=== PATIENT | male | born 1970 | race Two or more races ===

== ENCOUNTER 2020-09-24 22:43 | Emergency (ER) | payer MEDICAID, SELFPAY ==
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
[2020-09-24 23:16] VITALS: BP 123/88; PULSE 91; RESP 17; TEMP 36.4; O2SAT 97; BMI 35.6
--- NOTE | 2020-09-24 23:30 | PC.NURSE ---
ICE PACK APPLIED TO LEFT EAR.
== END 2020-09-25 00:16 | disposition home or self-care (01) ==
PROVIDERS: Emergency Provider Internal Medicine
DX: S00.402A Unspecified superficial injury of left ear, initial encounter (principal); H92.02 Otalgia, left ear; X99.1XXA Assault by knife, initial encounter; Y93.9 Activity, unspecified; Y92.410 Unspecified street and highway as the place of occurrence of the external cause; Y99.9 Unspecified external cause status; Z79.899 Other long term (current) drug therapy; Z23 Encounter for immunization
CPT/HCPCS: 70450; 72125; 90471; 90715; 99284

== ENCOUNTER 2022-03-04 21:47 | Emergency (ER) | payer MEDICAID, SELFPAY ==
--- NOTE | ~2022-03-04 | XR_ITS ---
EXAMINATION: XR FINGER, LEFT CLINICAL INFORMATION: This is a 51-year-old male status post staple into the finger. COMPARISON: None TECHNIQUE: Three views of the left fourth digit. FINDINGS: There is a metallic cyst able which traverses the lateral soft tissues adjacent to the distal phalanx of the fourth digit. The metallic staple may penetrate a portion of the distal tuft bone of the fourth digit. No fracture or dislocation is seen. There is a ring surrounding the proximal phalanx of the fourth digit. XR/XR finger LT min 2V IMPRESSION: 1. The staple may traverse a portion of the distal tuft of the distal phalanx of the fourth digit on the left hand.
--- NOTE | ~2022-03-04 | XR_ITS ---
EXAMINATION: XR FINGER, LEFT CLINICAL INFORMATION: Status post removal of staple from left fourth digit COMPARISON: Radiographs 03/04/2022 10:13 PM TECHNIQUE: 3 views of the left fourth digit. FINDINGS: The previously seen stable is no longer present a tiny osseous density is seen on the medial aspect of the distal middle phalanx, unchanged from prior. No fracture is seen at the previous location of the staple. XR/XR finger LT min 2V IMPRESSION: Foreign body is no longer present. No acute fracture.
[2022-03-04 21:57] VITALS: BP 171/109; PULSE 76; RESP 18; TEMP 36.1; O2SAT 97; BMI 36.1
[2022-03-04] MEDS: Lidocaine HCl 1 % MPF 2 ML VIAL INFILTRATI (23:41)
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
[2022-03-05] MEDS: cephALEXin 500 MG CAPSULE PO (00:25)
[2022-03-05 00:51] VITALS: BP 136/89; PULSE 89; RESP 18; TEMP 36.8; O2SAT 98
== END 2022-03-05 00:53 | disposition home or self-care (01) ==
PROVIDERS: Emergency Provider Internal Medicine
DX: S61.245A Puncture wound with foreign body of left ring finger without damage to nail, initial encounter (principal); W45.8XXA Other foreign body or object entering through skin, initial encounter; Y93.89 Activity, other specified; Y92.9 Unspecified place or not applicable; Y99.9 Unspecified external cause status
CPT/HCPCS: 64450; 73140; 99284

== ENCOUNTER 2023-02-21 14:19 | Outpatient (AMB) | payer MEDICAID, SELFPAY ==
--- NOTE | 2023-02-21 14:37 | A.OFFVIS_ITS ---
Intake Intake Visit Reasons: Erectile dysfunction Intake Note: New Patient is present for Erectile Dysfunction Current Med: Sildenafil Antibiotic Allergy: None Blood Thinner: None Pharmacy: [facility] Allergies bupropion Allergy (Mild, Verified 02/21/23 14:38) Unknown pravastatin Allergy (Mild, Verified 02/21/23 14:38) Unknown tramadol Allergy (Mild, Verified 02/21/23 14:38) Unknown aspirin Allergy (Unknown, Uncoded 02/21/23 14:38) Swelling Medication List - Last Reconciled 04/10/23 by Marin Kimball MD amlodipine 5 mg PO QAM blood sugar diagnostic (FreeStyle Lite Strips) As directed cephalexin 500 mg PO QID 7 days dulaglutide (Trulicity) mg subcut QWEEK lancets (TRUEplus Lancets) As directed oxycodone 5 mg PO Q6H PRN sildenafil (Viagra) 50 - 100 mg PO DIRECTED HPI HPI Comments History of Present Illness Details Gilbert is a pleasant male. He is a patient of Dr Lockett. He seen for the following urologic conditions - erectile dysfunction Erectile dysfunction in setting of type 2 diabetes Progressive Recently had Viagra prescribed Will trial Four month follow-up [facility] Medical History Acute insomnia CTS (carpal tunnel syndrome) Depressive disorder Diabetes mellitus, type II Erectile dysfunction GERD (gastroesophageal reflux disease) HTN (hypertension) Obesity Social History Alcohol intake: former Review of Systems Const Denies chills and Denies fever(s) Card Reports no additional complaints and Denies syncope Resp Denies cough GI Denies abdominal pain and Denies heartburn Reports as per HPI and Denies change in libido Neuro Denies syncope Psych Denies change in libido Endo Denies change in libido Physical Exam Const General: cooperative, healthy appearing, comfortable and no acute distress Orientation/consciousness: patient oriented x3 HEENT Face and sinus: Yes normal facial exam Mouth: moist mucous membranes Neck Neck: Yes normal visual inspection, Yes full ROM and Yes trachea midline Chest Chest palpation & inspection: normal inspection of the chest Resp Effort & Inspection: normal respiratory effort, able to speak in complete sentences and no respiratory distress GI Inspection: Yes normal to inspection Back/Spine/Pelvis Cervical Spine: normal cervical lordosis Thoracic/Lumbar Spine: thoracic and lumbar spine normal to inspection Skin General skin exam: no rashes or lesions noted Neuro General: patient oriented x3, gait normal, tone normal and moves all extremities Extrem General: Yes normal to inspection and Yes capillary refill normal Assessment & Plan Assessment & Plan (1) Erectile dysfunction associated with type 2 diabetes mellitus: Code(s): E11.69 - Type 2 diabetes mellitus with other specified complication; N52.1 - Erectile dysfunction due to diseases classified elsewhere Plan Four month follow-up Patient Instructions: Imaging studies, laboratory and physical exam results were discussed and reviewed in detail. No major barriers to patient understanding were identified. An opportunity to ask questions regarding the treatment plan was provided. All questions were answered. The patient expressed understanding and agreement with the above treatment plan. The patient is aware they should contact our office by phone for worsening of their current condition or the appearance of new urologic symptoms. Compliance is encouraged with any medications and followup testing that is ordered. It is a privilege to participate in the urologic care of your patient. If you have any questions or concerns regarding treatment for the above conditions, or other urologic issues, please do not hesitate to contact me. The office telephone contact is [phone]. This note is constructed using voice recognition software. While every effort has been made to ensure accuracy credit resolution representative errors may have been included. Yours sincerely, Dr Marin Kimball MD, [facility] - Urology Providers of Expert, Compassionate Care for the Genitourinary System Coding Level of Care Code New Pt Level 3 (15262) Diagnoses Erectile dysfunction associated with type 2 diabetes mellitus E11.69; N52.1
== END 2023-02-21 15:15 | disposition home or self-care (01) ==
PROVIDERS: Visit Provider Urology
DX: E11.69 Type 2 diabetes mellitus with other specified complication (principal); N52.1 Erectile dysfunction due to diseases classified elsewhere
CPT/HCPCS: 99203

== ENCOUNTER → 2023-02-21 14:19 | Outpatient (BNVA) | payer MEDICAID, SELFPAY | PROVIDERS: Visit Provider Urology ==

== ENCOUNTER 2023-05-15 10:00 | Outpatient (RCR) | payer MEDICAID, SELFPAY ==
--- NOTE | 2023-03-27 13:39 | MHC.OT.OEV ---
[address] [phone] F: [phone] Occupational Therapy Evaluation Patient Name: Gilbert Seth Diagnosis: Bilateral Carpal Tunnel Syndrome Date of Onset: Date of Surgery: Attending Provider: Karo Lockett Prescribed Treatment: Eval and treat MD Follow Up Appointment: History of Current Condition: Pt reports a long history of bilateral carpal tunnel symptoms. He has night wrist splints he does not wear , his son uses them on the computer. EMG not available. Significant Medical History: IDDM CTS bilateral hands Back pain. 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 17 yo son home Current Level of Function and Occupation Self Care, Employment, Leisure: Indep . Pain with forceful gripping and pinching. 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 achy. right > left hand Aggravating Factors: Sleeping, gripping Alleviating Factors: Cold Skin and Soft Tissue Assessment Skin and Soft Tissue: Callus Comments: Bilateral hands , digits and palm with dry, stained cracked skin along lateral index fingers, digits and palms. Nerve assessment Ulnar Nerve: WFL Median Nerve: WFL Radial Nerve: Comments: Reports pain with MMT Sensory Assessment Temperature: Light Touch: B/L Impaired Proprioception: Vibration: Comments: Impaired light touch with [place] monofilaments D1-5 bilateral hands. Hx IDDM Edema Assessment Upper Extremity: WNL Lower Extremity: Comments: Dexterity Assessment Dexterity: Not Tested Comments: Special Tests Comments: AROM(PROM) Strength Cervical Cervical Flexion: Cervical Extension: Cervical Lateral Flexion: Cervical Rotation: Comments: Shoulder Flexion: Extension: Abduction: Internal Rotation: External Rotation: Comments: Flexion: Extension: Abduction: Internal Rotation: External Rotation: Comments: Elbow Flexion: Extension: Pronation: Supination: Comments: Flexion: Extension: Pronation: Supination: Comments: Wrist Flexion: Extension: Ulnar Deviation: Radial Deviation: Comments: WFL. Complaint of pain at end ranges Flexion: Extension: Ulnar Deviation: Radial Deviation: Comments: Thumb Thumb CMC Flexion: Thumb MCP Flexion: Thumb IP Flexion: Radial Abduction: Palmar Abduction: Samson (Kapandji 0-10): Comments: WFL Digits Index MCP: PIP: DIP: Long MCP: PIP: DIP: Ring MCP: PIP: DIP: Small MCP: PIP: DIP: Comments: WNL Gross Grasp: R 50 lb L 50 lb Lateral Pinch: R 7 lb L 17 lb Two-Point Pinch: R 14 lb L 12 lb Three-Jaw Jesus: R 17 lb L 17 lb Comments: Complaint of pain at wrist and forearms with testing Patient Education Primary Language: Rod Filler Required: Yes Current Knowledge: Minimal, needs reinforcement Teaching Method: Demonstration Handouts Verbal Education Needs Identified on Evaluation: ADL's Disease Information Exercise Pain How did patient/family demonstrate learning? Needs reinforcement Barriers to Learning: None Readiness for Learning: Accepting Who was educated? Patient Comments: Plan of Care Assessment: Pt is a 52 yo male with a long ho bilateral CTS sx . Pt was issued night wrist splint but has not worn. He reports worsening of symptoms over the past several months. 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 until his symptoms improve Pt will benefit from OT to address CTS Sx STG Duration: 2 wks Short Term Goals: Demo compliance with CTS precautions Demo compliance with night wrist splints Demo indep with HEP Report improving UE pain LTG Duration: 4 wks Filenet Developer Goals: Indep with self management of CTS Report decreased hand pain Report increase ease with daily activities Frequency and Duration: The patient will be seen 2 x wk x 4 wks Treatment Plan: Therapeutic Exercise Therapeutic Activity Home Exercise Program Splinting Patient Education Ultrasound Cold Packs Soft Tissue Mobilization Electronically Signed By: Katie Multani OT CHT CLT Reviewed/agree with student documentation: Therapist: Please sign and return to therapist, Thank you for your referral.
--- NOTE | 2023-05-15 11:03 | MHC.OT.DC ---
[address] [phone] F: [phone] Occupational Therapy Discharge Note Patient Name: Gilbert Lindsay Seth Provider: Karo Lockett Diagnosis: Bilateral Carpal Tunnel Syndrome Date of Surgery: Date of Evaluation: 03/27/23 Date of Discharge: 05/15/23 Treatments to Date: 10 Cancellations to Date: No Shows to Date: Discharge Status: Recommend MD Follow-up Discharge Summary: Pt seen for 10 visits for sx of wrist and hand pain, elbow pain ,lateral and medial aspects with bilateral ulnar nerve subluxation with elbow flexion ~ 90 deg. He denies radial hand paresthesia There has been a significant decrease in right ulnar hand edema and reports some improvement in hand and forearm pain . Extensive time spent in pt education and practice on upper body stretches, tendon glides, modified nerve glides to avoid nerve subluxation and education on protection techniques for elbows and wrist and rational for night orthoses for nerve protection. Pt reports unable to orthoses due to need to sleep in his right hand. 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 Continued complaint of pain with wrist AROM and sub max elbow ROM . Unable to progress therapeutic exercises due to complaint of worsening pain. 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
== END 2023-05-15 11:03 | disposition home or self-care (01) ==
LOC: HO.OT 10:00
PROVIDERS: PCP Registered Nurse; Visit Provider Registered Nurse
DX: G56.03 Carpal tunnel syndrome, bilateral upper limbs (principal)
CPT/HCPCS: 29125; 97033; 97035; 97110; 97140; 97166; 97535; 97760

== ENCOUNTER 2023-05-28 11:34 | Outpatient (REF) | payer MEDICAID, SELFPAY ==
[2023-05-28 13:19] LABS: MANUAL DIFF FLAG NO
[2023-05-28 13:43] LABS: Basophils Absolute Auto 0.1 X10*3/uL (0.0-0.2); Basophils Percent Auto 0.8 % (0-2); Eosinophils Absolute Auto 0.7 X10*3/uL (0.0-0.4); Eosinophils Percent Auto 8.4 % (0-4); Hematocrit 45.1 % (42.0-52.0); Hemoglobin 14.6 g/dl (14.0-18.0); Imm Gran Abs Auto 0.03 X10*3/uL (0.00-0.03); Imm Gran Pct Auto 0.4 % (0.0-0.4); Lymphocytes Absolute Auto 3.2 X10*3/uL (1.2-4.9); Lymphocytes Percent Auto 41.2 % (20-40); Mean Corpuscular HGB Conc 32.4 g/dl (31.0-36.0); Mean Corpuscular Hemoglobin 31.2 pg (27.0-33.0); Mean Corpuscular Volume 96.4 fL (80.0-98.0); Mean Platelet Volume 10.5 fL (9.4-12.4); Monocytes Absolute Auto 0.6 X10*3/uL (0.1-1.2); Monocytes Percent Auto 7.3 % (2-11); Neutrophils Absolute Auto 3.2 x10*3/uL (2.0-8.3); Neutrophils Percent Auto 41.9 % (45-73); Platelet Count 333 X10*3/uL (160-400); Red Blood Count 4.68 X10*6/uL (4.60-5.80); Red Cell Distribution Width 12.5 % (11.0-16.0); White Blood Count 7.7 X10*3/uL (4.8-10.8)
[2023-05-28 14:02] LABS: C Reactive Protein < 0.10 mg/dL (< or = 0.50)
[2023-05-28 14:09] LABS: Rheumatoid Factor < 13.0 IU/mL (<15.0)
[2023-05-28 14:20] LABS: Erythrocyte Sedimentation Rate 7 MM/HR (0-15)
[2023-05-29 22:24] LABS: Lyme Abs Screen <0.90 index
[2023-06-01 10:38] LABS: Anti Nuclear Antibody Screen NEGATIVE (NEGATIVE)
== END 2023-05-28 11:35 | disposition home or self-care (01) ==
LOC: HO.HHCL 11:34
PROVIDERS: Visit Provider Internal Medicine
DX: M77.11 Lateral epicondylitis, right elbow (principal); M77.12 Lateral epicondylitis, left elbow; M77.01 Medial epicondylitis, right elbow; G56.01 Carpal tunnel syndrome, right upper limb; M25.50 Pain in unspecified joint
CPT/HCPCS: 36415; 85025; 85652; 86038; 86140; 86431; 86617; 86618

== ENCOUNTER 2023-05-29 10:00 | Outpatient (REF) | payer MEDICAID, SELFPAY ==
--- NOTE | ~2023-05-29 | XR_ITS ---
EXAMINATION: XR SHOULDER, RIGHT CLINICAL INFORMATION: Right shoulder pain COMPARISON: None available. TECHNIQUE: AP external rotation, Grashey, scapular Y, and axillary views of the right shoulder. FINDINGS: The bones are intact. No fracture. Glenohumeral and acromioclavicular alignment is anatomic with normal glenohumeral joint space. Moderate degenerative change of the acromioclavicular joint. No abnormal soft tissue calcifications. XR/XR shoulder RT min 2V IMPRESSION: Moderate degenerative change of the acromioclavicular joint.
--- NOTE | ~2023-05-29 | XR_ITS ---
EXAMINATION: XR HAND, RIGHT CLINICAL INFORMATION: Carpal tunnel right wrist, arthralgia. Right hand pain and weakness COMPARISON: Right hand 07/18/2012 TECHNIQUE: PA, lateral, and oblique views of the right hand. FINDINGS: There is no fracture or dislocation. Alignment is anatomic. Joint spaces are maintained. No significant arthritic changes. XR/XR hand RT min 3V IMPRESSION: No significant bony abnormality.
--- NOTE | ~2023-05-29 | XR_ITS ---
EXAMINATION: XR CERVICAL SPINE CLINICAL INFORMATION: Right upper extremity pain/numbness radiculopathy. Right hand pain and weakness, right shoulder pain COMPARISON: None available. TECHNIQUE: 5 views of the cervical spine, inclusive of both obliques, were obtained. FINDINGS: The tip of the odontoid is obscured on the open-mouth view. There is no fracture. Prevertebral soft tissues are within normal limits. There is no significant disc space narrowing. There is mild retrolisthesis of C4 with respect to C5. The neural foramina are patent. XR/XR cervical spine 5V IMPRESSION: 1. No acute bony abnormality. 2. Mild retrolisthesis of C4 with respect to C5.
== END 2023-05-29 10:01 | disposition home or self-care (01) ==
LOC: HO.HHCX 10:00
PROVIDERS: Visit Provider Internal Medicine
DX: M19.011 Primary osteoarthritis, right shoulder (principal); M77.11 Lateral epicondylitis, right elbow; M77.12 Lateral epicondylitis, left elbow; G56.01 Carpal tunnel syndrome, right upper limb; M25.50 Pain in unspecified joint
CPT/HCPCS: 72050; 73030; 73130

== ENCOUNTER 2023-06-25 10:54 | Outpatient (AMB) | payer MEDICAID, SELFPAY ==
--- NOTE | 2023-06-25 11:16 | A.OFFVIS_ITS ---
Intake Intake Visit Reasons: 4m follow up(Erectile Dys) Intake Note: Patient is Present for Follow Up Urology Medication: Sildenafil Antibiotic Allergies: None Blood Thinners: none Allergies bupropion Allergy (Mild, Verified 02/21/23 14:38) Unknown pravastatin Allergy (Mild, Verified 02/21/23 14:38) Unknown tramadol Allergy (Mild, Verified 02/21/23 14:38) Unknown aspirin Allergy (Unknown, Uncoded 02/21/23 14:38) Swelling HPI HPI Comments History of Present Illness Details Gilbert is a pleasant male. He is a patient of Dr Lockett. He seen for the following urologic conditions - erectile dysfunction Azeri translation provided by partner Minimal impact from on demand Viagra Prescribed daily tadalafil with on demand 3 month follow-up tele Erectile dysfunction in setting of type 2 diabetes Progressive Failed Viagra on demand PFSH Medical History Acute insomnia CTS (carpal tunnel syndrome) Depressive disorder Diabetes mellitus, type II Erectile dysfunction GERD (gastroesophageal reflux disease) HTN (hypertension) Obesity Social History Alcohol intake: former Review of Systems Const Denies chills and Denies fever(s) Card Reports no additional complaints and Denies syncope Resp Denies cough GI Denies abdominal pain and Denies heartburn Reports as per HPI and Denies change in libido Neuro Denies syncope Psych Denies change in libido Endo Denies change in libido Physical Exam Const General: cooperative, healthy appearing, comfortable and no acute distress Orientation/consciousness: patient oriented x3 HEENT Face and sinus: Yes normal facial exam Mouth: moist mucous membranes Neck Neck: Yes normal visual inspection, Yes full ROM and Yes trachea midline Chest Chest palpation & inspection: normal inspection of the chest Resp Effort & Inspection: normal respiratory effort, able to speak in complete sentences and no respiratory distress GI Inspection: Yes normal to inspection Back/Spine/Pelvis Cervical Spine: normal cervical lordosis Thoracic/Lumbar Spine: thoracic and lumbar spine normal to inspection Skin General skin exam: no rashes or lesions noted Neuro General: patient oriented x3, gait normal, tone normal and moves all extremities Extrem General: Yes normal to inspection and Yes capillary refill normal Assessment & Plan Assessment & Plan (1) Erectile dysfunction associated with type 2 diabetes mellitus: Code(s): E11.69 - Type 2 diabetes mellitus with other specified complication; N52.1 - Erectile dysfunction due to diseases classified elsewhere Plan Three month follow-up Medications: New tadalafil [facility]LO[facility] N Group [facility] DR33 [id number] 5 mg PO DAILY 90 tabs 0RF sexual activity 90 days E11.69 - Type 2 diabetes mellitus with other specified complication, N52.1 - Erectile dys function due to diseases classified elsewhere tadalafil On demand medication take 60 minutes before intended activity 20 mg PO ONCE PRN 30 tabs 0RF sexual activity 30 days E11.69 - Type 2 diabetes mellitus with other specified complication, N52.1 - Erectile dysfunction due to diseases classified elsewhere Patient Instructions: Imaging studies, laboratory and physical exam results were discussed and reviewed in detail. No major barriers to patient understanding were identified. An opportunity to ask questions regarding the treatment plan was provided. All questions were answered. The patient expressed understanding and agreement with the above treatment plan. The patient is aware they should contact our office by phone for worsening of their current condition or the appearance of new urologic symptoms. Compliance is encouraged with any medications and followup testing that is ordered. It is a privilege to participate in the urologic care of your patient. If you have any questions or concerns regarding treatment for the above conditions, or other urologic issues, please do not hesitate to contact me. The office telephone contact is [phone]. This note is constructed using voice recognition software. While every effort has been made to ensure accuracy rebar bender errors may have been included. Yours sincerely, Dr Marin Kimball MD, [facility] - Urology Providers of Expert, Compassionate Care for the Genitourinary System Coding Level of Care Code Est Pt Level 4 (36251) Diagnoses Erectile dysfunction associated with type 2 diabetes mellitus E11.69; N52.1
== END 2023-06-25 12:16 | disposition home or self-care (01) ==
PROVIDERS: PCP Registered Nurse; Visit Provider Urology
DX: E11.69 Type 2 diabetes mellitus with other specified complication (principal); N52.1 Erectile dysfunction due to diseases classified elsewhere
CPT/HCPCS: 99214

== ENCOUNTER → 2023-06-25 10:54 | Outpatient (BNVA) | payer MEDICAID, SELFPAY | PROVIDERS: PCP Registered Nurse; Visit Provider Urology | DX: E11.69 Type 2 diabetes mellitus with other specified complication (principal); N52.1 Erectile dysfunction due to diseases classified elsewhere | CPT/HCPCS: 99212 ==

== ENCOUNTER 2023-06-26 10:23 | Outpatient (REF) | payer MEDICAID, SELFPAY ==
--- NOTE | 2023-06-26 10:28 | EMG_ITS ---
Right median and ulnar motor and sensory studies were performed. Right radial sensory study was performed and paraspinal muscles were tested with a needle. IMPRESSION: Mild to moderate right median neuropathy across carpal tunnel. MD DIDI Merrill/RUDY / [id number]
== END 2023-06-26 10:24 | disposition home or self-care (01) ==
LOC: HO.NEURO 10:23
PROVIDERS: PCP Registered Nurse; Visit Provider Internal Medicine
DX: G56.01 Carpal tunnel syndrome, right upper limb (principal); M77.11 Lateral epicondylitis, right elbow
CPT/HCPCS: 95886; 95909

== ENCOUNTER 2023-08-18 10:05 | Outpatient (REF) | payer MEDICAID, SELFPAY ==
--- NOTE | ~2023-08-18 | XR_ITS ---
EXAMINATION: XR RIBS, BILATERAL CLINICAL INFORMATION: Pain across anterior ribs status post fall in 07/14/2023. COMPARISON: None available. TECHNIQUE: 3 views of the bilateral ribs were obtained. Chest one view. FINDINGS: Chest: The lungs are well-expanded and clear of acute process.. No consolidation, pneumothorax, or pleural effusion. The cardiomediastinal silhouette and pulmonary vasculature are normal. Osseous structures are unremarkable. Ribs are intact. No fractures are identified. XR/XR ribs BI min 4V w CXR1V IMPRESSION: Unremarkable chest examination.
== END 2023-08-18 10:06 | disposition home or self-care (01) ==
LOC: HO.HHCX 10:05
PROVIDERS: Visit Provider Registered Nurse
DX: Z91.81 History of falling (principal)
CPT/HCPCS: 71111

== ENCOUNTER 2023-09-24 10:47 | Outpatient (AMB) | payer MEDICAID, SELFPAY ==
--- NOTE | 2023-09-24 10:47 | A.OFFVIS_ITS ---
Intake Intake Visit Reasons: 3m follow up Intake Note: Patient presents today for a telehealth follow-up Meds- Sildenafil, Tadalafil Allergies to Antibiotic- No Known Allergies Blood Thinner- None Dredge Captain Required: No Allergies bupropion Allergy (Mild, Verified 10/02/23 09:56) Unknown pravastatin Allergy (Mild, Verified 10/02/23 09:56) Unknown tramadol Allergy (Mild, Verified 10/02/23 09:56) Unknown aspirin Allergy (Unknown, Uncoded 10/02/23 09:56) Swelling Medication List - Last Reconciled 09/24/23 by Marin Kimball MD amlodipine 5 mg PO QAM blood sugar diagnostic (FreeStyle Lite Strips) As directed dulaglutide (Trulicity) mg subcut QWEEK lancets (TRUEplus Lancets) As directed oxycodone 5 mg PO Q6H PRN sildenafil (Viagra) 50 - 100 mg PO DIRECTED tadalafil 20 mg PO ONCE PRN 30 days tadalafil 5 mg PO DAILY 90 days HPI HPI Comments History of Present Illness Details Gilbert is a pleasant male. He is a patient of Dr Lockett. He seen for the following urologic conditions - erectile dysfunction Cameroonian translation provided by partner Telemedicine Evaluation 15 min Consultation [facility] Video attempted Follow-up from daily tadalafil Minimal impact from on demand Viagra Prescribed daily tadalafil with on demand Erectile dysfunction in setting of type 2 diabetes Progressive Failed Viagra on demand PFSH Medical History (Updated 10/02/23 @ 10:34 by Azul Joe PA-C) Erectile dysfunction CTS (carpal tunnel syndrome) Depressive disorder HTN (hypertension) GERD (gastroesophageal reflux disease) Acute insomnia Obesity Diabetes mellitus, type II Family History Brother Prostate cancer Father Prostate cancer Brother Cancer Social History (Updated 10/02/23 @ 10:10 by Azul Joe PA-C) Household Members Other:: Alcohol intake: former Patient Tobacco Use Status: Never used Tobacco Current occupational status: unemployed Review of Systems Const All systems reviewed & are unremarkable except as noted in HPI and below Reports no additional complaints Resp Reports no additional complaints GI Reports no additional complaints Reports as per HPI Musc Reports no additional complaints Physical Exam Telemedicine evaluation Appropriate responses Regular breathing rate and rhythm HEENT Head: Yes normal to inspection Ears: hearing grossly normal bilaterally Eyes General: appearance normal, both eyes and all related structures Neck Neck: Yes normal visual inspection Chest Chest palpation & inspection: normal inspection of the chest Resp Effort & Inspection: normal respiratory effort and able to speak in complete sentences Assessment & Plan Assessment & Plan (1) Erectile dysfunction associated with type 2 diabetes mellitus: Code(s): E11.69 - Type 2 diabetes mellitus with other specified complication; N52.1 - Erectile dysfunction due to diseases classified elsewhere Plan Three-month follow-up tele Medications: Changed From tadalafil BIN N Group [facility] DR33 [id number] 5 mg PO DAILY 90 days 90 tabs 0RF sexual activity E11.69 - Type 2 diabetes mellitus with other specified complication, N52.1 - Erectile dysfunction due to diseases classified elsewhere To tadalafil 5 mg PO DAILY 90 tabs 0RF sexual activity 90 days E11.69 - Type 2 diabetes mellitus with other specified complication, N52.1 - Erectile dysfunction due to diseases classified elsewhere Patient Instructions: Imaging studies, laboratory and physical exam results were discussed and reviewed in detail. No major barriers to patient understanding were identified. An opportunity to ask questions regarding the treatment plan was provided. All questions were answered. The patient expressed understanding and agreement with the above treatment plan. The patient is aware they should contact our office by phone for worsening of their current condition or the appearance of new urologic symptoms. Compliance is encouraged with any medications and followup testing that is ordered. It is a privilege to participate in the urologic care of your patient. If you have any questions or concerns regarding treatment for the above conditions, or other urologic issues, please do not hesitate to contact me. The office telephone contact is [phone]. This note is constructed using voice recognition software. While every effort has been made to ensure accuracy office coordinator errors may have been included. Yours sincerely, Dr Marin Kimball MD, [facility] - Urology Providers of Expert, Compassionate Care for the Genitourinary System Telehealth Telehealth Location of provider rendering services: practice address Location of patient: address on file Patient Identification confirmed using: Name, : Yes Telehealth method: video Patient verbally consented to treatment: Yes Patient verbally consented to billing insurance company: Yes Patient informed of any privacy concerns related to visit: Yes Coding Level of Care Code Tele Est Pt Level 4 (49064) Diagnoses Erectile dysfunction associated with type 2 diabetes mellitus E11.69; N52.1
== END 2023-09-24 11:24 | disposition home or self-care (01) ==
LOC: HO.HUSH 10:47
PROVIDERS: PCP Registered Nurse; Visit Provider Urology
DX: E11.69 Type 2 diabetes mellitus with other specified complication (principal); N52.1 Erectile dysfunction due to diseases classified elsewhere
CPT/HCPCS: 99213

== ENCOUNTER → 2023-09-24 10:47 | Outpatient (BNVA) | payer MEDICAID, SELFPAY | PROVIDERS: PCP Registered Nurse; Visit Provider Urology ==

== ENCOUNTER 2023-10-02 09:41 | Outpatient (AMB) | payer MEDICAID, SELFPAY ==
--- NOTE | 2023-10-02 09:46 | MHC.OFFVIS ---
Intake Vital Signs 10/02/23 09:52 Height 5 ft 4 in Weight 191 lb 12.835 oz BMI 32.9 BP 122/77 Blood Pressure Location Lt brachial Position Sitting Pulse 75 Intake Visit Reasons: Colonoscopy Screening Intake Note: Gilbert presents in the office as a colonoscopy screening. CC: He is here for a screening. There is colon cancer in his family - he states when he goes to the bathroom there is blood when he does have a BM. If he cleans himself and wipes the bleeding gets worse. When he is home he just takes a shower after having a BM to avoid more bleeding. Container Packer Operator Required: Yes Container Packer Operator Name: Jimbo [id number] Allergies bupropion Allergy (Mild, Verified 10/02/23 09:56) Unknown pravastatin Allergy (Mild, Verified 10/02/23 09:56) Unknown tramadol Allergy (Mild, Verified 10/02/23 09:56) Unknown aspirin Allergy (Unknown, Uncoded 10/02/23 09:56) Swelling Medication List - Last Reconciled 10/02/23 by Azul Joe PA-C amlodipine 5 mg PO QAM blood sugar diagnostic (FreeStyle Lite Strips) As directed cholecalciferol (vitamin D3) 25 mcg PO QAM dulaglutide (Trulicity) mg subcut QWEEK empagliflozin (Jardiance) 10 mg PO QAM gemfibrozil 600 mg PO glipizide 20 mg PO hydrochlorothiazide 25 mg PO QAM lancets (TRUEplus Lancets) As directed lidocaine-prilocaine 2.5-2.5 % topical TID-QID sildenafil (Viagra) 50 - 100 mg PO DIRECTED tadalafil 20 mg PO ONCE PRN 30 days tadalafil 5 mg PO DAILY 90 days HPI HPI Comments History of Present Illness Details A 52 y/o male family no hx colon cancer- father had prostate cancer,. He presents with complaints of rectal bleeding with BM for a couple of years, He reportedly had issues with hemorrhoids back some time ago however does not feel they been an issue. Complains of acid reflux and a lot of gas-- prescribed for acid- cheaper otc- he and his for sharing medication due to insurance Prescribed Trulicity-however has not had x 2 weeks- due to pharmacy/ insurance- awaiting prescriber feedback Appetite is good- acid for many years- seems to have worsened- Normal bowel pattern-rectal bleeding with straining-no abdominal pain No respiratory or cardiac issues No N/V/ D abdominal pain- fever or chills Container Packer Operator assisted [facility] Medical History (Updated 10/02/23 @ 10:34 by Azul Joe PA-C) Erectile dysfunction CTS (carpal tunnel syndrome) Depressive disorder HTN (hypertension) GERD (gastroesophageal reflux disease) Acute insomnia Obesity Diabetes mellitus, type II Family History Brother Prostate cancer Father Prostate cancer Brother Cancer Social History (Updated 10/02/23 @ 10:10 by Azul Joe PA-C) Household Members Other:: Alcohol intake: former Patient Tobacco Use Status: Never used Tobacco Current occupational status: unemployed Review of Systems Const All systems reviewed & are unremarkable except as noted in HPI and below Card Denies chest pain and Denies dyspnea Resp Denies dyspnea GI Denies abdominal pain, Reports hematochezia, Reports excessive flatus, Reports heartburn, Denies nausea and Denies vomiting Physical Exam Vital Signs: Last Vital Signs Pulse 75 10/02/23 09:52 BP 122/77 10/02/23 09:52 BMI result Body Mass Index 32.9 Eyes Conjunctivae: conjunctival abnormal (Conjunctiva injected bilaterally no drainage) Resp Effort & Inspection: normal respiratory effort and able to speak in complete sentences Auscultation: clear to auscultation bilaterally, no rales, no rhonchi and no wheezes Cardio Rate: regular rate Rhythm: regular rhythm Heart sounds: S1 normal heart sound present and S2 normal heart sound present GI Palpation (GI): Soft to palpation and nontender Auscultation: normal bowel sounds Skin General skin exam: no rashes or lesions noted Extrem General: Yes full ROM Psych Appearance: grossly normal Mental Status: mental status grossly normal Speech and movement: Normal speech and movement present Affect: normal affect Attitude: cooperative Thought process: Normal thought process present Thought content: Normal thought content present Insight: Good insight present (Psych) Judgement: Good judgement present (Psych) Assessment & Plan Assessment & Plan (1) GERD (gastroesophageal reflux disease): Code(s): K21.9 - Gastro-esophageal reflux disease without esophagitis Plan: Continue PPI Reflux precautions EGD r/o Witt's, PUD, esophagitis, nonulcer dyspepsia other causes for his symptoms (2) Bloating: Code(s): R14.0 - Abdominal distension (gaseous) Plan: FODMAP Simethicone (3) Rectal bleeding: Comment: ANASTACIA hemorrhoids Code(s): K62.5 - Hemorrhage of anus and rectum Plan: Avoid straining Rectal cream Colonoscopy Plan IF taking-Trulicity stop 1 full wk prior Jardiance stop x 3 days Omit glipizide day before procedure No diabetes medications day of procedure Orders: Orders EGD/Sandstone Combo - GI Use Only Today Medications: New pantoprazole 40 mg PO DAILY 30 days 30 tabs 11RF bisacodyl (Dulcolax (bisacodyl)) Day before procedure @ 12 noon Take 4 tablets by mouth followed by large glass of water 20 mg (4 x 5 mg) PO ONCE 1 day PRN 4 tabs 0RF colonoscopy prep Z12.11 - Encounter for screening for malignant neoplasm of colon polyethylene glycol 3350 (Miralax) Take as directed by mouth the day before your procedure. 238 grams PO ONCE 1 day PRN 238 grams 0RF laxative effect hydrocortisone 2.5% (Proctosol HC) 1 appl [place] BEDTIME PRN 30 grams 3RF hemorrhoids simethicone (Gas Relief (simethicone)) 125 mg PO TID-QID 30 days PRN 90 tabs 2RF abdominal distention Patient Instructions: Reviewed with motor and generator assembler EGD and colonoscopy- Discussed procedures, rare risks, need for escort due to anesthesia and prep, reviewed literature IF taking-Trulicity stop 1 full wk prior Jardiance stop x 3 days Omit glipizide day before procedure No diabetes medications day of procedure Avoid straining with him Rectal cream as needed Reflux precautions Continue PPI No major barriers of understanding were identified-motor and generator assembler assisted Coding Level of Care Code New Pt Level 4 (56614) Diagnoses GERD (gastroesophageal reflux disease) K21.9 Bloating R14.0 Rectal bleeding K62.5 Time Spent (min) 35 Comment [id number], 2nd motor and generator assembler-[id number]
[2023-10-02 09:52] VITALS: BP 122/77; PULSE 75; BMI 32.9
== END 2023-10-02 10:58 | disposition home or self-care (01) ==
PROVIDERS: PCP Registered Nurse; Visit Provider Physician Assistant
DX: K21.9 Gastro-esophageal reflux disease without esophagitis (principal); R14.0 Abdominal distension (gaseous); K62.5 Hemorrhage of anus and rectum
CPT/HCPCS: 99204

== ENCOUNTER → 2023-10-02 09:41 | Outpatient (BNVA) | payer MEDICAID, SELFPAY | PROVIDERS: PCP Registered Nurse; Visit Provider Physician Assistant | DX: K21.9 Gastro-esophageal reflux disease without esophagitis (principal); K62.5 Hemorrhage of anus and rectum; R14.0 Abdominal distension (gaseous); Z79.899 Other long term (current) drug therapy | CPT/HCPCS: 99212 ==

== ENCOUNTER 2023-11-05 10:35 | Outpatient (REF) | payer MEDICAID, SELFPAY ==
--- NOTE | ~2023-11-05 | XR_ITS ---
EXAMINATION: XR SHOULDER, RIGHT CLINICAL INFORMATION: Pain. COMPARISON: Radiographs dated 05/29/2023. TECHNIQUE: AP neutral, Grashey and axillary views of the right shoulder are submitted. FINDINGS: Bony alignment and mineralization are normal. The glenohumeral joint is intact and shows mild osteoarthritic change. The acromioclavicular and coracoclavicular intervals are normal. There is mild osteoarthritic change of the acromioclavicular joint. No fracture or dislocation is seen. There is a distal acromial undersurface osteophyte, and there is mild cortical irregularity of the greater tuberosity of the proximal right humerus. No fracture or dislocation is seen. There is no abnormal soft tissue calcification or foreign body. No right pneumothorax is seen. XR/XR shoulder RT min 2V IMPRESSION: 1. There is mild osteoarthritic change of the right glenohumeral and acromioclavicular joints. 2. Findings suggest possible mild right rotator cuff impingement, without marimar calcific tendinitis noted.
== END 2023-11-05 10:36 | disposition home or self-care (01) ==
LOC: HO.HOSX 10:35
PROVIDERS: PCP Registered Nurse; Visit Provider Physician Assistant
DX: M19.011 Primary osteoarthritis, right shoulder (principal); M75.101 Unspecified rotator cuff tear or rupture of right shoulder, not specified as traumatic
CPT/HCPCS: 20610; 73030; 99212; J1010

== ENCOUNTER 2023-11-05 10:35 | Outpatient (AMB) | payer MEDICAID, SELFPAY ==
--- NOTE | 2023-11-05 10:45 | A.OFFVIS_ITS ---
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 EMG was done on 06/26/23. He states that symptoms occurred about 6 -7 months ago. Hx of OT with no relief. Patient expresses that he is normally having pain, no signs of numbness or tingling. He states that his pain starts from his right shoulder down to his arm. Allergies bupropion Allergy (Mild, Verified 11/05/23 10:48) Unknown pravastatin Allergy (Mild, Verified 11/05/23 10:48) Unknown tramadol Allergy (Mild, Verified 11/05/23 10:48) Unknown aspirin Allergy (Unknown, Uncoded 10/02/23 09:56) Swelling HPI BLAST F[employer]NA[employer] A[employer]ILIAR[employer] SUPERVISOR-RT CTS HPI Details 53-year-old right hand dominant male who presents in the office today, as a new patient, for an evaluation of right shoulder pain. Patient was referred to occupational therapy to treat right hand carpal tunnel syndrome, which he attended 10 sessions and being discharged on 05/15/2023. While in the office today the patient reports pain in his right shoulder which began around 6-7 months ago. He confirms a history of OT with no relief. Confirms pain but denies numbness or tingling. He reports the pain starting in the right shoulder and radiating to his right hand. He denies numbness or tingling. He states his main complaint is the pain throughout the entire right upper extremity. He denies neck pain. [facility] Medical History (Updated 11/05/23 @ 11:36 by Lolita Fitzpatrick) Erectile dysfunction CTS (carpal tunnel syndrome) Depressive disorder HTN (hypertension) GERD (gastroesophageal reflux disease) Acute insomnia Obesity Diabetes mellitus, type II Family History Brother Prostate cancer Father Prostate cancer Brother Cancer Social History (Updated 11/05/23 @ 10:51 by Rafael Sam) Household Members Other:: Alcohol intake: former Patient Tobacco Use Status: Never used Tobacco Current occupational status: unemployed Current occupation: right hand dominant Review of Systems Const All systems reviewed & are unremarkable except as noted in HPI and below Physical Exam Vital Signs: BMI result Body Mass Index 32.8 Const General: cooperative and no acute distress Orientation/consciousness: patient oriented x3 Resp Effort & Inspection: normal respiratory effort and able to speak in complete sentences Cardio Peripheral pulses: Peripheral pulses 2+ throughout Skin General skin exam: no rashes or lesions noted Neuro General: patient oriented x3 Extrem Other: Right shoulder: Pain along the impingement arc. Forward flexion to 90 degrees. Full abduction. Able to reach T12. Pain with cross-body reach. 4/5 strengthen with empty can. NVI. Office Procedures Joint Injection/Drain Joint Injection/Drain Primary Site: right shoulder Prep: site was prepped using aseptic technique, ethochloride spray was applied and injection warnings given Injected: 40 mg of, DepoMedrol, with 8 mL of (2% plain lido ) and in the subcromial space Approach Used: posterolateral Procedure: The patient tolerated the procedure well, but had some pain with the injection and there was some relief with the local anesthesia Coding 06738 - Large joint Procedure code (CPT) selection complete Assessment & Plan Assessment & Plan (1) Diabetes mellitus, type II: Code(s): E11.9 - Type 2 diabetes mellitus without complications (2) Arthritis of right glenohumeral joint: Code(s): M19.011 - Primary osteoarthritis, right shoulder (3) Painful arc syndrome of right shoulder: Code(s): M75.101 - Unspecified rotator cuff tear or rupture of right shoulder, not specified as traumatic Plan Mr. Neftali Seth is a 53-year-old right hand dominant male who presents in the office today, as a new patient, for an evaluation of right shoulder pain. Patient was referred to occupational therapy to treat right hand carpal tunnel syndrome, which he attended 10 sessions and being discharged on 05/15/2023. While in the office today the patient reports pain in his right shoulder which began around 6-7 months ago. He confirms a history of OT with no relief. Confirms pain but denies numbness or tingling. He reports the pain starting in the right shoulder and radiating to his right hand. He denies numbness or tingling. He states his main complaint is the pain throughout the entire right upper extremity. He denies neck pain. The patient was offered a cortisone injection in the right shoulder with 40mg of DepoMedrol. The patient was explained the risk, benefits, and alternatives to receiving this injection. After receiving consent for the injection, the patient had the procedure done while in the office today. The patient tolerated the procedure well with no complications. Due to the patient?s history of diabetes, they were instructed to monitor his blood glucose level. The patient was informed that they could see a rise in their numbers and if the numbers became too high, they were instructed to call their PCP. The patient was also informed that they could have facial flushing as a side effect of the injection, but this will pass. Patient will give the injection 4 weeks to see if he is able to get any relief. If after that he has no improvement, he will contact the office. The next step would be to schedule a glenohumeral joint injection at the hospital under imaging guidance. Follow-up will be PRN or after 4 weeks should the patient reach out to the office, or sooner if needed. X-rays of the right shoulder which were obtained while in the office today and were reviewed by me, Katy Baron PA-C, revealed glenohumeral joint arthritis. EMG of the right upper extremity, obtained on 06/26/2023, revealed: Mild to moderate right median neuropathy across carpal tunnel. Orders: Orders XR shoulder RT min 2V Today M25.519 - Pain in unspecified shoulder Patient Instructions: Scribed by Lolita Fitzpatrick medical assistant dermatology, for Katy Baron PA-C on 11/04/2023 at 10:38 am, EST. Coding Level of Care Code New Pt Level 4 (01780) Diagnoses Diabetes mellitus, type II E11.9 Arthritis of right glenohumeral joint M19.011 Painful arc syndrome of right shoulder M75.101 CPT Codes Coding - 51445 Large joint: 56037 - Large joint ([id number])
[2023-11-05 10:51] VITALS: BMI 32.8
== END 2023-11-05 11:27 | disposition home or self-care (01) ==
PROVIDERS: PCP Registered Nurse; Visit Provider Physician Assistant
DX: E11.9 Type 2 diabetes mellitus without complications (principal); M19.011 Primary osteoarthritis, right shoulder; M75.101 Unspecified rotator cuff tear or rupture of right shoulder, not specified as traumatic
CPT/HCPCS: 20610; 99204

== ENCOUNTER 2023-12-25 11:59 | Outpatient (AMB) | payer MEDICAID, SELFPAY ==
--- NOTE | 2023-12-25 12:01 | A.OFFVIS_ITS ---
Intake Visit Reasons: 3m follow up Supervisor Laboratory Animal Facility Required: Yes Supervisor Laboratory Animal Facility Language: South African Information Interpreted: clinical only Allergies bupropion Allergy (Mild, Verified 12/25/23 12:01) Unknown pravastatin Allergy (Mild, Verified 12/25/23 12:01) Unknown tramadol Allergy (Mild, Verified 12/25/23 12:01) Unknown aspirin Allergy (Unknown, Uncoded 12/25/23 12:01) Swelling HPI Comments Details: Gilbert is a pleasant male. He is a patient of Dr Lockett. He seen for the following urologic conditions - erectile dysfunction Telemedicine Evaluation 15 min Consultation [place] African translation provided by qualified medical records director via [facility] Follow-up from daily tadalafil with 20 mg on demand Background diabetes Minimal impact from on demand Viagra Minimal impact tadalafil with on demand Discussion of options including injectable medications and penile prosthetic Trial of high-dose oral medication Two month follow-up discussion of prosthetic Erectile dysfunction in setting of type 2 diabetes Progressive Failed Viagra on demand PFSH Medical History Erectile dysfunction CTS (carpal tunnel syndrome) Depressive disorder HTN (hypertension) GERD (gastroesophageal reflux disease) Acute insomnia Obesity Diabetes mellitus, type II Family History Brother Prostate cancer Father Prostate cancer Brother Cancer Social History Household Members Other:: Alcohol intake: former Patient Tobacco Use Status: Never used Tobacco Current occupational status: unemployed Current occupation: right hand dominant Review of Systems Const All systems reviewed & are unremarkable except as noted in HPI and below Reports no additional complaints Resp Reports no additional complaints GI Reports no additional complaints Reports as per HPI Musc Reports no additional complaints Physical Exam Telemedicine evaluation Appropriate responses Regular breathing rate and rhythm HEENT Head: Yes normal to inspection Ears: hearing grossly normal bilaterally Eyes General: appearance normal, both eyes and all related structures Neck Neck: Yes normal visual inspection Chest Chest palpation & inspection: normal inspection of the chest Resp Effort & Inspection: normal respiratory effort and able to speak in complete sentences Telehealth Telehealth Telehealth Platform: Telephone Location of provider rendering services: practice address Location of patient: address on file Patient Identification confirmed using: Name, : Yes Telehealth method: voice only Patient verbally consented to treatment: Yes Patient verbally consented to billing insurance company: Yes Patient informed of any privacy concerns related to visit: Yes Minutes spent on Phone/Video with Pt.: 15 Assessment & Plan Assessment & Plan (1) Erectile dysfunction associated with type 2 diabetes mellitus: Code(s): E11.69 - Type 2 diabetes mellitus with other specified complication; N52.1 - Erectile dysfunction due to diseases classified elsewhere Category: Medical Plan High dose oral medications Baseline testosterone in HbA1c Two month follow-up discussion penile prosthetic Orders: Orders Hemoglobin A1c Today E11.69 - Type 2 diabetes mellitus with other specified complication, E11.9 - Type 2 diabetes mellitus without complications, N52.1 - Erectile dysfunction due to diseases classified elsewhere Testosterone, Total Today E11.69 - Type 2 diabetes mellitus with other specified complication, N52.1 - Erectile dysfunction due to diseases classified elsewhere Medications: New tadalafil daily 10 mg PO DAILY 30 days 30 tabs 1RF sexual activity E11.69 - Type 2 diabetes mellitus with other specified complication, N52.1 - Erectile dysfunction due to diseases classified elsewhere tadalafil On demand medication take 60 minutes before intended activity 20 mg PO ONCE 30 days PRN 30 tabs 0RF sexual activity E11.69 - Type 2 diabetes mellitus with other specified complication, N52.1 - Erectile dysfunction due to diseases classified elsewhere Discontinued tadalafil On demand medication take 60 minutes before intended activity Discontinued Reason: Doctor's Order 20 mg PO ONCE 30 days PRN 30 tabs 0RF sexual activity E11.69 - Type 2 diabetes mellitus with other specified complication, N52.1 - Erectile dysfunction due to diseases classified elsewhere tadalafil Discontinued Reason: Patient Completed Course 5 mg PO DAILY 90 days 90 tabs 0RF sexual activity E11.69 - Type 2 diabetes mellitus with other specified complication, N52.1 - Erectile dysfunction due to diseases classified elsewhere Patient Instructions: Imaging studies, laboratory and physical exam results were discussed and reviewed in detail. No major barriers to patient understanding were identified. An opportunity to ask questions regarding the treatment plan was provided. All questions were answered. The patient expressed understanding and agreement with the above treatment plan. The patient is aware they should contact our office by phone for worsening of their current condition or the appearance of new urologic symptoms. Compliance is encouraged with any medications and followup testing that is ordered. It is a privilege to participate in the urologic care of your patient. If you have any questions or concerns regarding treatment for the above conditions, or other urologic issues, please do not hesitate to contact me. The office telephone contact is [phone]. This note is constructed using voice recognition software. While every effort has been made to ensure accuracy customer advisor errors may have been included. Yours sincerely, Dr Marin Kimball MD, [facility] Providers of Expert, Compassionate Care for the Genitourinary System Coding Level of Care Code Tele Est Pt Level 4 (80787) Diagnoses Erectile dysfunction associated with type 2 diabetes mellitus E11.69; N52.1
== END 2023-12-25 12:47 | disposition home or self-care (01) ==
LOC: HO.HUSH 11:59
PROVIDERS: PCP Registered Nurse; Visit Provider Urology
DX: E11.69 Type 2 diabetes mellitus with other specified complication (principal); N52.1 Erectile dysfunction due to diseases classified elsewhere
CPT/HCPCS: 99214

== ENCOUNTER → 2023-12-25 11:59 | Outpatient (BNVA) | payer MEDICAID, SELFPAY | PROVIDERS: PCP Registered Nurse; Visit Provider Urology ==

== ENCOUNTER 2024-02-06 07:58 | Outpatient (AMB) | payer MEDICAID, SELFPAY ==
--- NOTE | 2024-02-06 08:13 | MHC.OFFVIS ---
Vital Signs 02/06/24 08:18 Handedness Right Intake Visit Reasons: Right shoulder injection-last inj 11/05/23 Intake Note: Gilbert is a 53 year old right hand dominant male who presents today with his for a cortisone injection for his right shoulder, last injection rt shoulder 11/05/23. Patient reports his last injection gave him no relief but would like to repeat another today. His states he is having a colonoscopy next Friday and has concerns if this will affect the procedure. Allergies bupropion Allergy (Mild, Verified 02/06/24 08:16) Unknown pravastatin Allergy (Mild, Verified 02/06/24 08:16) Unknown tramadol Allergy (Mild, Verified 02/06/24 08:16) Unknown aspirin Allergy (Unknown, Uncoded 02/06/24 08:16) Swelling HPI HPI Right shoulder injection-last inj 11/05/23: Details: 53-year-old right hand dominant male, who is [place] speaking, presents in the office today for a follow-up of right shoulder pain. I last saw the patient in the office on 11/05/2023 when he was given a cortisone injection in the right shoulder. ? ? While in the office today, the patient reports the last injection gave him no relief. He is interest in repeating the injection in the office today. His expresses concern about the injection interfering with his colonoscopy on Friday02/13/2024.? ? Patient is accompanied in the office today by his . ? ? Patient has a significant medical history of diabetes mellitus.? PFSH Medical History Erectile dysfunction CTS (carpal tunnel syndrome) Depressive disorder HTN (hypertension) GERD (gastroesophageal reflux disease) Acute insomnia Obesity Diabetes mellitus, type II Family History Brother Prostate cancer Father Prostate cancer Brother Cancer Social History Household Members Other:: Alcohol intake: former Patient Tobacco Use Status: Never used Tobacco Current occupational status: unemployed Current occupation: right hand dominant Review of Systems Const All systems reviewed & are unremarkable except as noted in HPI and below Physical Exam Const General: cooperative, healthy appearing and no acute distress Resp Effort & Inspection: normal respiratory effort and able to speak in complete sentences Cardio Rate: regular rate Peripheral pulses: Peripheral pulses 2+ throughout GI Palpation (GI): Soft to palpation Skin Lesions: no lesions Rashes: no rashes Extrem Other: Right shoulder: Pain along the impingement arc. Forward flexion to 90 degrees. Full abduction. Able to reach T12. Pain with cross-body reach. 4/5 strengthen with empty can. NVI. Office Procedures Joint Injection/Drain Joint Injection/Drain Primary Site: right shoulder Prep: site was prepped using aseptic technique, ethochloride spray was applied and injection warnings given Injected: 40 mg of, DepoMedrol, with 8 mL of (2% plain lido ) and in the subcromial space Approach Used: posterolateral Procedure: The patient tolerated the procedure well, but had some pain with the injection and there was some relief with the local anesthesia Coding 45736 - Large joint Procedure code (CPT) selection complete Assessment & Plan Assessment & Plan (1) Arthritis of right glenohumeral joint: Code(s): M19.011 - Primary osteoarthritis, right shoulder Category: Medical (2) Painful arc syndrome of right shoulder: Code(s): M75.101 - Unspecified rotator cuff tear or rupture of right shoulder, not specified as traumatic Category: Medical (3) Diabetes mellitus, type II: Code(s): E11.9 - Type 2 diabetes mellitus without complications Category: Medical Plan Mr. Neftali Seth is a 53-year-old right hand dominant male, who is [place] speaking, presents in the office today for a follow-up of right shoulder pain. I last saw the patient in the office on 11/05/2023 when he was given a cortisone injection in the right shoulder. ? ? While in the office today, the patient reports the last injection gave him no relief. He is interest in repeating the injection in the office today. His expresses concern about the injection interfering with his colonoscopy on Friday02/13/2024.? ? Patient is accompanied in the office today by his . ? ? Patient has a significant medical history of diabetes mellitus.? ? The patient was offered a cortisone injection in the right shoulder with 40mg of DepoMedrol. The patient was explained the risk, benefits, and alternatives to receiving this injection. After receiving consent for the injection, the patient had the procedure done while in the office today. The patient tolerated the procedure well with no complications. ? ? Due to the patient?s history of diabetes, they were instructed to monitor his blood glucose level. The patient was informed that they could see a rise in their numbers and if the numbers became too high, they were instructed to call their PCP. The patient was also informed that they could have facial flushing as a side effect of the injection, but this will pass.? Patient Instructions: Scribed by Lolita Fitzpatrick electromedical equipment technician, for Katy Baron PA-C on 02/06/2024 at 8:22 am, EST.? Coding Level of Care Code Est Pt Level 4 (70356) Diagnoses Arthritis of right glenohumeral joint M19.011 Painful arc syndrome of right shoulder M75.101 Diabetes mellitus, type II E11.9 CPT Codes Coding - 45520 Large joint: 56956 - Large joint ([id number])
== END 2024-02-06 08:36 | disposition home or self-care (01) ==
PROVIDERS: PCP Registered Nurse; Visit Provider Physician Assistant
DX: M19.011 Primary osteoarthritis, right shoulder (principal); M75.101 Unspecified rotator cuff tear or rupture of right shoulder, not specified as traumatic; E11.9 Type 2 diabetes mellitus without complications
CPT/HCPCS: 20610; 99214

== ENCOUNTER → 2024-02-06 07:58 | Outpatient (BNVA) | payer MEDICAID, SELFPAY | PROVIDERS: PCP Registered Nurse; Visit Provider Physician Assistant | DX: M19.011 Primary osteoarthritis, right shoulder (principal); M75.101 Unspecified rotator cuff tear or rupture of right shoulder, not specified as traumatic | CPT/HCPCS: 20610; 99212; J1010 ==

== ENCOUNTER 2024-02-13 08:24 | Day surgery (SDC) | payer MEDICAID, SELFPAY ==
--- NOTE | 2024-02-12 10:07 | P.CONAN_ITS ---
Documented by User: Sis Garcia NP 02/12/24 10:08 HPI - Anesthesia Eval Consult details Narrative: 53yo M for Upper Endoscopy and Colonoscopy Anesthesia Pre-Procedure Meds Is the patient on any of the following meds?: GLP1/DPP4 and SGLT2 Inhib PMFSH Active Problems Active Problems: All Active Problems Painful arc syndrome of right shoulder (Acute) Arthritis of right glenohumeral joint (Acute) Diabetes mellitus, type II (Acute) GERD (gastroesophageal reflux disease) (Acute) Bloating (Acute) Rectal bleeding (Acute) Erectile dysfunction associated with type 2 diabetes mellitus (Acute) Past Medical History Medical History Erectile dysfunction CTS (carpal tunnel syndrome) Depressive disorder HTN (hypertension) GERD (gastroesophageal reflux disease) Acute insomnia Obesity Diabetes mellitus, type II Family History Family History Brother Prostate cancer Father Prostate cancer Brother Cancer Surgical History Surgical History (Updated 02/13/24 @ 09:58 by Daniela Michael RN) History of surgery H/O hand surgery H/O eye surgery Social History Social History Household Members Other:: Alcohol intake: former Patient Tobacco Use Status: Never used Tobacco Use of substances other than those prescribed or required for medical reasons: No Are you DNR?: No Advance Directives: No Advance Directives Information Provided: Yes Current occupational status: unemployed Current occupation: right hand dominant Meds Allergies Allergy/AdvReac Type Severity Reaction Status Date / Time bupropion Allergy Mild Angioedema Verified 02/13/24 09:56 pravastatin Allergy Mild Unknown Verified 02/06/24 08:16 tramadol Allergy Mild Unknown Verified 02/06/24 08:16 aspirin Allergy Unknown Angioedema Uncoded 02/13/24 09:56 Home Medications ?Medication ?Instructions ?Recorded ?Confirmed ?Last Taken ?Type amlodipine 5 mg tablet 5 mg PO QAM 02/21/23 10/02/23 02/13/24 History blood sugar diagnostic (Sonjayle #10 ea 02/21/23 10/02/23 Unknown History Lite Strips) dulaglutide 1.5 mg/0.5 mL mg subcut QWEEK 02/21/23 10/02/2324 History subcutaneous pen injector (Trulicity) lancets 33 gauge (TRUEplus Lancets) #100 ea 02/21/23 10/02/23 Unknown History sildenafil 100 mg tablet (Viagra) 50 - 100 mg PO DIRECTED 02/21/23 10/02/23 Unknown History cholecalciferol (vitamin D3) 25 25 mcg PO QAM 10/02/23 10/02/23 Unknown History mcg (1,000 unit) tablet empagliflozin 10 mg tablet 10 mg PO QAM 10/02/23 10/02/23 02/10/24 History (Jardiance) gemfibrozil 600 mg tablet 600 mg PO 10/02/23 10/02/23 Unknown History glipizide 10 mg tablet 20 mg PO 10/02/23 10/02/23 Unknown History hydrochlorothiazide 25 mg tablet 25 mg PO QAM 10/02/23 10/02/23 Unknown History lidocaine-prilocaine 2.5 %-2.5 % topical TID-QID 10/02/23 10/02/23 Unknown History topical cream Assessment and Plan Assessment Anesthesia Assessment: Chart Reviewed Documented by User: Ernesto Vargas MD 02/13/24 11:05 HPI - Anesthesia Eval Anesthesia Pre-Procedure Meds If yes to any meds - educate patient: Pt education - increased risk of aspiration and/or euvolemic DKA [facility] Past Medical History Medical History Erectile dysfunction CTS (carpal tunnel syndrome) Depressive disorder HTN (hypertension) GERD (gastroesophageal reflux disease) Acute insomnia Obesity Diabetes mellitus, type II Family History Family History Brother Prostate cancer Father Prostate cancer Brother Cancer Family history of problems with anesthesia: No Surgical History Surgical History (Updated 02/13/24 @ 09:58 by Daniela Michael RN) History of surgery H/O hand surgery H/O eye surgery History of Problems with Anesthesia: No Social History Social History Household Members Other:: Alcohol intake: former Patient Tobacco Use Status: Never used Tobacco Use of substances other than those prescribed or required for medical reasons: No Are you DNR?: No Advance Directives: No Advance Directives Information Provided: Yes Current occupational status: unemployed Current occupation: right hand dominant Meds Allergies Allergy/AdvReac Type Severity Reaction Status Date / Time bupropion Allergy Mild Angioedema Verified 02/13/24 09:56 pravastatin Allergy Mild Unknown Verified 02/06/24 08:16 tramadol Allergy Mild Unknown Verified 02/06/24 08:16 aspirin Allergy Unknown Angioedema Uncoded 02/13/24 09:56 Home Medications ?Medication ?Instructions ?Recorded ?Confirmed ?Last Taken ?Type amlodipine 5 mg tablet 5 mg PO QAM 02/21/23 10/02/23 02/13/24 History blood sugar diagnostic (FreeStyle #10 ea 02/21/23 10/02/23 Unknown History Lite Strips) dulaglutide 1.5 mg/0.5 mL mg subcut QWEEK 02/21/23 10/02/23 01/30/24 History subcutaneous pen injector (Trulicity) lancets 33 gauge (TRUEplus Lancets) #100 ea 02/21/23 10/02/23 Unknown History sildenafil 100 mg tablet (Viagra) 50 - 100 mg PO DIRECTED 02/21/23 10/02/23 Unknown History cholecalciferol (vitamin D3) 25 25 mcg PO QAM 10/02/23 10/02/23 Unknown History mcg (1,000 unit) tablet empagliflozin 10 mg tablet 10 mg PO QAM 10/02/23 10/02/23 02/10/24 History (Jardiance) gemfibrozil 600 mg tablet 600 mg PO 10/02/23 10/02/23 Unknown History glipizide 10 mg tablet 20 mg PO 10/02/23 10/02/23 Unknown History hydrochlorothiazide 25 mg tablet 25 mg PO QAM 10/02/23 10/02/23 Unknown History lidocaine-prilocaine 2.5 %-2.5 % topical TID-QID 10/02/23 10/02/23 Unknown H istory topical cream Exam Airway Mallampati Class: II TM Dist: >3cm Neck ROM: Full Loose/Missing/Broken Teeth: Yes and Upper Heart: ok Lungs: ok Assessment and Plan Assessment Anesthesia Assessment: Anesthesia Plan Discussed Final Anesthetic Review Family History of Problems with Anesthesia: No History of Problems with Anesthesia: No NPO: Yes ASA Class: II Final Preanesthetic Review: No Changes in Pt Med Stat, Meds/Allgs Chart Reviewed, Consent Obtained/Reviewed and Anes Risks/Benef Reviewed Patient Risk: Intermediate Procedure Risk: Intermediate Anesthetic Plan Anesthetic Plan: Agree w/ Assess. and Plan and TIVA Disposition: Standard PACU
--- NOTE | 2024-02-13 09:35 | MHC.SHP ---
Pre-Procedural Eval Section A - 24 Hr Update-Section A only Date of Service: 02/13/24 The patient is an INPATIENT: No The patient has been examined within 24 hours of the surgical procedure. The History & Physical has been completed within 30 days and I have reviewed it.: No Section B - Complete if H&P > 30 days Chief Complaint: screening,GERD, rectal bleeding Relevant Family History (Specify if Yes): No Relevant Social History: None Present Medications: see Short Stay Collaborative assessment Medical History: Significant History (Erectile dysfunction CTS (carpal tunnel syndrome) Depressive disorder HTN (hypertension) GERD (gastroesophageal reflux disease) Acute insomnia Obesity Diabetes mellitus, type II) History of Previous Operations: No relevant previous surgery Allergies: Allergies Allergy/AdvReac Type Severity Reaction Status Date / Time bupropion Allergy Mild Unknown Verified 02/06/24 08:16 pravastatin Allergy Mild Unknown Verified 02/06/24 08:16 tramadol Allergy Mild Unknown Verified 02/06/24 08:16 aspirin Allergy Unknown Swelling Uncoded 02/06/24 08:16 Review of Systems Sugical H&P ROS: Negative: Constitution, Cardiovascular, Respiratory and Gastrointestinal Exam Surgical H&P Exam: Normal: Heart, Normal: Lungs and Normal: Abdomen Plan Diagnosis/Plan: Unchanged I have reviewed the history and physical and performed a pertinent physical examination on my patient. No changes have occurred unless specified. Time Spent With Patient Time: Total time managing care of this patient today ____ minutes.
[2024-02-13 10:02] VITALS: BMI 33.0
[2024-02-13 10:05] VITALS: BP 118/81; PULSE 60; RESP 16; TEMP 37.1; O2SAT 95
[2024-02-13 10:16] LABS: Glucose, Whole Blood 262 mg/dL (60-115)
[2024-02-13] MEDS: Lactated Ringers 1,000 ML 100 ML IVCONT (10:30)
--- NOTE | 2024-02-13 11:11 | P.OPN-COLO_ITS ---
Colonoscopy Operative Note Operative Note Date of Service: 02/13/24 Narrative: FLEXIBLE TRANSORAL UPPER GASTROINTESTINAL ENDOSCOPY WITH BIOPSIES AND COLONOSCOPY TILL CECUM WITH BIOPSIES AND SNARE POLYPECTOMY Pre-op diagnosis: Colon cancer screening, GERD, rectal bleeding Post-op diagnosis: GERD, Hiatal hernia Gastritis, Colon Polyps, Diverticulosis, hemorrhoids Endoscopist:? Kian Gonzalez MD Anesthesia:?MAC UPPER ENDOSCOPY Consent: Indications for the procedure and potential complications of bleeding, perforation, reaction to medications and missed diagnosis were discussed with the patient and informed consent was obtained. Instrument: Olympus GIF H 190 mid size upper endoscope Monitoring: Vital signs and clinical assessment, continuous EKG monitoring, Pulse oximetry, Carbon Dioxide monitoring and blood pressure monitoring were done throughout the procedure. Procedure: The patient was placed in the left lateral decubitis position and pre-procedure medications were administered and a bite block was placed. The endoscope was inserted into the mouth and advanced under direct vision to the third part of duodenum. A careful inspection was made as the upper endoscope was withdrawn including a retroflexed examination of the proximal stomach; Findings and interventions are described below. Findings: Larynx: Normal Esophagus: GE junction at 38 cms, small hiatal hernia 38 to 40 cms. Irreguar Z line - biopsies obtained to rule out Witt's. Stomach: Moderate diffuse gastric erythema - biopsies were obtained from the antrum. Grade 2 flap valve on retroflexed examination of the cardia. Duodenum: Normal bulb and descending duodenum Biopsies were obtained from descending duodenum to check for celiac sprue Intervention: Biopsies as noted above COLONOSCOPY PROCEDURE NOTE Instrument: Olympus PCF H 190 L variable stiffness pediatric colonoscope Monitoring: Vital signs and clinical assessment, intermittent blood pressure monitoring, continuous EKG monitoring, Pulse oximetry and Carbon Dioxide monitoring were done throughout the procedure. Please see anesthesia flowsheet. Colon withdrawl time was 16 minutes. Procedure: The patient was placed in the left lateral decubitis position and pre-procedure medications were administered. After a digital rectal examination of the ano-rectum, the video colonoscope was inserted into the rectum and advanced through the colon to the cecum. The colonoscope was slowly withdrawn in a retrograde panoramic fashion and the colon mucosa was carefully examined including a retroflexed view of the rectum. Findings and interventions are described below. Procedure Difficulty: without difficulty Findings: Terminal Ileum: Not evaluated Cecum: Normal Ascending Colon: A 10 mm sessile polyp in the proximal AC - remove with a hot snare. A 2 cms sessile polyp in the proximal AC - removed with a hot snare and retrieved with a Chin net Transverse Colon: Normal Descending Colon: Normal Sigmoid Colon: Normal Rectum: Normal Ano-rectum: Moderate internal hemorrhoids Colon preparation: Excellent, after some irrigation. [place] Bowel Preparation Scale Right colon; 3 Transverse colon: 3 Left colon; 3 (0 = Unprepared colon segment with mucosa not seen due to solid stool that cannot be cleared. 1 = Portion of mucosa of the colon segment seen, but other areas of the colon segment not well seen due to staining, residual stool and/or opaque liquid. 2 = Minor amount of residual staining, small fragments of stool and/or opaque liquid, but mucosa of colon segment seen well. 3 = Entire mucosa of colon segment seen well with no residual staining, small fragments of stool or opaque liquid) Impression and Post Procedure Diagnosis: Endoscopy Findings: ESOPHAGUS: Small hiatal hernia 38 to 40 cms. Irreguar Z line - biopsies obtained to rule out Witt's. STOMACH: Moderate diffuse gastric erythema - biopsies were obtained from the antrum. DUODENUM: Normal - biopsied to check for celiac sprue Colonoscopy Findings: Two medium sized polyps were removed Moderate diverticulosis in the sigmoid colon Moderate hemorrhoids on retroflexed exam. Plan: Pt has a FU appointment on 02/26/24 with QUINTIN Lo, Repeat Colonoscopy in 3-5 years if polyps are adenomatous and 10 year if polyps are hyperplastic. Above findings were reviewed with the patient and relevant handouts were given and the discharge area. BIOPSIES SHOWED: A. Small bowel, biopsy: Duodenal mucosa within normal limits. B. Stomach, antrum, biopsy: Antral-type mucosa with mild chronic inactive inflammation; no Helicobacter organisms seen. C. Stomach, body, biopsy: Oxyntic mucosa with mild chronic inactive inflammation; no Helicobacter organisms seen. D. GE junction, biopsy: - Cardiac-type mucosa with mild chronic inactive inflammation; no intestinal metaplasia seen. - Squamous mucosa within normal limits. E. Colon, ascending, polypectomies (2): Inflammatory polyp
[2024-02-13 11:41] VITALS: BP 97/61; PULSE 62; RESP 18; TEMP 36.2; O2SAT 96
[2024-02-13 11:56] VITALS: BP 100/72; PULSE 65; RESP 18; O2SAT 96
[2024-02-13 12:11] VITALS: BP 119/83; PULSE 58; RESP 16; TEMP 36.4; O2SAT 96
== END 2024-02-13 12:54 | disposition home or self-care (01) ==
PROVIDERS: PCP Registered Nurse; Visit Provider Internal Medicine Gastroenterology
PROC: (CPT 45385; principal; 2024-02-13 10:20)
DX: Z12.11 Encounter for screening for malignant neoplasm of colon (principal); K51.40 Inflammatory polyps of colon without complications; K57.30 Diverticulosis of large intestine without perforation or abscess without bleeding; K64.8 Other hemorrhoids; K21.9 Gastro-esophageal reflux disease without esophagitis; K29.50 Unspecified chronic gastritis without bleeding; K22.89 Other specified disease of esophagus; K44.9 Diaphragmatic hernia without obstruction or gangrene; F32.A Depression, unspecified; I10 Essential (primary) hypertension; E11.9 Type 2 diabetes mellitus without complications; Z79.85 Long-term (current) use of injectable non-insulin antidiabetic drugs; Z79.84 Long term (current) use of oral hypoglycemic drugs; Z79.899 Other long term (current) drug therapy; Z88.8 Allergy status to other drugs, medicaments and biological substances; Z56.0 Unemployment, unspecified
CPT/HCPCS: 45385; 43239; 82947; 88305; 88313; 88342; J2704

== ENCOUNTER → 2024-02-13 08:24 | Outpatient (BNV) | payer MEDICAID, SELFPAY | PROVIDERS: PCP Registered Nurse; Visit Provider Internal Medicine Gastroenterology | DX: Z12.11 Encounter for screening for malignant neoplasm of colon (principal); K63.5 Polyp of colon; K64.8 Other hemorrhoids; K21.9 Gastro-esophageal reflux disease without esophagitis; K29.70 Gastritis, unspecified, without bleeding | CPT/HCPCS: 43239; 45385 ==

== ENCOUNTER 2024-05-05 10:38 | Outpatient (REF) | payer MEDICAID, SELFPAY ==
--- NOTE | ~2024-05-05 | XR_ITS ---
EXAMINATION: XR KNEE, LEFT CLINICAL INFORMATION: Left knee pain COMPARISON: February 29, 2016 TECHNIQUE: Four views of the left knee. FINDINGS: No fracture or joint effusion. Alignment is anatomic. Joint spaces are maintained. No abnormal soft tissue calcification. XR/XR knee LT 3V IMPRESSION: Normal left knee. Electronically signed by: Mirian Whitmore MD 05/05/2024 02:08 PM EDT
[2024-05-05 11:50] LABS: MANUAL DIFF FLAG NO
[2024-05-05 11:54] LABS: Basophils Percent Auto 0.5 % (0-2); Eosinophils Absolute Auto 0.6 X10*3/uL (0.0-0.4); Eosinophils Percent Auto 7.4 % (0-4); Hematocrit 45.8 % (42.0-52.0); Hemoglobin 15.2 g/dl (14.0-18.0); Imm Gran Abs Auto 0.03 X10*3/uL (0.00-0.03); Imm Gran Pct Auto 0.3 % (0.0-0.4); Lymphocytes Absolute Auto 3.1 X10*3/uL (1.2-4.9); Lymphocytes Percent Auto 36.1 % (20-40); Mean Corpuscular HGB Conc 33.2 g/dl (31.0-36.0); Mean Corpuscular Hemoglobin 31.2 pg (27.0-33.0); Mean Platelet Volume 10.4 fL (9.4-12.4); Monocytes Absolute Auto 0.6 X10*3/uL (0.1-1.2); Monocytes Percent Auto 6.8 % (2-11); Neutrophils Absolute Auto 4.3 x10*3/uL (2.0-8.3); Neutrophils Percent Auto 48.9 % (45-73); Platelet Count 333 X10*3/uL (160-400); Red Blood Count 4.87 X10*6/uL (4.60-5.80); Red Cell Distribution Width 12.2 % (11.0-16.0); White Blood Count 8.7 X10*3/uL (4.8-10.8)
[2024-05-05 12:09] LABS: Estimated Average Glucose 232 mg/dL; Hemoglobin A1C 317.0744 umol/L; Hemoglobin A1c % 9.7 % (<6.0); Total Hemoglobin (HGBA1C) 3844.4608 umol/L
[2024-05-05 12:30] LABS: Alanine Aminotransferase 29 U/L (0-40); Albumin Level 4.7 g/dL (3.5-5.0); Alkaline Phosphatase 97 U/L (39-117); Anion Gap 14 (12-20); Aspartate Amino Transferase 24 U/L (5-37); Bilirubin Total 0.5 mg/dL (0.0-1.0); Blood Urea Nitrogen 17 mg/dL (9-16); Calcium 10.1 mg/dL (8.4-10.2); Carbon Dioxide 26 mmol/L (22-29); Chloride 101 mmol/L (96-108); Cholesterol 182 mg/dL (<200); Estimated Glomerular Filt Rate > 60; Glucose Random 193 mg/dL (60-115); HDL Cholesterol 32 mg/dL (>40); LDL Cholesterol Calculated 125 mg/dL (<100); Potassium 3.7 mmol/L (3.3-5.1); Sodium 137 mmol/L (135-145); Total Protein 8.4 g/dL (6.5-8.0); Triglycerides 128 mg/dL (<150)
[2024-05-05 14:39] LABS: Creatinine Urine 48.35 mg/dL
[2024-05-06 08:22] LABS: HIV AB/AG Nonreactive (Nonreactive); HIV Num 1 0.05 S/CO (0.00-0.99)
[2024-05-06 13:29] LABS: HCV Log PCR <1.18 NOT DETECTED Log IU/mL (NOT DETECTED); HepC Viral Load <15 NOT DETECTED IU/mL (NOT DETECTED)
[2024-05-07 15:23] LABS: RPR Rapid Plasma Reagin NON-REACTIVE (NON-REACTIVE)
== END 2024-05-05 10:39 | disposition home or self-care (01) ==
LOC: HO.HHCL 10:38
PROVIDERS: Visit Provider Registered Nurse
DX: Z00.00 Encounter for general adult medical examination without abnormal findings (principal); M25.562 Pain in left knee; G89.29 Other chronic pain
CPT/HCPCS: 36415; 73562; 80053; 80061; 82043; 82570; 83036; 84443; 85025; 86592; 87389; 87522

== ENCOUNTER 2024-05-25 13:58 | Outpatient (REF) | payer MEDICAID, SELFPAY ==
--- NOTE | 2024-05-25 15:50 | MHC.AU.HA1 ---
Hearing Aid Evaluation Date of Visit: 05/25/24 Sales Relationship Manager Used: Sinhala- In Person Historical Information: Description of Hearing: Mild to moderate sensorineural hearing loss, bilateral. Current personal amplification information, if applicable: None Summary: Seen for evaluation. Accompanied by . Reports has noted frustration with his need to turn the TV up. Reports concerns about not hearing his grandchild. Amplification recommended to facilitate improved communication. Reviewed options. Recommended HUMABravo Hunt selected rechargeable. He has an iPhone that he may like to pair the hearing aids with. Hearing Aid Prescription: Based on the individual?s shared listening needs, communication environments, dexterity, desire for connectivity, and personal preferences, the following prescription for amplification has been made: Right ear: Make, Model, Color: Oticon Intent 2 silver lemus Battery Size: Rechargeable Gas Jockey/Slim Tube: 2M Type of Earmold/Dome/CShell/SlimTip: 6mm double vent Left ear: Make, Model, Color: Oticon Intent 2 silver lemus Battery Size: Rechargeable Gas Jockey/Slim Tube: 2M Type of Earmold/Dome/CShell/SlimTip: 6mm double vent Plan of Care: Patient wishes to purchase hearing aids as prescribed Action Taken/Action Needed: Medical Clearance to be requested from PCP/ENT Hearing Instrument Fitting to be scheduled when materials arrive Primary Diagnosis: H90.3 Bilateral Sensorineural Hearing Loss Signature: Provider: Keyur Bernal, [facility]
== END 2024-05-25 13:59 | disposition home or self-care (01) ==
LOC: HO.SH 13:58
PROVIDERS: Visit Provider Registered Nurse
DX: Z01.118 Encounter for examination of ears and hearing with other abnormal findings (principal); Z46.1 Encounter for fitting and adjustment of hearing aid; H90.3 Sensorineural hearing loss, bilateral
CPT/HCPCS: 92557; 92567; 92591

== ENCOUNTER 2024-06-11 08:51 | Outpatient (AMB) | payer MEDICAID, SELFPAY ==
--- NOTE | 2024-06-11 08:53 | A.OFFVIS_ITS ---
Vital Signs 06/11/24 08:54 Height 5 ft 4 in Weight 201 lb 8.04 oz BMI 34.6 BP 126/84 Blood Pressure Location Rt brachial Position Sitting Pulse 80 Pulse Source Pulse Oximeter Pulse Oximetry (%) 95 Oxygen Delivery Method Room Air Intake Visit Reasons: Diverticulosis,Gastritis Intake Note: Relevant Flags or Indicators ? Requires Distribution Analyst? Thais Hunt presents in office today for a scheduled FUV S/P double ~ 3-4 mos ago. CC; No recent labs, diagnostics, or med orders placed. ?Pt reports that their PCP ordered some labs for LFT. Relevant GI Sx as reported per pt? None ? Hx of any recent surgeries? Double via Dr. Gonzalez. Distribution Analyst Required: Yes Distribution Analyst Services: Distribution Analyst Present Distribution Analyst Name: [id number] Fidel Information Interpreted: non-clinical & clinical Accompanied by: Self / Same As Patient Allergies bupropion Allergy (Mild, Verified 06/11/24 08:54) Angioedema pravastatin Allergy (Mild, Verified 06/11/24 08:54) Unknown tramadol Allergy (Mild, Verified 06/11/24 08:54) Unknown aspirin Allergy (Unknown, Uncoded 02/13/24 09:56) Angioedema HPI HPI Diverticulosis,Gastritis: Details: LAST VISIT with Virginia Joe: Plan IF taking-Trulicity stop 1 full wk prior Jardiance stop x 3 days Omit glipizide day before procedure No diabetes medications day of procedure UPPER ENDOSCOPY AND COLONOSCOPY RESULTS Findings: Larynx: Normal Esophagus: GE junction at 38 cms, small hiatal hernia 38 to 40 cms. Irreguar Z line - biopsies obtained to rule out Witt's. Stomach: Moderate diffuse gastric erythema - biopsies were obtained from the antrum. Grade 2 flap valve on retroflexed examination of the cardia. Duodenum: Normal bulb and descending duodenum Biopsies were obtained from descending duodenum to check for celiac sprue Intervention: Biopsies as noted above Findings: Terminal Ileum: Not evaluated Cecum: Normal Ascending Colon: A 10 mm sessile polyp in the proximal AC - remove with a hot snare. A 2 cms sessile polyp in the proximal AC - removed with a hot snare and retrieved with a Chin net Transverse Colon: Normal Descending Colon: Normal Sigmoid Colon: Normal Rectum: Normal Ano-rectum: Moderate internal hemorrhoids Colon preparation: Excellent, after some irrigation. Eva Bowel Preparation Scale Right colon; 3 Transverse colon: 3 Left colon; 3 (0 = Unprepared colon segment with mucosa not seen due to solid stool that cannot be cleared. 1 = Portion of mucosa of the colon segment seen, but other areas of the colon segment not well seen due to staining, residual stool and/or opaque liquid. 2 = Minor amount of residual staining, small fragments of stool and/or opaque liquid, but mucosa of colon segment seen well. 3 = Entire mucosa of colon segment seen well with no residual staining, small fragments of stool or opaque liquid) Impression and Post Procedure Diagnosis: Endoscopy Findings: ESOPHAGUS: Small hiatal hernia 38 to 40 cms. Irreguar Z line - biopsies obtained to rule out Witt's. STOMACH: Moderate diffuse gastric erythema - biopsies were obtained from the antrum. DUODENUM: Normal - biopsied to check for celiac sprue Colonoscopy Findings: Two medium sized polyps were removed Moderate diverticulosis in the sigmoid colon Moderate hemorrhoids on retroflexed exam. Plan: Repeat Colonoscopy in 3-5 years if polyps are adenomatous and 10 year if polyps are hyperplastic. Above findings were reviewed with the patient and relevant handouts were given and the discharge area. BIOPSIES SHOWED: A. Small bowel, biopsy: Duodenal mucosa within normal limits. B. Stomach, antrum, biopsy: Antral-type mucosa with mild chronic inactive inflammation; no Helicobacter organisms seen. C. Stomach, body, biopsy: Oxyntic mucosa with mild chronic inactive inflammation; no Helicobacter organisms seen. D. GE junction, biopsy: - Cardiac-type mucosa with mild chronic inactive inflammation; no intestinal metaplasia seen. - Squamous mucosa within normal limits. E. Colon, ascending, polypectomies (2): Inflammatory polyp * TODAY'S VISIT Patient is here today for follow-up and to discuss upper endoscopy and colonoscopy results. Patient reports that he has been having no ill effects from the prep, anesthesia or procedure itself. He had the procedure few months ago. This visit is to discuss results. Patient was seen by Virginia Joe in the past, provider no longer in the practice. Patient denies reports that he has been feeling fairly well. Takes pantoprazole every day and his symptoms of acid reflux are suppressed. Two polyps in ascending colon were not retrieved. Upper endoscopy did not show Barretts, mild inactive inflammation without H pylori. Patient was also found to have moderate hemorrhoids and diverticulosis in sigmoid colon. Patient admits that he is not eating enough fiber. Drinks plenty water throughout the day. [facility] Medical History (Updated 06/11/24 @ 09:32 by Mahnaz Bell [facility]) Diverticulosis Erectile dysfunction CTS (carpal tunnel syndrome) Depressive disorder HTN (hypertension) GERD (gastroesophageal reflux disease) Acute insomnia Obesity Diabetes mellitus, type II Surgical History History of esophagogastroduodenoscopy (EGD) Hx of colonoscopy History of surgery H/O hand surgery H/O eye surgery Family History Brother Prostate cancer Father Prostate cancer Brother Cancer Social History Household Members Other:: Alcohol intake: former Patient Tobacco Use Status: Never used Tobacco Current occupational status: unemployed Current occupation: right hand dominant Review of Systems Const Denies weight gain and Denies weight loss ENT Reports no additional complaints, Denies dysphagia and Denies odynophagia Card Reports no additional complaints Resp Reports no additional complaints GI Denies abdominal pain, Denies belching, Denies melena, Denies bloating, Denies change in bowel habits, Denies dysphagia, Denies excessive flatus, Denies dyspepsia, Denies heartburn, Denies diarrhea, Denies loose stools, Denies nausea, Denies odynophagia and Denies vomiting Reports no additional complaints Musc Reports no additional complaints Neuro Reports no additional complaints Psych Reports no additional complaints Endo Reports no additional complaints Physical Exam Vital Signs: Last Vital Signs Pulse 80 06/11/24 08:54 BP 126/84 06/11/24 08:54 Pulse Ox 95 06/11/24 08:54 Oxygen Delivery Method Room Air 06/11/24 08:54 BMI result Body Mass Index 34.6 Const General: healthy appearing and no acute distress Nutritional Appearance: obese Orientation/consciousness: patient oriented x3 Resp Effort & Inspection: normal respiratory effort, able to speak in complete sentences, no tracheal deviation and symmetric chest movement Auscultation: clear to auscultation bilaterally Cardio Rate: regular rate GI Inspection: Yes normal to inspection, No distended and Yes obesity Palpation (GI): Soft to palpation, not firm, nontender and No hepatosplenomegaly present Auscultation: normal bowel sounds General: Yes no CVA tenderness Back/Spine/Pelvis Back: no CVA tenderness Skin General skin exam: elasticity normal, turgor normal and dry skin Neuro General: patient oriented x3 Psych Appearance: grossly normal Mental Status: mental status grossly normal Assessment & Plan Assessment & Plan (1) GERD (gastroesophageal reflux disease): Code(s): K21.9 - Gastro-esophageal reflux disease without esophagitis Category: Medical Qualifiers: Esophagitis presence: without esophagitis Qualified Code(s): K21.9 - Gastro-esophageal reflux disease without esophagitis (2) Diverticulosis: Code(s): K57.90 - Diverticulosis of intestine, part unspecified, without perforation or abscess without bleeding Category: Medical (3) Status post colonoscopy: Code(s): Z98.890 - Other specified postprocedural states (4) Internal hemorrhoids without complication: Code(s): K64.8 - Other hemorrhoids Plan Continue pantoprazole daily. Avoid dietary triggers and late night snacking. Staying upright for minimum 3 hours after meals discussed with patient. Patient was encouraged to take fiber supplement with probiotic. Moderate hemorrhoids found without complications. Two of the polyps from ascending colon were not retrieved, patient should return for colorectal screening in 5 years instead of 10. May do Sitz baths with Epsom salt as needed. Patient will return in this office in 6 months, sooner on as needed basis. He is agreeable to this plan and verbalizes understanding of instructions. He was given the opportunity to ask questions and all questions answered. Thank you for allowing me to participate in his care Medications: New methylcellulose (laxative) (Citrucel) take it with full glass of water 500 mg PO DAILY 90 tabs 2RF K59.00 - Constipation, unspecified lactobacillus combination no.4 (Probiotic) administer with a meal 3,000 mmu cells PO DAILY 30 caps 5RF lactobacillus combination no.4 (Probiotic) administer with a meal 3,000 mmu cells PO DAILY 30 caps 5RF methylcellulose (laxative) (Citrucel) take it with full glass of water 500 mg PO DAILY 90 tabs 2RF K59.00 - Constipation, unspecified Coding Level of Care Code Est Pt Level 3 (34234) Diagnoses Gastroesophageal reflux disease without esophagitis K21.9 Esophagitis presence: without esophagitis Diverticulosis K57.90 Status post colonoscopy Z98.890 Internal hemorrhoids without complication K64.8 Time Spent (min) 30 Comment 20 minutes spent with patient and additional 10 minutes spent reviewing his records
[2024-06-11 08:54] VITALS: BP 126/84; PULSE 80; O2SAT 95; BMI 34.6
== END 2024-06-11 09:34 | disposition home or self-care (01) ==
PROVIDERS: PCP Registered Nurse; Visit Provider Nurse Practitioner Family
DX: K21.9 Gastro-esophageal reflux disease without esophagitis (principal); K57.90 Diverticulosis of intestine, part unspecified, without perforation or abscess without bleeding; Z98.890 Other specified postprocedural states; K64.8 Other hemorrhoids
CPT/HCPCS: 99213

== ENCOUNTER → 2024-06-11 08:51 | Outpatient (BNVA) | payer MEDICAID, SELFPAY | PROVIDERS: PCP Registered Nurse; Visit Provider Nurse Practitioner Family | DX: K57.90 Diverticulosis of intestine, part unspecified, without perforation or abscess without bleeding (principal); K21.9 Gastro-esophageal reflux disease without esophagitis; K64.8 Other hemorrhoids; Z98.890 Other specified postprocedural states | CPT/HCPCS: 99212 ==

== ENCOUNTER 2024-06-18 07:31 | Outpatient (REF) | payer MEDICAID, SELFPAY ==
[2024-06-18 08:59] LABS: Estimated Average Glucose 157 mg/dL; Hemoglobin A1C 197.9802 umol/L; Hemoglobin A1c % 7.1 % (<6.0); Total Hemoglobin (HGBA1C) 3659.5925 umol/L
[2024-06-18 12:35] LABS: CT PCR NOT DETECTED (Not Detect.); NG PCR NOT DETECTED (Not Detect.)
[2024-06-23 10:24] LABS: Testosterone, Total 597 ng/dL (250-1100)
== END 2024-06-18 07:32 | disposition home or self-care (01) ==
LOC: HO.LAB 07:31
PROVIDERS: PCP Registered Nurse; Visit Provider Urology
DX: Z00.00 Encounter for general adult medical examination without abnormal findings (principal); N52.1 Erectile dysfunction due to diseases classified elsewhere; E11.69 Type 2 diabetes mellitus with other specified complication; E11.9 Type 2 diabetes mellitus without complications
CPT/HCPCS: 36415; 83036; 84403; 87491; 87591

== ENCOUNTER 2024-06-23 10:07 | Outpatient (AMB) | payer MEDICAID, SELFPAY ==
--- NOTE | 2024-06-23 10:11 | A.OFFVIS_ITS ---
Intake Visit Reasons: A1C/Discussion on Penile Prothesis Intake Note: Patient is present for A1C/DISCUSSION ON PENILE PROTHESIS Urology Medication:TADALAFIL Antibiotic Allergy:PRAVASTATIN Blood Thinner:NONE Camera Person Required: No Allergies bupropion Allergy (Mild, Verified 07/13/24 10:23) Angioedema pravastatin Allergy (Mild, Verified 07/13/24 10:23) Unknown tramadol Allergy (Mild, Verified 07/13/24 10:23) Unknown aspirin Allergy (Unknown, Uncoded 06/23/24 10:13) Angioedema HPI Comments Details: Gilbert is a pleasant male. He is a patient of Dr Lockett. He seen for t he following urologic conditions - erectile dysfunction in setting of diabetes HbA1c 7.1 Can move ahead with placement of a prosthetic Recommend using daily vacuum pump in order to maximize girth and length Review in 6 months with plan for prosthetic placement Follow-up from daily tadalafil with 20 mg on demand Background diabetes Minimal impact from on demand Viagra Minimal impact tadalafil with on demand Discussion of options including injectable medications and penile prosthetic Erectile dysfunction in setting of type 2 diabetes Progressive Failed Viagra on demand T 06/13 597 [facility] Medical History (Updated 06/11/24 @ 09:32 by Mahnaz Bell, [facility]-) Diverticulosis Erectile dysfunction CTS (carpal tunnel syndrome) Depressive disorder HTN (hypertension) GERD (gastroesophageal reflux disease) Acute insomnia Obesity Diabetes mellitus, type II Surgical History History of esophagogastroduodenoscopy (EGD) Hx of colonoscopy History of surgery H/O hand surgery H/O eye surgery Family History Brother Prostate cancer Father Prostate cancer Brother Cancer Social History Household Members Other:: Alcohol intake: former Patient Tobacco Use Status: Never used Tobacco Current occupational status: unemployed Current occupation: right hand dominant Review of Systems Const Denies chills and Denies fever(s) Card Reports no additional complaints and Denies syncope Resp Denies cough GI Denies abdominal pain and Denies heartburn Reports as per HPI and Denies change in libido Neuro Denies syncope Psych Denies change in libido Endo Denies change in libido Physical Exam Const General: cooperative, healthy appearing, comfortable and no acute distress Orientation/consciousness: patient oriented x3 HEENT Face and sinus: Yes normal facial exam Mouth: moist mucous membranes Neck Neck: Yes normal visual inspection, Yes full ROM and Yes trachea midline Chest Chest palpation & inspection: normal inspection of the chest Resp Effort & Inspection: normal respiratory effort, able to speak in complete sente nces and no respiratory distress GI Inspection: Yes normal to inspection Back/Spine/Pelvis Cervical Spine: normal cervical lordosis Thoracic/Lumbar Spine: thoracic and lumbar spine normal to inspection Skin General skin exam: no rashes or lesions noted Neuro General: patient oriented x3, gait normal, tone normal and moves all extremities Extrem General: Yes normal to inspection and Yes capillary refill normal Assessment & Plan Assessment & Plan (1) Erectile dysfunction associated with type 2 diabetes mellitus: Code(s): E11.69 - Type 2 diabetes mellitus with other specified complication; N52.1 - Erectile dysfunction due to diseases classified elsewhere Category: Medical Plan Six-month follow-up plan for prosthetic Patient Instructions: Imaging studies, laboratory and physical exam results were discussed and reviewed in detail. No major barriers to patient understanding were identified. An opportunity to ask questions regarding the treatment plan was provided. All questions were answered. The patient expressed understanding and agreement with the above treatment plan. The patient is aware they should contact our office by phone for worsening of their current condition or the appearance of new urologic symptoms. Compliance is encouraged with any medications and followup testing that is ordered. It is a privilege to participate in the urologic care of your patient. If you have any questions or concerns regarding treatment for the above conditions, or other urologic issues, please do not hesitate to contact me. The office telephone contact is [phone]. This note is constructed using voice recognition software. While every effort has been made to ensure accuracy career development coordinator errors may have been included. Yours sincerely, Dr Marin Kimball MD, [facility] - Urology Providers of Expert, Compassionate Care for the Genitourinary System Coding Level of Care Code Est Pt Level 3 (68698) Diagnoses Erectile dysfunction associated with type 2 diabetes mellitus E11.69; N52.1
== END 2024-06-23 10:40 | disposition home or self-care (01) ==
PROVIDERS: PCP Registered Nurse; Visit Provider Urology
DX: E11.69 Type 2 diabetes mellitus with other specified complication (principal); N52.1 Erectile dysfunction due to diseases classified elsewhere
CPT/HCPCS: 99213

== ENCOUNTER → 2024-06-23 10:07 | Outpatient (BNVA) | payer MEDICAID, SELFPAY | PROVIDERS: PCP Registered Nurse; Visit Provider Urology | DX: E11.69 Type 2 diabetes mellitus with other specified complication (principal); N52.1 Erectile dysfunction due to diseases classified elsewhere | CPT/HCPCS: 99212 ==

== ENCOUNTER 2024-07-02 09:48 | Outpatient (REF) | payer MEDICAID, SELFPAY ==
--- NOTE | 2024-07-02 10:59 | MHC.AU.HA2 ---
Hearing Instrument Fitting- Adult- Binaural Date of Visit: 07/02/24 Radial Drill Press Operator Used: In person, [place] Hearing Instruments Dispensed: Right Ear: Make, Model, Color, Serial Number: Oticon Intent 2 silver lemus Hone Operator Repair Warranty: 07/02/2027 Hone Operator Loss and Damage Warranty: 07/02/2027 [facility] Service Plan: 07/02/2025 Battery Size: Rechargeable Gift Wrapper/Slim Tube: 2 85 no tail Earmold/Dome/CShell/SlimTip: 6mm double vent Type of Wax Guard: Oticon Minifit Prowax Left Ear: Make, Model, Color, Serial Number: Oticon Intent 2 silver lemus Hone Operator Repair Warranty: 07/02/2027 Hone Operator Loss and Damage Warranty: 07/02/2027 [facility] Service Plan: 07/02/2025 Battery Size: Rechargeable Gift Wrapper/Slim Tube: 285 no tail Earmold/Dome/CShell/SlimTip: 6mm double vent Type of Wax Guard: Oticon Minifit Prowax Accessories/Assistive Technology: Oticon charger tester minirite S#[id number] Warranty 07/02/2027 Summary of Fitting: Fit with and oriented to binaural Oticon Intent 2 HAs. Verified to DSL adult 5 targets. Reduced gain to adaptation 2 with gradual increase. Counseled on adjustment to amplification. Reviewed charging, maintenance, and precautions. Practiced insertion and removal. Connected to iPhone and tested streaming. Recommendations: Recommendations: A hearing instrument follow-up was scheduled. Diagnosis Code(s): Primary Diagnosis: H90.3 Bilateral Sensorineural Hearing Loss Signature: Provider: Keyur Bernal, [facility]A
== END 2024-07-02 09:49 | disposition home or self-care (01) ==
LOC: HO.HAP 09:48
PROVIDERS: Visit Provider Family Medicine
DX: Z46.1 Encounter for fitting and adjustment of hearing aid (principal); H90.3 Sensorineural hearing loss, bilateral
CPT/HCPCS: V5011; V5020; V5160; V5261

== ENCOUNTER 2024-07-13 10:07 | Outpatient (AMB) | payer MEDICAID, SELFPAY ==
--- NOTE | 2024-07-13 10:18 | A.OFFVIS_ITS ---
Intake Visit Reasons: Right shoulder injection-last inj 11/05/23' Intake Note: Gilbert is a 53 year old male who presents today for a repeat injection for his right shoulder. last injection 11/05/23. Patient reports that injection gave him relief and would like to repeat. Allergies bupropion Allergy (Mild, Verified 07/13/24 10:23) Angioedema pravastatin Allergy (Mild, Verified 07/13/24 10:23) Unknown tramadol Allergy (Mild, Verified 07/13/24 10:23) Unknown aspirin Allergy (Unknown, Uncoded 06/23/24 10:13) Angioedema HPI HPI Right shoulder injection-last inj 11/05/23': Details: 53-year-old [id number]-ctzlczum male, who is Ecuadorean speaking, presents in the office today for a follow-up of right shoulder pain. I last saw the patient in the office on 02/06/24, when she was given a cortisone injection in the right shoulder. While in the office today, the patient reports right shoulder pain. His last cortisone injection in the right shoulder provided him with relief. He would like to have a repeat injection today. The patient has a significant medical history of diabetes mellitus. REPLACED BY [facility] Medical History (Updated 06/11/24 @ 09:[address] [facility]) Diverticulosis Erectile dysfunction CTS (carpal tunnel syndrome) Depressive disorder HTN (hypertension) GERD (gastroesophageal reflux disease) Acute insomnia Obesity Diabetes mellitus, type II Surgical History History of esophagogastroduodenoscopy (EGD) Hx of colonoscopy History of surgery H/O hand surgery H/O eye surgery Family History Brother Prostate cancer Father Prostate cancer Brother Cancer Social History Household Members Other:: Alcohol intake: former Patient Tobacco Use Status: Never used Tobacco Current occupational status: unemployed Current occupation: right hand dominant Review of Systems Const All systems reviewed & are unremarkable except as noted in HPI and below Physical Exam Const General: cooperative, healthy appearing and no acute distress Resp Effort & Inspection: normal respiratory effort and able to speak in complete sentences Cardio Rate: regular rate Peripheral pulses: Peripheral pulses 2+ throughout GI Palpation (GI): Soft to palpation Skin Lesions: no lesions Rashes: no rashes Extrem Other: Right shoulder: Pain along the impingement arc. Forward flexion to 90 degrees. Full abduction. Able to reach T12. Pain with cross-body reach. 4/5 strengthen with empty can. NVI. Office Procedures AMB Joint Injection/Aspiration Joint Injection/Aspiration Primary Site: right shoulder Prep: site was prepped using aseptic technique Injected: 40 mg of, DepoMedrol, with 8 mL of (2% plain lido ) and in the subcromial space Approach Used: posterolateral Procedure: The patient tolerated the procedure well, but had some pain with the injection and there was some relief with the local anesthesia Coding 83162 - Large joint Procedure code (CPT) selection complete Assessment & Plan Assessment & Plan (1) Arthritis of right glenohumeral joint: Code(s): M19.011 - Primary osteoarthritis, right shoulder Category: Medical (2) Painful arc syndrome of right shoulder: Code(s): M75.101 - Unspecified rotator cuff tear or rupture of right shoulder, not specified as traumatic Category: Medical (3) Diabetes mellitus, type II: Code(s): E11.9 - Type 2 diabetes mellitus without complications Category: Medical Plan Mr. Neftali Seth is a 53-year-old bpujh-syzj-sbteutnr male, who is Ecuadorean speaking, presents in the office today for a follow-up of right shoulder pain. I last saw the patient in the office on 02/06/24, when she was given a cortisone injection in the right shoulder. While in the office today, the patient reports right shoulder pain. His last cortisone injection in the right shoulder provided him with relief. He would like to have a repeat injection today. The patient has a significant medical history of diabetes mellitus. The patient was offered a cortisone injection in the right shoulder with 40mg of DepoMedrol. The patient was explained the risks, benefits, and alternatives to receiving this injection. After receiving consent for the injection, the patient had the procedure done while in the office today. The patient tolerated the p rocedure well with no complications. Due to the patient?s history of diabetes, they were instructed to monitor his blood glucose level. The patient was informed that they could see a rise in their numbers and if the numbers became too high, they were instructed to call their PCP. The patient was also informed that they could have facial flushing as a side effect of the injection, but this will pass. Follow-up will be PRN, or sooner if needed. Patient Instructions: Scribed by Oly Guzman, medical videographer, for Katy Baron PA-C on 07/13/24 at 11:00 am EST. Coding Level of Care Code Est Pt Level 4 (33879) Diagnoses Arthritis of right glenohumeral joint M19.011 Painful arc syndrome of right shoulder M75.101 Diabetes mellitus, type II E11.9 CPT Codes Coding - 80894 Large joint: 30732 - Large joint ([id number])
== END 2024-07-13 10:29 | disposition home or self-care (01) ==
PROVIDERS: PCP Registered Nurse; Visit Provider Physician Assistant
DX: M19.011 Primary osteoarthritis, right shoulder (principal); M75.101 Unspecified rotator cuff tear or rupture of right shoulder, not specified as traumatic; E11.9 Type 2 diabetes mellitus without complications
CPT/HCPCS: 20610; 99214

== ENCOUNTER → 2024-07-13 10:07 | Outpatient (BNVA) | payer MEDICAID, SELFPAY | PROVIDERS: PCP Registered Nurse; Visit Provider Physician Assistant | DX: M19.011 Primary osteoarthritis, right shoulder (principal); M75.101 Unspecified rotator cuff tear or rupture of right shoulder, not specified as traumatic; E11.9 Type 2 diabetes mellitus without complications | CPT/HCPCS: 20610; 99212; J1010; J2003 ==

== ENCOUNTER 2024-07-29 09:54 | Outpatient (REF) | payer MEDICAID, SELFPAY ==
--- NOTE | 2024-07-29 12:34 | MHC.AU.HA3 ---
Hearing Instrument Follow-Up- Binaural Date of Visit: 07/29/24 Right Ear: Make, Model, Color, Serial Number: Oticon Intent 2 silver lemus Machine Shop Apprentice Repair Warranty: 07/02/2027 Machine Shop Apprentice Loss and Damage Warranty: 07/02/2027 [employer] Service Plan: 07/02/2025 Battery Size: Rechargeable Warehouse Material Handler/Slim Tube: 2 85 no tail Earmold/Dome/CShell/SlimTip:6mm double vent Type of Wax Guard: Oticon Minifit Prowax Dispensed By: [employer] Date of Fittin07/02/24 Left Ear: Make, Model, Color, Serial Number: Oticon Intent 2 silver lemus Machine Shop Apprentice Repair Warranty: 07/02/2027 Machine Shop Apprentice Loss and Damage Warranty: 07/02/2027 [employer] Service Plan: 07/02/2025 Battery Size: Rechargeable Warehouse Material Handler/Slim Tube: 285 no tail Earmold/Dome/CShell/SlimTip: 6mm double vent Type of Wax Guard: Oticon Minifit Prowax Dispensed By: [employer] Date of Fittin07/02/24 Follow-Up Summary: Here for follow up. Reports good satisfaction with the hearing aids. Reports TV is down, is happy. Notes sound streams from phone for videos and music but not calls. Attempted to resolved and could not find solution. Gave [employer] tech support number. Pt. is using an older iPhone, this could be an issue. Gilbert reports that his right ear is sometimes sore when sleeping. Reports no discomfort with hearing aids in. Otoscopy clear Au. Advised to consult PCP if otalgia persists. Recommendations: Recommendations: Hearing instrument follow-up or maintenance as needed. Diagnosis Code(s): Primary Diagnosis: H90.3 Bilateral Sensorineural Hearing Loss Signature: Provider: Keyur Bernal, [facility]3]-A
== END 2024-07-29 09:55 | disposition home or self-care (01) ==
LOC: HO.HAP 09:54
PROVIDERS: Visit Provider Registered Nurse
DX: Z13.89 Encounter for screening for other disorder (principal)

== ENCOUNTER 2024-10-14 10:10 | Outpatient (AMB) | payer MEDICAID, SELFPAY ==
--- NOTE | 2024-10-14 10:16 | MHC.OFFVIS ---
Intake Visit Reasons: Right shoulder injection-last inj 07/13/24 Intake Note: Gilbert is a 53 year old male who presents today for a repeat right shoulder injection. HX of DM. Last injection of 40mg Depo was injected on 07/13/24. Patient reports that this injection wasn't too helpful and he would like to repeat today since he is having pain. Allergies bupropion Allergy (Mild, Verified 10/14/24 10:27) Angioedema pravastatin Allergy (Mild, Verified 10/14/24 10:27) Unknown tramadol Allergy (Mild, Verified 10/14/24 10:27) Unknown aspirin Allergy (Unknown, Uncoded 06/23/24 10:13) Angioedema PFSH Medical History (Updated 06/11/24 @ 09:32 by Mahnaz [facility]) Diverticulosis Erectile dysfunction CTS (carpal tunnel syndrome) Depressive disorder HTN (hypertension) GERD (gastroesophageal reflux disease) Acute insomnia Obesity Diabetes mellitus, type II Surgical History History of esophagogastroduodenoscopy (EGD) Hx of colonoscopy History of surgery H/O hand surgery H/O eye surgery Family History Brother Prostate cancer Father Prostate cancer Brother Cancer Social History Household Members Other:: Alcohol intake: former Patient Tobacco Use Status: Never used Tobacco Current occupational status: unemployed Current occupation: right hand dominant Coding
--- NOTE | 2024-10-14 10:32 | A.OFFVIS_ITS ---
Intake Visit Reasons: Right shoulder injection-last inj 07/13/24 Allergies bupropion Allergy (Mild, Verified 10/14/24 10:27) Angioedema pravastatin Allergy (Mild, Verified 10/14/24 10:27) Unknown tramadol Allergy (Mild, Verified 10/14/24 10:27) Unknown aspirin Allergy (Unknown, Uncoded 06/23/24 10:13) Angioedema HPI HPI Right shoulder injection-last inj 07/13/24: Details: Mr. Lindsay is a 53-year-old male who presents to the office today for repeat cortisone injection of the right shoulder. Last cortisone injection was given on 07/13/2024. He reports that he had mild relief with this but would like to repeat the injection in the office today. [facility] Medical History (Updated 06/11/24 @ 09:32 by Mahnaz Bell [facility]) Diverticulosis Erectile dysfunction CTS (carpal tunnel syndrome) Depressive disorder HTN (hypertension) GERD (gastroesophageal reflux disease) Acute insomnia Obesity Diabetes mellitus, type II Surgical History History of esophagogastroduodenoscopy (EGD) Hx of colonoscopy History of surgery H/O hand surgery H/O eye surgery Family History Brother Prostate cancer Father Prostate cancer Brother Cancer Social History Household Members Other:: Alcohol intake: former Patient Tobacco Use Status: Never used Tobacco Current occupational status: unemployed Current occupation: right hand dominant Review of Systems Const All systems reviewed & are unremarkable except as noted in HPI and below Physical Exam Const General: cooperative, healthy appearing and no acute distress Resp Effort & Inspection: normal respiratory effort and able to speak in complete sentences Cardio Rate: regular rate Peripheral pulses: Peripheral pulses 2+ throughout GI Palpation (GI): Soft to palpation Skin Lesions: no lesions Rashes: no rashes Extrem Other: Right shoulder: Pain along the impingement arc. Forward flexion to 90 degrees. Full abduction. Able to reach T12. Pain with cross-body reach. 4/5 strengthen with empty can. NVI. Office Procedures AMB Joint Injection/Aspiration Joint Injection/Aspiration Primary Site: right shoulder Prep: site was prepped using aseptic technique, ethochloride spray was applied and injection warnings given Injected: 40 mg of, DepoMedrol, with 8 mL of (2% plain lidocaine) and in the subcromial space Approach Used: posterolateral Procedure: The patient tolerated the procedure well, but had some pain with the injection and there was some relief with the local anesthesia Coding 64443 - Large joint Procedure code (CPT) selection complete Assessment & Plan Assessment & Plan (1) Arthritis of right glenohumeral joint: Code(s): M19.011 - Primary osteoarthritis, right shoulder Category: Medical (2) Painful arc syndrome of right shoulder: Code(s): M75.101 - Unspecified rotator cuff tear or rupture of right shoulder, not specified as traumatic Category: Medical (3) Diabetes mellitus, type II: Code(s): E11.9 - Type 2 diabetes mellitus without complications Category: Medical Plan woman who comes in with continued left shoulder pain and weakness. I saw her 2 years ago and at that time she had a large rotator cuff tear which she elected to treat conservatively. She returns today expressing regret for that decision in wanting to proceed forward with surgery. She states her shoulder continues to bother her and she recently reinjured it. Patient requests an increase in steroid while in the office today. However, he admits that his glucose is not well controlled due to his diabetes. The patient was offered a cortisone injection in the right shoulder with 40 mg of DepoMedrol. The patient was explained the risks, benefits, and alternatives to receiving this injection. After receiving consent for the injection, the patient had the procedure done while in the office today. The patient tolerated the procedure well with no complications. Due to the patient?s history of diabetes, they were instructed to monitor their blood glucose level. The patient was informed that they could see a rise in their numbers and if the numbers became too high, they were instructed to call their PCP. The patient was also informed that they could have facial flushing as a side effect of the injection, but this will pass. Follow-up will be p.r.n., or sooner if needed Coding Level of Care Code Est Pt Level 4 (55455) Diagnoses Arthritis of right glenohumeral joint M19.011 Painful arc syndrome of right shoulder M75.101 Diabetes mellitus, type II E11.9 CPT Codes Coding - 20210 Large joint: 27989 - Large joint ([id number])
== END 2024-10-14 10:27 | disposition home or self-care (01) ==
LOC: HO.HOS 10:11
PROVIDERS: PCP Registered Nurse; Visit Provider Physician Assistant
DX: M19.011 Primary osteoarthritis, right shoulder (principal); M75.101 Unspecified rotator cuff tear or rupture of right shoulder, not specified as traumatic; E11.9 Type 2 diabetes mellitus without complications
CPT/HCPCS: 20610; 99214

== ENCOUNTER → 2024-10-14 10:10 | Outpatient (BNVA) | payer MEDICAID, SELFPAY | PROVIDERS: PCP Registered Nurse; Visit Provider Physician Assistant | DX: M19.011 Primary osteoarthritis, right shoulder (principal); M75.101 Unspecified rotator cuff tear or rupture of right shoulder, not specified as traumatic; E11.9 Type 2 diabetes mellitus without complications | CPT/HCPCS: 20610; 99212; J1010; J2003 ==

== ENCOUNTER 2024-10-29 08:03 | Outpatient (REF) | payer MEDICAID, SELFPAY ==
--- NOTE | ~2024-10-29 | XR_ITS ---
EXAMINATION: XR SHOULDER, LEFT CLINICAL INFORMATION: M25.519 - Pain in unspecified shoulder COMPARISON: None available. TECHNIQUE: AP external rotation, Grashey, scapular Y, and axillary views of the left shoulder. FINDINGS: Normal bone mineralization. No fracture, dislocation, or suspicious bone lesion. Normal alignment. The glenohumeral joint is normal. The AC joint demonstrates mild undersurface spurring. There is a mildly downsloping lateral acromion. No undersurface spurring. The subacromial space is preserved. Remainder of the soft tissue and bony structures appear normal. XR/XR shoulder LT min 2V IMPRESSION: 1. No acute bony abnormalities. 2. 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 Electronically signed by: Vikram Pollard MD 10/29/2024 10:35 AM EDT
--- OUTSIDE RECORDS SUMMARY | 2024-11-01 08:14 | XMS_ITS | Clinical Summary ---
Author Organization [facility] Address [address] [facility] 7t [place] [address] Care Team Providers Care Cadd Manager Name Role Phone Karo Lockett WOOD TECHNOLOGIST Primary Care Provider [phone] Allergies Active Allergy Reactions Criticality Noted Date [...] MOUTH DAILY IN THE MORNING 023 Active insulin pen needle (BD Pen Needle Lisa 2nd Gen) 32G x 4 mm miscIndications:T ype 2 diabetes mellitus without complication, without long-term current use of insulin ([facility]) Use as instructed to inject insulin 100 each 12 024 2024 Active lidocaine-priloca ine (Emla) 2.5-2.5 % creamIndications: Primary osteoarthritis of right shoulder Apply thin layer by topical route 3-4 times daily as needed to affected area. 60 g 2 024 Active glipiZIDE (Glucotrol) 10 MG tabletIndications :Type 2 diabetes mellitus without complication, without long-term current use of insulin ([facility]) Take 1 tablet (10 mg) by mouth before breakfast and before evening meal. 180 tablet 2 024 Active Alcohol Swabs (Alcohol Prep) 70 % padsIndications:T ype 2 diabetes mellitus treated with insulin ([facility]) USE TO TEST BLOOD SUGAR THREE TIMES DAILY 100 each 11 024 Active FREESTYLE LITE test stripIndications: Type 2 diabetes mellitus treated with insulin ([facility]) 1 each by Other route 3 times daily. 100 each 024 Active TRUEplus Lancets 33G miscIndications:T ype 2 diabetes mellitus treated with insulin ([facility]) USE TO TEST BLOOD SUGAR THREE TIMES DAILY 100 each 024 Active cholecalciferol (Vitamin D-3) 25 MCG (1000 UT) tabletIndications :Vitamin D insufficiency Take 1 tablet (25 mcg) by mouth in the morning. 90 tablet 3 024 Active empagliflozin (Jardiance) 25 MGIndications:Typ e 2 diabetes mellitus without complication, with long-term current use of insulin ([facility]) Take 1 tablet (25 mg) by mouth Once per day. 90 tablet 3 024 2024 Active hydroCHLOROthiazi de (HYDRODiuril) 25 MG tabletIndications [...] complication, with long-term current use of insulin ([facility]) Inject 1.5 mg under the skin 1 (one) time per week. 2 mL 3 025 Active insulin glargine (Lantus) 100 UNIT/ML injectionIndicati ons:Type 2 diabetes mellitus without complication, without long-term current use of insulin ([facility]) Inject 25 Units under the skin at bedtime. 5 mL 2 025 2025 Active amLODIPine (Norvasc) 5 MG tabletIndications :Essential hypertension Take 1 tablet (5 mg) by mouth in the morning. 90 tablet 3 Active escitalopram (Lexapro) 10 MG tablet TAKE ONE TABLET EVERY MORNING 90 tablet 1 025 Active amLODIPine (Norvasc) 5 MG tabletIndications :Essential hypertension Take 1 tablet (5 mg) by mouth in the morning. 90 tablet 3 024 2024 Discontinued(R eorder (will not trigger notification to Pharmacy)) insulin glargine (Lantus) 100 UNIT/ML injectionIndicati ons:Type 2 diabetes mellitus without complication, without long-term current use of insulin ([facility]) Inject 10 Units under the skin at bedtime. 5 mL 2 024 2024 Discontinued Dulaglutide 1.5 MG/0.5ML solution auto-injectorIndi cations:Type 2 diabetes mellitus without complication, with long-term current use of insulin ([facility]) Inject 1.5 mg under the skin 1 (one) time per week. 2 mL 3 024 2024 Discontinued(R eorder (will not trigger notification to Pharmacy)) escitalopram (Lexapro) 10 MG tablet TAKE ONE TABLET EVERY MORNING 90 tablet 025 2024 Discontinued(R eorder (will not trigger notification to Pharmacy)) Dulaglutide 1.5 MG/0.5ML solution auto-injectorIndi cations:Type 2 diabetes mellitus without complication, with long-term current use of insulin ([facility]) Inject 1.5 mg under the skin 1 [...] Plan (11/20/2023 8:30 AM EDT): -Following with [facility] Ortho, completed OT without much noted improvement -Encouraged cont symptomatic management Assessment & Plan (05/28/2023 11:36 AM EST): See above Primary osteoarthritis of right shoulder 023 Overview (05/06/2024): Followed by [facility] Ortho Cortisone injection January 2024 Assessment & Plan (11/20/2023 8:25 AM EDT): -Followed by [facility] Ortho (last consult October 2023) -Reporting limited improved from cortisone injection, reviewed plan to call office mid November 2023 to discuss next tx steps Assessment & Plan (05/28/2023 11:37 AM EST): See above Spondylosis without myelopat hy or radiculopathy, lumbar region 05/18/2023 Overview (05/18/2023): ?? Previously followed by [facility], received injections ?? Chronic left sided low back pain suspected 2/2 lumbar DDD and facet arthropathy ?? Referral to re-establish with [facility] Apr 2023 Other male erectile dysfunction 11/05/2022 Overview (11/20/2023): -Following with [facility] Urology - Dr. Kimball -Discussed importance of [...] 10/30/2022 Overview (05/06/2024): Colonoscopy: January 2024 - [facility] GI. Hyperplastic polyps. Next routine screening due January 2034. PSA: normal October 2022, following with [facility] Urology Eye exam: [facility] Care Dental: [facility] Dental Assessment & Plan (05/06/2024 6:24 [...] carbohydrates CGM trial December 2023. Skin rxn, SHANNON. Treatment Goals: A1c goal: <7% FBG goal: [...] rechallenge with statin until pt cleared by electrolysis operator. -Cont Gemfibrozil 600 mg BID. -Fasting lipid [...] given the presence of arthralgias Refer to [facility] clinic for injection No improvement with OT Carpal tunnel syndrome of right wrist 02/10/2012 11/20/2023 Assessment & Plan (05/28/2023 11:36 AM EST): See above Order NCs Assessment & Plan (11/05/2022 9:07 AM EDT): -Declines interest to Hand specialist -Continue with symptomatic management -Referral to OT for further eval and tx Backache 01/09/2012 05/18/2023 Encounters Date Type Department Care Team Description 10/29/2024 Refill [facility] [address] [place] [address] Karo Lockett FNP Essential hypertension 10/14/2024 8:30 AM EDT Telemedicine [facility] [address] [place] [address] Orion Dong MD Type 2 diabetes mellitus without complication, with long-term current use of insulin ([facility]); Type 2 diabetes mellitus without complication, without long-term current use of insulin ([facility]) 10/14/2024 Telephone [facility] [address] [place] [address] Karo Lockett FNP Appointment 10/14/2024 Travel 10/13/2024 10:00 AM EDT Office Visit [facility] ADULT DENTAL [address] [place] [address] Edelmira Eagle DDS 10/13/2024 Telephone [facility] [address] [place] [address] Orion Dong MD 10/01/2024 Population Health Risk Score [facility] () Department [address] [place] [phone] Provider, Population Health Generic 09/28/2024 10:00 AM EDT Office Visit [facility] AD[facility] [address] [place] [address] Edelmira Eagle DDS 09/09/2024 10:30 AM EST Office Visit [facility] ADULT D[facility] [address] [place] [address] Edelmira Eagle DDS 09/09/2024 Orders Only [facility] [address] [place] [address] Karo Lockett FNP 09/09/2024 Orders Only [facility] [address] [place] [address] Karo Lockett FNP Essential hypertension 08/27/2024 10:00 AM EST Office Visit [facility] ADULT DENTAL [address] [place] [address] Edelmira Eagle, DDS 08/05/2024 Refill [facility] [address] [place] [address] Quin Herndon MD from Last 3 Months [...] Description 11/04/2024 10:00 AM EDT Office Visit [facility] ADULT DENT[facility] [address] [place] [address] Edelmira Eagle, DDS [address] [place] [address] 12/24/2024 10:30 AM EDT Office Visit [facility] [address] [place], [place] [phone] Karo Lockett, WOOD TECHNOLOGIST [address] [place], [place] [phone] Health Maintenance Due Date Last Done Comments [...] 01/13/2023 11/18/2022 Depression Screening 02/20/2024 02/19/2023, 02/20/20 23 Diabetes: Hemoglobin A1C 09/17/2024 024, 05/05/2024, 04/30/2024, [...] AM EST) Hemoglobin A1c 7.1(H) <6.0 % [facility] Comment:Hemoglobin A1C Refer ence Range Adults: 4.8 - 6.0 % Non diabetic: < 6.0 % Goal: < 7.0 %Additional Action Suggested: > 8.0 %Note: Hemoglobin A1c results are invalid for patients with abnormal amounts of HbF. Blood transfusions may impact the HbA1c concentration in the patient sample. Estimated Average Glucose 157 mg/dL [facility] Comment:eAG = Estimated ave rage glucose which is %A1C expressed asaverage glucose, using the formula of the C7A-JfyxeyyFrtomor Glucose study (ADAG), Diabetes Care, Vol.31,#8,Feb. 2007 06/18/2024 7:58 AM EST 06/18/2024 7:58 AM EST us Generic External Data Provider LAB BLOOD ORDERAB LES Final Result [facility] [address] [place] [phone] * Hepatitis C Viral RNA, Quantitative, Real-Time PCR (05/05/2024 10:40 AM EDT) Hepatitis C Viral Load <15 NOT DETECTED NOT DETECTED IU/mL [facility] HCV Log PCR <1.18 NOT DETECTED NOT DETECTED Log IU/mL [facility] Comment:For additional infor foreign, please refer tohttp://education.OVIA/faq/IBS30p9(This link is being provided for informational/educational purposes only.)THIS TEST WAS PERFORMED AT:[employer] [place] [phone] LEONARD MD Blood 05/05/2024 10:4 0 AM EDT 05/05/2024 11:43 AM EDT Karo Lockett [facility] LAB BLOOD ORDERABLES Final Res ult Performing Organization Address [facility] Co de Phone Number [facility] [address] [place] [phone] * (ABNORMAL) Albumin, Random Urine W/Creatinine (05/05/2024 10:40 AM EDT) [facility] Creatinine, Urine 48.35 mg/dL [facility] Microalbumin Urine 16.0 mg/L H [facility] Microalbum Creatinine Ratio Ur 33.0(H) <30 ug/mg cr [facility] Comment:Albumin/Creatinine R atio Reference Ranges: Normal: < 30 ug/mg creatinine Microalbuminuria: 30 - 300 ug/mg creatinineClinical Albuminuria: > 300 ug/mg creatinine Urine 05/05/2024 10:4 0 AM EDT 05/05/2024 1:10 PM EDT Karo Lockett [facility] LAB URINE ORDERABLES Final Res ult Performing Organization Address [facility] Co de Phone Number [facility] [address] [place] [phone] * HIV-1/2 Antigen and Antibodies, Fourth Generation, with Reflexes (05/05/2024 10:40 AM EDT) HIV AB/AG Nonreactive Nonreactive [facility] Comment:HIV-1 p24 Ag and/or HIV-1/HIV-2 Ab not detected.A test result that is nonreactive does not exclude thepossibility of exposure to or infection with HIV-1 and/orHIV-2. Nonreactive results in this assay for individualswith prior exposure to HIV-1 and/or HIV-2 may be due toantigen and antibody levels that are below the limit ofdetection of this assay.The Wander HIV Ag/Ab Combo assay result andsupplemental assay results should be interpreted inconjunction with the patient's clinical presentation,history and other laboratory results. If the results areinconsistent with clinical evidence, additional testing issuggested to confirm the result. Blood Venous blood specimen / Unknown 05/05/2024 10:40 AM EDT 05/05/2024 11:43 AM EDT us Karo Lockett [facility] LAB BLOOD ORDERABLES Final Res ult [facility] [address] [place], [place] [phone] * (ABNORMAL) Lipid Panel, Standard (05/05/2024 10:40 AM EDT) Triglycerides 128 <150 mg/dL [facility] Comment:Desirable Triglyceri de: less than 150 mg/dLBorderline High Triglyceride 150-199 mg/dLHigh Triglyceride: 200-499 mg/dLVery High Triglyceride: greater than or equal to 5OO mg/dL Cholesterol 182 <200 mg/dL [facility] Comment:Desirable Cholestero l: less than 200 mg/dLBorderline High Cholesterol: 200-239 mg/dLHigh Cholesterol: greater than 239 mg/dL LDL Cholesterol Calculated 125(H) <100 mg/dL [facility] Comment:Desirable LDL: less than 100 mg/dLNear Optimal/Above Optimal LDL: 110- 129 mg/dLBorderline High LDL: 130-159 mg/dLHigh LDL: 160-189 mg/dLVery High LDL: greater than or equal to 190 mg/dL HDL Cholesterol 32(L) >40 mg/dL [facility] Comment:Desirable HDL: great er than 40 mg/dL Note: This HDL assay may give artificially low results in patients with liver disease. Blood Venous blood specimen / Unknown 05/05/2024 10:40 AM EDT 05/05/2024 11:43 AM EDT Karo Lockett WOOD TECHNOLOGIST LAB BLOOD ORDERABLES Final Res ult [facility] [address] [place] [phone] [phone] * Hm Colonoscopy (02/13/2024 10:16 PM EDT) us Historical Provider HEALTH MAINTENANCE Final Result from Last 3 Months or Most Recently Relevant to Health Maintenance Insurance [facility] [address] C[facility] Care Teams Cadd Manager Relationship Specialty Start Date End Date Karo Lockett FNP [address] [place] [phone] PCP - General Family Medicine 03/17/22
--- OUTSIDE RECORDS SUMMARY | 2024-11-01 08:14 | XMS_ITS | Encounter Summary ---
Author Organization [employer] Address [address] 7t [place] [address] Care Team Providers Care Wood Heel Finisher Name Role Phone Karo Lockett SUPERVISOR LANDSCAPE Primary Care Provider [phone] Encounter Details Date Type Department Care Team ([facility] st Contact Info) Description 04/19/2024 Orders Only [facility]ED[facility] [address] [place], [place] [phone] ProviderKeysha MD Social History Tobacco Use Types [...] 11/04/2024 10:00 AM EDT Office Visit [facility] ADULT D[facility]AL [address] [place] [address] Edelmira Eagle, DDS [address] [place] [address] 12/24/2024 10:30 AM EDT Office Visit [facility]ED[facility] [address] [place], [place] [phone] Karo Lockett FNP [address] [place] [address] documented as of this encounter Procedures Procedure [...] documented as of this encounter Care Teams Wood Heel Finisher Relationship Specialty Start Date End Date Karo Lockett FNP [address] [place] [address] PCP - General Family Medicine 03/17/22 documented as of this encounter
--- OUTSIDE RECORDS SUMMARY | 2024-11-01 08:14 | XMS_ITS ---
Author Organization [facility] Address [address] [place] [phone] Care Team Providers Care Family Preservation Worker Name Role Phone CHINTAN KINNEY, DAGOBERTO Primary Care Provider Stewart Aguila [phone] REASON FOR VISIT Patient presents today for a COLON SCREENING Encounters Encounter Location Date Provider Diagnosis [facility] [address] [place] [phone] 10/07/2023 Stewart Rogers Plan Of Treatment No Information Progress Notes * SOLEDAD BLACKWELL RDOB: 0 (54 yo M)Acc No.[id number]:10/07/2023 Progress Notes Patient:?SOLEDAD BLACKWELL Provider:?Stewart Rogers MD :1970???Age:52 Y???Sex:Male Ministerio e:10/07/2023 Address:[address] [place], [place] [phone] Pcp:DAGOBERTO WOODSON MD Subjective: * Chief Complaints: [...] MD Date:? 024 Generated for Randy mayer/Ari/eTigorsmitting on:?11/01/2024 08:14 AM EDT
--- OUTSIDE RECORDS SUMMARY | 2024-11-01 08:14 | XMS_ITS | Patient Health Record ---
Author Organization [facility] Address [address] [place] [address] Care Team Providers Care Clerk Telegraph Service Name Role Phone DAGOBERTO WOODSON MD Primary Care Provider Stewart Aguila [phone] Reason For Referral No Information Plan Of Treatment No Information Insurance Providers Payer Name Payer Address Payer Phone Subscriber Number Group Number Insured Name Patient Relationship to Insured Coverage Start Date Coverage End Date [place] [address] [place] [address] [id number] SOLEDAD BLACKWELL Self - patient is the insured
--- OUTSIDE RECORDS SUMMARY | 2024-11-01 08:15 | XMS_ITS | Encounter Summary ---
Author Organization [email or web address] Address [address] [facility] 7t [place] [address] Care Team Providers Care Management Retail Intern Name Role Phone Karo Lockett Primary Care Provider [phone] Reason for Visit * Reason Onset Date Comments Med Refill 10/29/2024 Encounter Details Date Type Department Care Team (Late st Contact Info) Description 10/29/2024 Refill [facility] [address] [place], [place] [phone] Krao Lockett FNP [address] [place] [address] Essential hypertension Social History Tobacco Use Types [...] Description 11/04/2024 10:00 AM EDT Office Visit [facility] ADULT DENT[facility] [address] [place] [address] Edelmira Eagle DDS [address] [place] [address] 12/24/2024 10:30 AM EDT Office Visit [facility] [address] [place] [address] Karo Lockett FNP [address] [place] [address] documented as of this encounter Visit Diagnoses Diagnosis Essential hypertension Unspecified essential hypertension documented in this encounter Additional Health Concerns Assessment Noted Time PHQ-9 Depression Total Score: 0 02/20/20 23 3:36 PM EDT documented as of this encounter Care Teams Management Retail Intern Relationship Specialty Start Date End Date Karo Lockett FNP [address] [place] [address] PCP - General Family Medicine 03/17/22 documented as of this encounter
--- OUTSIDE RECORDS SUMMARY | 2024-11-01 08:15 | XMS_ITS | Encounter Summary ---
Author Organization [employer] [facility] Address [address] [facility] 7t [place] [address] Care Team Providers Care Financial Institution Treasurer Name Role Phone Karo Lockett Primary Care Provider [phone] Reason for Visit * Reason Onset Date Comments Referral 03/07/2023 Encounter Details Date Type Department Care Team ([facility] st Contact Info) Description 03/07/2023 Telephone [facility] [address] [place] [address] Karo Lockett FNP [address] [place] [address] Referral Social History Tobacco Use Types Packs/Day [...] Appears GI was referral was sent to [facility] in October 2022. Referrals team - please [...] [facility] [address] [place] [address] Edelmira Eagle DDS [address] [place] [address] 12/24/2024 10:30 AM EDT Office Visit [facility] [address] [place] [address] Karo Lockett FNP [address] [place] [address] documented as of this encounter Visit Diagnoses Diagnosis Bilateral carpal tunnel syndrome- Primary Carpal tunnel syndrome documented in this encounter Additional Health Concerns Assessment Noted Time PHQ-9 Depression Total Score: 0 02/20/20 23 3:36 PM EDT documented as of this encounter Care Teams Financial Institution Treasurer Relationship Specialty Start Date End Date Karo Lockett FNP [address] [place] [address] PCP - General Family Medicine 03/17/22 documented as of this encounter
--- OUTSIDE RECORDS SUMMARY | 2024-11-01 08:15 | XMS_ITS | Encounter Summary ---
Author Organization [employer] [facility] Address [address] [place] [address] 7t [place] [address] Care Team Providers Care Solar Business Developer Name Role Phone Karo Lockett Primary Care Provider [phone] Encounter Details Date Type Department Care Team (Late st Contact Info) Description 09/30/2022 Orders Only [facility] [address] [place] [address] Kiki Bryant LPN Social History Tobacco Use [...] Office Visit [facility] ADULT D[facility]AL [address] [place] [address] Edelmira Eagle, DDS [address] [facility] [place] [address] 12/24/2024 10:30 AM EDT Office Visit [facility] [address] [place] [address] Karo Lockett FNP [address] [place] [address] documented as of this encounter Visit Diagnoses Not on filedocumented in this encounter Care Teams Solar Business Developer Relationship Specialty Start Date End Date Karo Lockett FNP [address] [place] [phone] PCP - General Family Medicine 03/17/22 documented as of this encounter
--- OUTSIDE RECORDS SUMMARY | 2024-11-01 08:15 | XMS_ITS ---
Author Organization [facility] Address [address] [place] [phone] Care Team Providers Care Tumbler Drier Operator Name Role Phone DAGOBERTO WOODSON MD Primary Care Provider Stewart Aguila [phone] REASON FOR VISIT cancel OV Encounters Encounter Location Date Provider Diagnosis [facility] [address] [place] [phone] 10/06/2023 Stewart Rogers Plan Of Treatment No Information Progress Notes * SOLEDAD BLACKWELL RDOB: 0 (52 yo M)Acc No.[id number]:10/06/2023 Patient:?SOLEDAD BLACKWELL :1970???Age:52 Y???Sex:Male Address:[address] [place] [phone] * true * Date:? Generated for Randy mayer/Ari/eTransmitting on:?11/01/2024 08:15 AM EDT
--- OUTSIDE RECORDS SUMMARY | 2024-11-01 08:15 | XMS_ITS | Encounter Summary ---
Author Organization [facility] [facility] Address [address] [place] [address] 7t [place] [address] Care Team Providers Care Architect Name Role Phone Karo Lockett Primary Care Provider [phone] Encounter Details Date Type Department Care Team (Late st Contact Info) Description 10/14/2022 Orders Only [facility] [address] [place] [address] Fabienne Doss LPN Social History Tobacco Use [...] [facility] [address] [place] [address] Edelmira Eagle DDS [address] [place] [address] 12/24/2024 10:30 AM EDT Office Visit [facility] [address] [place], [place] [phone] Karo Lockett FNP [address] [place] [address] documented as of this encounter Visit Diagnoses Not on filedocumented in this encounter Care Teams Architect Relationship Specialty Start Date End Date Karo Lockett FNP [address] [place] [address] PCP - General Family Medicine 03/17/22 documented as of this encounter
--- OUTSIDE RECORDS SUMMARY | 2024-11-01 08:15 | XMS_ITS | Encounter Summary ---
Author Organization [employer] Address [address] [facility] [address] [facility] [address] [place] [address] Care Team Providers Care Bottomer Operator Name Role Phone Karo Lockett Primary Care Provider [phone] Reason for Visit * Reason Onset Date Comments Returning Call 08/18/2023 Encounter Details Date Type Department Care Team ([facility] st Contact Info) Description 08/18/2023 Telephone [facility] MEDICINE [address] [place] [address] Karo Lockett FNP [address] [place] [address] Returning Call Social History Tobacco Use Types [...] Wednesdays, and Walk-In Urgent Care Located in [facility]. Patient provided with after-hours line for [facility], , which offer night time triage service and option to transfer to pest controller assistant provider if needed. Please contact pt at [phone]. documented in this encounter Plan of Treatment Upcoming Encounters Date Type Department Care Team (Late st Contact Info) Description 11/04/2024 10:00 AM EDT Office Visit [facility] ADULT DENTAL [address] [place] [address] Edelmira Eagle DDS [address] [place] [address] 12/24/2024 10:30 AM EDT Office Visit [facility] MED & PEDS [address] [place], [place] [phone] Karo Lockett FNP [address] [place] [address] documented as of this encounter Visit Diagnoses Not on filedocumented in this encounter Additional Health Concerns Assessment Noted Time PHQ-9 Depression Total Score: 0 02/20/20 23 3:36 PM EDT documented as of this encounter Care Teams Bottomer Operator Relationship Specialty Start Date End Date Karo Lockett FNP [address] [place] [address] PCP - General Family Medicine 03/17/22 documented as of this encounter
== END 2024-10-29 08:04 | disposition home or self-care (01) ==
LOC: HO.HOSX 08:03
PROVIDERS: Visit Provider Physician Assistant
DX: M25.552 Pain in left hip (principal); E11.9 Type 2 diabetes mellitus without complications
CPT/HCPCS: 20610; 73030; 99212; J1010; J2003

== ENCOUNTER 2024-10-29 09:47 | Outpatient (AMB) | payer MEDICAID, SELFPAY ==
--- NOTE | 2024-10-29 09:51 | A.OFFVIS_ITS ---
Vital Signs 10/29/24 09:54 Height 5 ft 4 in Weight 201 lb BMI 34.5 Handedness Right Intake Visit Reasons: New prob LT shoulder pain Intake Note: Gilbert is a 54 year old right hand dominant male who presents today with his for a evaluation of his left shoulder pain, last injection was on his right shoulder on 10/14/24. He states that his left shoulder started to bother him about 6 months ago. Patient states that his pain is on the lateral aspect of the shoulder. His pain is worse when he is doing overhead reaching, lifting and laying down. He has tried and failed Ibuprofen. Night Filler Services: Night Filler Present (Niels ([id number])) Allergies bupropion Allergy (Mild, Verified 10/29/24 10:03) Angioedema pravastatin Allergy (Mild, Verified 10/29/24 10:03) Unknown tramadol Allergy (Mild, Verified 10/29/24 10:03) Unknown aspirin Allergy (Unknown, Uncoded 06/23/24 10:13) Angioedema HPI HPI New prob LT shoulder pain: Details: Mr. Neftali Seth is a 54 year old right hand dominant male who presents today with his for a evaluation of his left shoulder pain, last injection was on his right shoulder on 10/14/24. He states that his left shoulder started to bother him about 6 months ago. Patient states that his pain is on the lateral aspect of the shoulder. His pain is worse when he is doing overhead reaching, lifting and laying down. He has tried and failed Ibuprofen. [facility] Medical History (Updated 10/29/24 @ 13:18 by Katy Baron PA-C) Diverticulosis Erectile dysfunction CTS (carpal tunnel syndrome) Depressive disorder HTN (hypertension) GERD (gastroesophageal reflux disease) Acute insomnia Obesity Diabetes mellitus, type II Surgical History History of esophagogastroduodenoscopy (EGD) Hx of colonoscopy History of surgery H/O hand surgery H/O eye surgery Family History Brother Prostate cancer Father Prostate cancer Brother Cancer Social History Household Members Other:: Alcohol intake: former Patient Tobacco Use Status: Never used Tobacco Current occupational status: unemployed Current occupation: right hand dominant Physical Exam Vital Signs: BMI result Body Mass Index 34.5 Const General: cooperative, healthy appearing and no acute distress Resp Effort & Inspection: normal respiratory effort and able to speak in complete sentences Cardio Rate: regular rate Peripheral pulses: Peripheral pulses 2+ throughout Skin Lesions: no lesions Rashes: no rashes Extrem Other: Left shoulder full range of motion in all planes. Pain with cross-body reach. 4-5 strength with empty can. Negative drop-arm. NVI. Office Procedures AMB Joint Injection/Aspiration Joint Injection/Aspiration Primary Site: left shoulder Prep: site was prepped using aseptic technique, ethochloride spray was applied and injection warnings given Injected: 40 mg of, DepoMedrol, with 8 mL of (2% plain lidocaine) and in the subcromial space Approach Used: posterolateral Procedure: The patient tolerated the procedure well, but had some pain with the injection and there was some relief with the local anesthesia Coding 84622 - Large joint Procedure code (CPT) selection complete Assessment & Plan Assessment & Plan (1) Painful arc syndrome of left shoulder: Code(s): M75.102 - Unspecified rotator cuff tear or rupture of left shoulder, not specified as traumatic Category: Medical (2) Diabetes mellitus, type II: Code(s): E11.9 - Type 2 diabetes mellitus without complications Category: Medical Plan The patient was offered a cortisone injection in the left shoulder with 40 mg of DepoMedrol. The patient was explained the risks, benefits, and alternatives to receiving this injection. After receiving consent for the injection, the patient had the procedure done while in the office today. The patient tolerated the procedure well with no complications. Due to the patient?s history of diabetes, they were instructed to monitor their blood glucose level. The patient was informed that they could see a rise in their numbers and if the numbers became too high, they were instructed to call their PCP. The patient was also informed that they could have facial flushing as a side effect of the injection, but this will pass. Follow-up will be p.r.n., or sooner if needed X-rays of the left shoulder which were obtained while in the office today and were reviewed by me, Katy Baron PA-C, revealed no acute fracture disloca tion. Orders: Orders XR shoulder LT min 2V Today M25.519 - Pain in unspecified shoulder Coding Level of Care Code Est Pt Level 4 (38049) Diagnoses Painful arc syndrome of left shoulder M75.102 Diabetes mellitus, type II E11.9 CPT Codes Coding - 56948 Large joint: 01953 - Large joint ([id number])
[2024-10-29 09:54] VITALS: BMI 34.5
--- OUTSIDE RECORDS SUMMARY | 2024-10-29 10:23 | XMS_ITS | Encounter Summary ---
Author Organization [employer] Address [address] [place] [address] Care Team Providers Care Quantitative Researcher Name Role Phone Karo Lockett ALUMNAE SECRETARY Primary Care Provider [phone] Encounter Details Date Type Department Care Team ([facility] st Contact Info) Description 04/19/2024 Orders Only [facility] MED & PEDS [address] [place], [place] [phone] ProviderKeysha MD Social History Tobacco Use Types Packs/Day Years Used Date Smoking Tobacco: Never Smokeless Tobacco: Never Alcohol Use Standard Drinks/Week Comments Never 0 (1 standard drink = 0.6 oz pur e alcohol) Depression Answer Date Recorded Patient Health Questionnaire-9 Score 0 02/19/2023 Housing Stability Answer Date Recorded What is your housing situation today? I have ramiro alejo 11/17/[address] you li ve. Do you have problems with any of the following? None of the above 11/17/2023 Food Insecurity Answer Date Recorded Within the past 12 months, y ou worried that your food would run out before you got money to buy more: Often true 11/17/2023 Within the past 12 months,th e food you bought just didn't last and you didn't have enough money to get more: Often true Transportation Answer Date Recorded In the past 12 months, has l ack of transportation kept you from medical appts, meetings, work or from getting things needed for daily living? No 11/17/2023 Utilities Answer Date Recorded In the past 12 months, has t he electric, gas, oil or water company threatened to shut off services in your home? I am not sure 11/17/2023 Depression Answer Date Recorded Patient Health Questionnaire-2 Score 0 02/19/2023 Sex and Gender Information Value Date Recorded Sex Assigned at Male 05/20/2022 10:18 AM EDT Legal Sex Male 10:18 AM EDT Gender Identity Male 05/20/2022 10:18 AM EDT Sexual Orientation Don't know 05/20/2022 10 :18 AM EDT documented as of this encounter Plan of Treatment Upcoming Encounters Date Type Department Care Team (Late st Contact Info) Description 11/04/2024 10:00 AM EDT Office Visit [facility] ADULT DENTAL [address] [place] [address] Edelmira Eagle, DDS [address] [place] [address] 12/24/2024 10:30 AM EDT Office Visit [facility] MED & PEDS [address], [place] [phone] Karo Lockett FNP [address] [place] [address] documented as of this encounter Procedures Procedure Name Priority Date/Time Associated Diagnosis Comments HM COLONOSCOPY Routine 02/13/2024 10:16 PM EDT SURGICAL PATHOLOGY Routine 02/13/2024 9:29 AM EDT documented in this encounter Results * Hm Colonoscopy (02/13/2024 10:16 PM EDT) Historical Provider HEALTH MAINTENANCE Final Result * Surgical Pathology (02/13/2024 9:29 AM EDT) Historical Provider LAB PATHOLOGY ORDERABLES Final Result documented in this encounter Visit Diagnoses Not on filedocumented in this encounter Additional Health Concerns Assessment Noted Time PHQ-9 Depression Total Score: 0 02/20/20 23 3:36 PM EDT documented as of this encounter Care Teams Quantitative Researcher Relationship Specialty Start Date End Date Karo Lockett FNP [address] [place] [address] PCP - General Family Medicine 03/17/22 documented as of this encounter
--- OUTSIDE RECORDS SUMMARY | 2024-10-29 10:23 | XMS_ITS | Clinical Summary ---
Author Organization [employer] [facility] Address [address] [place] [address] Care Team Providers Care Medicaid Specialist Name Role Phone Karo Lockett PHYSICIST [employer] Primary Care Provider [phone] Allergies Active Allergy Reactions Criticality Noted Date Comments Ibuprofen 11/23/2015 Other reaction(s): swelling lip/groin-meloxicam ok Bupropion 04/30/2017 Meloxicam 05/26/2019 Metformin 12/20/2021 Pravastatin 08/09/2016 Other reaction(s): throat swelled, trouble breathin Tramadol 11/13/2016 Other reaction(s): mouth swelling Medications FREESTYLE LITE test strip USE TO TEST BLOOD SUGAR TWICE DAILY 023 Active SM Dry Eye Relief 0.2-0.2-1 % solution INSTILL 1 DROP INTO THE AFFECTED EYE(S) EVERY 4 HOURS NEEDED 022 Active simethicone (Gas-X) 80 MG chewable tablet Chew 1 tablet (80 mg) every 6 (six) hours if needed for flatulence. 30 tablet 023 Active tadalafil (Cialis) 20 MG tablet TAKE 1 TABLET 1 HOUR BEFORE SEXUAL RELATIONS ONCE DAILY NEEDED. 023 Active Biotin Maximum Strength 5000 MCG capsule TAKE 1 CAPSULE BY MOUTH DAILY IN THE MORNING 023 Active amLODIPine (Norvasc) 5 MG tabletIndications :Essential hypertension Take 1 tablet (5 mg) by mouth in the morning. 90 tablet 3 024 Active insulin pen needle (BD Pen Needle Lisa 2nd Gen) 32G x 4 mm miscIndications:T ype 2 diabetes mellitus without complication, without long-term current use of insulin ([facility]) Use as instructed to inject insulin 100 each 12 024 2024 Active lidocaine-priloca ine (Emla) 2.5-2.5 % creamIndications: Primary osteoarthritis of right shoulder Apply thin layer by topical route 3-4 times daily as needed to affected area. 60 g 2 Active glipiZIDE (Glucotrol) 10 MG tabletIndications :Type 2 diabetes mellitus without complication, without long-term current use of insulin ([facility]) Take 1 tablet (10 mg) by mouth before breakfast and before evening meal. 180 tablet 2 024 Active Alcohol Swabs (Alcohol Prep) 70 % padsIndications:T ype 2 diabetes mellitus treated with insulin ([facility]) USE TO TEST BLOOD SUGAR THREE TIMES DAILY 100 each 11 024 Active FREESTYLE LITE test stripIndications: Type 2 diabetes mellitus treated with insulin ([facility]) 1 each by Other route 3 times daily. 100 each 024 Active TRUEplus Lancets 33G miscIndications:T ype 2 diabetes mellitus treated with insulin ([facility]) USE TO TEST BLOOD SUGAR THREE TIMES DAILY 100 each 11 024 Active cholecalciferol (Vitamin D-3) 25 MCG (1000 UT) tabletIndications :Vitamin D insufficiency Take 1 tablet (25 mcg) by mouth in the morning. 90 tablet 3 024 Active empagliflozin (Jardiance) 25 MGIndications:Typ e 2 diabetes mellitus without complication, with long-term current use of insulin ([facility]) Take 1 tablet (25 mg) by mouth Once per day. 90 tablet 3 024 2024 Active escitalopram (Lexapro) 10 MG tablet TAKE ONE TABLET EVERY MORNING 90 tablet 025 Active hydroCHLOROthiazi de (HYDRODiuril) 25 MG tabletIndications :Essential hypertension Take 1 tablet (25 mg) by mouth in the morning. 90 tablet 1 025 Active gemfibrozil (Lopid) 600 MG tablet TAKE 1 TABLET BY MOUTH TWICE DAILY IN THE MORNING AND IN THE EVENING 180 tablet 1 025 Active Dulaglutide 1.5 MG/0.5ML solution auto-injectorIndi cations:Type 2 diabetes mellitus without complication, with long-term current use of insulin (CMS/HCC) Inject 1.5 mg under the skin 1 (one) time per week. 2 mL 3 025 Active insulin glargine (Lantus) 100 UNIT/ML injectionIndicati ons:Type 2 diabetes mellitus without complication, without long-term current use of insulin (CMS/HCC) Inject 25 Units under the skin at bedtime. 5 mL 2 025 2025 Active insulin glargine (Lantus) 100 UNIT/ML injectionIndicati ons:Type 2 diabetes mellitus without complication, without long-term current use of insulin (CMS/HCC) Inject 10 Units under the skin at bedtime. 5 mL 2 024 2024 Discontinued Dulaglutide 1.5 MG/0.5ML solution auto-injectorIndi cations:Type 2 diabetes mellitus without complication, with long-term current use of insulin (CMS/HCC) Inject 1.5 mg under the skin 1 (one) time per week. 2 mL 3 024 2024 Discontinued(R eorder (will not trigger notification to Pharmacy)) Dulaglutide 1.5 MG/0.5ML solution auto-injectorIndi cations:Type 2 diabetes mellitus without complication, with long-term current use of insulin (CMS/HCC) Inject 1.5 mg under the skin 1 (one) time per week. 2 mL 3 025 2024 Discontinued(R eorder (will not trigger notification to Pharmacy)) Active Problems Problem Noted Date Diagnosed Date Hearing difficulty of right ear 05/06/2024 Assessment & Plan (05/06/2024 6:23 PM EDT): -Reports hx of trauma/injury to right ear in childhood -Referral to Audiology placed 04/30/24 Lateral epicondylitis of both elbows 05/28/2023 Assessment & Plan (11/20/2023 8:30 AM EDT): -Following with [facility], completed OT without much noted improvement -Encouraged cont symptomatic management Assessment & Plan (05/28/2023 11:36 AM EST): See above Primary osteoarthritis of right shoulder 023 Overview (05/06/2024): Followed by [facility] Cortisone injection January 2024 Assessment & Plan (11/20/2023 8:25 AM EDT): -Followed by [facility] (last consult October 2023) -Reporting limited improved from cortisone injection, reviewed plan to call office mid November 2023 to discuss next tx steps Assessment & Plan (05/28/2023 11:37 AM EST): See above Spondylosis without myelopat hy or radiculopathy, lumbar region 05/18/2023 Overview (05/18/2023): ?? Previously followed by [facility], received injections ?? Chronic left sided low back pain suspected 2/2 lumbar DDD and facet arthropathy ?? Referral to re-establish with [facility] Apr 2023 Other male erectile dysfunction 11/05/2022 Overview (11/20/2023): -Following with [facility] Urology - Dr. Kimball -Discussed importance of BP and BG control, and negative impact they may have on ED when above goal. -Continues with tadalafil 20mg once daily through Urology -Previous med trials: Viagra not effective Assessment & Plan (01/04/2024 6:31 PM EDT): Plan for consideration of penile prosthetic at follow up appt Assessment & Plan (11/20/2023 8:49 AM EDT): Well controlled with current regimen, cont as above Assessment & Plan (05/18/2023 9:05 PM EDT): -Reports Viagra 50-100mg PRN no longer effective -Discussed importance of BP and BG control, and negative impact they may have on ED when above goal. Now with significant improvement of diabetes and hypertension. -Follow up with Urology as scheduled May 2023 Assessment & Plan (02/20/2023 9:29 AM EDT): -Reports Viagra 50-100mg PRN no longer effective -Discussed importance of BP and BG control, and negative impact they may have on ED when above goal -Follow up with Urology as scheduled 02/21/23 Assessment & Plan (11/05/2022 9:15 AM EDT): -Currently using Viagra 100mg PRN -Interested in referral to Urology for consideration of penile pump. Referral placed October 2022 Multiple allergies 10/30/2022 Overview (11/05/2022): -Pt with listed allergies to NSAIDS, statins, tramadol, bupropion, metformin (throat swelling/lip swelling) with previous provider, also with food allergies -Had appt May 2022 for allergy testing to confirm med allergies, although did not attend appt. Assessment & Plan (11/05/2022 9:12 AM EDT): Declines interest in re-referral at this time. Consider at follow up. Healthcare maintenance 10/30/2022 Overview (05/06/2024): Colonoscopy: January 2024 - [facility]. Hyperplastic polyps. Next routine screening due January 2034. PSA: normal October 2022, following with [facility] Urology Eye exam: [facility] Eye Care Dental: [facility] Dental Assessment & Plan (05/06/2024 6:24 PM EDT): Flu & COVID IZ administered today Assessment & Plan (11/05/2022 9:13 AM EDT): Declines IZ today, consider at follow up Type 2 diabetes mellitus 01/14/2022 Overview (05/06/2024): Lab Results Component Value Date HGBA1C 9.7 (H) 05/05/2024 HGBA1C 10.0 (A) 04/30/2024 HGBA1C 6.7 (A) 01/02/2024 HGBA1C 8.1 (A) 11/17/2023 HGBA1C 8.3 (H) 01/14/2022 HGBA1C 9.7 (H) 10/13/2020 Medications: Trulicity 1.5mg subcutaneous weekly Glipizide 10mg BID Jardiance 25mg daily Lantus 10 units at bedtime AVOID metformin as pt reports hx of allergic reaction Microalbumin: 65 in October 2022 Eye exam: discuss at follow up Foot exam: WNL 01/14/22 Dental: discuss at follow up PNA: declined Tdap/Td: UTD ACEi/ARB: no - pt with allergic rxn to ACEi Statin: yes ASA: no Lipids: Lab Results Component Value Date CHOL 182 05/05/2024 TRIG 128 05/05/2024 TRIG 145 10/31/2022 HDL 32 (L) 05/05/2024 LDLCHOLCAL 125 (H) 05/05/2024 Lifestyle: Encouraged regular movement and aerobic exercise for improved glycemic control Encouraged daily foot checks Encouraged lean protein snacks and to avoid foods high in sugar and simple carbohydrates CGM trial December 2023. Skin rxn, DC. Treatment Goals: A1c goal: <7% FBG goal: <130 2 hour post prandial goal: <180 Assessment & Plan (05/06/2024 6:22 PM EDT): -Increase in A1c likely 2/2 increased appetite and worsened BG control w/o Trulicity. -Plan to restart Trulicity, will also increase Jardiance to 25mg daily. Reviewed med safety and SE. Goal to de-prescribe glipizide in future Assessment & Plan (01/04/2024 6:30 PM EDT): Hypoglycemia - Plan to decrease lantus to 10 units nightly, decrease glipizide to 10mg BID. Reviewed med safety and SE with pt. Goal to fully taper off of glipizide. RN CGM start after visit today, 01/02/24. Follow up in 2 weeks with RN for CGM data review and further titration of T2DM regimen. Assessment & Plan (11/20/2023 8:51 AM EDT): Start lantus 5 units nightly given elevated of FBG. Also consider increase in Jardiance and/or Trulicity CGM sent to pharmacy Assessment & Plan (05/12/2023 10:46 AM EDT): Lab Results Component Value Date HGBA1C 7.2 (A) 05/12/2023 HGBA1C 10.5 (A) 02/19/2023 HGBA1C 8.3 (H) 01/14/2022 HGBA1C 9.7 (H) 10/13/2020 -Congratulated on sig improvement of A1c! Will not make med changes at this time, but in the future would plan to increase Jardiance and decrease glipizide Microalbumin: 65 in October 2022 Eye exam: discuss at follow up Foot exam: WNL 01/14/22 Dental: discuss at follow up PNA: declined Tdap/Td: UTD ACEi/ARB: no - pt with allergic rxn to ACEi Statin: yes ASA: no Lipids: Lab Results Component Value Date CHOLESTEROL 180 10/31/2022 LDLCHOL 116 (H) 10/31/2022 TRIG 145 10/31/2022 HDLCHOL 38 (L) 10/31/2022 Lifestyle: Encouraged regular movement and aerobic exercise for improved glycemic control Encouraged daily foot checks Encouraged lean protein snacks and to avoid foods high in sugar and simple carbohydrates Medications: ?? Trulicity 1.5mg subcutaneous weekly ?? Glipizide 10mg BID ?? Cont Jardiance 10mg daily. Reviewed med safety and SE AVOID metformin as pt reports hx of allergic reaction Treatment Goals: A1c goal: <7% FBG goal: <130 2 hour post prandial goal: <180 Assessment & Plan (02/20/2023 9:29 AM EDT): POC BG HHH, 10 units lispro administered, BG remained HHH. UA w.o ketones. Pt asymptomatic. Unable to repeat insulin admin. Reviewed strict ED precautions with pt and to monitor BG closely at home over the next few days. Will monitor BG 2-3 times daily for the next 2 weeks and bring home log to RN visit. Consider increase of Jardiance to 25mg daily and/or addition of insulin pending results. Pt in agreement with plan. Lab Results Component Value Date HGBA1C 10.5 (A) 02/19/2023 Microalbumin: 65 in October 2022 Eye exam: discuss at follow up Foot exam: WNL 01/14/22 Dental: discuss at follow up PNA: due Tdap/Td: UTD ACEi/ARB: no - pt with allergic rxn to ACEi Statin: yes ASA: no Lipids: Lab Results Component Value Date CHOLESTEROL 180 10/31/2022 LDLCHOL 116 (H) 10/31/2022 TRIG 145 10/31/2022 HDLCHOL 38 (L) 10/31/2022 Lifestyle: Encouraged regular movement and aerobic exercise for improved glycemic control Encouraged daily foot checks Encouraged lean protein snacks and to avoid foods high in sugar and simple carbohydrates Medications: ?? Trulicity 1.5mg subcutaneous weekly ?? Glipizide 10mg BID ?? Shared decision making regarding addition of another medication to help improve BG values. Pt declines interest in insulin at this time, but in agreement for addition of SGLT2-I. Discussed risk for increased symptoms given A1c. ?? Start Jardiance 10mg daily. Reviewed med safety and SE AVOID metformin as pt reports hx of allergic reaction Treatment Goals: A1c goal: <7% FBG goal: <130 2 hour post prandial goal: <180 Assessment & Plan (11/05/2022 9:10 AM EDT): Lab Results Component Value Date HGBA1C 9.4 (A) 10/31/2022 -Monofilament exam: 01/14/22 WNL -Continue Trulicity 1.5mg subcutaneous weekly -Continue Lantus 5 U nightly (may consider d/c in future) -Continue glipizide (may consider d/c in future) -Micoralbumin: ordered AVOID metformin as pt reports hx of allergic reaction Insomnia 03/24/2015 Gastroesophageal reflux disease 08/27/2012 Obesity 02/10/2012 Pure hypercholesterolemia 01/09/2012 Assessment & Plan (11/05/2022 9:11 AM EDT): -Reports allergic reaction to Pravastatin with throat swelling. Will not rechallenge with statin until pt cleared by product developer. -Cont Gemfibrozil 600 mg BID. -Fasting lipid panel ordered Essential hypertension 01/09/2012 Assessment & Plan (02/20/2023 9:13 AM EDT): -Well controlled -Continue amlodipine 5mg daily -Continue hydrochlorothiazide 25mg daily AVOID lisinopril given patient report of angioedema Continue lifestyle interventions including goal 150 mins physical activity weekly and low salt diet Assessment & Plan (11/05/2022 9:08 AM EDT): -Well controlled -Continue amlodipine 5mg daily -Continue hydrochlorothiazide 25mg daily AVOID lisinopril given patient report of angioedema Continue lifestyle interventions including goal 150 mins physical activity weekly and low salt diet Depressive disorder 01/09/2012 Resolved Problems Problem Noted Date Diagnosed Date Resolved Date Allergic arthritis involving shoulder region, right 05/28/2023 11/20/2023 Lateral epicondylitis of both elbows 05/28/2023 11/20/2023 Assessment & Plan (05/28/2023 11:37 AM EST): See above Joint pain 03/24/2015 11/20/2023 Assessment & Plan (05/28/2023 11:35 AM EST): Take Tylenol plus PRN Order X rays Order labs given the presence of arthralgias Refer to [facility] clinic for injection No improvement with OT Carpal tunnel syndrome of right wrist 02/10/2012 11/20/2023 Assessment & Plan (05/28/2023 11:36 AM EST): See above Order NCs Assessment & Plan (11/05/2022 9:07 AM EDT): -Declines interest to Hand specialist -Continue with symptomatic management -Referral to OT for further eval and tx Backache 01/09/2012 05/18/2023 Encounters Date Type Department Care Team Description 10/29/2024 Refill [facility] [address] [place] [address] Karo Lockett FNP Essential hypertension 10/14/2024 8:30 AM EDT Telemedicine [facility] [address] [place] [address] Orion Dong MD Type 2 diabetes mellitus without complication, with long-term current use of insulin ([facility]); Type 2 diabetes mellitus without complication, without long-term current use of insulin ([facility]) 10/14/2024 Telephone [facility] [address] [place] [address] Karo Lockett FNP Appointment 10/14/2024 Travel 10/13/2024 10:00 AM EDT Office Visit [facility] [address] [place] [address] Edelmira Eagle, DDS 10/13/2024 Telephone [facility] [address] [place] [address] Orion Dong MD 10/01/2024 Population Health Risk Score [facility] () Department [address] [place] [id number] Provider, Population Health Generic 09/28/2024 10:00 AM EDT Office Visit [facility] [address] [place] [address] Edelmira Eagle, DDS 09/09/2024 10:30 AM EST Office Visit [facility] [address] [place] [address] Edelmira Eagle, DDS 09/09/2024 Orders Only [facility] [address] [place] [address] Karo Lockett FNP 09/09/2024 Orders Only [facility] [address] [place] [address] Karo Lockett FNP Essential hypertension 08/27/2024 10:00 AM EST Office Visit [facility] [address] [place] [address] Edelmira Eagle, DDS 08/05/2024 Refill [facility] [address] [place] [address] Quin Herndon MD from Last 3 Months Immunizations Name Administration Dates Next Due Hep B, adult 02/29/2016 Influenza injectable quadriv alent IIV4 with preservative 06/17/2018 Influenza injectable quadriv alent preservative free 05/12/2023,05/06/2019,10/30/2015 Influenza, IIV3, injectable 06/23/2014 Influenza, Split (incl. lawson fied surface antigen) 03/30/2013,04/16/2012 Influenza, seasonal, injecta ble, preservative free 04/30/2024 Pfizer Covid-19 Vaccine 12+ 04/30/2024 Pneumococcal Polysaccharide PPSV23 05/06/2019 Tdap 09/24/2020,04/16/2012 Zoster, Recombinant 11/18/2022 Family History Medical History Relation Name Comments Diabetes Brother Prostate cancer Brother Diabetes Daughter Prostate cancer Father Skin cancer Father Prostate cancer Father's Brother Diabetes Mother Relation Name Status Comments Brother Daughter Father Father's Brother Mother Social History Tobacco Use Types Packs/Day Years [...] Don't know 05/20/2022 10 :18 AM EDT Last Filed Vital Signs Vital Sign Reading Time Taken Comments Blood Pressure 120/80 08/27/2024 10:02 AM EST Pulse 78 04/30/2024 9:18 AM EDT Temperature 36.6 ??C (97.8 ??F) 04/30/2024 9:18 AM ED T Respiratory Rate 18 04/30/2024 9:18 AM EDT Oxygen Saturation 98% 04/30/2024 9:18 AM EDT Inhaled Oxygen Concentration - - Weight 87.7 kg (193 lb 6 oz) 04/30/2024 9:18 AM EDT Height 161.3 cm (5' 3.5 ) 04/30/2024 9:18 AM EDT Body Mass Index 33.72 04/30/2024 9:18 AM EDT Plan of Treatment Upcoming Encounters Date Type Department Care Team (Late st Contact Info) Description 11/04/2024 10:00 AM EDT Office Visit [facility] [address] [place] [address] Edelmira Eagle, DDS [address] [place] [address] 12/24/2024 10:30 AM EDT Office Visit [facility] [address] [place] [address] Karo Lockett, PHYSICIST [employer] [address] [place] [address] Health Maintenance Due Date Last Done Comments CT Colonography 1969 FIT DNA/Cologuard 1969 FIT 1969 FOBT 1969 Sigmoidoscopy 1969 Diabetes: Foot Exam 10/17/1979 Eye Exam 10/17/1979 Alcohol/Substance Use Screening 1981 Hepatitis B Vaccines (2 of 3 - 19+ 3-dose series) 03/28/2016 02/29/2016 Pneumococcal Vaccine: 50+ Years (2 of 2 - PCV) 05/06/2020 05/06/2019 Zoster Vaccines (2 of 2) 01/13/2023 11/18/2022 Depression Screening 02/20/2024 02/19/2023, 02/20/20 Diabetes: Hemoglobin A1C 09/17/2024 024, 05/05/2024, 04/30/2024, Additional history exists Dental Oral Exam 10/05/2024 04/06/2024 Dental Prophylaxis 10/05/2024 04/06/2024 SDOH Screening 11/16/2024 11/17/2023 Dental X-Ray: Bitewings 04/07/2025 04/06/2024 Diabetes: Urine Protein Screening 05/05/2025 05/05/2024, 10/31/2022, 01/14/2022, Additional history exists Lipid Panel 05/05/2025 05/05/2024, 10/19, 01/14/2022, Additional history exists Tobacco Screening 09/28/2025 09/28/2024 Dental X-Ray: Full Mouth 04/07/2027 04/06/2024 Colonoscopy 02/12/2029 02/13/2024 Colorectal Cancer Screening 02/12/2029 DTaP/Tdap/Td Vaccines (3 - Td or Tdap) 09/24/2030 09/24/2020, 04/16/2012 RSV Patients and Patients Aged 60 years or older (1 - 1-dose 75+ series) 2044 COVID-19 Vaccine Completed 04/30/2024, 02/07/2021 Influenza Vaccine Completed 04/30/2024, , 05/06/2019, Additional history exists HIV Screening Completed 05/05/2024, 10/19, 10/13/2020 Hepatitis C Screening Completed 05/05/2024 , 10/31/2022, 10/13/2020 HIB Vaccines Aged Out No longer eligi ble based on patient's age to complete this topic HPV Vaccines Aged Out No longer eligi ble based on patient's age to complete this topic Hepatitis A Vaccines Aged Out No long er eligible based on patient's age to complete this topic IPV Vaccines Aged Out No longer eligi ble based on patient's age to complete this topic Meningococcal Vaccine Aged Out No zion leann eligible based on patient's age to complete this topic RSV under 20 months Aged Out No longe r eligible based on patient's age to complete this topic Rotavirus Vaccines Aged Out No longer eligible based on patient's age to complete this topic Procedures Procedure Name Priority Date/Time Associated Diagnosis Comments 19,20,30,31 MANDIBULAR PARTIAL DENTURE - RESIN BASE (INCLUDING, RETENTIVE/CLASPING MATERIALS, RESTS, AND TEETH) Routine 10/13/2024 10:00 AM EDT 2,3,5,6,7,8,9,10,11,12 ,14,15 MAXILLARY PARTIAL DENTURE - RESIN BASE (INCLUDING, RETENTIVE/CLASPING MATERIALS, RESTS, AND TEETH) Routine 10/13/2024 10:00 AM EDT CASE PRESENTATION, DETAILED AND EXTENSIVE TREATMENT PLANNING Routine 09/28/2024 10:00 AM EDT WAX TRY IN Routine 09/28/2024 10:00 AM EDT BITE REGISTRATION Routine 09/09/2024 10: 30 AM EST 21 FEDERICO RESIN-BASED COMPOSITE - 2 SURF, POSTERIOR Routine 09/09/2024 10:30 AM EST 13 O RESIN-BASED COMPOSITE - 1 SURF, POSTERIOR Routine 08/27/2024 10:00 AM EST 4 O RESIN-BASED COMPOSITE - 1 SURF, POSTERIOR Routine 08/27/2024 10:00 AM EST 29 BB(V)O RESIN-BASED COMPOSITE - 2 SURF, POSTERIOR Routine 08/27/2024 10:00 AM EST 28 BB(V)O RESIN-BASED COMPOSITE - 2 SURF, POSTERIOR Routine 08/27/2024 10:00 AM EST HEMOGLOBIN A1C Routine 06/18/2024 7:58 AM EST HEPATITIS C VIRAL RNA, QUANTITATIVE, REAL-TIME PCR Routine 05/05/2024 10:40 AM EDT Healthcare maintenance HIV 1/2 ANTIGEN/ANTIBODY, FOURTH GENERATION W/RFL Routine 05/05/2024 10:40 AM EDT Healthcare maintenance ALBUMIN, RANDOM URINE W/CREATININE Routine 05/05/2024 10:40 AM EDT Healthcare maintenance LIPID PANEL, STANDARD Routine 05/05/2024 10:40 AM EDT Healthcare maintenance PROPHYLAXIS - ADULT Routine 04/06/2024 8 :00 AM EDT INTRAORAL - COMPLETE SERIES OF RADIOGRAPHIC IMAGES Routine 04/06/2024 8:00 AM EDT COMPREHENSIVE ORAL EVALUATION - NEW OR ESTABLISHED PATIENT Routine 04/06/2024 8:00 AM EDT HM COLONOSCOPY Routine 02/13/2024 10:16 PM EDT from Last 3 Months or Most Recently Relevant to Health Maintenance Results * (ABNORMAL) Hemoglobin A1c (06/18/2024 7:58 AM EST) Hemoglobin A1c 7.1(H) <6.0 % [facility] Comment:Hemoglobin A1C Refer ence Range Adults: 4.8 - 6.0 % Non diabetic: < 6.0 % Goal: < 7.0 %Additional Action Suggested: > 8.0 %Note: Hemoglobin A1c results are invalid for patients with abnormal amounts of HbF. Blood transfusions may impact the HbA1c concentration in the patient sample. Estimated Average Glucose 157 mg/dL [facility] Comment:eAG = Estimated ave rage glucose which is %A1C expressed asaverage glucose, using the formula of the [id number] Glucose study (ADAG), Diabetes Care, Vol.31,#8,Feb. 2007 06/18/2024 7:58 AM EST 06/18/2024 7:58 AM EST us Generic External Data Provider LAB BLOOD ORDERAB LES Final Result [facility] [address] [place] [phone] * Hepatitis C Viral RNA, Quantitative, Real-Time PCR (05/05/2024 10:40 AM EDT) Hepatitis C Viral Load <15 NOT DETECTED NOT DETECTED IU/mL [facility] HCV Log PCR <1.18 NOT DETECTED NOT DETECTED Log IU/mL [facility] Comment:For additional infor mation, please refer [email or web address].[email or web address]/faq/[email or web address](This link is being provided for informational/educational purposes only.)THIS TEST WAS PERFORMED AT:[facility] [address] [id number] LEONARD MD Blood 05/05/2024 10:4 0 AM EDT 05/05/2024 11:43 AM EDT Karo Lockett PHYSICIST [employer] LAB BLOOD ORDERABLES Final Res ult Performing Organization Address [facility] [facility] Co de Phone Number [facility] [address] [place] [phone] * (ABNORMAL) Albumin, Random Urine W/Creatinine (05/05/2024 10:40 AM EDT) Creatinine, Urine 48.35 mg/dL [facility] Microalbumin Urine 16.0 mg/L H [facility] Microalbum Creatinine Ratio Ur 33.0(H) <30 ug/mg cr [facility] Comment:Albumin/Creatinine R atio Reference Ranges: Normal: < 30 ug/mg creatinine Microalbuminuria: 30 - 300 ug/mg creatinineClinical Albuminuria: > 300 ug/mg creatinine Urine 05/05/2024 10:4 0 AM EDT 05/05/2024 1:10 PM EDT Karo Lockett [facility] URINE ORDERABLES Final Res ult Performing Organization Address [facility] de Phone Number [facility] [address] [place] [phone] * HIV-1/2 Antigen and Antibodies, Fourth Generation, with Reflexes (05/05/2024 10:40 AM EDT) HIV AB/AG Nonreactive Nonreactive [facility] Comment:HIV-1 p24 Ag and/or HIV-1/HIV-2 Ab not detected.A test result that is nonreactive does not exclude thepossibility of exposure to or infection with HIV-1 and/orHIV-2. Nonreactive results in this assay for individualswith prior exposure to HIV-1 and/or HIV-2 may be due toantigen and antibody levels that are below the limit ofdetection of this assay.The ActiveO Alinity HIV Ag/Ab Combo assay result andsupplemental assay results should be interpreted inconjunction with the patient's clinical presentation,history and other laboratory results. If the results areinconsistent with clinical evidence, additional testing issuggested to confirm the result. Blood Venous blood specimen / Unknown 05/05/2024 10:40 AM EDT 05/05/2024 11:43 AM EDT Karo [facility] BLOOD ORDERABLES Final Res ult [facility] [address] [place] [phone] * (ABNORMAL) Lipid Panel, Standard (05/05/2024 10:40 AM EDT) Triglycerides 128 <150 mg/dL [facility] Comment:Desirable Triglyceri de: less than 150 mg/dLBorderline High Triglyceride 150-199 mg/dLHigh Triglyceride: 200-499 mg/dLVery High Triglyceride: greater than or equal to 5OO mg/dL Cholesterol 182 <200 mg/dL [facility] Comment:Desirable Cholestero l: less than 200 mg/dLBorderline High Cholesterol: 200-239 mg/dLHigh Cholesterol: greater than 239 mg/dL LDL Cholesterol Calculated 125(H) <100 mg/dL [facility] Comment:Desirable LDL: less than 100 mg/dLNear Optimal/Above Optimal LDL: 110- 129 mg/dLBorderline High LDL: 130-159 mg/dLHigh LDL: 160-189 mg/dLVery High LDL: greater than or equal to 190 mg/dL HDL Cholesterol 32(L) >40 mg/dL [facility] Comment:Desirable HDL: great er than 40 mg/dL Note: This HDL assay may give artificially low results in patients with liver disease. Blood Venous blood specimen / Unknown 05/05/2024 10:40 AM EDT 05/05/2024 11:43 AM EDT Karo Locektt PHYSICIST [facility] BLOOD ORDERABLES Final Res ult [facility] [address] [place] [phone] * Hm Colonoscopy (02/13/2024 10:16 PM EDT) Historical Provider MD HEALTH MAINTENANCE Final Result from Last 3 Months or Most Recently Relevant to Health Maintenance Insurance [facility] C3 DENTAL-[facility] MEDICAID STAND ADULT Care Teams Medicaid Specialist Relationship Specialty Start Date End Date Karo Lockett FNP [address] [place] [phone] PCP - General Family Medicine 03/17/22
--- OUTSIDE RECORDS SUMMARY | 2024-10-29 10:23 | XMS_ITS ---
Author Organization [facility] Address [address] [place] [phone] Care Team Providers Care Marine Radio Installer And Servicer Name Role Phone CHINTAN KINNEY, DAGOBERTO Primary Care Provider Stewart Aguila [phone] REASON FOR VISIT Patient presents today for a COLON SCREENING Encounters Encounter Location Date Provider Diagnosis [facility] [address] [place] [phone] 10/07/2023 Stewart Rogers Plan Of Treatment No Information Progress Notes * SOLEDAD BLACKWELL RDOB: 0 (54 yo M)Acc No.[id number]:10/07/2023 Progress Notes Patient:?SOLEDAD BLACKWELL Provider:?Stewart Rogers MD :1970???Age:52 Y???Sex:Male Ministerio e:10/07/2023 Address:[address] [place], [place] [phone] Pcp:DAGOBERTO WOODSON MD Subjective: * Chief Complaints: * ???1. Patient presents today for a COLON SCREENING. * Medical History:? Objective: * Vitals:? Assessment: Plan: * Treatment: * * The named appointment provid er may or may not be the originator of this progress note, and it is not deemed complete until electronically signed by the appointment provider. Sign off status: Pending * Provider:?Stewart Rogers MD Date:? 024 Generated for Randy mayer/Ari/eTigorsmitting on:?10/29/2024 10:23 AM EDT
--- OUTSIDE RECORDS SUMMARY | 2024-10-29 10:24 | XMS_ITS | Encounter Summary ---
Author Organization [facility] Address [address] 7t [place] [address] Care Team Providers Care Word Processor Name Role Phone Karo Lockett Primary Care Provider [phone] Reason for Visit * Reason Onset Date Comments Referral 03/07/2023 Encounter Details Date Type Department Care Team ([facility] st Contact Info) Description 03/07/2023 Telephone [facility] MED[facility]INE [address] [place] [address] Karo Lockett FNP [address] [place] [address] Referral Social History Tobacco Use Types Packs/Day Years Used Date Smoking Tobacco: Never Smokeless Tobacco: Never Alcohol Use Standard Drinks/Week Comments Never 0 (1 standard drink = 0.6 oz pur e alcohol) Depression Answer Date Recorded Patient Health Questionnaire-9 Score 0 02/19/2023 Depression Answer Date Recorded Patient Health Questionnaire-2 Score 0 02/19/2023 Sex and Gender Information Value Date Recorded Sex Assigned at Male 05/20/2022 10:18 AM EDT Legal Sex Male 10:18 AM EDT Gender Identity Male 05/20/2022 10:18 AM EDT Sexual Orientation Don't know 05/20/2022 10 :18 AM EDT documented as of this encounter Miscellaneous Notes * Telephone Encounter - GLORY Ward - 03/10/2023 7:30 AM EDT Referral re-placed to OT. Please call to let patient know. Appears GI was referral was sent to [facility] October 2022. Referrals team - please re-direct to anotheroffice if needed. Thank you. * Telephone Encounter - Marielle Mims RN - 03/07/2023 11:49 AM EDT Please review message below and advise if referral to OT can be resent as it is only valid for one month. Will send message to referral specialists regarding GI referral. * Telephone Encounter - Khushboo Cortes - 03/07/2023 11:41 AM EDT Tc from pt spouse requesting for referral on occupational therapy and gastroenterology to be faxed again. Has called twice and both times have been advised, office did not receive referral. documented in this encounter Plan of Treatment Upcoming Encounters Date Type Department Care Team (Late st Contact Info) Description 11/04/2024 10:00 AM EDT Office Visit [facility] ADULT DENTAL [address] [place] [address] Edelmira Eagle DDS [address] [place] [address] 12/24/2024 10:30 AM EDT Office Visit [facility] MED & PEDS [address] [place] [address] Karo Lockett FNP [address] [place] [address] documented as of this encounter Visit Diagnoses Diagnosis Bilateral carpal tunnel syndrome- Primary Carpal tunnel syndrome documented in this encounter Additional Health Concerns Assessment Noted Time PHQ-9 Depression Total Score: 0 02/20/20 23 3:36 PM EDT documented as of this encounter Care Teams Word Processor Relationship Specialty Start Date End Date Karo Lockett FNP [address] [place] [address] PCP - General Family Medicine 03/17/22 documented as of this encounter
--- OUTSIDE RECORDS SUMMARY | 2024-10-29 10:24 | XMS_ITS | Patient Health Record ---
Author Organization [facility] Address [address] [place] [address] Care Team Providers Care Lace Inspector Name Role Phone DAGOBERTO WOODSON MD Primary Care Provider Stewart Aguila [phone] Reason For Referral No Information Plan Of Treatment No Information Insurance Providers Payer Name Payer Address Payer Phone Subscriber Number Group Number Insured Name Patient Relationship to Insured Coverage Start Date Coverage End Date [place] [address] [place] [phone] [id number] SOLEDAD BLACKWELL Self - patient is the insured
--- OUTSIDE RECORDS SUMMARY | 2024-10-29 10:24 | XMS_ITS | Encounter Summary ---
Author Organization [employer] Address [address] 7t [place] [address] Care Team Providers Care Administrative Aide Name Role Phone Karo Lockett Primary Care Provider [phone] Reason for Visit * Reason Onset Date Comments Returning Call 08/18/2023 Encounter Details Date Type Department Care Team ([facility] st Contact Info) Description 08/18/2023 Telephone [facility] MEDICINE [address] [place] [address] Karo Lockett FNP [address] [place] [address] Returning Call Social History Tobacco Use Types Packs/Day Years Used Date Smoking Tobacco: Never Smokeless Tobacco: Never Alcohol Use Standard Drinks/Week Comments Never 0 (1 standard drink = 0.6 oz pur e alcohol) Depression Answer Date Recorded Patient Health Questionnaire-9 Score 0 02/19/2023 Housing Stability Answer Date Recorded What is your housing situation today? I have ramiro alejo 05/11/[address] you li ve. Do you have problems with any of the following? None of the above 05/11/2023 Food Insecurity Answer Date Recorded Within the past 12 months, y ou worried that your food would run out before you got money to buy more: Sometimes True 2022 Within the past 12 months,th e food you bought just didn't last and you didn't have enough money to get more: Sometimes True 05/11/2023 Transportation Answer Date Recorded In the past 12 months, has l ack of transportation kept you from medical appts, meetings, work or from getting things needed for daily living? No 05/11/2023 Utilities Answer Date Recorded In the past 12 months, has t he electric, gas, oil or water company threatened to shut off services in your home? No 05/11/2023 Depression Answer Date Recorded Patient Health Questionnaire-2 Score 0 02/19/2023 Sex and Gender Information Value Date Recorded Sex Assigned at Male 05/20/2022 10:18 AM EDT Legal Sex Male 10:18 AM EDT Gender Identity Male 05/20/2022 10:18 AM EDT Sexual Orientation Don't know 05/20/2022 10 :18 AM EDT documented as of this encounter Miscellaneous Notes * Telephone Encounter - Victoriano Sam - 08/18/2023 2:02 PM EST Tc from pt returning call regarding message below. CHW Kit Shepherd, placed outbound call to patient for assistance with SDOH as a referral was placed by the provider. Patient had screened positive for the following SDOH food insecurities. Patient's Gwen answer call-stated patient was not available at the time of call Patient's name andDOB were not confirmed. CHW left detailed message and provided contact information requesting return call for assistance. Patient educated on extended clinic hours on Mondays through Wednesdays, and Walk-In Urgent Care Located in [facility]. Patient provided with after-hours line for [facility], , which offer night time triage service and option to transfer to road conductor provider if needed. Please contact pt at [phone]. documented in this encounter Plan of Treatment Upcoming Encounters Date Type Department Care Team (Late st Contact Info) Description 11/04/2024 10:00 AM EDT Office Visit [facility] ADULT DENTAL [address] [place] [address] Edelmira Eagle DDS [address] [place] [address] 12/24/2024 10:30 AM EDT Office Visit [facility] MED & PEDS [address] [place], [place] [phone] Karo Lockett FNP [address] [place] [address] documented as of this encounter Visit Diagnoses Not on filedocumented in this encounter Additional Health Concerns Assessment Noted Time PHQ-9 Depression Total Score: 0 02/20/20 23 3:36 PM EDT documented as of this encounter Care Teams Administrative Aide Relationship Specialty Start Date End Date Karo Lockett FNP [address] [place] [address] PCP - General Family Medicine 03/17/22 documented as of this encounter
--- OUTSIDE RECORDS SUMMARY | 2024-10-29 10:24 | XMS_ITS | Encounter Summary ---
Author Organization [employer] Address [address] [facility] 7t [place] [address] Care Team Providers Care Pattern Perforating Machine Operator Name Role Phone Karo Lockett Primary Care Provider [phone] Reason for Visit * Reason Onset Date Comments Med Refill 10/29/2024 Encounter Details Date Type Department Care Team (Late st Contact Info) Description 10/29/2024 Refill [facility] MED & PEDS [address] [place], [place] [phone] Karo Lockett FNP [address] [place] [address] Essential hypertension Social History Tobacco Use Types Packs/Day Years [...] encounter Miscellaneous Notes * Telephone Encounter - Fabienne Doss LPN - 10/29/2024 10:03 AM EDT LAST SEEN 10.14.24 documented in this encounter Plan of Treatment Upcoming Encounters Date Type Department Care Team (Late st Contact Info) Description 11/04/2024 10:00 AM EDT Office Visit [facility] ADULT DENTAL [address] [place] [address] Edelmira Eagle DDS [address] [place] [address] 12/24/2024 10:30 AM EDT Office Visit [facility] MED & PEDS [address] [place] [address] Karo Lockett FNP [address] [place] [address] documented as of this encounter Visit Diagnoses Diagnosis Essential hypertension Unspecified essential hypertension documented in this encounter Additional Health Concerns Assessment Noted Time PHQ-9 Depression Total Score: 0 02/20/20 23 3:36 PM EDT documented as of this encounter Care Teams Pattern Perforating Machine Operator Relationship Specialty Start Date End Date Karo Lockett FNP [address] [place] [address] PCP - General Family Medicine 03/17/22 documented as of this encounter
--- OUTSIDE RECORDS SUMMARY | 2024-10-29 10:24 | XMS_ITS ---
Author Organization [facility] Address [address] [place] [phone] Care Team Providers Care Mallet Cutter Name Role Phone DAGOBERTO WOODSON MD Primary Care Provider Stewart Aguila [phone] REASON FOR VISIT cancel OV Encounters Encounter Location Date Provider Diagnosis [facility] [address] [place] [phone] 10/06/2023 Stewart Rogers Plan Of Treatment No Information Progress Notes * SOLEDAD BLACKWELL RDOB: 0 (52 yo M)Acc No.[id number]:10/06/2023 Patient:?SOLEDAD BLACKWELL :1970???Age:52 Y???Sex:Male Address:[address] [place] [phone] * true * Date:? Generated for Randy mayer/Ari/eTransmitting on:?10/29/2024 10:23 AM EDT
--- OUTSIDE RECORDS SUMMARY | 2024-10-29 10:24 | XMS_ITS | Encounter Summary ---
Author Organization [facility] Address [address] [place] [address] 7t [place] [address] Care Team Providers Care Multicultural Manager Name Role Phone Karo Lockett Primary Care Provider [phone] Encounter Details Date Type Department Care Team (Late st Contact Info) Description 09/30/2022 Orders Only [facility] MED & PEDS [address] [place] [address] Kiki Bryant LPN Social History Tobacco Use Types Packs/Day Years Used Date Smoking Tobacco: Never Assessed Sex and Gender Information Value Date Recorded [...] 10:00 AM EDT Office Visit [facility] ADULT DENTAL [address] [place] [address] Edelmira Eagle, DDS [address] [facility] [place] [address] 12/24/2024 10:30 AM EDT Office Visit [facility] MED & PEDS [address] [place] [address] Karo Lockett FNP [address] [place] [address] documented as of this encounter Visit Diagnoses Not on filedocumented in this encounter Care Teams Multicultural Manager Relationship Specialty Start Date End Date Karo Lockett FNP [address] [place] [phone] PCP - General Family Medicine 03/17/22 documented as of this encounter
--- OUTSIDE RECORDS SUMMARY | 2024-10-29 10:24 | XMS_ITS | Encounter Summary ---
Author Organization [facility] Address [address] [place] [address] 7t [place] [address] Care Team Providers Care Type Rolling Machine Operator Name Role Phone Karo Lockett Primary Care Provider [phone] Encounter Details Date Type Department Care Team (Late st Contact Info) Description 10/14/2022 Orders Only [facility] [address] [place] [address] Fabienne Doss LPN Social History Tobacco Use Types Packs/Day [...] Description 11/04/2024 10:00 AM EDT Office Visit [facility] ADULT DENTAL [address] [place] [address] Edelmira Eagle DDS [address] [place] [address] 12/24/2024 10:30 AM EDT Office Visit [facility] MED & PEDS [address] [place], [place] [phone] Karo Lockett FNP [address] [place] [address] documented as of this encounter Visit Diagnoses Not on filedocumented in this encounter Care Teams Type Rolling Machine Operator Relationship Specialty Start Date End Date Karo Lockett FNP [address] [place] [address] PCP - General Family Medicine 03/17/22 documented as of this encounter
== END 2024-10-29 10:22 | disposition home or self-care (01) ==
LOC: HO.HOS 09:47
PROVIDERS: PCP Registered Nurse; Visit Provider Physician Assistant
DX: M75.102 Unspecified rotator cuff tear or rupture of left shoulder, not specified as traumatic (principal); E11.9 Type 2 diabetes mellitus without complications
CPT/HCPCS: 20610; 99214

== ENCOUNTER → 2024-10-29 09:48 | Outpatient (BNV) | payer MEDICAID, SELFPAY | PROVIDERS: Visit Provider Radiology Diagnostic Radiology | DX: M25.512 Pain in left shoulder (principal); M19.012 Primary osteoarthritis, left shoulder | CPT/HCPCS: 73030 ==

== ENCOUNTER 2024-12-06 08:52 | Outpatient (AMB) | payer MEDICAID, SELFPAY ==
--- OUTSIDE RECORDS SUMMARY | 2024-12-06 09:01 | XMS_ITS | Encounter Summary ---
Author Organization [employer] Address [address] [place] [address] 7[address] [place] [address] Care Team Providers Care Sedimentationist Name Role Phone Karo Lockett Primary Care Provider [phone] Encounter Details Date Type Department Care Team (Late st Contact Info) Description 10/14/2022 Orders Only [facility] MEDICINE [address] [place] [address] Fabienne Doss LPN Social History Tobacco Use [...] Care Team (Late st Contact Info) Description 12/17/2024 10:00 AM EDT Office Visit [facility] ADULT DENTAL [address] [place] [address] Branden Ellis 12/24/2024 10:30 AM EDT Office Visit [facility] MED & PEDS [address] [place] [address] Karo Lockett FNP [address] [place] [address] documented as of this encounter Visit Diagnoses Not on filedocumented in this encounter Care Teams Sedimentationist Relationship Specialty Start Date End Date Karo Lockett FNP [address] [place] [address] PCP - General Family Medicine 03/17/22 documented as of this encounter
--- OUTSIDE RECORDS SUMMARY | 2024-12-06 09:01 | XMS_ITS | Encounter Summary ---
Author Organization [employer] Address [address] [facility] 7t [place] [address] Care Team Providers Care Rehabilitation Services Counselor Name Role Phone Karo Lockett COTTON PICKER OPERATOR Primary Care Provider [phone] Encounter Details Date Type Department Care Team ([facility] st Contact Info) Description 04/19/2024 Orders Only [facility] MED & PEDS [address] [place], [place] [id number] ProviderKeysha MD Social History Tobacco Use Types [...] Description 12/17/2024 10:00 AM EDT Office Visit [facility] ADULT DENTAL [address] [place] [address] Branden Ellis 12/24/2024 10:30 AM EDT Office Visit [facility] MED & PEDS [address] [place] [address] Karo Lockett FNP [address] [place] [address] documented as of this encounter Procedures Procedure Name Priority Date/Time Associated Diagnosis Comments HM COLONOSCOPY Routine 02/13/2024 10:16 PM EDT SURGICAL PATHOLOGY Routine 02/13/2024 9:29 AM EDT documented in this encounter Results * Hm Colonoscopy (02/13/2024 10:16 PM EDT) Historical Provider HEALTH MAINTENANCE Final Result * Surgical Pathology (02/13/2024 9:29 AM EDT) us Historical Provider LAB PATHOLOGY ORDERABLES Final Result documented in this encounter Visit Diagnoses Not on filedocumented in this encounter Additional Health Concerns Assessment Noted Time PHQ-9 Depression Total Score: 0 02/20/20 23 3:36 PM EDT documented as of this encounter Care Teams Rehabilitation Services Counselor Relationship Specialty Start Date End Date Karo Lockett FNP [address] [place] [phone] PCP - General Family Medicine 03/17/22 documented as of this encounter
--- OUTSIDE RECORDS SUMMARY | 2024-12-06 09:01 | XMS_ITS | Patient Health Record ---
Author Organization [facility] Address [address] [place] [address] Care Team Providers Care Automatic Furnace Operator Name Role Phone DAGOBERTO WOODSON MD Primary Care Provider Stewart Aguila [phone] Reason For Referral No Information Plan Of Treatment No Information Insurance Providers Payer Name Payer Address Payer Phone Subscriber Number Group Number Insured Name Patient Relationship to Insured Coverage Start Date Coverage End Date MEDICAID OF [facility] [address] [place] [phone] [id number] SOLEDAD BLACKWELL Self - patient is the insured
--- OUTSIDE RECORDS SUMMARY | 2024-12-06 09:01 | XMS_ITS | Encounter Summary ---
Author Organization [employer] Address [address] [facility] 7t [place] [address] Care Team Providers Care Glazier Supervisor Name Role Phone Karo Lockett Primary Care Provider [phone] Reason for Visit * Reason Onset Date Comments Referral 03/07/2023 Encounter Details Date Type Department Care Team ([facility] st Contact Info) Description 03/07/2023 Telephone [facility] MEDICINE [address] [place] [address] Karo Lockett FNP [address] [place] [address] Referral Social History Tobacco Use Types Packs/Day [...] Appears GI was [place] [facility] [place]. Referrals team - please [...] Description 12/17/2024 10:00 AM EDT Office Visit [facility] ADULT DENTAL [address] [place] [address] Branden Ellis 12/24/2024 10:30 AM EDT Office Visit [facility] MED & PEDS [address] [place] [address] Karo Lockett FNP [address] [place] [address] documented as of this encounter Visit Diagnoses Diagnosis Bilateral carpal tunnel syndrome- Primary Carpal tunnel syndrome documented in this encounter Additional Health Concerns Assessment Noted Time PHQ-9 Depression Total Score: 0 02/20/20 23 3:36 PM EDT documented as of this encounter Care Teams Glazier Supervisor Relationship Specialty Start Date End Date Karo Lockett FNP [address] [place] [address] PCP - General Family Medicine 03/17/22 documented as of this encounter
--- OUTSIDE RECORDS SUMMARY | 2024-12-06 09:01 | XMS_ITS | Encounter Summary ---
Author Organization [employer] Address [address] [facility] 7t [place] [address] Care Team Providers Care Windows Server Architect Name Role Phone Karo Lockett Primary Care Provider [phone] Reason for Visit * Reason Onset Date Comments Returning Call 08/18/2023 Encounter Details Date Type Department Care Team ([facility] st Contact Info) Description 08/18/2023 Telephone [facility] MEDICINE [address] [place] [address] Karo Lockett FNP [address] [place] [address] Returning Call Social History Tobacco Use Types [...] Wednesdays, and Walk-In Urgent Care Located in [facility]. Patient provided with after-hours line for [facility], , which offer night time triage service and option to transfer to carton liner provider if needed. Please contact pt at [phone]. documented in this encounter Plan of Treatment Upcoming Encounters Date Type Department Care Team (Late st Contact Info) Description 12/17/2024 10:00 AM EDT Office Visit [facility] ADULT DENTAL [address] [place] [address] Branden Ellis 12/24/2024 10:30 AM EDT Office Visit [facility] MED & PEDS [address] [place] [address] Karo Lockett FNP [address] [place] [address] documented as of this encounter Visit Diagnoses Not on filedocumented in this encounter Additional Health Concerns Assessment Noted Time PHQ-9 Depression Total Score: 0 02/20/20 23 3:36 PM EDT documented as of this encounter Care Teams Windows Server Architect Relationship Specialty Start Date End Date Karo Lockett FNP [address] [place] [address] PCP - General Family Medicine 03/17/22 documented as of this encounter
--- OUTSIDE RECORDS SUMMARY | 2024-12-06 09:01 | XMS_ITS ---
Author Organization [facility] Address [address] [place] [phone] Care Team Providers Care Contracting Officer Name Role Phone CHINTAN KINNEY, DAGOBERTO Primary Care Provider Stewart Aguila [phone] REASON FOR VISIT Patient presents today for a COLON SCREENING Encounters Encounter Location Date Provider Diagnosis [facility] [address] [place] [phone] 10/07/2023 Stewart Rogers Plan Of Treatment No Information Progress Notes * SOLEDAD BLACKWELL RDOB: 0 (54 yo M)Acc No.[id number]:10/07/2023 Progress Notes Patient:?SOLEDAD BLACKWELL Provider:?Stewart Rogers MD :[id number]???Age:52 Y???Sex:Male Ministerio e:10/07/2023 Address:[address] [place], [place] [id number] Pcp:DAGOBERTO WOODSON MD Subjective: * Chief Complaints: [...] MD Date:? 024 Generated for Randy mayer/Ari/eTigorsmitting on:?12/06/2024 09:01 AM EDT
--- OUTSIDE RECORDS SUMMARY | 2024-12-06 09:01 | XMS_ITS | Encounter Summary ---
Author Organization [employer] Address [address] [place] [address] 7t [place] [address] Care Team Providers Care Property Staff Accountant Name Role Phone Karo Lockett Primary Care Provider [phone] Encounter Details Date Type Department Care Team (Late st Contact Info) Description 09/30/2022 Orders Only [facility] MED & PEDS [address] [place] [address] Kiki [place] LPN Social History Tobacco Use [...] Description 12/17/2024 10:00 AM EDT Office Visit [facility] ADULT DENTAL [address] [place] [address] Branden Ellis 12/24/2024 10:30 AM EDT Office Visit [facility] MED & PEDS [address] [place] [address] Karo Lockett FNP [address] [place] [address] documented as of this encounter Visit Diagnoses Not on filedocumented in this encounter Care Teams Property Staff Accountant Relationship Specialty Start Date End Date Karo Lockett FNP [address] [place] [address] PCP - General Family Medicine 03/17/22 documented as of this encounter
--- OUTSIDE RECORDS SUMMARY | 2024-12-06 09:01 | XMS_ITS | Clinical Summary ---
Author Organization [employer] Address [address] [facility] [address] [place] [address] Care Team Providers Care Business Relations Manager Name Role Phone Karo Lockett ICT DEVELOPER Primary Care Provider [phone] Allergies Active Allergy Reactions Criticality Noted Date Comments Ibuprofen 11/23/2015 Other reaction(s): swelling lip/groin-meloxicam ok Bupropion 04/30/2017 Meloxicam 05/26/2019 Metformin 12/20/2021 Pravastatin 08/09/2016 Other reaction(s): throat swelled, trouble breathin Tramadol 11/13/2016 Other reaction(s): mouth swelling Medications FREESTYLE LITE test strip USE TO TEST BLOOD SUGAR TWICE DAILY 10/23/19 23 Active SM Dry Eye Relief 0.2-0.2-1 % solution INSTILL 1 DROP INTO THE AFFECTED EYE(S) EVERY 4 HOURS NEEDED 11/23/19 22 Active simethicone (Gas-X) 80 MG chewable tablet Chew 1 tablet (80 mg) every 6 (six) hours if needed for flatulence. 30 tablet 12/20/19 23 Active tadalafil (Cialis) 20 MG tablet TAKE 1 TABLET 1 HOUR BEFORE SEXUAL RELATIONS ONCE DAILY NEEDED. 06/26/20 23 Active Biotin Maximum Strength 5000 MCG capsule TAKE 1 CAPSULE BY MOUTH DAILY IN THE MORNING 12/03/19 23 Active lidocaine-prilocai ne (Emla) 2.5-2.5 % creamIndications:P rimary osteoarthritis of right shoulder Apply thin layer by topical route 3-4 times daily as needed to affected area. 60 g 2 11/17/19 24 Active glipiZIDE (Glucotrol) 10 MG tabletIndications: Type 2 diabetes mellitus without complication, without long-term current use of insulin ([facility]) Take 1 tablet (10 mg) by mouth before breakfast and before evening meal. 180 tablet 2 01/02/20 24 Active Alcohol Swabs (Alcohol Prep) 70 % padsIndications:Ty pe 2 diabetes mellitus treated with insulin (CMS/HCC) USE TO TEST BLOOD SUGAR THREE TIMES DAILY 100 each 11 03/10/20 24 Active FREESTYLE LITE test stripIndications:T ype 2 diabetes mellitus treated with insulin ([facility]) 1 each by Other route 3 times daily. 100 each 03/10/20 24 Active TRUEplus Lancets 33G miscIndications:Ty pe 2 diabetes mellitus treated with insulin ([facility]) USE TO TEST BLOOD SUGAR THREE TIMES DAILY 100 each 11 03/10/20 24 Active cholecalciferol (Vitamin D-3) 25 MCG (1000 UT) tabletIndications: Vitamin D insufficiency Take 1 tablet (25 mcg) by mouth in the morning. 90 tablet 3 03/10/20 24 Active empagliflozin (Jardiance) 25 MGIndications:Type 2 diabetes mellitus without complication, with long-term current use of insulin ([facility]) Take 1 tablet (25 mg) by mouth Once per day. 90 tablet 3 04/30/20 24 025 Active hydroCHLOROthiazid e (HYDRODiuril) 25 MG tabletIndications: Essential hypertension Take 1 tablet (25 mg) by mouth in the morning. 90 tablet 1 09/09/19 25 Active gemfibrozil (Lopid) 600 MG tablet TAKE 1 TABLET BY MOUTH TWICE DAILY IN THE MORNING AND IN THE EVENING 180 tablet 1 09/09/19 25 Active Dulaglutide 1.5 MG/0.5ML solution auto-injectorIndic ations:Type 2 diabetes mellitus without complication, with long-term current use of insulin ([facility]) Inject 1.5 mg under the skin 1 (one) time per week. 2 mL 3 10/15/19 25 Active insulin glargine (Lantus) 100 UNIT/ML injectionIndicatio ns:Type 2 diabetes mellitus without complication, without long-term current use of insulin ([facility]) Inject 25 Units under the skin at bedtime. 5 mL 2 10/15/19 25 026 Active amLODIPine (Norvasc) 5 MG tabletIndications: Essential hypertension Take 1 tablet (5 mg) by mouth in the morning. 90 tablet 3 10/30/19 25 Active escitalopram (Lexapro) 10 MG tablet TAKE ONE TABLET EVERY MORNING 90 tablet 1 10/30/19 25 Active insulin pen needle (BD Pen Needle Lisa 2nd Gen) 32G x 4 mm miscIndications:Ty pe 2 diabetes mellitus without complication, without long-term current use of insulin ([facility]) Use as instructed to inject insulin 100 each 12 11/17/19 24 025 Active Problems Problem Noted Date Diagnosed Date Hearing difficulty of right ear 05/06/2024 Assessment & Plan (05/06/2024 6:23 PM EDT): -Reports hx of trauma/injury to right ear in childhood -Referral to Audiology placed 04/30/24 Lateral epicondylitis of both elbows 05/28/2023 Assessment & Plan (11/20/2023 8:30 AM EDT): -Following with [facility] Ortho, completed OT without much noted improvement -Encouraged cont symptomatic management Assessment & Plan (05/28/2023 11:36 AM EST): See above Primary osteoarthritis of right shoulder 023 Overview (05/06/2024): Followed by [facility] Ortho Cortisone injection January 2024 Assessment & Plan (11/20/2023 8:25 AM EDT): -Followed by [facility] Ortho (last consult October 2023) -Reporting limited improved from cortisone injection, reviewed plan to call office mid November 2023 to discuss next tx steps Assessment & Plan (05/28/2023 11:37 AM EST): See above Spondylosis without myelopat hy or radiculopathy, lumbar region 05/18/2023 Overview (05/18/2023): ?? Previously followed by [facility], received injections ?? Chronic left sided low back pain suspected 2/2 lumbar DDD and facet arthropathy ?? Referral to re-establish with [facility] Apr 2023 Other male erectile dysfunction 11/05/2022 Overview (11/20/2023): -Following with [facility] Urology - Dr. Kimball -Discussed importance of [...] 10/30/2022 Overview (05/06/2024): Colonoscopy: January 2024 - [facility] GI. Hyperplastic polyps. Next routine screening due January 2034. PSA: normal October 2022, following with [facility] Urology Eye exam: [facility] Eye Care Dental: [facility] Dental Assessment & Plan (05/06/2024 6:24 [...] rechallenge with statin until pt cleared by garland maker. -Cont Gemfibrozil 600 mg BID. -Fasting lipid [...] given the presence of arthralgias Refer to [facility] clinic for injection No improvement with OT Carpal tunnel syndrome of right wrist 02/10/2012 11/20/2023 Assessment & Plan (05/28/2023 11:36 AM EST): See above Order NCs Assessment & Plan (11/05/2022 9:07 AM EDT): -Declines interest to Hand specialist -Continue with symptomatic management -Referral to OT for further eval and tx Backache 01/09/2012 05/18/2023 Encounters Date Type Department Care Team Description 11/23/2024 Telephone [facility] MEDICINE [address] [place] [address] Karo Lockett FNP fyi 11/04/2024 10:00 AM EDT Office Visit [facility] [address] [place] [address] Edelmira Eagle DDS 10/29/2024 Refill [facility] [address] [place] [address] Karo Lockett FNP Essential hypertension 10/14/2024 8:30 AM EDT Telemedicine [facility] [address] [place] [address] Orion Dong MD Type 2 diabetes mellitus without complication, with long-term current use of insulin ([facility]); Type 2 diabetes mellitus without complication, without long-term current use of insulin ([facility]) 10/14/2024 Telephone [facility] [address] [place] [address] Karo Lockett FNP Appointment 10/14/2024 Travel 10/13/2024 10:00 AM EDT Office Visit [facility] [address] [place] [address] Edelmira Eagle DDS 10/13/2024 Telephone [facility] [address] [place] [address] Orion Dong MD 10/01/2024 Population Health Risk Score [facility] () [address] [phone] Provider, Population Health Generic 09/28/2024 10:00 AM EDT Office Visit [facility] [address] [place] [address] Edelmira Eagle, DDS 09/09/2024 10:30 AM EST Office Visit [facility] [address] [place] [address] Edelmira Eagle, DDS 09/09/2024 Orders Only [facility] [address] [place] [address] Karo Lockett FNP 09/09/2024 Orders Only [facility] [address] [place] [address] Karo Lockett FNP Essential hypertension from Last 3 Months Immunizations Immunization Administration Dates Next Due Hep B, adult [...] Sign Reading Time Taken Comments Blood Pressure 132/78 11/04/2024 10:15 AM EDT Pulse 78 04/30/2024 9:18 AM EDT Temperature [...] Description 12/17/2024 10:00 AM EDT Office Visit [facility] [address] [place] [address] Branden Ellis 12/24/2024 10:30 AM EDT Office Visit [facility] [address] [place] [address] Karo Lockett, ICT DEVELOPER [address] [place] [address] Health Maintenance Due Date Last Done Comments [...] 10/19, 01/14/2022, Additional history exists Tobacco Screening 11/04/2025 11/04/2024 Dental X-Ray: Full Mouth 04/07/2027 04/06/2024 Colonoscopy [...] patient's age to complete this topic Meningococcal B Vaccine Aged Out No l onger eligible based on patient's age to complete [...] Procedure Name Priority Date/Time Associated Diagnosis Comments 26 I RESIN-BASED COMPOSITE - 1 SURF, ANTERIOR Routine 11/04/2024 10:00 AM EDT 23 I RESIN-BASED COMPOSITE - 1 SURF, ANTERIOR Routine 11/04/2024 10:00 AM EDT 24 I RESIN-BASED COMPOSITE - 1 SURF, ANTERIOR Routine 11/04/2024 10:00 AM EDT 25 I RESIN-BASED COMPOSITE - 1 SURF, ANTERIOR Routine 11/04/2024 10:00 AM EDT 19,20,30,31 MANDIBULAR PARTIAL DENTURE - RESIN BASE [...] SURF, POSTERIOR Routine 09/09/2024 10:30 AM EST HEMOGLOBIN A1C Routine 06/18/2024 7:58 [...] AM EST) Hemoglobin A1c 7.1(H) <6.0 % [facility] Comment:Hemoglobin A1C Refer ence Range Adults: 4.8 - 6.0 % Non diabetic: < 6.0 % Goal: < 7.0 %Additional Action Suggested: > 8.0 %Note: Hemoglobin A1c results are invalid for patients with abnormal amounts of HbF. Blood transfusions may impact the HbA1c concentration in the patient sample. Estimated Average Glucose 157 mg/dL [facility] Comment:eAG = Estimated ave rage glucose which is %A1C expressed asaverage glucose, using the formula of the K4G-YibmaaiWvtazrd Glucose study (ADAG), Diabetes Care, Vol.31,#8,Feb. 2007 06/18/2024 7:58 AM EST 06/18/2024 7:58 AM EST us Generic External Data Provider LAB BLOOD ORDERAB LES Final Result Performing Organization Address [facility] de Phone Number [facility] [address] [place] [phone] * Hepatitis C Viral RNA, Quantitative, Real-Time PCR (05/05/2024 10:40 AM EDT) Hepatitis C Viral Load <15 NOT DETECTED NOT DETECTED IU/mL [facility] HCV Log PCR <1.18 NOT DETECTED NOT DETECTED Log IU/mL [facility] Comment:For additional infor foreign, please refer tohttp://education.Grokr/faq/ERN30i5(This link is being provided for informational/educational purposes only.)THIS TEST WAS PERFORMED AT:[facility] [place] [phone] LEONARD MD Blood 05/05/2024 10:4 0 AM EDT 05/05/2024 11:43 AM EDT us Karo Lockett ICT DEVELOPER LAB BLOOD ORDERABLES Final Res ult Performing Organization Address [facility] de Phone Number [facility] [address] [place] [phone] * (ABNORMAL) Albumin, Random Urine W/Creatinine (05/05/2024 10:40 AM EDT) Creatinine, Urine 48.35 mg/dL [facility] Microalbumin Urine 16.0 mg/L H [facility] Microalbum Creatinine Ratio Ur 33.0(H) <30 ug/mg cr [facility] Comment:Albumin/Creatinine R atio Reference Ranges: Normal: < 30 ug/mg creatinine Microalbuminuria: 30 - 300 ug/mg creatinineClinical Albuminuria: > 300 ug/mg creatinine Urine 05/05/2024 10:4 0 AM EDT 05/05/2024 1:10 PM EDT Karo Lockett [facility] LAB URINE ORDERABLES Final Res ult Performing Organization Address [facility] Co de Phone Number [facility] [address] [place] [phone] [phone] * HIV-1/2 Antigen and Antibodies, Fourth Generation, with Reflexes (05/05/2024 10:40 AM EDT) HIV AB/AG Nonreactive Nonreactive [facility] Comment:HIV-1 p24 Ag and/or HIV-1/HIV-2 Ab not detected.A test result that is nonreactive does not exclude thepossibility of exposure to or infection with HIV-1 and/orHIV-2. Nonreactive results in this assay for individualswith prior exposure to HIV-1 and/or HIV-2 may be due toantigen and antibody levels that are below the limit ofdetection of this assay.The [employer] HIV Ag/Ab Combo assay result andsupplemental assay results should be interpreted inconjunction with the patient's clinical presentation,history and other laboratory results. If the results areinconsistent with clinical evidence, additional testing issuggested to confirm the result. Blood Venous blood specimen / Unknown 05/05/2024 10:40 AM EDT 05/05/2024 11:43 AM EDT Karo Lockett [facility] LAB BLOOD ORDERABLES Final Res ult Performing Organization Address [facility]/ZIP Co de Phone Number [facility] [address] [place] [phone] [phone] * (ABNORMAL) Lipid Panel, Standard (05/05/2024 10:40 AM EDT) Triglycerides 128 <150 mg/dL [facility] Comment:Desirable Triglyceri de: less than 150 mg/dLBorderline High Triglyceride 150-199 mg/dLHigh Triglyceride: 200-499 mg/dLVery High Triglyceride: greater than or equal to 5OO mg/dL Cholesterol 182 <200 mg/dL [facility] Comment:Desirable Cholestero l: less than 200 mg/dLBorderline High Cholesterol: 200-239 mg/dLHigh Cholesterol: greater than 239 mg/dL LDL Cholesterol Calculated 125(H) <100 mg/dL [facility] Comment:Desirable LDL: less than 100 mg/dLNear Optimal/Above Optimal LDL: 110- 129 mg/dLBorderline High LDL: 130-159 mg/dLHigh LDL: 160-189 mg/dLVery High LDL: greater than or equal to 190 mg/dL HDL Cholesterol 32(L) >40 mg/dL [facility] Comment:Desirable HDL: great er than 40 mg/dL Note: This HDL assay may give artificially low results in patients with liver disease. Blood Venous blood specimen / Unknown 05/05/2024 10:40 AM EDT 05/05/2024 11:43 AM EDT Karo Lockett ICT DEVELOPER LAB BLOOD ORDERABLES Final Res ult [facility] [address] [place] [address] [phone] * Hm Colonoscopy (02/13/2024 10:16 PM EDT) Historical Provider HEALTH MAINTENANCE Final Result from Last 3 Months or Most Recently Relevant to Health Maintenance Insurance [address] [place] [address] C[place] AD[place] Care Teams Business Relations Manager Relationship Specialty Start Date End Date Karo Lockett FNP [address] [place] [phone] PCP - General Family Medicine 03/17/22
--- OUTSIDE RECORDS SUMMARY | 2024-12-06 09:01 | XMS_ITS ---
Author Organization [facility] Address [address] [place] [phone] Care Team Providers Care Taxi Cab Driver Name Role Phone DAGOBERTO WOODSON MD Primary Care Provider Stewart Aguila [phone] REASON FOR VISIT cancel OV Encounters Encounter Location Date Provider Diagnosis [facility] [address] [place] [phone] 10/06/2023 Stewart Rogers Plan Of Treatment No Information Progress Notes * SOLEDAD BLACKWELL RDOB: 0 (52 yo M)Acc No.[id number]:10/06/2023 Patient:?SOLEDAD BLACKWELL :1970???Age:52 Y???Sex:Male Address:[address] [place] [phone] * true * Date:? Generated for Randy mayer/Ari/eTransmitting on:?12/06/2024 09:01 AM EDT
--- NOTE | 2024-12-06 09:10 | MHC.OFFVIS ---
Vital Signs 12/06/24 09:14 Height 5 ft 4 in Weight 194 lb BMI 33.3 BP 117/74 Blood Pressure Location Lt brachial Position Sitting Pulse 84 Pulse Oximetry (%) 97 Oxygen Delivery Method Room Air Intake Visit Reasons: 6 MO F/U Diverticulosis, Gastritis Intake Note: Patient follow up for Diverticulosis and Gastritis Patient cc: abdominal bloating and diarrhea on and off. 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 Avoid dietary triggers and late night snacking. Staying upright for minimum 3 hours after meals discussed with patient. Patient was encouraged to take fiber supplement with probiotic. Moderate hemorrhoids found without complications. Patient's sister was diagnosed with CRC and patient should return for colorectal screening in 5 years instead of 10. May do Sitz baths with Epsom salt as needed. Patient will return in this office in 6 months, sooner on as needed basis. He is agreeable to this plan and verbalizes understanding of instructions. He was given the opportunity to ask questions and all questions answered. ? Thank you for allowing me to participate in his care Medications New methylcellulose (laxative) (Citrucel) take it with full glass of water 500 mg PO DAILY 90 tabs 2RF K59.00 lactobacillus combination no.4 (Probiotic) administer with a meal 3,000 mmu cells PO DAILY 30 caps 5RF lactobacillus combination no.4 (Probiotic) administer with a meal 3,000 mmu cells PO DAILY 30 caps 5RF methylcellulose (laxative) (Citrucel) take it with full glass of water 500 mg PO DAILY 90 tabs 2RF K59.00 TODAY'S VISIT Patient is here today for follow-up. Patient reports that he has been feeling well since last visit. Still complains of abdominal bloating depending on what he eats. Patient admits to be eating larger meals usually fried made with pork. Mainly [place] food with rice and beans. Patient requesting refill for simethicone. Patient reports relief when taking it. Takes pantoprazole every morning and reports that acid reflux for the most part is controlled. Patient denies dyspepsia, dysphagia or odynophagia. Denies melena, hematochezia, unintentional weight loss or ribbon like stools. Patient denies any abdominal pain or discomfort. Denies any mucus in his stool [facility] Medical History (Updated 12/06/24 @ 09:33 by Mahnaz Bell, [facility]) Family history of colon cancer Diverticulosis Erectile dysfunction CTS (carpal tunnel syndrome) Depressive disorder HTN (hypertension) GERD (gastroesophageal reflux disease) Acute insomnia Obesity Diabetes mellitus, type II Surgical History History of esophagogastroduodenoscopy (EGD) Hx of colonoscopy History of surgery H/O hand surgery H/O eye surgery Family History Brother Prostate cancer Father Prostate cancer Brother Cancer Social History Household Members Other:: Alcohol intake: former Patient Tobacco Use Status: Never used Tobacco Current occupational status: unemployed Current occupation: right hand dominant Review of Systems Const Denies weight gain and Denies weight loss ENT Reports no additional complaints, Denies dysphagia and Denies odynophagia Card Reports no additional complaints Resp Reports no additional complaints GI Denies abdominal pain, Denies belching, Denies melena, Reports bloating, Denies change in bowel habits, Denies dysphagia, Denies excessive flatus, Denies dyspepsia, Denies heartburn, Denies diarrhea, Denies loose stools, Denies nausea, Denies odynophagia and Denies vomiting Reports no additional complaints Musc Reports no additional complaints Neuro Reports no additional complaints Psych Reports no additional complaints Endo Reports no additional complaints Physical Exam Vital Signs: Last Vital Signs Pulse 84 12/06/24 09:14 BP 117/74 12/06/24 09:14 Pulse Ox 97 12/06/24 09:14 Oxygen Delivery Method Room Air 12/06/24 09:14 BMI result Body Mass Index 33.3 Const General: healthy appearing and no acute distress Nutritional Appearance: obese Orientation/consciousness: patient oriented x3 Resp Effort & Inspection: normal respiratory effort, able to speak in complete sentences, no tracheal deviation and symmetric chest movement Auscultation: clear to auscultation bilaterally Cardio Rate: regular rate GI Inspection: Yes normal to inspection, No distended and Yes obesity Palpation (GI): Soft to palpation, not firm, nontender and No hepatosplenomegaly present Auscultation: normal bowel sounds General: Yes no CVA tenderness Back/Spine/Pelvis Back: no CVA tenderness Skin General skin exam: elasticity normal, turgor normal and dry skin Neuro General: patient oriented x3 Psych Appearance: grossly normal Mental Status: mental status grossly normal Assessment & Plan Assessment & Plan (1) GERD (gastroesophageal reflux disease): Code(s): K21.9 - Gastro-esophageal reflux disease without esophagitis Category: Medical Qualifiers: Esophagitis presence: without esophagitis Qualified Code(s): K21.9 - Gastro-esophageal reflux disease without esophagitis (2) Diverticulosis: Code(s): K57.90 - Diverticulosis of intestine, part unspecified, without perforation or abscess without bleeding Category: Medical (3) Family history of colon cancer: Comment: Patient's sister diagnosed at age 64 with CRC Code(s): Z80.0 - Family history of malignant neoplasm of digestive organs Category: Medical (4) Internal hemorrhoids without complication: Code(s): K64.8 - Other hemorrhoids Plan Continue pantoprazole daily. Patient will continue avoiding dietary triggers and late night snacking. Staying upright for minimum 3 hours after meals discussed with patient. Patient was encouraged to take fiber in his diet. Increase fluid intake and activity to promote better bowel motility. Simethicone as needed with meals. Smaller meals and more often. Patient will follow-up in 6 months, sooner on as needed basis. He is agreeable to this plan and verbalizes understanding of instructions. He was given the opportunity to ask questions and all questions answered Medications: Refilled simethicone (Gas Relief (simethicone)) 125 mg PO TID-QID 30 days PRN 240 tabs 2RF abdominal distention pantoprazole 40 mg PO QAM 90 tabs 3RF Coding Level of Care Code Est Pt Level 3 (62667) Diagnoses Gastroesophageal reflux disease without esophagitis K21.9 Esophagitis presence: without esophagitis Diverticulosis K57.90 Family history of colon cancer Z80.0 Internal hemorrhoids without complication K64.8 Time Spent (min) 30 Comment 20 minutes spent with patient and additional 10 minutes spent reviewing his records
[2024-12-06 09:14] VITALS: BP 117/74; PULSE 84; O2SAT 97; BMI 33.3
== END 2024-12-06 09:33 | disposition home or self-care (01) ==
LOC: HO.HGI 08:53
PROVIDERS: PCP Registered Nurse; Visit Provider Nurse Practitioner Family
DX: K21.9 Gastro-esophageal reflux disease without esophagitis (principal); K57.90 Diverticulosis of intestine, part unspecified, without perforation or abscess without bleeding; Z80.0 Family history of malignant neoplasm of digestive organs; K64.8 Other hemorrhoids
CPT/HCPCS: 99213

== ENCOUNTER → 2024-12-06 08:52 | Outpatient (BNVA) | payer MEDICAID, SELFPAY | PROVIDERS: PCP Registered Nurse; Visit Provider Nurse Practitioner Family | DX: K57.90 Diverticulosis of intestine, part unspecified, without perforation or abscess without bleeding (principal); K29.70 Gastritis, unspecified, without bleeding; K21.9 Gastro-esophageal reflux disease without esophagitis; K64.8 Other hemorrhoids; Z80.0 Family history of malignant neoplasm of digestive organs | CPT/HCPCS: 99212 ==

== ENCOUNTER 2024-12-23 09:19 | Outpatient (AMB) | payer MEDICAID, SELFPAY ==
--- NOTE | 2024-12-23 09:26 | MHC.OFFVIS ---
Intake Visit Reasons: 6m follow up Intake Note: Patient is present for 6m f/u Urology Medication:TADALAFIL Antibiotic Allergy:PRAVASTSTIN Blood Thinner:NONE Professional Skater Required: No Allergies bupropion Allergy (Mild, Verified 12/23/24 09:29) Angioedema pravastatin Allergy (Mild, Verified 12/23/24 09:29) Unknown tramadol Allergy (Mild, Verified 12/23/24 09:29) Unknown aspirin Allergy (Unknown, Uncoded 12/23/24 09:29) Angioedema HPI Comments Details: Gilbert is a pleasant male. He is a patient of Dr Lockett. He seen for the following urologic conditions - erectile dysfunction in setting of diabetes HbA1c 7.1 Trial of vacuum pump showed Peyronie's disease Has combination Peyronie's disease with erectile dysfunction Move ahead with penile prosthetic Follow-up from daily tadalafil with 20 mg on demand Background diabetes Minimal impact from on demand Viagra Minimal impact tadalafil with on demand Discussion of options including injectable medications and penile prosthetic Erectile dysfunction in setting of type 2 diabetes Progressive Failed Viagra on demand T 06/13 597 [facility] Medical History (Updated 12/23/24 @ 09:50 by Marin Kimball MD) Family history of colon cancer Diverticulosis Erectile dysfunction CTS (carpal tunnel syndrome) Depressive disorder HTN (hypertension) GERD (gastroesophageal reflux disease) Acute insomnia Obesity Diabetes mellitus, type II Surgical History History of esophagogastroduodenoscopy (EGD) Hx of colonoscopy History of surgery H/O hand surgery H/O eye surgery Family History Brother Prostate cancer Father Prostate cancer Brother Cancer Social History Household Members Other:: Alcohol intake: former Patient Tobacco Use Status: Never used Tobacco Current occupational status: unemployed Current occupation: right hand dominant Review of Systems Const Denies chills and Denies fever(s) Card Reports no additional complaints and Denies syncope Resp Denies cough GI Denies abdominal pain and Denies heartburn Reports as per HPI and Denies change in libido Neuro Denies syncope Psych Denies change in libido Endo Denies change in libido Physical Exam Const General: cooperative, healthy appearing, comfortable and no acute distress Orientation/consciousness: patient oriented x3 HEENT Face and sinus: Yes normal facial exam Mouth: moist mucous membranes Neck Neck: Yes normal visual inspection, Yes full ROM and Yes trachea midline Chest Chest palpation & inspection: normal inspection of the chest Resp Effort & Inspection: normal respiratory effort, able to speak in complete sentences and no respiratory distress GI Inspection: Yes normal to inspection Back/Spine/Pelvis Cervical Spine: normal cervical lordosis Thoracic/Lumbar Spine: thoracic and lumbar spine normal to inspection Skin General skin exam: no rashes or lesions noted Neuro General: patient oriented x3, gait normal, tone normal and moves all extremities Extrem General: Yes normal to inspection and Yes capillary refill normal Assessment & Plan Assessment & Plan (1) Erectile dysfunction associated with type 2 diabetes mellitus: Code(s): E11.69 - Type 2 diabetes mellitus with other specified complication; N52.1 - Erectile dysfunction due to diseases classified elsewhere Category: Medical (2) Peyronie's disease: Code(s): N48.6 - Induration penis plastica Category: Medical Plan The patient was counseled in detail regarding penile prosthesis implantation as a treatment option for medically refractory erectile dysfunction. The procedure, risks, benefits, alternatives, and postoperative expectations were reviewed extensively. Benefits discussed: - Christianity of erectile function with high satisfaction rates - Reliable and spontaneous control of erections - Fully internal device with discreet appearance - Long-term solution when other therapies fail Risks and potential complications reviewed: - Surgical risks: bleeding, hematoma, infection, pain, wound issues, anesthesia complications - Device-related risks: mechanical failure, erosion, device migration, auto-inflation or deflation issues, need for revision surgery - Functional risks: altered penile length or sensation, dissatisfaction with rigidity or angle The patient was informed that: - The device is permanent and irreversible - Success depends on individual anatomy, comorbidities, and healing - The average device lifespan is ~10?15 years, with a low annual failure rate (~1?2%) Alternatives reviewed: - Continued use of PDE5 inhibitors - Intracavernosal injections - Vacuum erection devices - Psychosexual counseling - Observation/no treatment Patient Understanding & Consent: - The patient verbalized understanding of the procedure, risks, and alternatives - All questions were answered to the patient?s satisfaction - The patient understands that other ED therapies may no longer be effective or recommended after device placement - Informed consent was obtained for penile prosthesis implantation Patient Instructions: This note is constructed using voice recognition software. While every effort has been made to ensure accuracy systems specialist errors may have been included. Imaging studies, laboratory and physical exam results were discussed and reviewed in detail. No major barriers to patient understanding were identified. An opportunity to ask questions regarding the treatment plan was provided. All questions were answered. The patient expressed understanding and agreement with the above treatment plan. The patient is aware they should contact our office by phone for worsening of their current condition or the appearance of new urologic symptoms. Compliance is encouraged with any medications and followup testing that is ordered. It is a privilege to participate in the urologic care of your patient. If you have any questions or concerns regarding treatment for the above conditions, or other urologic issues, please do not hesitate to contact me. The office telephone contact is [phone]. Sincerely, Dr Marin Kimball MD, [facility] - Urology Compassionate Specialist Care for the Genitourinary System Coding Level of Care Code Est Pt Level 4 (71393) Diagnoses Erectile dysfunction associated with type 2 diabetes mellitus E11.69; N52.1 Peyronie's disease N48.6
--- OUTSIDE RECORDS SUMMARY | 2024-12-23 10:08 | XMS_ITS | Clinical Summary ---
Author Organization [employer] Address [address] [place] [address] Care Team Providers Care Lard Refiner Name Role Phone Karo Lockett WAFER FAB OPERATOR Primary Care Provider [phone] Allergies Active Allergy Reactions Criticality Noted Date Comments Ibuprofen 11/23/2015 Other reaction(s): swelling lip/groin-meloxicam ok Bupropion 04/30/2017 Meloxicam 05/26/2019 Metformin 12/20/2021 Pravastatin 08/09/2016 Other reaction(s): throat swelled, trouble breathin Tramadol 11/13/2016 Other reaction(s): mouth swelling Medications FREESTYLE LITE test strip USE TO TEST BLOOD SUGAR TWICE DAILY 3 Active SM Dry Eye Relief 0.2-0.2-1 % solution INSTILL 1 DROP INTO THE AFFECTED EYE(S) EVERY 4 HOURS NEEDED 2 Active simethicone (Gas-X) 80 MG chewable tablet Chew 1 tablet (80 mg) every 6 (six) hours if needed for flatulence. 30 tablet 3 Active tadalafil (Cialis) 20 MG tablet TAKE 1 TABLET 1 HOUR BEFORE SEXUAL RELATIONS ONCE DAILY NEEDED. 3 Active Biotin Maximum Strength 5000 MCG capsule TAKE 1 CAPSULE BY MOUTH DAILY IN THE MORNING 3 Active lidocaine-prilocai ne (Emla) 2.5-2.5 % creamIndications:P rimary osteoarthritis of right shoulder Apply thin layer by topical route 3-4 times daily as needed to affected area. 60 g 2 4 Active glipiZIDE (Glucotrol) 10 MG tabletIndications: Type 2 diabetes mellitus without complication, without long-term current use of insulin ([facility]) Take 1 tablet (10 mg) by mouth before breakfast and before evening meal. 180 tablet 2 4 Active Alcohol Swabs (Alcohol Prep) 70 % padsIndications:Ty pe 2 diabetes mellitus treated with insulin (CMS/HCC) USE TO TEST BLOOD SUGAR THREE TIMES DAILY 100 each 11 4 Active FREESTYLE LITE test stripIndications:T ype 2 diabetes mellitus treated with insulin ([facility]) 1 each by Other route 3 times daily. 100 each 11 4 Active TRUEplus Lancets 33G miscIndications:Ty pe 2 diabetes mellitus treated with insulin ([facility]) USE TO TEST BLOOD SUGAR THREE TIMES DAILY 100 each 11 4 Active cholecalciferol (Vitamin D-3) 25 MCG (1000 UT) tabletIndications: Vitamin D insufficiency Take 1 tablet (25 mcg) by mouth in the morning. 90 tablet 3 4 Active empagliflozin (Jardiance) 25 MGIndications:Type 2 diabetes mellitus without complication, with long-term current use of insulin ([facility]) Take 1 tablet (25 mg) by mouth Once per day. 90 tablet 3 4 04/30/20 25 Active hydroCHLOROthiazid e (HYDRODiuril) 25 MG tabletIndications: Essential hypertension Take 1 tablet (25 mg) by mouth in the morning. 90 tablet 1 5 Active gemfibrozil (Lopid) 600 MG tablet TAKE 1 TABLET BY MOUTH TWICE DAILY IN THE MORNING AND IN THE EVENING 180 tablet 1 5 Active Dulaglutide 1.5 MG/0.5ML solution auto-injectorIndic ations:Type 2 diabetes mellitus without complication, with long-term current use of insulin ([facility]) Inject 1.5 mg under the skin 1 (one) time per week. 2 mL 3 5 Active insulin glargine (Lantus) 100 UNIT/ML injectionIndicatio ns:Type 2 diabetes mellitus without complication, without long-term current use of insulin ([facility]) Inject 25 Units under the skin at bedtime. 5 mL 2 5 10/15/19 26 Active amLODIPine (Norvasc) 5 MG tabletIndications: Essential hypertension Take 1 tablet (5 mg) by mouth in the morning. 90 tablet 3 5 Active escitalopram (Lexapro) 10 MG tablet TAKE ONE TABLET EVERY MORNING 90 tablet 1 5 Active Active Problems Problem Noted Date Diagnosed Date Hearing difficulty of right ear 05/06/2024 Assessment & Plan (05/06/2024 6:23 PM EDT): -Reports hx of trauma/injury to right ear in childhood -Referral to Audiology placed 04/30/24 Lateral epicondylitis of both elbows 05/28/2023 Assessment & Plan (11/20/2023 8:30 AM EDT): -Following with [facility] Ortho, completed OT without much noted improvement -Encouraged cont symptomatic management Assessment & Plan (05/28/2023 11:36 AM EST): See above Primary osteoarthritis of right shoulder 023 Overview (05/06/2024): Followed by [facility] Ortho Cortisone injection January 2024 Assessment & Plan (11/20/2023 8:25 AM EDT): -Followed by [facility] Ortho (last consult October 2023) -Reporting limited improved from cortisone injection, reviewed plan to call office mid November 2023 to discuss next tx steps Assessment & Plan (05/28/2023 11:37 AM EST): See above Spondylosis without myelopat hy or radiculopathy, lumbar region 05/18/2023 Overview (05/18/2023): ?? Previously followed by [facility], received injections ?? Chronic left sided low back pain suspected 2/2 lumbar DDD and facet arthropathy ?? Referral to re-establish with PS&[facility] Apr 2023 Other male erectile dysfunction 11/05/2022 Overview (11/20/2023): -Following with [facility] Urology - Dr. Kimball -Discussed importance of [...] 10/30/2022 Overview (05/06/2024): Colonoscopy: January 2024 - [facility] GI. Hyperplastic polyps. Next routine screening due January 2034. PSA: normal October 2022, following with [facility] Urology Eye exam: [facility] Eye Care Dental: [facility] Dental Assessment & Plan (05/06/2024 6:24 [...] rechallenge with statin until pt cleared by fitness coordinator. -Cont Gemfibrozil 600 mg BID. -Fasting lipid [...] given the presence of arthralgias Refer to [facility] clinic for injection No improvement with OT Carpal tunnel syndrome of right wrist 02/10/2012 11/20/2023 Assessment & Plan (05/28/2023 11:36 AM EST): See above Order NCs Assessment & Plan (11/05/2022 9:07 AM EDT): -Declines interest to Hand specialist -Continue with symptomatic management -Referral to OT for further eval and tx Backache 01/09/2012 05/18/2023 Encounters Date Type Department Care Team Description 12/17/2024 10:00 AM EDT Office Visit [facility] [address] [place] [address] Branden Ellis Dental calculus (Primary Dx) 12/17/2024 Patient Outreach [address] [address] Karo Lockett FNP Care Coordination (CHW outreach for SDOH PT-1 and food needs-LVM ) 12/16/2024 Patient Outreach [address] [address] Karo Lockett FNP Pre-visit Planning (SDOH screening positive and Tobacco screening negative ) 11/23/[address] [address] Karo Lockett FNP fyi 11/04/2024 10:00 AM EDT Office Visit [facility] [address] [place] [address] Edelmira Eagle DDS 10/29/2024 Refill [facility] [address] [place] [address] Karo Lockett FNP Essential hypertension 10/14/2024 8:30 AM EDT Telemedicine [facility] [address] [place] [address] Orion Dong MD Type 2 diabetes mellitus without complication, with long-term current use of insulin (CMS/HCC); Type 2 diabetes mellitus without complication, without long-term current use of insulin (CMS/HCC) 10/14/2024 Telephone [facility] [address] [place] [address] Karo Lockett FNP Appointment 10/14/2024 Travel 10/13/2024 10:00 AM EDT Office Visit [facility] [address] [place] [address] Edelmira Eagle DDS 10/13/2024 Telephone [facility] [address] [place] [address] Orion Dong MD 10/01/2024 Population Health Risk Score [facility] ([facility]) Department [address] [place] [phone] Provider, Population Health Generic 09/28/2024 10:00 AM EDT Office Visit [facility] [address] [place] [address] Edelmira Eagle, CECILIA from Last 3 Months Immunizations Immunization Administration [...] housing situation today? I have ramiro alejo 12/16/[address] you li ve. Do you have problems with any of the following? None of the above 12/16/2024 Food Insecurity Answer Date Recorded Within the past 12 months, y ou worried that your food would run out before you got money to buy more: Sometimes True 2024 Within the past 12 months,th e food you bought just didn't last and you didn't have enough money to get more: Sometimes True 12/16/2024 Transportation Answer Date Recorded In the past 12 months, has l ack of transportation kept you from medical appts, meetings, work or from getting things needed for daily living? No 12/16/2024 Utilities Answer Date Recorded In the past 12 months, has t he electric, gas, oil or water company threatened to shut off services in your home? No 12/16/2024 Depression Answer Date Recorded Patient Health Questionnaire-2 Score 0 02/19/2023 Internet Access Answer Date Recorded Internet Access Q1 Yes 12/16/2024 Internet Access Q2 Not on file 12/16/2024 Sex and Gender Information Value Date Recorded Sex Assigned at Male 05/20/2022 10:18 AM EDT Legal Sex Male 10:18 AM EDT Gender Identity Male 05/20/2022 10:18 AM EDT Sexual Orientation Don't know 05/20/2022 10 :18 AM EDT Last Filed Vital Signs Vital Sign Reading Time Taken Comments Blood Pressure 120/70 12/17/2024 9:56 AM EDT Pulse 65 12/17/2024 9:56 AM EDT Temperature 36.6 ??C (97.8 ??F) [...] Care Team (Late st Contact Info) Description 12/24/2024 10:30 AM EDT Office Visit [facility] [address] [place] [address] Karo Lockett, WAFER FAB OPERATOR [address] [place] [address] Health Maintenance Due Date Last Done Comments CT Colonography 1969 FIT DNA/Cologuard 1969 FIT 1969 FOBT 1969 Sigmoidoscopy 1969 Disability Screening 1969 Diabetes: Foot Exam 10/17/1979 Eye Exam 10/17/1979 Alcohol/Substance Use Screening 1981 Hepatitis B Vaccines (2 of 3 - 19+ 3-dose series) 03/28/2016 02/29/2016 Pneumococcal Vaccine: 50+ Years (2 of 2 - PCV) 05/06/2020 05/06/2019 Zoster Vaccines (2 of 2) 01/13/2023 11/18/2022 Depression Screening 02/20/2024 02/19/2023, 02/20/20 23 Diabetes: Hemoglobin A1C 09/17/2024 024, 05/05/2024, 04/30/2024, Additional history exists Dental Prophylaxis 10/05/2024 04/06/2024 Dental X-Ray: Bitewings 04/07/2025 04/06/2024 Diabetes: Urine Protein Screening 05/05/2025 05/05/2024, 10/31/2022, 01/14/2022, Additional history exists Lipid Panel 05/05/2025 05/05/2024, 10/19, 01/14/2022, Additional history exists Dental Oral Exam 06/20/2025 12/17/2024, 04/06/2024 SDOH Screening 12/16/2025 12/16/2024 Tobacco Screening 12/17/2025 12/17/2024 Dental X-Ray: Full Mouth 04/07/2027 04/06/2024 Colonoscopy [...] Procedure Name Priority Date/Time Associated Diagnosis Comments PERIODIC ORAL EVALUATION - ESTABLISHED PATIENT Routine 12/17/2024 10:00 AM EDT 26 I RESIN-BASED COMPOSITE - 1 SURF, [...] AND TEETH) Routine 10/13/2024 10:00 AM EDT 2,3,5,6,7,8,9,10,11,1 2,14,15 MAXILLARY PARTIAL DENTURE - RESIN BASE (INCLUDING, RETENTIVE/CLASPING MATERIALS, RESTS, AND TEETH) Routine 10/13/2024 10:00 AM EDT CASE PRESENTATION, DETAILED AND EXTENSIVE TREATMENT PLANNING Routine 09/28/2024 10:00 AM EDT WAX TRY IN Routine 09/28/2024 10:00 AM EDT HEMOGLOBIN A1C Routine 06/18/2024 7:58 AM EST [...] RADIOGRAPHIC IMAGES Routine 04/06/2024 8:00 AM EDT HM COLONOSCOPY Routine 02/13/2024 10:16 PM EDT from Last 3 Months or Most Recently Relevant to Health Maintenance Results * (ABNORMAL) Hemoglobin A1c (06/18/2024 7:58 AM EST) Hemoglobin A1c 7.1(H) <6.0 % [facility] Comment:Hemoglobin A1C Refer ence Range Adults: 4.8 - 6.0 % Non diabetic: < 6.0 % Goal: < 7.0 %Additional Action Suggested: > 8.0 %Note: Hemoglobin A1c results are invalid for patients with abnormal amounts of HbF. Blood transfusions may impact the HbA1c concentration in the patient sample. Estimated Average Glucose 157 mg/dL [facility] Comment:eAG = Estimated ave rage glucose which is %A1C expressed asaverage glucose, using the formula of the H4V-KgrofxeDnywuan Glucose study (ADAG), Diabetes Care, Vol.31,#8,Feb. 2007 06/18/2024 7:58 AM EST 06/18/2024 7:58 AM EST us Generic External Data Provider LAB BLOOD ORDERAB LES Final Result Performing Organization Address [facility]/ZIP Co de Phone Number [facility] [address] [place] [phone] * Hepatitis C Viral RNA, Quantitative, Real-Time PCR (05/05/2024 10:40 AM EDT) Hepatitis C Viral Load <15 NOT DETECTED NOT DETECTED IU/mL [facility] HCV Log PCR <1.18 NOT DETECTED NOT DETECTED Log IU/mL [facility] Comment:For additional infor mation, please refer tohttp://education.[employer]/faq/NUA56h7(This link is being provided for informational/educational purposes only.)THIS TEST WAS PERFORMED AT:[facility] [place] [phone] LEONARD MD Blood 05/05/2024 10:4 0 AM EDT 05/05/2024 11:43 AM EDT Karo Lockett WAFER FAB OPERATOR LAB BLOOD ORDERABLES Final Res ult Performing Organization Address [facility] de Phone Number [facility] [address] [place] [phone] * (ABNORMAL) Albumin, Random Urine W/Creatinine (05/05/2024 10:40 AM EDT) Creatinine, Urine 48.35 mg/dL [facility] Microalbumin Urine 16.0 mg/L [facility] Microalbum Creatinine Ratio Ur 33.0(H) <30 ug/mg cr [facility] Comment:Albumin/Creatinine R atio Reference Ranges: Normal: < 30 ug/mg creatinine Microalbuminuria: 30 - 300 ug/mg creatinineClinical Albuminuria: > 300 ug/mg creatinine Urine 05/05/2024 10:4 0 AM EDT 05/05/2024 1:10 PM EDT Karo Phalen WAFER FAB OPERATOR LAB URINE ORDERABLES Final Res ult Performing Organization Address [facility]/ZIP Co de Phone Number [facility] [address] [place] [phone] [phone] * HIV-1/2 Antigen and Antibodies, Fourth Generation, with Reflexes (05/05/2024 10:40 AM EDT) HIV AB/AG Nonreactive Nonreactive [facility] Comment:HIV-1 p24 Ag and/or HIV-1/HIV-2 Ab not detected.A test result that is nonreactive does not exclude thepossibility of exposure to or infection with HIV-1 and/orHIV-2. Nonreactive results in this assay for individualswith prior exposure to HIV-1 and/or HIV-2 may be due toantigen and antibody levels that are below the limit ofdetection of this assay.The [employer] HIV Ag/Ab Combo assay result andsupplemental assay results should be interpreted inconjunction with the patient's clinical presentation,history and other laboratory results. If the results areinconsistent with clinical evidence, additional testing issuggested to confirm the result. Blood Venous blood specimen / Unknown 05/05/2024 10:40 AM EDT 05/05/2024 11:43 AM EDT Karo Lockett [facility] LAB BLOOD ORDERABLES Final Res ult Performing Organization Address [facility] Co de Phone Number [facility] [address] [place] [address] [phone] * (ABNORMAL) Lipid Panel, Standard (05/05/2024 10:40 AM EDT) Triglycerides 128 <150 mg/dL [facility] Comment:Desirable Triglyceri de: less than 150 mg/dLBorderline High Triglyceride 150-199 mg/dLHigh Triglyceride: 200-499 mg/dLVery High Triglyceride: greater than or equal to 5OO mg/dL Cholesterol 182 <200 mg/dL [facility] Comment:Desirable Cholestero l: less than 200 mg/dLBorderline High Cholesterol: 200-239 mg/dLHigh Cholesterol: greater than 239 mg/dL LDL Cholesterol Calculated 125(H) <100 mg/dL [facility] Comment:Desirable LDL: less than 100 mg/dLNear Optimal/Above Optimal LDL: 110- 129 mg/dLBorderline High LDL: 130-159 mg/dLHigh LDL: 160-189 mg/dLVery High LDL: greater than or equal to 190 mg/dL HDL Cholesterol 32(L) >40 mg/dL [facility] Comment:Desirable HDL: great er than 40 mg/dL Note: This HDL assay may give artificially low results in patients with liver disease. Blood Venous blood specimen / Unknown 05/05/2024 10:40 AM EDT 05/05/2024 11:43 AM EDT Karo Lockett WAFER FAB OPERATOR LAB BLOOD ORDERABLES Final Res ult [facility] [address] [place] [phone] * Colonoscopy (02/13/2024 10:16 PM EDT) Historical Provider MD HEALTH MAINTENANCE Final Result from Last 3 Months or Most Recently Relevant to Health Maintenance [place] [address] [place] [address] [facility] [place] AD[place] Care Teams Lard Refiner Relationship Specialty Start Date End Date Karo Lockett FNP [address] [place] [phone] PCP - General Family Medicine 03/17/22
== END 2024-12-23 09:51 | disposition home or self-care (01) ==
LOC: HO.HUSH 09:19
PROVIDERS: PCP Registered Nurse; Visit Provider Urology
DX: E11.69 Type 2 diabetes mellitus with other specified complication (principal); N52.1 Erectile dysfunction due to diseases classified elsewhere; N48.6 Induration penis plastica
CPT/HCPCS: 99214

== ENCOUNTER → 2024-12-23 09:19 | Outpatient (BNVA) | payer MEDICAID, SELFPAY | PROVIDERS: PCP Registered Nurse; Visit Provider Urology | DX: E11.69 Type 2 diabetes mellitus with other specified complication (principal); N52.1 Erectile dysfunction due to diseases classified elsewhere; N48.6 Induration penis plastica | CPT/HCPCS: 99212 ==

== ENCOUNTER 2025-01-10 10:46 | Outpatient (REF) | payer MEDICAID, SELFPAY ==
--- NOTE | ~2025-01-10 | XR_ITS ---
Exam: Three-view bilateral wrist x-rays INDICATION: Bilateral wrist pain Prior: None FINDINGS: Right Wrist: There is no joint diastases. There is no degenerative change. No fractures are identified. Left Wrist: There is no joint diastases. There is no degenerative change. No fractures are identified. XR/XR Wrist Griffin min 3V IMPRESSION: Unremarkable bilateral wrists. Electronically signed by: Sergio Hernandez MD 01/10/2025 01:34 PM EDT
--- OUTSIDE RECORDS SUMMARY | 2025-01-10 12:08 | XMS_ITS | Encounter Summary ---
Author Organization [employer] Address [address] [facility] 7t [place] [address] Care Team Providers Care Inspecting Machine Adjuster Name Role Phone Karo Lockett Primary Care Provider [phone] Reason for Visit * Reason Onset Date Comments Med Refill 01/07/2025 Encounter Details Date Type Department Care Team ([facility] st Contact Info) Description 01/07/2025 Refill [facility] CHC MED & PEDS [address] [place], [place] [phone] Karo Lockett FNP [address] [place] [address] Social History Tobacco Use Types Packs/Day Years Used Date Smoking Tobacco: Never Smokeless Tobacco: Never Alcohol Use Standard Drinks/Week Comments Never 0 (1 standard drink = 0.6 oz pur e alcohol) Depression Answer Date Recorded Patient Health Questionnaire-9 Score 14 12/24/2024 Patient Health Questionnaire-9 Score 14 12/24/2024 Last PHQ-9: Questionnaire Data Not on file 0 12/24/2024 Housing Stability Answer Date Recorded What is [...] Answer Date Recorded Patient Health Questionnaire-2 Score 3 12/24/2024 Internet Access Answer Date Recorded Internet Access [...] encounter Miscellaneous Notes * Telephone Encounter - Kiki Bryant LPN - 01/07/2025 11:39 AM EDT PCP VAC. Last seen 12/24/24. documented in this encounter Plan of Treatment Not on file documented as of this encounter Visit Diagnoses Not on filedocumented in this encounter Additional Health Concerns Assessment Noted Time PHQ-9 Depression Total Score: 14 025 11:13 AM EDT documented as of this encounter Care Teams Inspecting Machine Adjuster Relationship Specialty Start Date End Date Karo Lockett FNP [address] [place] [address] PCP - General Family Medicine 03/17/22 documented as of this encounter
== END 2025-01-10 10:47 | disposition home or self-care (01) ==
LOC: HO.HHCX 10:46
PROVIDERS: PCP Registered Nurse; Visit Provider Registered Nurse
DX: M25.531 Pain in right wrist (principal); M25.532 Pain in left wrist
CPT/HCPCS: 73110

== ENCOUNTER → 2025-01-10 11:08 | Outpatient (BNV) | payer MEDICAID, SELFPAY | PROVIDERS: PCP Registered Nurse; Visit Provider Radiology Diagnostic Radiology | DX: M25.531 Pain in right wrist (principal); M25.532 Pain in left wrist | CPT/HCPCS: 73110 ==

== ENCOUNTER 2025-01-28 09:50 | Outpatient (AMB) | payer MEDICAID, SELFPAY ==
--- OUTSIDE RECORDS SUMMARY | 2023-10-07 05:30 | XMS_ITS ---
Author Organization [facility] Address [address] [place] [phone] Care Team Providers Care Driller Brake Lining Name Role Phone CHINTAN KINNEY, DAGOBERTO Primary Care Provider Stewart Aguila [phone] REASON FOR VISIT Patient presents today for a COLON SCREENING Encounters Encounter Location Date Provider Diagnosis [facility] [address] [place] [phone] 10/07/2023 Stewart Rogers Plan Of Treatment No Information Progress Notes * SOLEDAD BLACKWELL RDOB: 0 (54 yo M)Acc No.[id number]:10/07/2023 Progress Notes Patient: SOLEDAD ROBERTSON R Provider: Marge Rogers MD :1970 A ge:52 Y S ex:Male Date:10/07/2023 Address:[address] [place], [place] [phone] Pcp:DAGOBERTO WOODSON MD Subjective: * Chief Complaints: [...] Date: 10/07/2023 Generated for Randy mayer/Ari/Galenitting on: 01/28/2025 10:12 AM EDT
--- NOTE | 2025-01-28 09:56 | A.OFFVIS_ITS ---
Intake Visit Reasons: Bilateral Shoulder Inj- RT Shoulder inj 10/14/24 Intake Note: Gilbert is a 54 year old right hand dominant male who presents today for a repeat injection for his right shoulder (40), last injection 07/13/24. Patient reports that the last injection did not help and that at night time the pain in both arm increases. He states that both arms have numbness and tingling. Patient added that he would like to discuss surgical options, other options to help with the pain. Instructional Supervisor Required: Yes Instructional Supervisor Services: Instructional Supervisor Offered & Declined Instructional Supervisor Name: Cl- RMA/LM Allergies bupropion Allergy (Mild, Verified 12/23/24 09:29) Angioedema pravastatin Allergy (Mild, Verified 12/23/24 09:29) Unknown tramadol Allergy (Mild, Verified 12/23/24 09:29) Unknown aspirin Allergy (Unknown, Uncoded 12/23/24 09:29) Angioedema PFSH Medical History (Updated 01/28/25 @ 10:07 by Katy Baron PA-C) Family history of colon cancer Diverticulosis Erectile dysfunction CTS (carpal tunnel syndrome) Depressive disorder HTN (hypertension) GERD (gastroesophageal reflux disease) Acute insomnia Obesity Surgical History History of esophagogastroduodenoscopy (EGD) Hx of colonoscopy History of surgery H/O hand surgery H/O eye surgery Family History Brother Prostate cancer Father Prostate cancer Brother Cancer Social History Household Members Other:: Alcohol intake: former Patient Tobacco Use Status: Never used Tobacco Current occupational status: unemployed Current occupation: right hand dominant Review of Systems Const All systems reviewed & are unremarkable except as noted in HPI and below Physical Exam Const General: cooperative, healthy appearing and no acute distress Resp Effort & Inspection: normal respiratory effort and able to speak in complete sentences Extrem Other: Left shoulder full range of motion in all planes. Pain with cross-body reach. 4-5 strength with empty can. Negative drop-arm. NVI. Office Procedures AMB Joint Injection/Aspiration Joint Injection/Aspiration Primary Site: left shoulder Secondary Site: right shoulder Prep: site was prepped using aseptic technique, ethochloride spray was applied and injection warnings given Injected: 40 mg of, DepoMedrol, with 8 mL of (2% plain lidocaine) and in the subcromial space Approach Used: posterolateral Procedure: The patient tolerated the procedure well, but had some pain with the injection and there was some relief with the local anesthesia Coding - Bilateral Large Joint Procedure code (CPT) selection complete Assessment & Plan Assessment & Plan (1) Diabetes mellitus, type II: Code(s): E11.9 - Type 2 diabetes mellitus without complications Category: Medical (2) Arthritis of right acromioclavicular joint: Code(s): M19.011 - Primary osteoarthritis, right shoulder Category: Medical Plan The patient was offered a cortisone injection in the right shoulder with 40 mg of DepoMedrol. The patient was explained the risks, benefits, and alternatives to receiving this injection. After receiving consent for the injection, the patient had the procedure done while in the office today. The patient tolerated the procedure well with no complications. Due to the patient?s history of diabetes, they were instructed to monitor their blood glucose level. The patient was informed that they could see a rise in their numbers and if the numbers became too high, they were instructed to call their PCP. The patient was also informed that they could have facial flushing as a side effect of the injection, but this will pass. Additionally, the patient was complaining of bilateral upper extremity numbness and tingling as well as pain that travels from the neck distally to both hands. I will place an order for an EMG study to further evaluate the integrity of the neurovascular structures of the upper extremities. He will follow up after EMG is obtained, sooner if needed. Orders: Orders NE electromyogram (EMG) Today R20.0 - Anesthesia of skin, R20.2 - Paresthesia of skin NE nerve conduction velocity Today R20.0 - Anesthesia of skin, R20.2 - Paresthesia of skin Coding Level of Care Code Est Pt Level 4 (76038) Diagnoses Diabetes mellitus, type II E11.9 Arthritis of right acromioclavicular joint M19.011 CPT Codes Coding - - Bilateral Large Joint: 97321 - Bilateral Large Joint ([id number])
--- OUTSIDE RECORDS SUMMARY | 2025-01-28 10:12 | XMS_ITS | Encounter Summary ---
Author Organization [employer] Address [address] [facility] 7t [place] [address] Care Team Providers Care Ndt Inspector Name Role Phone Karo Lockett Primary Care Provider [phone] Encounter Details Date Type Department Care Team ([facility] Contact Info) Description 01/17/2025 Results Follow-Up [facility] CHC MED & PEDS [address] [place], [place] [phone] Karo Lockett FNP [address] [place], [place] [phone] XR Wrist 3+ Views Bilateral Social History Tobacco Use Types Packs/Day Years [...] Care Team (Late st Contact Info) Description 04/21/2025 11:15 AM EDT Office Visit [facility] OPTOMETRY [address] [place] [address] Milana King, OD [address] [place] [address] documented as of this encounter Visit Diagnoses Not on filedocumented in this encounter Additional Health Concerns Assessment Noted Time PHQ-9 Depression Total Score: 14 025 11:13 AM EDT documented as of this encounter Care Teams Ndt Inspector Relationship Specialty Start Date End Date Karo Lockett FNP [address] [place] [address] PCP - General Family Medicine 03/17/22 documented as of this encounter
== END 2025-01-28 10:29 | disposition home or self-care (01) ==
PROVIDERS: PCP Registered Nurse; Visit Provider Physician Assistant
DX: M19.011 Primary osteoarthritis, right shoulder (principal); M25.512 Pain in left shoulder; E11.9 Type 2 diabetes mellitus without complications
CPT/HCPCS: 20610; 99214

== ENCOUNTER → 2025-01-28 09:50 | Outpatient (BNVA) | payer MEDICAID, SELFPAY | PROVIDERS: PCP Registered Nurse; Visit Provider Physician Assistant | DX: M19.011 Primary osteoarthritis, right shoulder (principal); R20.0 Anesthesia of skin; R20.2 Paresthesia of skin; E11.9 Type 2 diabetes mellitus without complications | CPT/HCPCS: 20610; 99212; J1010; J2003 ==

== ENCOUNTER 2025-02-08 10:55 | Outpatient (AMB) | payer MEDICAID, SELFPAY ==
--- OUTSIDE RECORDS SUMMARY | 2023-10-07 05:30 | XMS_ITS ---
Author Organization [facility] Address [address] [place] [phone] Care Team Providers Care Chief Deputy Coroner Name Role Phone CHINTAN KINNEY, DAGOBERTO Primary Care Provider Stewart Aguila [phone] REASON FOR VISIT Patient presents today for a COLON SCREENING Encounters Encounter Location Date Provider Diagnosis [facility] [address] [place] [phone] 10/07/2023 Stewart Rogers Plan Of Treatment No Information Progress Notes * SOLEDAD BLACKWELL RDOB: 0 (54 yo M)Acc No.[id number]:10/07/2023 Progress Notes Patient: SOLEDAD ROBERTSON R Provider: Marge Rogers MD :1970 A ge:52 Y S ex:Male Date:10/07/2023 Address:[address] [place], [place] [id number] Pcp:DAGOBERTO WOODSON MD Subjective: * Chief Complaints: [...] Date: 10/07/2023 Generated for Randy mayer/Ari/Galenitting on: 02/08/2025 12:10 PM EDT
[2025-02-08 11:32] VITALS: BMI 33.3
--- NOTE | 2025-02-08 11:32 | A.OFFVIS_ITS ---
Vital Signs 02/08/25 11:32 Height 5 ft 4 in Weight 194 lb BMI 33.3 Intake Visit Reasons: New prob-RT wrist CTS Intake Note: Gilbert 54 yr old right hand dominant male presents today for a new problem visit for his carpal tunnel syndrome in bilateral hands. Patient was last seen with Ruth Baron for shoulder pain and mentioned he was having numbness and tingling in both hands that travels to his neck and down his hands. States his right is worse than his left. CTS comes and goes through out the day and worsen at night time. EMG done in 2022. Complaint Clerk Name: Shantel SIM/MEL Allergies bupropion Allergy (Mild, Verified 02/08/25 11:34) Angioedema pravastatin Allergy (Mild, Verified 02/08/25 11:34) Unknown tramadol Allergy (Mild, Verified 02/08/25 11:34) Unknown aspirin Allergy (Unknown, Uncoded 02/08/25 11:34) Angioedema HPI HPI New prob-RT wrist CTS: Details: Gilbert is a 54 year old right hand dominant Diabetic Kazakh speaking man who presents with complaints of bilateral hand numbness. He complains of numbness in his bilateral hands, R>L. Symptoms intermittent, but daily, worse at night. He also complains of numbness in the ulnar aspect of his forearm radiating into his right hand. he denies any numbness in his hands today in clinic [facility] Medical History (Updated 02/08/25 @ 11:55 by Andre Fong) Family history of colon cancer Diverticulosis Erectile dysfunction CTS (carpal tunnel syndrome) Depressive disorder HTN (hypertension) GERD (gastroesophageal reflux disease) Acute insomnia Obesity Surgical History History of esophagogastroduodenoscopy (EGD) Hx of colonoscopy History of surgery H/O hand surgery H/O eye surgery Family History Brother Prostate cancer Father Prostate cancer Brother Cancer Social History Household Members Other:: Alcohol intake: former Patient Tobacco Use Status: Never used Tobacco Current occupational status: unemployed Current occupation: right hand dominant Review of Systems Const All systems reviewed & are unremarkable except as noted in HPI and below Physical Exam Vital Signs: BMI result Body Mass Index 33.3 Const General: cooperative, healthy appearing and no acute distress Orientation/consciousness: patient oriented x3 HEENT Head: Yes normocephalic and Yes atraumatic Eyes EOM: EOMs intact bilaterally Resp Effort & Inspection: normal respiratory effort and able to speak in complete sentences Cardio Jugular venous distension: no JVD Skin General skin exam: turgor normal Rashes: no rashes Neuro General: patient oriented x3 Extrem Other: Evaluation of Bilateral Upper Extremity: The patient is alert, oriented, and in no acute distress Neuro: Median, Ulnar, Radial nerves motor and sensory intact and sensation is normal to the tips of all digits today in clinic No thenar or intrinsic wasting Good APB muscle belly firing and good finger cross Good ABduction & ADduction Vascular: Cap refill brisk ROM: He can make a fist and extend all his digits No locking or catching Skin: No lacerations or abrasions. General: No Ecchymosis. No Erythema or evidence of infection. He has a surgical scar in his left palm, from an attempted flexor tendon repair to the small finger done as a child He has active flexion of the small finger at the MCP joint, but no flexion at the PIP & DIP joints His left small finger is smaller compared to the contralateral side Nerve Conduction study: Right-side only IMPRESSION: Mild to moderate right median neuropathy across carpal tunnel. Denisse Evangelista MD 06/26/2023 Psych Appearance: grossly normal Affect: normal affect Attitude: cooperative Assessment & Plan Assessment & Plan (1) Carpal tunnel syndrome of right wrist: Code(s): G56.01 - Carpal tunnel syndrome, right upper limb Category: Medical (2) Numbness and tingling in left hand: Code(s): R20.0 - Anesthesia of skin; R20.2 - Paresthesia of skin Category: Medical (3) Diabetes mellitus, type II: Code(s): E11.9 - Type 2 diabetes mellitus without complications Category: Medical (4) Numbness and tingling in right hand: Code(s): R20.0 - Anesthesia of skin; R20.2 - Paresthesia of skin Category: Medical Plan Assessment & Plan: 1. Right carpal tunnel syndrome, mild-moderate Symptoms intermittent, but daily, worse at night 2. Right hand numbness Primarily the ulnar aspect of the forearm and into the hand 3. Left hand numbness Symptoms intermittent, but daily, worse at night He has a recent outstanding order for a bilateral NCS to assess for peripheral nerve compression He will follow up when completed for review Scribed for Mallika Laboy MD by Andre Fong, medical geneticist, on 02/08/25 at 11:50 AM, EST. Coding Level of Care Code New Pt Level 3 (62909) Diagnoses Carpal tunnel syndrome of right wrist G56.01 Numbness and tingling in left hand R20.0; R20.2 Diabetes mellitus, type II E11.9 Numbness and tingling in right hand R20.0; R20.2
--- OUTSIDE RECORDS SUMMARY | 2025-02-08 12:10 | XMS_ITS | Encounter Summary ---
Author Organization [employer] Address [address] [facility] 7[address] [place] [address] Care Team Providers Care Repossessor Name Role Phone Karo Lockett Primary Care Provider [phone] Encounter Details Date Type Department Care Team ([facility] Contact Info) Description 01/17/2025 Results Follow-Up [facility] CHC MED & PEDS [address] [place], [place] [phone] Karo Lockett FNP [address] [place], [place] [phone] XR Wrist 3+ Views Bilateral Social History [...] Description 04/21/2025 11:15 AM EDT Office Visit [facility] OPTOMETRY [address] [place] [address] Milana King, OD [address] [place] [address] documented as of this encounter Visit Diagnoses Not on filedocumented in this encounter Additional Health Concerns Assessment Noted Time PHQ-9 Depression Total Score: 14 025 11:13 AM EDT documented as of this encounter Care Teams Repossessor Relationship Specialty Start Date End Date Karo Lockett FNP [address] [place] [address] PCP - General Family Medicine 03/17/22 documented as of this encounter
== END 2025-02-08 11:54 | disposition home or self-care (01) ==
LOC: HO.HOS 10:55
PROVIDERS: PCP Registered Nurse; Visit Provider Orthopaedic Surgery
DX: G56.01 Carpal tunnel syndrome, right upper limb (principal); R20.0 Anesthesia of skin; R20.2 Paresthesia of skin; E11.9 Type 2 diabetes mellitus without complications
CPT/HCPCS: 99203

== ENCOUNTER → 2025-02-08 10:55 | Outpatient (BNVA) | payer MEDICAID, SELFPAY | PROVIDERS: PCP Registered Nurse; Visit Provider Orthopaedic Surgery | DX: G56.01 Carpal tunnel syndrome, right upper limb (principal); R20.0 Anesthesia of skin; R20.2 Paresthesia of skin; E11.9 Type 2 diabetes mellitus without complications | CPT/HCPCS: 99202 ==

== ENCOUNTER 2025-03-04 14:55 | Outpatient (REF) | payer MEDICAID, SELFPAY ==
--- OUTSIDE RECORDS SUMMARY | 2025-03-04 14:57 | XMS_ITS | Patient Health Record ---
Author Organization [facility] Address [address] [place] [address] Care Team Providers Care Blood Collector Name Role Phone DAGOBERTO WOODSON MD Primary Care Provider Stewart Aguila [phone] Reason For Referral No Information Plan Of Treatment No Information Insurance Providers Payer Name Payer Address Payer Phone Subscriber Number Group Number Insured Name Patient Relationship to Insured Coverage Start Date Coverage End Date MEDICAID OF [facility] [address] [place] [phone] [id number] SOLEDAD BLACKWELL Self - patient is the insured
== END 2025-03-04 14:56 | disposition home or self-care (01) ==
LOC: HO.HAP 14:55
PROVIDERS: Visit Provider Registered Nurse
DX: Z13.89 Encounter for screening for other disorder (principal)

== ENCOUNTER 2025-03-09 11:03 | Outpatient (REF) | payer MEDICAID, SELFPAY ==
--- OUTSIDE RECORDS SUMMARY | 2025-03-09 12:26 | XMS_ITS | Patient Health Record ---
Author Organization [facility] Address [address] [place] [address] Care Team Providers Care E Commerce Retailer Name Role Phone DAGOBERTO WOOD[place] MD Primary Care Provider Stewart Aguila [phone] Reason For Referral No Information Plan Of Treatment No Information Insurance Providers Payer Name Payer Address Payer Phone Subscriber Number Group Number Insured Name Patient Relationship to Insured Coverage Start Date Coverage End Date MEDICAID OF [facility] [address] [place] [id number] [id number] SOLEDAD BLACKWELL Self - patient is the insured
== END 2025-03-09 11:04 | disposition home or self-care (01) ==
LOC: HO.HAP 11:03
DX: Z13.89 Encounter for screening for other disorder (principal)

== ENCOUNTER 2025-03-16 11:30 | Outpatient (REF) | payer MEDICAID, SELFPAY ==
--- OUTSIDE RECORDS SUMMARY | 2023-10-07 05:30 | XMS_ITS ---
Author Organization [facility] Address [address] [place] [phone] Care Team Providers Care Featheredger And Reducer Machine Name Role Phone CHINTAN KINNEY, DAGOBERTO Primary Care Provider Stewart Aguila [phone] REASON FOR VISIT Patient presents today for a COLON SCREENING Encounters Encounter Location Date Provider Diagnosis [facility] [address] [place] [phone] 10/07/2023 Stewart Rogers Plan Of Treatment No Information Progress Notes * SOLEDAD BLACKWELL RDOB: 0 (54 yo M)Acc No.[id number]:10/07/2023 Progress Notes Patient: SOLEDAD ROEBRTSON R Provider: Marge Rogers MD :1970 A ge:52 Y S ex:Male Date:10/07/2023 Address:[address] [place], [place] [id number] Pcp:DAGOBERTO WOODSON MD Subjective: * Chief Complaints: * 1 . Patient presents today for a COLON SCREENING. * Medical History: Objective: * Vitals: Assessment: Plan: * Treatment: * * The named appointment provid er may or may not be the originator of this progress note, and it is not deemed complete until electronically signed by the appointment provider. Sign off status: Pending * Provider: Marge Rogers MD Date: 10/07/2023 Generated for Randy mayer/Ari/Galenitting on: 03/16/2025 12:32 PM EDT
--- NOTE | 2025-03-16 11:32 | EMG_ITS ---
Chief complaint: Bilateral shoulder pain. Right side radiates down to the arm. Diabetic. EMG done by Dr. Evangelista in 2022 showed right Carpal Tunnel Syndrome. No surgeries yet. Reason for referral: Evaluate for Carpal Tunnel Syndrome Referred by: Katy RIBEIRO Procedure done: Bilateral upper extremities NCS/EMG Precautions and/or limitations: None The limb temperature was monitored continuously and remained between 32-36 degrees C during the performance of the NCS. Ulnar motor NCS was performed with moderate elbow flexion between 70-90 degrees, with across-elbow distance of 10 cm. Nerve Conduction Studies Anti Sensory Summary Table ?Stim Site NR Onset (ms) Norm Onset (ms) Peak (ms) Norm Peak (ms) O-P Amp (?V) Norm O-P Amp Site1 Site2 Delta-0 (ms) Dist (cm) Yoandy (m/s) Norm Yoandy (m/s) Left DorsCutan Anti Sensory (Dorsum 5th MC) Wrist ? 1.8 2.4 2.8 Wrist Dorsum 5th MC 1.8 0.0 Right DorsCutan Anti Sensory (Dorsum 5th MC) Wrist ? 2.0 2.3 1.3 Wrist Dorsum 5th MC 2.0 0.0 Left Median Anti Sensory (2nd Digit) Wrist ? 3.9 4.8 <3.6 6.0 >10 Wrist 2nd Digit 3.9 14.0 36 Right Median Anti Sensory (2nd Digit) Wrist ? 3.3 4.1 <3.6 3.2 >10 Wrist 2nd Digit 3.3 14.0 42 Left Radial Anti Sensory (Thumb) Forearm ? 2.2 2.7 <3.1 9.3 Forearm Thumb 2.2 0.0 Left Ulnar Anti Sensory (5th Digit) Wrist ? 2.9 3.6 <3.7 5.0 >15.0 Wrist 5th Digit 2.9 14.0 48 Right Ulnar Anti Sensory (5th Digit) Wrist ? 2.8 3.7 <3.7 4.4 >15.0 Wrist 5th Digit 2.8 14.0 50 Motor Summary Table ?Stim Site NR Onset (ms) Norm Onset (ms) O-P Amp (mV) Norm O-P Amp iAmp (mV) Amp (1st) (%) Site1 Site2 Delta-0 (ms) Dist (cm) Yoandy (m/s) Norm Yoandy (m/s) Left Median Motor (Abd Poll Brev) Wrist ? 4.8 <3.9 7.8 >4.5 9.9 100.0 Elbow Wrist 4.2 20.0 48 >45 Elbow ? 9.0 7.2 9.3 92.3 Right Median Motor (Abd Poll Brev) Wrist ? 5.2 <3.9 8.2 >4.5 10.0 100.0 Elbow Wrist 3.4 20.0 59 >45 Elbow ? 8.6 8.2 10.1 100.0 Left Ulnar Motor (Abd Dig Minimi) Wrist ? 3.0 <3.0 9.4 >5 12.7 100.0 B Elbow Wrist 3.6 18.0 50 >45 B Elbow ? 6.6 8.7 11.8 92.6 A Elbow B Elbow 1.4 10.0 71 >45 A Elbow ? 8.0 8.9 12.5 94.7 Right Ulnar Motor (Abd Dig Minimi) Wrist ? 3.0 <3.0 11.4 >5 13.5 100.0 B Elbow Wrist 3.7 19.0 51 >45 B Elbow ? 6.7 11.8 14.0 103.5 A Elbow B Elbow 1.3 10.0 77 >45 A Elbow ? 8.0 12.2 14.4 107.0 Left Ulnar (FDI) Motor (FDI) Wrist ? 4.8 <3.0 2.6 >5 3.3 100.0 B Elbow Wrist 3.9 18.5 47 >45 B Elbow ? 8.7 2.5 3.2 96.2 A Elbow B Elbow 1.5 10.0 67 >45 A Elbow ? 10.2 2.4 3.0 92.3 Right Ulnar (FDI) Motor (FDI) Wrist ? 4.5 <3.0 8.9 >5 11.4 100.0 B Elbow Wrist 4.0 19.0 48 >45 B Elbow ? 8.5 8.5 10.5 95.5 A Elbow B Elbow 1.3 10.0 77 >45 A Elbow ? 9.8 8.1 9.8 91.0 EMG ?Side Muscle Nerve Root Ins Act Fibs Psw Amp Dur Poly Recrt Int Pat Comment Right 1stDorInt Ulnar C8-T1 Incr 1+ 1+ Nml Nml 0 Nml Complete Right FlexCarRad Median C6-7 Nml Nml Nml Nml Nml 0 Nml Complete Right FlexCarpiUln Ulnar C8,T1 Incr 2+ 2+ Nml Nml 0 Nml Complete Right Biceps Musculocut C5-6 Nml Nml Nml Nml Nml 0 Nml Complete Right Triceps Radial C6-7-8 Nml Nml Nml Nml Nml 0 Nml Complete Right Deltoid Axillary C5-6 Nml Nml Nml Nml Nml 0 Nml Complete Left 1stDorInt Ulnar C8-T1 Nml Nml Nml Nml Nml 0 Nml Complete Left FlexCarRad Median C6-7 Nml Nml Nml Nml Nml 0 Nml Complete Left FlexCarpiUln Ulnar C8,T1 Nml Nml Nml Nml Nml 0 Nml Complete Left Biceps Musculocut C5-6 Nml Nml Nml Nml Nml 0 Nml Complete Left Triceps Radial C6-7-8 Nml Nml Nml Nml Nml 0 Nml Complete Left Deltoid Axillary C5-6 Nml Nml Nml Nml Nml 0 Nml Complete Paraspinal EMG ?Side Muscle Nerve Root Ins Act Fibs Psw Comment Right Cervical Upper Rami Nml Nml Nml Right Cervical Mid Rami Nml Nml Nml Right Cervical Lower Rami Nml Nml Nml Left Cervical Upper Rami Nml Nml Nml Left Cervical Mid Rami Nml Nml Nml Left Cervical Lower Rami Nml Nml Nml FINDINGS: Bilateral median motor nerves showed prolonged distal latency, normal amplitude and normal conduction velocity. Right ulnar motor nerve, recording at FDI, showed prolonged distal latency, normal amplitude and normal conduction velocity. Left ulnar motor nerve, recording at FDI, showed prolonged distal latency, small amplitude and normal conduction velocity. Bilateral median sensory nerves showed prolonged peak latency and small amplitude. Bilateral ulnar sensory nerves showed normal peak latency but small amplitude. Bilateral DUCS showed small amplitudes. All other nerves tested were within normal. Concentric needle EMG was performed in selected muscles of the bilateral upper extremities and cervical paraspinals. Study revealed signs of electric abnormalities as shown in the table above. Right FDI and FCU showed increased insertional activity, PSWs and fibrillations. IMPRESSION: 1. This is an abnormal study. 2. There is electrodiagnostic evidence for bilateral moderate-severe median neuropathy at the wrist, consistent with Carpal Tunnel Syndrome. 3. There is electrodiagnostic evidence for bilateral ulnar neuropathy at the elbow. 4. There is no electrodiagnostic evidence for brachial plexopathy or cervical radiculopathy. Thank you for your kind referral. Ember Cortes MD, MAXWELL Board Certified, [place] Board of Physical Medicine and Rehabilitation (ABPMR) Board Certified, [place] Board of Electrodiagnostic Medicine (ABEM) CODIN [address]508 x 2 MTDD
--- OUTSIDE RECORDS SUMMARY | 2025-03-16 12:32 | XMS_ITS | Encounter Summary ---
Author Organization [employer] Address [address] [facility] 7t [place] [address] Care Team Providers Care Director Religious Education Name Role Phone Karo Lockett Primary Care Provider [phone] Reason for Visit * Reason Onset Date Comments Returning Call 08/18/2023 Encounter Details Date Type Department Care Team ([facility] st Contact Info) Description 08/18/2023 Telephone [facility] MEDICINE [address] [place] [address] Karo Lockett FNP [address] [place] [address] Returning Call Social History Tobacco Use Types [...] Wednesdays, and Walk-In Urgent Care Located in [facility] of [facility]. Patient provided with after-hours line for [facility], , which offer night time triage service and option to transfer to occupational therapy instructor provider if needed. Please contact pt at [phone]. documented in this encounter Plan of Treatment Upcoming Encounters Date Type Department Care Team (Late st Contact Info) Description 04/21/2025 11:15 AM EDT Office Visit [facility] OPTOMETRY [address] [place] [address] Milana King, OD [address] [place] [address] 04/29/2025 10:00 AM EDT Office Visit [facility] CHC MED & PEDS [address] [place], [place] [phone] Karo Lockett FNP [address] [place], [place] [phone] documented as of this encounter Visit Diagnoses Not on filedocumented in this encounter Additional Health Concerns Assessment Noted Time PHQ-9 Depression Total Score: 0 02/20/20 23 3:36 PM EDT documented as of this encounter Care Teams Director Religious Education Relationship Specialty Start Date End Date Karo Lockett FNP [address] [place] [address] PCP - General Family Medicine 03/17/22 documented as of this encounter
--- OUTSIDE RECORDS SUMMARY | 2025-03-16 12:32 | XMS_ITS | Encounter Summary ---
Author Organization [employer] Address [address] [place] [address] 7t [place] [address] Care Team Providers Care Radio Disc Jockey Name Role Phone Karo Lockett Primary Care Provider [phone] Encounter Details Date Type Department Care Team (Late st Contact Info) Description 09/30/2022 Orders Only [facility] MED & PEDS [address] [place] [address] Kiki Bryant LPN Social History Tobacco Use [...] Description 04/21/2025 11:15 AM EDT Office Visit [facility] OPTOMETRY [address] [place] [address] TarMilana garner, OD [address] [place] [address] 04/29/2025 10:00 AM EDT Office Visit [facility] CHC MED & PEDS [address] [place] [address] Karo Lockett FNP [address] [place] [address] documented as of this encounter Visit Diagnoses Not on filedocumented in this encounter Care Teams Radio Disc Jockey Relationship Specialty Start Date End Date Karo Lockett FNP [address] [place] [address] PCP - General Family Medicine 03/17/22 documented as of this encounter
--- OUTSIDE RECORDS SUMMARY | 2025-03-16 12:32 | XMS_ITS | Encounter Summary ---
Author Organization [facility] Address [address] [facility] [address] [place] [address] Care Team Providers Care Typing Office Worker Name Role Phone Karo Lockett TRAVEL PROFESSIONAL Primary Care Provider [phone] Reason for Visit * Reason Comments Med Refill Encounter Details Date Type Department Care Team (Late st Contact Info) Description 01/14/2025 Refill [facility] [address] [place], [place] [id number] João Riddle, RITA [address] [place], [place] [id number] Social History Tobacco Use Types Packs/Day Years [...] encounter Miscellaneous Notes * Telephone Encounter - Abhi Bills DMD - 01/14/2025 4:20 PM EDT Approving, but needs appt for additional refills. documented in this encounter Plan of Treatment Upcoming Encounters Date Type Department Care Team (Late st Contact Info) Description 04/21/2025 11:15 AM EDT Office Visit [facility] [address] [place] [address] TarkaMilana, OD [address] [place] [address] 04/29/2025 10:00 AM EDT Office Visit [facility] [address] [place] [address] Karo Lockett FNP [address] [place] [address] documented as of this encounter Visit Diagnoses Not on filedocumented in this encounter Additional Health Concerns Assessment Noted Time PHQ-9 Depression Total Score: 14 025 11:13 AM EDT documented as of this encounter Care Teams Typing Office Worker Relationship Specialty Start Date End Date Karo Lockett FNP [address] [place] [id number] PCP - General Family Medicine 03/17/22 documented as of this encounter
--- OUTSIDE RECORDS SUMMARY | 2025-03-16 12:32 | XMS_ITS | Patient Health Record ---
Author Organization [facility] Address [address] [place] [address] Care Team Providers Care Hanging Flags Decorator Name Role Phone DAGOBERTO WOODSON MD Primary Care Provider Stewart Aguila [phone] Reason For Referral No Information Plan Of Treatment No Information Insurance Providers Payer Name Payer Address Payer Phone Subscriber Number Group Number Insured Name Patient Relationship to Insured Coverage Start Date Coverage End Date MEDICAID OF [facility] [address] [place] [phone] [id number] SOLEDAD BLACKWELL Self - patient is the insured
--- OUTSIDE RECORDS SUMMARY | 2025-03-16 12:32 | XMS_ITS | Clinical Summary ---
Author Organization [employer] Address [address] [place] [address] [address] [place] [address] Care Team Providers Care Hospice Team Lead Name Role Phone Karo Lockett MORTGAGE PROCESSING MANAGER Primary Care Provider Allergies Active Allergy Reactions Criticality Noted Date [...] MOUTH DAILY IN THE MORNING 023 Active lidocaine-priloc lulu (Emla) 2.5-2.5 % creamIndications :Primary osteoarthritis of right shoulder Apply thin layer by topical route 3-4 times daily as needed to affected area. 60 g 2 024 Active Alcohol Swabs (Alcohol Prep) 70 % padsIndications: Type 2 diabetes mellitus treated with insulin ([facility]) USE TO TEST BLOOD SUGAR THREE TIMES DAILY 100 each Active FREESTYLE LITE test stripIndications :Type 2 diabetes mellitus treated with insulin ([facility]) 1 each by Other route 3 times daily. 100 each Active TRUEplus Lancets 33G miscIndications: Type 2 diabetes mellitus treated with insulin ([facility]) USE TO TEST BLOOD SUGAR THREE TIMES DAILY 100 each Active empagliflozin (Jardiance) 25 MGIndications:Ty pe 2 diabetes mellitus without complication, with long-term current use of insulin ([facility]) Take 1 tablet (25 mg) by mouth Once per day. 90 tablet 3 024 2024 Active insulin glargine (Lantus) 100 UNIT/ML injectionIndicat ions:Type 2 diabetes mellitus without complication, without long-term current use of insulin ([facility]) Inject 25 Units under the skin at bedtime. 5 mL 2 025 2025 Active amLODIPine (Norvasc) 5 MG tabletIndication s:Essential hypertension Take 1 tablet (5 mg) by mouth in the morning. 90 tablet 3 Active escitalopram (Lexapro) 10 MG tablet TAKE ONE TABLET EVERY MORNING 90 tablet 1 Active ammonium lactate (Amlactin) 12 % cream Apply topically if needed for dry skin. 140 g 3 025 2025 Active pen needle 32G x 5 mm misc USE ONE DAILY 100 each Active Acetaminophen Extra Strength 500 MG tablet TAKE ONE TABLET EVERY 6 HOURS NEEDED FOR PAIN FOR UP TO 10 DAYS 30 tablet Active glipiZIDE (Glucotrol) 10 MG tabletIndication s:Type 2 diabetes mellitus without complication, without long-term current use of insulin ([facility]) TAKE 1 TABLET BY MOUTH IN THE MORNING AND EVENING BEFORE BREAKFAST AND BEFORE SUPPER 180 tablet 025 Active Trulicity 1.5 MG/0.5ML solution auto-injectorInd ications:Type 2 diabetes mellitus without complication, with long-term current use of insulin ([facility]) INJECT ONE PEN (=1.5MG) SUBCUTANEOUSLY ONCE A WEEK DIRECTED 2 mL 3 025 Active hydroCHLOROthiaz alex (HYDRODiuril) 25 MG tabletIndication s:Essential hypertension TAKE 1 TABLET BY MOUTH EVERY MORNING 90 tablet 1 025 Active gemfibrozil (Lopid) 600 MG tablet TAKE 1 TABLET BY MOUTH TWICE DAILY IN THE MORNING AND IN THE EVENING 180 tablet 1 025 Active cholecalciferol (Vitamin D-3) 25 MCG (1000 UT) tabletIndication s:Vitamin D insufficiency TAKE 1 TABLET BY MOUTH EVERY DAY 90 tablet 3 025 Active cholecalciferol (Vitamin D-3) 25 MCG (1000 UT) tabletIndication s:Vitamin D insufficiency Take 1 tablet (25 mcg) by mouth in the morning. 90 tablet 3 024 2024 Discontinued(R eorder (will not trigger notification to Pharmacy)) hydroCHLOROthiaz alex (HYDRODiuril) 25 MG tabletIndication s:Essential hypertension Take 1 tablet (25 mg) by mouth in the morning. 90 tablet 1 025 2024 Discontinued(R eorder (will not trigger notification to Pharmacy)) gemfibrozil (Lopid) 600 MG tablet TAKE 1 TABLET BY MOUTH TWICE DAILY IN THE MORNING AND IN THE EVENING 180 tablet 1 025 2024 Discontinued(R eorder (will not trigger notification to Pharmacy)) Dulaglutide 1.5 MG/0.5ML solution auto-injectorInd ications:Type 2 diabetes mellitus without complication, with long-term current use of insulin ([facility]) Inject 1.5 mg under the skin 1 (one) time per week. 2 mL 3 025 2024 Discontinued Active Problems Problem Noted Date Diagnosed Date Painful arc syndrome of left shoulder 12/24/2024 Assessment & Plan (12/24/2024 11:44 AM EDT): Received cortisone injection on 10/29/2024 at [facility] Hearing impaired person, bilateral 05/06/2024 Assessment & Plan (12/24/2024 11:20 AM EDT): -Reports hx of trauma/injury to right ear in childhood -[facility] eval in May 2024. Rx bilat hearing aids. Plan for re-eval in 1 year. -Content with current hearing amplification Assessment & Plan (05/06/2024 6:23 PM EDT): -Reports hx of trauma/injury to right ear in childhood -Referral to Audiology placed 04/30/24 Lateral epicondylitis of both elbows 05/28/2023 Assessment & Plan (11/20/2023 8:30 AM EDT): -Following with [facility], completed OT without much noted improvement -Encouraged cont symptomatic management Assessment & Plan (05/28/2023 11:36 AM EST): See above Primary osteoarthritis of right shoulder 023 Overview (12/24/2024): Followed by [facility] Cortisone injection January 2024, 07/13/2024 and 10/14/2024 Assessment & Plan (11/20/2023 8:25 AM EDT): -Followed by [facility] (last consult October 2023) -Reporting limited improved from cortisone injection, reviewed plan to call office mid November 2023 to discuss next tx steps Assessment & Plan (05/28/2023 11:37 AM EST): See above Spondylosis without myelopat hy or radiculopathy, lumbar region 05/18/2023 Overview (05/18/2023): Previously followed by [facility], received injections Chronic left sided low back pain suspected 2/2 lumbar DDD and facet arthropathy Referral to re-establish with [facility] Apr 2023 Other male erectile dysfunction 11/05/2022 Overview (12/24/2024): -Following with [facility] Urology - Dr. Kimball -Discussed importance of BP and BG control, and negative impact they may have on ED when above goal. -Previous med trials: Viagra, tadalafil Assessment & Plan (12/24/2024 12:00 PM EDT): Plan: penile prosthetic Assessment & Plan (01/04/2024 6:31 PM EDT): [...] did not attend appt. Assessment & Plan (12/24/2024 11:56 AM EDT): - Would like to check to confirm if allergy vs SE Assessment & Plan (11/05/2022 9:12 AM EDT): Declines interest in re-referral at this time. Consider at follow up. Healthcare maintenance 10/30/2022 Overview (12/24/2024): Colonoscopy: January 2024 - [facility] GI. Repeat due 5 years PSA: normal October 2022, following with [facility] Eye exam: [facility] Dental: [facility] Dental Last PE: 12/24/24 Assessment & Plan (12/24/2024 12:00 PM EDT): Declines PCV20, may encourage at follow up Assessment & Plan (05/06/2024 6:24 PM EDT): Flu & COVID IZ administered today Assessment & Plan (11/05/2022 9:13 AM EDT): Declines IZ today, consider at follow up Type 2 diabetes mellitus 01/14/2022 Overview (12/24/2024): Lab Results Component Value Date HGBA1C 7.0 (A) 12/24/2024 HGBA1C 7.1 (H) 06/18/2024 HGBA1C 9.7 (H) 05/05/2024 HGBA1C 10.0 (A) 04/30/2024 HGBA1C 6.7 (A) 01/02/2024 HGBA1C 8.3 (H) 01/14/2022 HGBA1C 9.7 (H) 10/13/2020 Medications: Trulicity 1.5mg subcutaneous weekly Glipizide 10mg BID Jardiance 25mg daily Lantus 25 units at bedtime AVOID metformin as pt reports hx of allergic reaction Microalbumin: Apr Eye exam: Referral to [facility] Care placed 12/24/24 Foot exam: WNL 12/24/24 Dental: established PNA: declined Tdap/Td: UTD ACEi/ARB: no - pt with allergic rxn to ACEi Statin: no - pt with allergic rxn, waiting to be cleared by first breaker feeder ASA: no Lipids: Lab Results Component Value Date CHOL 182 05/05/2024 TRIG 128 05/05/2024 TRIG 145 10/31/2022 HDL 32 (L) 05/05/2024 LDLCHOLCAL 125 (H) 05/05/2024 Lifestyle: Encouraged regular movement and aerobic exercise for improved glycemic control Encouraged daily foot checks Encouraged lean protein snacks and to avoid foods high in sugar and simple carbohydrates CGM trial December 2023. Jeff kelsey DC. Treatment Goals: A1c goal: <7% FBG goal: <130 2 hour post prandial goal: <180 Assessment & Plan (12/24/2024 11:59 AM EDT): Well controlled, cont current regimen Assessment & Plan (05/06/2024 6:22 PM EDT): [...] high in sugar and simple carbohydrates Medications: Trulicity 1.5mg subcutaneous weekly Glipizide 10mg BID Cont Jardiance 10mg daily. Reviewed med safety [...] high in sugar and simple carbohydrates Medications: Trulicity 1.5mg subcutaneous weekly Glipizide 10mg BID Shared decision making regarding addition of another medication to help improve BG values. Pt declines interest in insulin at this time, but in agreement for addition of SGLT2-I. Discussed risk for increased symptoms given A1c. Start Jardiance 10mg daily. Reviewed med safety [...] reaction Insomnia 03/24/2015 Gastroesophageal reflux disease 08/27/2012 Assessment & Plan (12/24/2024 11:20 AM EDT): Following with [facility] Continues with pantoprazole Obesity 02/10/2012 Carpal tunnel syndrome of right wrist 02/10/2012 Assessment & Plan (12/24/2024 11:48 AM EDT): EMG completed Jun 2023 at [facility]: IMPRESSION: Mild to moderate right median neuropathy across carpal tunnel. Referral to [facility] Ortho placed 12/24/24 Assessment & Plan (05/28/2023 11:36 AM EST): See above Order NCs Assessment & Plan (11/05/2022 9:07 AM EDT): -Declines interest to Hand specialist -Continue with symptomatic management -Referral to OT for further eval and tx Pure hypercholesterolemia 01/09/2012 Overview (12/24/2024): Lab Results Component Value Date CHOL 182 05/05/2024 TRIG 128 05/05/2024 TRIG 145 10/31/2022 HDL 32 (L) 05/05/2024 LDLCHOLCAL 125 (H) 05/05/2024 -continue lifestyle modification Assessment & Plan (12/24/2024 11:57 AM EDT): -Reports allergic reaction to Pravastatin with throat swelling. Will not rechallenge with statin until pt cleared by first breaker feeder. -Cont Gemfibrozil 600 mg BID. Assessment & Plan (11/05/2022 9:11 AM EDT): -Reports allergic reaction to Pravastatin with throat swelling. Will not rechallenge with statin until pt cleared by first breaker feeder. -Cont Gemfibrozil 600 mg BID. -Fasting lipid panel ordered Essential hypertension 01/09/2012 Assessment & Plan (12/24/2024 11:57 AM EDT): -Elevated in office, but reports well controlled per home readings. Will plan to call if BP readings above goal. -Continue amlodipine 5mg daily -Continue hydrochlorothiazide 25mg daily AVOID lisinopril given patient report of angioedema Continue lifestyle interventions including goal 150 mins physical activity weekly and low salt diet Assessment & Plan (02/20/2023 9:13 AM EDT): [...] and low salt diet Depressive disorder 01/09/2012 Assessment & Plan (12/24/2024 12:01 PM EDT): Patient Health Questionnaire-9 Score: 14 (12/24/2024 11:13 AM) Patient Health Questionnaire-2 Score: 3 (12/24/2024 11:13 AM) Thoughts that you would be better off or hurting yourself in some way: Not at all (12/24/2024 11:13 AM) Denies SI/HI/thoughts of self harm Let us know if interested in connecting to further services Resolved Problems Problem Noted Date Diagnosed Date Resolved Date Allergic arthritis involving shoulder region, right 05/28/2023 11/20/2023 Lateral epicondylitis of both elbows 05/28/2023 11/20/2023 Assessment & Plan (05/28/2023 11:37 AM EST): See above Joint pain 03/24/2015 11/20/2023 Assessment & Plan (05/28/2023 11:35 AM EST): Take Tylenol plus PRN Order X rays Order labs given the presence of arthralgias Refer to [facility] clinic for injection No improvement with OT Backache 01/09/2012 05/18/2023 Encounters Date Type Department Care Team Description 03/03/2025 Refill [facility] [address] [place] [address] Orion Dong MD Type 2 diabetes mellitus without complication, with long-term current use of insulin ([facility]); Essential hypertension; Vitamin D insufficiency 02/14/2025 Telephone [facility] [address] [place] [address] Karo Lockett FNP Prior Authorization 02/04/2025 Refill [facility] [address] [place] [address] Karo Lockett FNP Type 2 diabetes mellitus without complication, without long-term current use of insulin ([facility]) 01/20/2025 8:00 AM EDT Office Visit [facility] [address] [place] [address] Abhi Bills DMD Denture irritation (Primary Dx) 01/18/2025 Travel 01/17/2025 Results Follow-Up [facility] [address] [place] [address] Karo Lockett FNP XR Wrist 3+ Views Bilateral 01/14/2025 Refill [facility] [address] [place] [address] João Riddle DMD 01/07/2025 Refill [facility] [address] [place] [address] Karo Lockett FNP 12/24/2024 10:30 AM EDT Office Visit [facility] [address] [place] [address] Karo Lockett FNP Encounter for routine history and physical examination of adult (Primary Dx); Type 2 diabetes mellitus without complication, with long-term current use of insulin ([facility]); Healthcare maintenance; Bilateral wrist pain; Hearing impaired person, bilateral; Gastroesophageal reflux disease, unspecified whether esophagitis present; Painful arc syndrome of left shoulder; Carpal tunnel syndrome of right wrist; Dietary counseling; Exercise counseling; Multiple allergies; Pure hypercholesterolemia; Essential hypertension; Other male erectile dysfunction; Depressive disorder; Primary osteoarthritis of right shoulder 12/24/2024 Travel 12/23/2024 Telephone [facility] [address] [place] [address] Karo Lockett FNP Chart Prep 12/17/2024 10:00 AM EDT Office Visit [facility] [address] [place] [address] Branden Ellis Dental calculus (Primary Dx) 12/17/2024 Patient Outreach [facility] [address] [place] [phone] Karo Lockett FNP Care Coordination (CHW outreach for SDOH PT-1 and food needs-LVM ) 12/16/2024 Patient Outreach [facility] [address] [place] [phone] Karo Lockett FNP Pre-visit Planning (SDOH screening positive and Tobacco screening negative ) from Last 3 Months Immunizations Immunization Administration [...] Father Prostate cancer Father's Brother Diabetes Mother Colon cancer Sister Relation Name Status Comments Brother Daughter Father Father's Brother Mother Sister Social History Tobacco Use Types Packs/Day Years [...] Sign Reading Time Taken Comments Blood Pressure 118/68 01/20/2025 8:08 AM EDT Pulse 66 01/20/2025 8:08 AM EDT Temperature 36.9 C (98.5 F) 12/24/2024 10:21 AM EDT Respiratory Rate 22 12/24/2024 10:21 AM EDT Oxygen Saturation 98% 12/24/2024 10:21 AM EDT Inhaled Oxygen Concentration - - Weight 88 kg (194 lb) 12/24/2024 10:21 AM EDT Height 161.3 cm (5' 3.5 ) 12/24/2024 10:21 AM ED T Body Mass Index 33.83 12/24/2024 10:21 AM EDT Plan of Treatment Upcoming Encounters Date Type Department Care Team (Late st Contact Info) Description 04/21/2025 11:15 AM EDT Office Visit [facility] [address] [place] [address] Tarka, Milana, OD [address] [place] [address] 04/29/2025 10:00 AM EDT Office Visit [facility] [address] [place] [address] JuanyenKaro, MORTGAGE PROCESSING MANAGER [address] [place] [address] Health Maintenance Due Date Last Done Comments CT Colonography 1969 FIT DNA/Cologuard 1969 FIT 1970 FOBT 1970 Sigmoidoscopy 1970 Eye Exam 10/17/1979 Alcohol/Substance Use Screening 1981 Hepatitis B Vaccines (2 of 3 - 19+ 3-dose series) 03/28/2016 02/29/2016 Pneumococcal Vaccine: 50+ Years (2 of 2 - PCV) 05/06/2020 05/06/2019 Zoster Vaccines (2 of 2) 01/13/2023 11/18/2022 Influenza Vaccine (#1) 2025 , 05/12/2023, 05/06/2019, Additional history exists Diabetes: Hemoglobin A1C 03/26/2025 025, 06/18/2024, 05/05/2024, Additional history exists Dental X-Ray: Bitewings 04/07/2025 04/06/2024 Diabetes: Urine Protein Screening 05/05/2025 05/05/2024, 10/31/2022, 01/14/2022, Additional history exists Lipid Panel 05/05/2025 05/05/2024, 10/19, 01/14/2022, Additional history exists Dental Oral Exam 06/20/2025 12/17/2024, 04/06/2024 Dental Prophylaxis 06/20/2025 12/17/2024, 04/06/2024 Depression Monitoring 06/25/2025 12/24/2024, 025 SDOH Screening 12/16/2025 12/16/2024 Diabetes: Foot Exam 12/24/2025 12/24/2024, 12/24/2024, 12/24/2024, Additional history exists Disability Screening 12/24/2025 12/24/2024 Tobacco Screening 01/20/2026 01/20/2025 Dental X-Ray: Full Mouth 04/07/2027 04/06/2024 Colonoscopy 02/12/2029 02/13/2024 Colorectal Cancer Screening 02/12/2029 DTaP/Tdap/Td Vaccines (3 - Td or Tdap) 09/24/2030 09/24/2020, 04/16/2012 RSV Patients and Patients Aged 60 years or older (1 - 1-dose 75+ series) 2044 COVID-19 Vaccine Completed 04/30/2024, 02/07/2021 HIV Screening Completed 05/05/2024, 10/19, 10/13/2020 Hepatitis [...] Procedure Name Priority Date/Time Associated Diagnosis Comments CASE PRESENTATION, DETAILED AND EXTENSIVE TREATMENT PLANNING Routine 01/20/2025 8:00 AM EDT Denture irritation DENTURE ADJUSTMENT < 6 MONTHS Routine 01/20/2025 8:00 AM EDT Denture irritation XR WRIST 3+ VIEWS BILATERAL Routine 01/10/2025 10:31 AM EDT POCT GLYCATED HEMOGLOBIN, TOTAL Routine 12/24/2024 11:48 AM EDT Type 2 diabetes mellitus without complication, with long-term current use of insulin ([facility]) POCT GLUCOSE Routine 12/24/2024 11:47 AM EDT Type 2 diabetes mellitus without complication, with long-term current use of insulin ([facility]) ORAL HYGIENE INSTRUCTIONS Routine 12/17/2024 10:00 AM EDT PROPHYLAXIS - ADULT Routine 12/17/2024 1 0:00 AM EDT CASE PRESENTATION, DETAILED AND EXTENSIVE TREATMENT PLANNING Routine 12/17/2024 10:00 AM EDT PERIODIC ORAL EVALUATION - ESTABLISHED PATIENT Routine 12/17/2024 10:00 AM EDT HEPATITIS C VIRAL RNA, QUANTITATIVE, REAL-TIME PCR Routine 05/05/2024 10:40 AM EDT Healthcare maintenance HIV 1/2 ANTIGEN/ANTIBODY, FOURTH GENERATION W/RFL Routine 05/05/2024 10:40 AM EDT Healthcare maintenance ALBUMIN, RANDOM URINE W/CREATININE Routine 05/05/2024 10:40 AM EDT Healthcare maintenance LIPID PANEL, STANDARD Routine 05/05/2024 10:40 AM EDT Healthcare maintenance INTRAORAL - COMPLETE SERIES OF RADIOGRAPHIC IMAGES Routine 04/06/2024 8:00 AM EDT HM COLONOSCOPY Routine 02/13/2024 10:16 PM EDT from Last 3 Months or Most Recently Relevant to Health Maintenance Results * XR Wrist 3+ Views Bilateral (01/10/2025 10:31 AM EDT) Anatomical Region Laterality Modality Upper Extremities, Wrist Bilateral Radiogr aphic Imaging 01/10/2025 10:3 1 AM EDT Narrative 01/10/2025 1:36 PM EDT [facility] [address] [place] [address] XRay Report Signed Patient: Gilbert Young MR#: [id number] : 1970 Acct:[id number] Age/Sex: 54 / M ADM Date: 01/10/25 [facility] Att[facility] Dr: Karo Lockett MORTGAGE PROCESSING MANAGER Ordering Physician: Karo Lockett Date of Service: 01/10/25 Procedure(s): XR Wrist Griffin min 3V Accession Number(s): [id number] cc: Karo Lockett Exam: Three-view bilateral wrist x-rays INDICATION: Bilateral wrist pain Prior: None FINDINGS: Right Wrist: There is no joint diastases. There is no degenerative change. No fractures are identified. Left Wrist: There is no joint diastases. There is no degenerative change. No fractures are identified. XR/XR Wrist Griffin min 3V IMPRESSION: Unremarkable bilateral wrists. Electronically signed by: Sergio Hernandez MD 01/10/2025 01:34 PM EDT Dictated By: Sergio Hernandez MD Signed By: <Electronically signed by Sergio Hernandez MD in OV> 01/10/25 1334 DD/ 1031 TD/TT: 01/10/25 1040 Roof Foreman: Procedure Note Donotuseinterpreter, Image - 01/10/2025 [facility] [address] [place] [address] XRay Report Signed Patient: Gilbert Young R#: [id number] : 1970Acct:[id number] Age/Sex: 54 / MADM Date: 01/10/25 Loc: [facility] Attending Dr: Karo HOLDER Ordering Physician: Karo Lockett Date of Service: 01/10/25 Procedure(s): XR Wrist Griffin min 3V Accession Number(s): [id number] cc: Karo Lockett Exam: Three-view bilateral wrist x-rays INDICATION: Bilateral wrist pain Prior: None FINDINGS: Right Wrist: There is no joint diastases. There is no degenerative change. No fractures are identified. Left Wrist: There is no joint diastases. There is no degenerative change. No fractures are identified. XR/XR Wrist Griffin min 3V IMPRESSION: Unremarkable bilateral wrists. Electronically signed by: Sergio Hernandez MD 01/10/2025 01:34 PM EDT RP Dictated By: Sergio Hernandez MD Signed By: <Electronically signed by Sergio Hernandez MD in OV> 01/10/25 1334 DD/ 1031 TD/TT: 01/10/25 1040 Roof Foreman: Karo HOLDER IMG XR PROCEDURES Final Result * (ABNORMAL) POCT HGB A1C (12/24/2024 11:48 AM EDT) Pathologist [facility] Hemoglobin A1C 7.0(A) 4.0 - 6.0 % QC Media Lot # [id number] Lot# Expiration Date Blood 12/24/2024 11:4 8 AM EDT Karo HOLDER POINT OF CARE TEST ENTER/EDIT ORDERABLES Final Result * POCT Glucose (12/24/2024 11:47 AM EDT) Glucose Blood, POC 100 60 - 200 mg/dL Comment:Fasting QC Media Lot # [id number] Lot# Expiration Date [id number] Blood Capillary blood specimen / Unknown 12/24/2024 11:47 AM EDT us Karo Lockett MORTGAGE PROCESSING MANAGER POINT OF CARE TEST ENTER/EDIT ORDERABLES Final Result * Hepatitis C Viral RNA, Quantitative, Real-Time PCR (05/05/2024 10:40 AM EDT) Pathologist [facility] Hepatitis C Viral Load <15 NOT DETECTED NOT DETECTED IU/mL [facility] HCV Log PCR <1.18 NOT DETECTED NOT DETECTED Log IU/mL [facility] Comment:For additional infor foreign, please refer tohttp://education.PowerSmart/faq/GBQ47l4(This link is being provided for informational/educational purposes only.)THIS TEST WAS PERFORMED AT:[facility] [place] [phone] LEONARD MD Blood 05/05/2024 10:4 0 AM EDT 05/05/2024 11:43 AM EDT Karonancy Harringtonscot [facility] BLOOD ORDERABLES Final Res ult [facility] [address] [place] [phone] * (ABNORMAL) Albumin, Random Urine W/Creatinine (05/05/2024 10:40 AM EDT) Creatinine, Urine 48.35 mg/dL [facility] Microalbumin Urine 16.0 mg/L [facility] Microalbum Creatinine Ratio Ur 33.0(H) <30 ug/mg cr [facility] Comment:Albumin/Creatinine R atio Reference Ranges: Normal: < 30 ug/mg creatinine Microalbuminuria: 30 - 300 ug/mg creatinineClinical Albuminuria: > 300 ug/mg creatinine Urine 05/05/2024 10:4 0 AM EDT 05/05/2024 1:10 PM EDT Karo Lockett [facility] URINE ORDERABLES Final Res ult Performing Organization Address [facility] Co de Phone Number [facility] [address] [place] [address] [phone] * HIV-1/2 Antigen and Antibodies, Fourth Generation, with Reflexes (05/05/2024 10:40 AM EDT) Pathologist [facility] HIV AB/AG Nonreactive Nonreactive [facility] Comment:HIV-1 p24 Ag and/or HIV-1/HIV-2 Ab not detected.A test result that is nonreactive does not exclude thepossibility of exposure to or infection with HIV-1 and/orHIV-2. Nonreactive results in this assay for individualswith prior exposure to HIV-1 and/or HIV-2 may be due toantigen and antibody levels that are below the limit ofdetection of this assay.The [employer] HIV Ag/Ab Combo assay result andsupplemental assay results should be interpreted inconjunction with the patient's clinical presentation,history and other laboratory results. If the results areinconsistent with clinical evidence, additional testing issuggested to confirm the result. Blood Venous blood specimen / Unknown 05/05/2024 10:40 AM EDT 05/05/2024 11:43 AM EDT Karo Lockett [facility] BLOOD ORDERABLES Final Res ult Performing Organization Address [facility]/ZIP Co de Phone Number [facility] [address] [place] [address] [phone] * (ABNORMAL) Lipid Panel, Standard (05/05/2024 10:40 AM EDT) Triglycerides 128 <150 mg/dL [facility] Comment:Desirable Triglyceri de: less than 150 mg/dLBorderline High Triglyceride 150-199 mg/dLHigh Triglyceride: 200-499 mg/dLVery High Triglyceride: greater than or equal to 5OO mg/dL Cholesterol 182 <200 mg/dL [facility] Comment:Desirable Cholestero l: less than 200 mg/dLBorderline High Cholesterol: 200-239 mg/dLHigh Cholesterol: greater than 239 mg/dL LDL Cholesterol Calculated 125(H) <100 mg/dL [facility] Comment:Desirable LDL: less than 100 mg/dLNear Optimal/Above Optimal LDL: 110- 129 mg/dLBorderline High LDL: 130-159 mg/dLHigh LDL: 160-189 mg/dLVery High LDL: greater than or equal to 190 mg/dL HDL Cholesterol 32(L) >40 mg/dL [facility] Comment:Desirable HDL: great er than 40 mg/dL Note: This HDL assay may give artificially low results in patients with liver disease. Blood Venous blood specimen / Unknown 05/05/2024 10:40 AM EDT 05/05/2024 11:43 AM EDT Karo Lockett [employer]ESSING MA[employer] LAB BLOOD ORDERABLES Final Res ult [facility] [address] [place] [phone] * Hm Colonoscopy (02/13/2024 10:16 PM EDT) Historical Provider HEALTH MAINTENANCE Final Result from Last 3 Months or Most Recently Relevant to Health Maintenance Insurance [facility] [employer] [address] [place], [place] [facility] MEDICAID STAND ADULT Care Teams Hospice Team Lead Relationship Specialty Start Date End Date Karo Lockett FNP [address] [place] [address] PCP - General Family Medicine 03/17/22
--- OUTSIDE RECORDS SUMMARY | 2025-03-16 12:32 | XMS_ITS | Encounter Summary ---
Author Organization [employer] Address [address] [facility] 7t [place] [address] Care Team Providers Care Occ Ther Name Role Phone Karo Lockett DIRECTOR OF QUANTITATIVE RESEARCH Primary Care Provider [phone] Encounter Details Date Type Department Care Team ([facility] st Contact Info) Description 04/19/2024 Orders Only [facility]S [address] [place], [place] [phone] Provider, MD Keysha Social History Tobacco Use Types Packs/Day Years [...] Description 04/21/2025 11:15 AM EDT Office Visit [facility] OPTOM[facility] [address] [place], [place] [phone] Tarka, Milana, OD [address] [place] [address] 04/29/2025 10:00 AM EDT Office Visit [facility] [address] [place], [place] [phone] Karo Lockett FNP [address] [place], [place] [phone] documented as of this encounter Procedures Procedure [...] documented as of this encounter Care Teams Occ Ther Relationship Specialty Start Date End Date Karo Lockett FNP [address] [place] [address] PCP - General Family Medicine 03/17/22 documented as of this encounter
--- OUTSIDE RECORDS SUMMARY | 2025-03-16 12:32 | XMS_ITS | Encounter Summary ---
Author Organization [employer] Address [address] [facility] 7t [place] [address] Care Team Providers Care Career Development Specialist Name Role Phone Karo Lockett Primary Care Provider [phone] Encounter Details Date Type Department Care Team (Late st Contact Info) Description 10/14/2022 Orders Only [facility] [address] [place] [address] Fabienne Doss LPN Social History Tobacco Use [...] Description 04/21/2025 11:15 AM EDT Office Visit [facility] OPTOMETRY [address] [place] [address] Milana King, OD [address] [place] [address] 04/29/2025 10:00 AM EDT Office Visit [facility] PEDS [address] [place] [address] Karo Lockett FNP [address] [place] [address] documented as of this encounter Visit Diagnoses Not on filedocumented in this encounter Care Teams Career Development Specialist Relationship Specialty Start Date End Date Karo Lockett FNP [address] [place] [address] PCP - General Family Medicine 03/17/22 documented as of this encounter
--- OUTSIDE RECORDS SUMMARY | 2025-03-16 12:32 | XMS_ITS | Encounter Summary ---
Author Organization [facility] [facility] [employer] Address [address] [facility] 7[address] [place] [address] Care Team Providers Care Front Desk Monitor Name Role Phone Karo Lockett Primary Care Provider [phone] Encounter Details Date Type Department Care Team ([facility] Contact Info) Description 01/17/2025 Results Follow-Up [facility] PEDS [address] [place], [place] [phone] Karo Lockett FNP [address] [place], [place] [phone] XR Wrist 3+ Views Bilateral Social History [...] Description 04/21/2025 11:15 AM EDT Office Visit [facility] OPTOMETRY [address] [place] [address] TarMilana garner, OD [address] [place] [address] 04/29/2025 10:00 AM EDT Office Visit [facility] PEDS [address] [place] [address] Karo Lockett FNP [address] [place] [address] documented as of this encounter Visit Diagnoses Not on filedocumented in this encounter Additional Health Concerns Assessment Noted Time PHQ-9 Depression Total Score: 14 025 11:13 AM EDT documented as of this encounter Care Teams Front Desk Monitor Relationship Specialty Start Date End Date Karo Lockett FNP [address] [place] [address] PCP - General Family Medicine 03/17/22 documented as of this encounter
--- OUTSIDE RECORDS SUMMARY | 2025-03-16 12:32 | XMS_ITS | Encounter Summary ---
Author Organization [employer] Address [address] [facility] 7[address] [place] [address] Care Team Providers Care Net Programmer Name Role Phone Karo Lockett Primary Care Provider Reason for Visit * Reason Onset Date Comments Referral 03/07/2023 Encounter Details Date Type Department Care Team ([facility] st Contact Info) Description 03/07/2023 Telephone [facility] [address] [place] [address] Karo Lockett FNP [address] [place] [address] Referral Social History Tobacco Use Types Packs/Day [...] Appears GI was [place] [facility] [place]. Referrals team - please [...] Description 04/21/2025 11:15 AM EDT Office Visit [facility] OPTOMETRY [address] [place] [address] TarkaMilana, OD [address] [place] [address] 04/29/2025 10:00 AM EDT Office Visit [facility] PEDS [address] [place] [address] Karo Lockett FNP [address] [place] [address] documented as of this encounter Visit Diagnoses Diagnosis Bilateral carpal tunnel syndrome- Primary Carpal tunnel syndrome documented in this encounter Additional Health Concerns Assessment Noted Time PHQ-9 Depression Total Score: 0 02/20/20 23 3:36 PM EDT documented as of this encounter Care Teams Net Programmer Relationship Specialty Start Date End Date Karo Lockett FNP [address] [place] [address] PCP - General Family Medicine 03/17/22 documented as of this encounter
== END 2025-03-16 11:31 | disposition home or self-care (01) ==
LOC: HO.NEURO 11:30
PROVIDERS: PCP Registered Nurse; Visit Provider Physician Assistant
DX: R20.0 Anesthesia of skin (principal); R20.2 Paresthesia of skin; R94.131 Abnormal electromyogram [EMG]
CPT/HCPCS: 95886; 95912

== ENCOUNTER → 2025-03-16 11:32 | Outpatient (BNV) | payer MEDICAID, SELFPAY | PROVIDERS: PCP Registered Nurse; Visit Provider Physical Medicine & Rehabilitation | DX: G56.03 Carpal tunnel syndrome, bilateral upper limbs (principal); G56.23 Lesion of ulnar nerve, bilateral upper limbs | CPT/HCPCS: 95886; 95912 ==

== ENCOUNTER 2025-04-06 10:40 | Outpatient (AMB) | payer MEDICAID, SELFPAY ==
--- OUTSIDE RECORDS SUMMARY | 2023-10-07 05:30 | XMS_ITS ---
Author Organization [facility] Address [address] [place] [phone] Care Team Providers Care Linseed Cake Trimmer Name Role Phone CHINTAN KINNEY, DAGOBERTO Primary Care Provider Stewart Aguila [phone] REASON FOR VISIT Patient presents today for a COLON SCREENING Encounters Encounter Location Date Provider Diagnosis [facility] [address] [place] [phone] 10/07/2023 Stewart Rogers Plan Of Treatment No Information Progress Notes * SOLEDAD BLACKWELL RDOB: 0 (54 yo M)Acc No.[id number]:10/07/2023 Progress Notes Patient: SOLEDAD ROBERTSON R Provider: Marge Rogers MD :1970 A ge:52 Y S ex:Male Date:10/07/2023 Address:[address] [place], [place] [id number] Pcp:DAGOBERTO WOODSON MD Subjective: * Chief Complaints: [...] Date: 10/07/2023 Generated for Randy mayer/Ari/Galenitting on: 04/06/2025 01:15 PM EDT
--- NOTE | 2025-04-06 10:44 | A.OFFVIS_ITS ---
Vital Signs 04/06/25 10:46 Height 5 ft 4 in Weight 194 lb BMI 33.3 Handedness Right Intake Visit Reasons: OV- EMG review of bilateral hands Intake Note: Gilbert is a 54 year old right hand dominant man who presents today for an EMG review of his bilateral upper extremities. Patient states he would like to discuss surgical treatment today or injections if possible. Right hand is greater than left hand in symptoms. At night he is at his worse. He expresses constant pain in the bilateral hands. Any usage of his hands causes an increase in pain. Hx of DM. He thinks his last a1C was 7 but does not recall when he did it. EMG/NCS done on 03/16/25 IMPRESSION: 1. This is an abnormal study. 2. There is electrodiagnostic evidence for bilateral moderate-severe median neuropathy at the wrist, consistent with Carpal Tunnel Syndrome. 3. There is electrodiagnostic evidence for bilateral ulnar neuropathy at the elbow. 4. There is no electrodiagnostic evidence for brachial plexopathy or cervical radiculopathy. Lacquer Sprayer Required: Yes Lacquer Sprayer Language: Paraffin Machine Operator Services: Lacquer Sprayer Present (iPad) Lacquer Sprayer Name: [id number] Allergies bupropion Allergy (Mild, Verified 04/06/25 10:50) Angioedema pravastatin Allergy (Mild, Verified 04/06/25 10:50) Unknown tramadol Allergy (Mild, Verified 04/06/25 10:50) Unknown aspirin Allergy (Unknown, Uncoded 04/06/25 10:50) Angioedema HPI HPI OV- EMG review of bilateral hands: Details: Gilbert is a 54 year old right hand dominant man who presents today for an EMG review of his bilateral upper extremities. Patient states he would like to discuss surgical treatment today or injections if possible. Right hand is greater than left hand in symptoms. At night he is at his worse. He expresses constant pain in the bilateral hands. Any usage of his hands causes an increase in pain. Hx of DM. He thinks his last a1C was 7 but does not recall when he did it. EMG/NCS done on 03/16/25 IMPRESSION: 1. This is an abnormal study. 2. There is electrodiagnostic evidence for bilateral moderate-severe median neuropathy at the wrist, consistent with Carpal Tunnel Syndrome. 3. There is electrodiagnostic evidence for bilateral ulnar neuropathy at the elbow. 4. There is no electrodiagnostic evidence for brachial plexopathy or cervical radiculopathy. [facility] Medical History Family history of colon cancer Diverticulosis Erectile dysfunction CTS (carpal tunnel syndrome) Depressive disorder HTN (hypertension) GERD (gastroesophageal reflux disease) Acute insomnia Obesity Surgical History History of esophagogastroduodenoscopy (EGD) Hx of colonoscopy History of surgery H/O hand surgery H/O eye surgery Family History Brother Prostate cancer Father Prostate cancer Brother Cancer Social History Household Members Other:: Alcohol intake: former Patient Tobacco Use Status: Never used Tobacco Current occupational status: unemployed Current occupation: right hand dominant Review of Systems Const All systems reviewed & are unremarkable except as noted in HPI and below Physical Exam Vital Signs: BMI result Body Mass Index 33.3 Extrem Other: Neuro: Normal sensation of the tips of all digits of bilateral hands in the office today No thenar or intrinsic wasting. Good APB muscle firing and good finger cross. Vascular: Capillary refill brisk. ROM: Patient can make a fist and extend all their digits. Skin: No lacerations or abrasions noted. General: No ecchymosis. No erythema or evidence of infection. Assessment & Plan Assessment & Plan (1) Carpal tunnel syndrome of right wrist: Code(s): G56.01 - Carpal tunnel syndrome, right upper limb Category: Medical Plan 1. Right carpal tunnel syndrome Symptoms intermittent, daily, worse at night I educated the patient about the condition. I discussed both operative and nonoperative treatment options. The patient would like to proceed with surgery. The risks and benefits of operative treatment were discussed with the patient and the patient wishes to proceed with surgery. These risks include, but are not limited to, risk of damage to blood vessels, nerves, tendons, infection, recurrence, incomplete relief of preoperative symptoms, persistent pain, possible need for further surgery, and the risks associated with regional blocks and/or anesthesia. Plan is to take the patient to the operating room at some point in the next few weeks for the following procedures: 1. Right carpal tunnel release under local All of the preoperative paperwork including the consent was discussed today. All of the patient's questions were answered in the clinic today. The patient understands that they will be in contact with our surgical aide to discuss scheduling their procedure. Patient reports diabetes, last A1c 7.0 Denies blood thinners, asthma, heart issues, lung issues, kidney issues, or current smoking. Coding Level of Care Code New Pt Level 4 (39409) Diagnoses Carpal tunnel syndrome of right wrist G56.01
[2025-04-06 10:46] VITALS: BMI 33.3
--- OUTSIDE RECORDS SUMMARY | 2025-04-06 13:15 | XMS_ITS | Encounter Summary ---
Author Organization [employer] Address [address] [facility] [address] [place] [address] Care Team Providers Care Communication Professor Name Role Phone Karo Lockett Primary Care Provider [phone] Reason for Visit * Reason Onset Date Comments Med Refill 04/05/2025 Encounter Details Date Type Department Care Team (Late st Contact Info) Description 04/05/2025 Refill [facility] MED [facility] PEDS [address] [place], [place] [phone] Karo Lockett FNP [address] [place] [address] Type 2 diabetes mellitus treated with insulin ([facility]) Social History Tobacco Use Types Packs/Day Years [...] Telephone Encounter - Kiki Bryant LPN - 04/05/2025 10:44 AM EDT Last seen 12/24/24. documented in this encounter Plan of Treatment Upcoming Encounters Date Type Department Care Team (Late st Contact Info) Description 04/21/2025 11:15 AM EDT Office Visit [facility] OPTOMETRY [address] [place] [address] Milana King, OD [address] [place] [address] 04/29/2025 10:00 AM EDT Office Visit [facility] MED [facility] PEDS [address] [place] [address] Karo Lockett FNP [address] [place] [address] documented as of this encounter Visit Diagnoses Diagnosis Type 2 diabetes mellitus treated with insulin ([facility]) documented in this encounter Additional Health Concerns Assessment Noted Time PHQ-9 Depression Total Score: 14 025 11:13 AM EDT documented as of this encounter Care Teams Communication Professor Relationship Specialty Start Date End Date Karo Lockett FNP [address] [place] [address] PCP - General Family Medicine 03/17/22 documented as of this encounter
--- OUTSIDE RECORDS SUMMARY | 2025-04-06 13:15 | XMS_ITS | Clinical Summary ---
Author Organization [employer] Address [address] [facility] 7[address] [place] [address] Care Team Providers Care Herbologist Name Role Phone Karo Lockett RESOURCES REPRESENTATIVE Primary Care Provider [phone] Allergies Active Allergy Reactions Criticality Noted Date Comments Ibuprofen 11/23/2015 Other reaction(s): swelling lip/groin-meloxicam ok Bupropion 04/30/2017 Meloxicam 05/26/2019 Metformin 12/20/2021 Pravastatin 08/09/2016 Other reaction(s): throat swelled, trouble breathin Tramadol 11/13/2016 Other reaction(s): mouth swelling Medications SM Dry Eye Relief 0.2-0.2-1 % solution [...] affected area. 60 g 2 024 Active TRUEplus Lancets 33G miscIndications: Type 2 diabetes mellitus treated with insulin ([facility]) USE TO TEST BLOOD SUGAR THREE TIMES DAILY 100 each 11 024 Active empagliflozin (Jardiance) 25 MGIndications:Ty pe 2 diabetes mellitus without complication, with long-term current use of insulin ([facility]) Take 1 tablet (25 mg) by mouth Once per day. 90 tablet 3 024 2024 Active insulin glargine (Lantus) 100 UNIT/ML injectionIndicat ions:Type 2 diabetes mellitus without complication, without long-term current use of insulin ([facility]) Inject 25 Units under the skin at [...] mm misc USE ONE DAILY 100 each 11 Active Acetaminophen Extra Strength 500 MG tablet TAKE ONE TABLET EVERY 6 HOURS NEEDED FOR PAIN FOR UP TO 10 DAYS 30 tablet Active glipiZIDE (Glucotrol) 10 MG tabletIndication s:Type 2 diabetes mellitus without complication, without long-term current use of insulin ([facility]) TAKE 1 TABLET BY MOUTH IN THE MORNING AND EVENING BEFORE BREAKFAST AND BEFORE SUPPER 180 tablet Active Trulicity 1.5 MG/0.5ML solution auto-injectorInd ications:Type 2 diabetes mellitus without complication, with long-term current use of insulin ([facility]) INJECT ONE PEN (=1.5MG) SUBCUTANEOUSLY ONCE A WEEK DIRECTED 2 mL 3 Active hydroCHLOROthiaz alex (HYDRODiuril) 25 MG tabletIndication s:Essential hypertension TAKE 1 TABLET BY MOUTH EVERY MORNING 90 tablet 1 Active gemfibrozil (Lopid) 600 MG tablet TAKE 1 TABLET BY MOUTH TWICE DAILY IN THE MORNING AND IN THE EVENING 180 tablet 1 Active cholecalciferol (Vitamin D-3) 25 MCG (1000 UT) tabletIndication s:Vitamin D insufficiency TAKE 1 TABLET BY MOUTH EVERY DAY 90 tablet 3 025 Active Alcohol Swabs (Alcohol Prep) 70 % padsIndications: Type 2 diabetes mellitus treated with insulin (CMS/HCC) USE TO TEST BLOOD SUGAR THREE TIMES DAILY 100 each 11 025 Active glucose blood (FREESTYLE LITE) test stripIndications :Type 2 diabetes mellitus treated with insulin (CMS/HCC) USE TO TEST BLOOD SUGAR THREE TIMES DAILY 100 each 11 025 Active FREESTYLE LITE test strip USE TO TEST BLOOD SUGAR TWICE DAILY 023 2024 Discontinued Alcohol Swabs (Alcohol Prep) 70 % padsIndications: Type 2 diabetes mellitus treated with insulin (CMS/HCC) USE TO TEST BLOOD SUGAR THREE TIMES DAILY 100 each 11 024 2024 Discontinued(R eorder (will not trigger notification to Pharmacy)) FREESTYLE LITE test stripIndications :Type 2 diabetes mellitus treated with insulin (CMS/HCC) 1 each by Other route 3 times daily. 100 each 11 024 2024 Discontinued Active Problems Problem Noted Date Diagnosed Date Painful arc syndrome of left shoulder 12/24/2024 Assessment & Plan (12/24/2024 11:44 AM EDT): Received cortisone injection on 10/29/2024 at [facility] Ortho Hearing impaired person, bilateral 05/06/2024 Assessment & Plan (12/24/2024 11:20 AM EDT): -Reports hx of trauma/injury to right ear in childhood -[facility] Audiology eval in May 2024. Rx bilat hearing aids. Plan for re-eval in 1 year. -Content with current hearing amplification Assessment & Plan (05/06/2024 6:23 PM EDT): -Reports hx of trauma/injury to right ear in childhood -Referral to Audiology placed 04/30/24 Lateral epicondylitis of both elbows 05/28/2023 Assessment & Plan (11/20/2023 8:30 AM EDT): -Following with [facility] Ortho, completed OT without much noted improvement -Encouraged cont symptomatic management Assessment & Plan (05/28/2023 11:36 AM EST): See above Primary osteoarthritis of right shoulder 023 Overview (12/24/2024): Followed by [facility] Ortho Cortisone injection January 2024, 07/13/2024 and 10/14/2024 Assessment & Plan (11/20/2023 8:25 AM EDT): -Followed by [facility] Ortho (last consult October 2023) -Reporting limited improved from cortisone injection, reviewed plan to call office mid November 2023 to discuss next tx steps Assessment & Plan (05/28/2023 11:37 AM EST): See above Spondylosis without myelopat hy or radiculopathy, lumbar region 05/18/2023 Overview (05/18/2023): Previously followed by [facility], received injections Chronic left sided low back pain suspected 2/2 lumbar DDD and facet arthropathy Referral to re-establish with PS&[facility] Apr 2023 Other male erectile dysfunction 11/05/2022 Overview (12/24/2024): -Following with [facility] Urology - Dr. Kimball -Discussed [...] 10/30/2022 Overview (12/24/2024): Colonoscopy: January 2024 - [facility] GI. Repeat due 5 years PSA: normal October 2022, following with [facility] Urology Eye exam: [facility] Eye Care Dental: [facility] Dental Last PE: 12/24/24 Assessment & Plan [...] reaction Microalbumin: Apr Eye exam: Referral to [facility] Eye Care placed 12/24/24 Foot exam: WNL 12/24/24 Dental: established PNA: declined Tdap/Td: UTD ACEi/ARB: no - pt with allergic rxn to ACEi Statin: no - pt with allergic rxn, waiting to be cleared by educational/development assistant ASA: no Lipids: Lab Results Component Value Date CHOL 182 05/05/2024 TRIG 128 05/05/2024 TRIG 145 10/31/2022 HDL 32 (L) 05/05/2024 LDLCHOLCAL 125 (H) 05/05/2024 Lifestyle: Encouraged regular movement and aerobic exercise for improved glycemic control Encouraged daily foot checks Encouraged lean protein snacks and to avoid foods high in sugar and simple carbohydrates CGM trial December 2023. Skin rxnSHANNON. Treatment Goals: A1c goal: <7% FBG goal: [...] Plan (12/24/2024 11:20 AM EDT): Following with [facility] GI Continues with pantoprazole Obesity 02/10/2012 Carpal tunnel syndrome of right wrist 02/10/2012 Assessment & Plan (12/24/2024 11:48 AM EDT): EMG completed Jun 2023 at [facility]: IMPRESSION: Mild to moderate right median neuropathy across carpal tunnel. Referral to [facility] Ortho placed 12/24/24 Assessment & Plan (05/28/2023 [...] rechallenge with statin until pt cleared by educational/development assistant. -Cont Gemfibrozil 600 mg BID. Assessment & Plan (11/05/2022 9:11 AM EDT): -Reports allergic reaction to Pravastatin with throat swelling. Will not rechallenge with statin until pt cleared by educational/development assistant. -Cont Gemfibrozil 600 mg BID. -Fasting lipid [...] given the presence of arthralgias Refer to [facility] clinic for injection No improvement with OT Backache 01/09/2012 05/18/2023 Encounters Date Type Department Care Team Description 04/05/2025 Refill [facility] [address] [place] [address] Karo Lockett FNP Type 2 diabetes mellitus treated with insulin ([facility]) 03/03/2025 Refill [facility] [address] [place] [address] Orion Dong MD Type 2 diabetes mellitus without complication, with long-term current use of insulin ([facility]); Essential hypertension; Vitamin D insufficiency 02/14/2025 Telephone [facility] [address] [place] [address] Karo Lockett FNP Prior Authorization 02/04/2025 Refill [facility] [address] [place] [address] Karo Lockett FNP Type 2 diabetes mellitus without complication, without long-term current use of insulin ([facility]) 01/20/2025 8:00 AM EDT Office Visit [facility] D[facility] [address] [place] [address] Abhi Bills DMD Denture irritation (Primary Dx) 01/18/2025 Travel 01/17/2025 Results Follow-Up [facility] [address] [place] [address] Karo Lockett FNP XR Wrist 3+ Views Bilateral 01/14/2025 Refill [facility] [address] [place] [address] João Riddle DMD 01/07/2025 Refill [facility] [address] [place] [address] Karo Lockett FNP from Last 3 Months Immunizations Immunization Administration [...] Description 04/21/2025 11:15 AM EDT Office Visit [facility] OPTOMETRY [address] [place] [address] Tarka, Milana, OD [address] [place] [address] 04/29/2025 10:00 AM EDT Office Visit [facility] MED & PEDS [address] [place] [address] Phalen, Karo, RESOURCES REPRESENTATIVE [address] [place] [address] Health Maintenance Due Date Last Done Comments [...] complication, with long-term current use of insulin ([facility]) PROPHYLAXIS - ADULT Routine 12/17/2024 1 0:00 AM EDT PERIODIC ORAL EVALUATION - ESTABLISHED [...] AM EDT Narrative 01/10/2025 1:36 PM EDT [address] [address] XRay Report Signed Patient: Gilbert Young MR#: [id number] : 1970 Acct:[id number] Age/Sex: 54 / M ADM Date: 01/10/25 Loc: HO.HHCX Attending Dr: Karo Lockett RESOURCES REPRESENTATIVE Ordering Physician: Karo Lockett Date of Service: 01/10/25 Procedure(s): XR Wrist Griffin min 3V Accession Number(s): [id number] cc: Karo Lockett Exam: Three-view bilateral wrist [...] 01/10/25 1334 DD/ 1031 TD/TT: 01/10/25 1040 Basket Turner: Procedure Note Donotuseinterpreter, Image - 01/10/[address] [address] XRay Report Signed Patient: Gilbert Young RMR#: [id number] : 1970Acct:[id number] Age/Sex: 54 / MADM Date: 01/10/25 Loc: HO.HHCX Attending Dr: Karo HOLDER Ordering Physician: Karo Lockett Date of Service: 01/10/25 Procedure(s): XR Wrist Griffin min 3V Accession Number(s): [id number] cc: Karo Lockett Exam: Three-view bilateral wrist [...] 01/10/25 1334 DD/ 1031 TD/TT: 01/10/25 1040 Basket Turner: Karo HOLDER IMG XR PROCEDURES Final Result * (ABNORMAL) POCT HGB A1C (12/24/2024 11:48 AM EDT) Pathologist [facility] Hemoglobin A1C 7.0(A) 4.0 - 6.0 % QC Media Lot # [id number] Lot# Expiration Date Blood 12/24/2024 11:4 [address] [facility] POINT OF CARE TEST ENTER/EDIT ORDERABLES Final Result * Hepatitis C Viral RNA, Quantitative, Real-Time PCR (05/05/2024 10:40 AM EDT) Pathologist [facility] [place] Hepatitis C Viral Load <15 NOT DETECTED NOT DETECTED IU/mL [facility] HCV Log PCR <1.18 NOT DETECTED NOT DETECTED Log IU/mL [facility] Comment:For additional infor foreign, please refer [email or web address].Berggi/faq/[email or web address](This link is being provided for informational/educational purposes only.)THIS TEST WAS PERFORMED AT:[facility] [place] [id number] LEONARD MD Blood 05/05/2024 10:4 0 AM EDT 05/05/2024 11:43 AM EDT Karo Lockett RESOURCES REPRESENTATIVE LAB BLOOD ORDERABLES Final Res ult Performing Organization Address [facility] de Phone Number [facility] [address] [place] [phone] * (ABNORMAL) Albumin, Random Urine W/Creatinine (05/05/2024 10:40 AM EDT) Creatinine, Urine 48.35 mg/dL [facility] Microalbumin Urine 16.0 mg/L H [facility] Microalbum Creatinine Ratio Ur 33.0(H) <30 ug/mg cr [facility] Comment:Albumin/Creatinine R atio Reference Ranges: Normal: < 30 ug/mg creatinine Microalbuminuria: 30 - 300 ug/mg creatinineClinical Albuminuria: > 300 ug/mg creatinine Urine 05/05/2024 10:4 0 AM EDT 05/05/2024 1:10 PM EDT Karo Lockett RESOURCES REPRESENTATIVE LAB URINE ORDERABLES Final Res ult Performing Organization Address [facility] Co de Phone Number [facility] [address] [place] [phone] * HIV-1/2 Antigen and Antibodies, Fourth Generation, with Reflexes (05/05/2024 10:40 AM EDT) HIV AB/AG Nonreactive Nonreactive [facility] Comment:HIV-1 p24 Ag and/or HIV-1/HIV-2 Ab not detected.A test result that is nonreactive does not exclude thepossibility of exposure to or infection with HIV-1 and/orHIV-2. Nonreactive results in this assay for individualswith prior exposure to HIV-1 and/or HIV-2 may be due toantigen and antibody levels that are below the limit ofdetection of this assay.The [employer] HIV Ag/Ab Combo assay result andsupplemental assay results should be interpreted inconjunction with the patient's clinical presentation,history and other laboratory results. If the results areinconsistent with clinical evidence, additional testing issuggested to confirm the result. Blood Venous blood specimen / Unknown 05/05/2024 10:40 AM EDT 05/05/2024 11:43 AM EDT us Karo Lockett RESOURCES REPRESENTATIVE LAB BLOOD ORDERABLES Final Res ult [facility] [address] [place] [phone] * (ABNORMAL) Lipid Panel, Standard (05/05/2024 10:40 AM EDT) Triglycerides 128 <150 mg/dL [facility] Comment:Desirable Triglyceri de: less than 150 mg/dLBorderline High Triglyceride 150-199 mg/dLHigh Triglyceride: 200-499 mg/dLVery High Triglyceride: greater than or equal to 5OO mg/dL Cholesterol 182 <200 mg/dL [facility] Comment:Desirable Cholestero l: less than 200 mg/dLBorderline High Cholesterol: 200-239 mg/dLHigh Cholesterol: greater than 239 mg/dL LDL Cholesterol Calculated 125(H) <100 mg/dL [facility] Comment:Desirable LDL: less than 100 mg/dLNear Optimal/Above Optimal LDL: 110- 129 mg/dLBorderline High LDL: 130-159 mg/dLHigh LDL: 160-189 mg/dLVery High LDL: greater than or equal to 190 mg/dL HDL Cholesterol 32(L) >40 mg/dL [facility] Comment:Desirable HDL: great er than 40 mg/dL Note: This HDL assay may give artificially low results in patients with liver disease. Blood Venous blood specimen / Unknown 05/05/2024 10:40 AM EDT 05/05/2024 11:43 AM EDT us Karo Lockett RESOURCES REPRESENTATIVE LAB BLOOD ORDERABLES Final Res ult [facility] [address] [place] [phone] * Hm Colonoscopy (02/13/2024 10:16 PM EDT) us Historical Provider MD HEALTH MAINTENANCE Final Result from Last 3 Months or Most Recently Relevant to Health Maintenance Insurance [facility] STAND ADULT Care Teams Herbologist Relationship Specialty Start Date End Date Karo Lockett FNP [address] [place] [phone] PCP - General Family Medicine 03/17/22
--- OUTSIDE RECORDS SUMMARY | 2025-04-06 13:15 | XMS_ITS | Encounter Summary ---
Author Organization [employer] Address [address] [facility] [address] [place] [address] Care Team Providers Care Director Of Personnel Name Role Phone Karo Lockett WOUND NURSE Primary Care Provider [phone] Encounter Details Date Type Department Care Team ([facility] st Contact Info) Description 04/19/2024 Orders Only [facility] MED [facility] PEDS [address] [place], [place] [phone] Provider, MD Keysha Social History Tobacco Use [...] Visit [facility] OPTOMETRY [address] [place], [place] [phone] Tarka, Milana, OD [address] [place] [address] 04/29/2025 10:00 AM EDT Office Visit [facility] MED [facility] PEDS [address] [place], [place] [phone] Karo Lockett FNP [address] [place], [place] [phone] documented as of this encounter Procedures Procedure [...] as of this encounter Care Teams Director Of Personnel Relationship Specialty Start Date End Date Karo Lockett FNP [address] [place] [address] PCP - General Family Medicine 03/17/22 documented as of this encounter
--- OUTSIDE RECORDS SUMMARY | 2025-04-06 13:15 | XMS_ITS | Patient Health Record ---
Author Organization [facility] Address [address] [place] [address] Care Team Providers Care Prism Measurer Name Role Phone DAGOBERTO WOODSON MD Primary Care Provider Stewart Aguila [phone] Reason For Referral No Information Plan Of Treatment No Information Insurance Providers Payer Name Payer Address Payer Phone Subscriber Number Group Number Insured Name Patient Relationship to Insured Coverage Start Date Coverage End Date MEDICAID OF [facility] [address] [place] [phone] [id number] SOLEDAD BLACKWELL Self - patient is the insured
--- OUTSIDE RECORDS SUMMARY | 2025-04-06 13:15 | XMS_ITS | Encounter Summary ---
Author Organization [employer] Address [address] [facility] 7[address] [place] [address] Care Team Providers Care Electron Microprobe Operator Name Role Phone Karo Lockett Primary Care Provider [phone] Encounter Details Date Type Department Care Team (Late st Contact Info) Description 10/14/2022 Orders Only [facility] MEDICINE [address] [place] [address] Fabienne Doss LPN Social History Tobacco Use [...] Description 04/21/2025 11:15 AM EDT Office Visit [facility] OPTOMETRY [address] [place] [address] Milana King, OD [address] [place] [address] 04/29/2025 10:00 AM EDT Office Visit [facility] MED [facility] PEDS [address] [place] [address] Karo Lockett FNP [address] [place] [address] documented as of this encounter Visit Diagnoses Not on filedocumented in this encounter Care Teams Electron Microprobe Operator Relationship Specialty Start Date End Date Karo Lockett FNP [address] [place] [address] PCP - General Family Medicine 03/17/22 documented as of this encounter
--- OUTSIDE RECORDS SUMMARY | 2025-04-06 13:15 | XMS_ITS | Encounter Summary ---
Author Organization [employer] Address [address] [facility] 7t [place] [address] Care Team Providers Care Footwear Production Machine Operator Name Role Phone Karo Lockett MACHINIST SUPERVISOR Primary Care Provider [phone] Reason for Visit * Reason Comments Med Refill Encounter Details Date Type Department Care Team (Late st Contact Info) Description 01/14/2025 Refill [facility]ULT [facility] [address] [place], [place] [phone] João Riddle, RITA [address] [place], [place] [phone] Social History Tobacco Use Types Packs/Day Years [...] Description 04/21/2025 11:15 AM EDT Office Visit [facility] OPTOMETRY [address] [place] [address] TarkaMilana, OD [address] [place] [address] 04/29/2025 10:00 AM EDT Office Visit [facility] CHC MED & PEDS [address] [place] [address] Karo Lockett FNP [address] [place] [address] documented as of this encounter Visit Diagnoses Not on filedocumented in this encounter Additional Health Concerns Assessment Noted Time PHQ-9 Depression Total Score: 14 025 11:13 AM EDT documented as of this encounter Care Teams Footwear Production Machine Operator Relationship Specialty Start Date End Date Karo Lockett FNP [address] [place] [address] PCP - General Family Medicine 03/17/22 documented as of this encounter
--- OUTSIDE RECORDS SUMMARY | 2025-04-06 13:16 | XMS_ITS | Encounter Summary ---
Author Organization [employer] Address [address] [facility] 7[address] [place] [address] Care Team Providers Care Supervisor Product Inspection Name Role Phone Karo Lockett Primary Care Provider [phone] Reason for Visit * Reason Onset Date Comments Returning Call 08/18/2023 Encounter Details Date Type Department Care Team ([facility] st Contact Info) Description 08/18/2023 Telephone [facility] MEDICINE [address] [place] [address] Karo Lockett FNP [address] [place] [address] Returning Call Social History Tobacco Use Types [...] Wednesdays, and Walk-In Urgent Care Located in [facility] of [facility]. Patient provided with after-hours line for [facility], , which offer night time triage service and option to transfer to theater set production designer provider if needed. Please contact pt at [phone]. documented in this encounter Plan of Treatment Upcoming Encounters Date Type Department Care Team (Late st Contact Info) Description 04/21/2025 11:15 AM EDT Office Visit [facility] OPTOMETRY [address] [place] [address] Milana King, OD [address] [place] [address] 04/29/2025 10:00 AM EDT Office Visit [facility] MED & PEDS [address] [place], [place] [phone] Karo Lockett FNP [address] [place], [place] [phone] documented as of this encounter Visit Diagnoses Not on filedocumented in this encounter Additional Health Concerns Assessment Noted Time PHQ-9 Depression Total Score: 0 02/20/20 23 3:36 PM EDT documented as of this encounter Care Teams Supervisor Product Inspection Relationship Specialty Start Date End Date Karo Lockett FNP [address] [place] [address] PCP - General Family Medicine 03/17/22 documented as of this encounter
--- OUTSIDE RECORDS SUMMARY | 2025-04-06 13:16 | XMS_ITS | Encounter Summary ---
Author Organization [employer] Address [address] [facility] 7t [place] [address] Care Team Providers Care Paper Winder Name Role Phone Karo Lockett Primary Care Provider [phone] Reason for Visit * Reason Onset Date Comments Referral 03/07/2023 Encounter Details Date Type Department Care Team ([facility] st Contact Info) Description 03/07/2023 Telephone [facility] [address] [place] [address] Karo Lockett FNP [address] [place] [address] Referral Social History Tobacco Use Types Packs/Day [...] Appears GI was referral was sent to [facility] in October 2022. Referrals team - please [...] Description 04/21/2025 11:15 AM EDT Office Visit [facility] OPTOMETRY [address] [place] [address] TarkaMilana, OD [address] [place] [address] 04/29/2025 10:00 AM EDT Office Visit [facility] MED & PEDS [address] [place] [address] Karo Lockett FNP [address] [place] [address] documented as of this encounter Visit Diagnoses Diagnosis Bilateral carpal tunnel syndrome- Primary Carpal tunnel syndrome documented in this encounter Additional Health Concerns Assessment Noted Time PHQ-9 Depression Total Score: 0 02/20/20 23 3:36 PM EDT documented as of this encounter Care Teams Paper Winder Relationship Specialty Start Date End Date Karo Lockett FNP [address] [place] [address] PCP - General Family Medicine 03/17/22 documented as of this encounter
--- OUTSIDE RECORDS SUMMARY | 2025-04-06 13:16 | XMS_ITS | Encounter Summary ---
Author Organization [employer] Address [address] [place] [address] 7[address] [place] [address] Care Team Providers Care Ice Handler Name Role Phone Karo Lockett Primary Care Provider Encounter Details Date Type Department Care Team (Late st Contact Info) Description 09/30/2022 Orders Only [facility] MED & PEDS [address] [place] [address] Kiki Bryant LPN Social History Tobacco Use [...] Description 04/21/2025 11:15 AM EDT Office Visit [facility] OPTOMETRY [address] [place] [address] TarMilana garner, OD [address] [place] [address] 04/29/2025 10:00 AM EDT Office Visit [facility] MED & PEDS [address] [place] [address] Karo Lockett FNP [address] [place] [address] documented as of this encounter Visit Diagnoses Not on filedocumented in this encounter Care Teams Ice Handler Relationship Specialty Start Date End Date Karo Lockett FNP [address] [place] [address] PCP - General Family Medicine 03/17/22 documented as of this encounter
== END 2025-04-06 11:31 | disposition home or self-care (01) ==
LOC: HO.HOS 10:41
PROVIDERS: PCP Registered Nurse
DX: G56.01 Carpal tunnel syndrome, right upper limb (principal)
CPT/HCPCS: 99214

== ENCOUNTER → 2025-04-06 10:40 | Outpatient (BNVA) | payer MEDICAID, SELFPAY | PROVIDERS: PCP Registered Nurse | DX: Z01.818 Encounter for other preprocedural examination (principal); G56.01 Carpal tunnel syndrome, right upper limb | CPT/HCPCS: 99212 ==

== ENCOUNTER 2025-04-15 08:27 | Outpatient (REF) | payer MEDICAID, SELFPAY ==
--- NOTE | ~2025-04-15 | XR_ITS ---
EXAMINATION: XR SHOULDER, RIGHT CLINICAL INFORMATION: M25.519 - Pain in unspecified shoulder COMPARISON: November 05, 2023 TECHNIQUE: AP external rotation, Grashey, scapular Y, and axillary views of the right shoulder. FINDINGS: Subchondral cyst formation and sclerosis along the articular margins of the acromioclavicular joint and glenohumeral joint. Subchondral cyst formation at the humeral head/greater tuberosity junction. Small marginal osteophyte formation in the inferior right humeral head. No acute cortical disruption or malalignment. No soft tissue calcifications. XR/XR shoulder RT min 2V IMPRESSION: Moderate degenerative changes, right shoulder. Electronically signed by: Juanito Simms MD 04/15/2025 09:13 AM EDT
--- OUTSIDE RECORDS SUMMARY | 2025-04-16 08:32 | XMS_ITS | Clinical Summary ---
Author Organization [employer] Address 75 [facility] 7t [place] [address] Care Team Providers Care Division Human Resources Manager Name Role Phone Karo Lockett DAY CAMP UNIT LEADER Primary Care Provider [phone] Allergies Active Allergy Reactions Criticality Noted Date [...] Type 2 diabetes mellitus treated with insulin ([facility]) USE TO TEST BLOOD SUGAR THREE TIMES DAILY 100 each 11 024 Active empagliflozin (Jardiance) 25 MGIndications:Ty pe 2 diabetes mellitus without complication, with long-term current use of insulin ([facility]) Take 1 tablet (25 mg) by mouth Once per day. 90 tablet 3 024 2024 Active insulin glargine (Lantus) 100 UNIT/ML injectionIndicat ions:Type 2 diabetes mellitus without complication, without long-term current use of insulin ([facility]) Inject 25 Units under the skin [...] complication, without long-term current use of insulin ([facility]) TAKE 1 TABLET BY MOUTH IN THE MORNING AND EVENING BEFORE BREAKFAST AND BEFORE SUPPER 180 tablet Active Trulicity 1.5 MG/0.5ML solution auto-injectorInd ications:Type 2 diabetes mellitus without complication, with long-term current use of insulin ([facility]) INJECT ONE PEN (=1.5MG) SUBCUTANEOUSLY ONCE [...] EDT): Received cortisone injection on 10/29/2024 at [facility] Ortho Hearing impaired person, bilateral 05/06/2024 Assessment & Plan (12/24/2024 11:20 AM EDT): -Reports hx of trauma/injury to right ear in childhood -[facility] Audiology eval in May 2024. Rx bilat [...] right shoulder 023 Overview (12/24/2024): Followed by [facility] Ortho Cortisone injection January 2024, 07/13/2024 and [...] region 05/18/2023 Overview (05/18/2023): Previously followed by [facility], received injections Chronic left sided low back pain suspected 2/2 lumbar DDD and facet arthropathy Referral to re-establish with [facility] Apr 2023 Other male erectile dysfunction 11/05/2022 Overview (12/24/2024): -Following with [facility] [...] 10/30/2022 Overview (12/24/2024): Colonoscopy: January 2024 - [facility] GI. Repeat due 5 years PSA: normal October 2022, following with [facility] Urology Eye exam: [facility] Eye Care Dental: [facility] Dental Last PE: 12/24/24 Assessment & [...] reaction Microalbumin: Apr Eye exam: Referral to [facility] Eye Care placed 12/24/24 Foot exam: WNL 12/24/24 Dental: established PNA: declined Tdap/Td: UTD ACEi/ARB: no - pt with allergic rxn to ACEi Statin: no - pt with allergic rxn, waiting to be cleared by lumber stacker ASA: no Lipids: Lab Results Component Value [...] Plan (12/24/2024 11:20 AM EDT): Following with [facility] GI Continues with pantoprazole Obesity 02/10/2012 Carpal tunnel syndrome of right wrist 02/10/2012 Assessment & Plan (12/24/2024 11:48 AM EDT): EMG completed Jun 2023 at [facility]: IMPRESSION: Mild to moderate right median neuropathy across carpal tunnel. Referral to [facility] Ortho placed 12/24/24 Assessment & Plan (05/28/2023 [...] rechallenge with statin until pt cleared by lumber stacker. -Cont Gemfibrozil 600 mg BID. Assessment & Plan (11/05/2022 9:11 AM EDT): -Reports allergic reaction to Pravastatin with throat swelling. Will not rechallenge with statin until pt cleared by lumber stacker. -Cont Gemfibrozil 600 mg BID. -Fasting lipid [...] given the presence of arthralgias Refer to [facility] clinic for injection No improvement with OT Backache 01/09/2012 05/18/2023 Encounters Date Type Department Care Team Description 04/05/2025 Refill [facility] MED & PEDS [address] [place] [address] Karo Lockett FNP Type 2 diabetes mellitus treated with insulin ([facility]) 03/03/2025 Refill [facility] MED & PEDS [address] [place] [address] Orion Dong MD Type 2 diabetes mellitus without complication, with long-term current use of insulin ([facility]); Essential hypertension; Vitamin D insufficiency 02/14/2025 Telephone [facility] MED & PEDS [address] [place] [address] Karo Lockett FNP Prior Authorization 02/04/2025 Refill [facility] MED & PEDS [address] [place] [address] Karo Lockett FNP Type 2 diabetes mellitus without complication, without long-term current use of insulin ([facility]) 01/20/2025 8:00 AM EDT Office Visit [facility] ADULT DENTAL [address] [place] [address] Abhi Bills DMD Denture irritation (Primary Dx) 01/18/2025 Travel 01/17/2025 Results Follow-Up [facility] MED & PEDS [address] [place] [address] Karo Lockett FNP XR Wrist 3+ Views Bilateral 01/14/2025 Refill [facility] ADULT DENTAL [address] [place] [address] João Riddle DMD from Last 3 Months [...] Description 04/21/2025 11:15 AM EDT Office Visit [facility] OPTOMETRY [address] [place] [address] TarkaMilana, OD [address] [place] [address] 04/29/2025 10:00 AM EDT Office Visit [facility] CHC MED & PEDS [address] [place] [address] Karo Lockett, GLORY [address] [place] [address] Health Maintenance Due Date Last Done Comments [...] complication, with long-term current use of insulin ([facility]) PROPHYLAXIS - ADULT Routine 12/17/2024 1 [...] 11:4 8 AM EDT us Karo Lockett [facility] POINT OF CARE TEST ENTER/EDIT ORDERABLES Final Result * Hepatitis C Viral RNA, Quantitative, Real-Time PCR (05/05/2024 10:40 AM EDT) Pathologist [facility] Hepatitis C Viral Load <15 NOT DETECTED NOT DETECTED IU/mL [facility] HCV Log PCR <1.18 NOT DETECTED NOT DETECTED Log IU/mL [facility] Comment:For additional infor foreign, please refer tohttp://education.Relationship Science/faq/NZP82l5(This link is being provided for informational/educational purposes only.)THIS TEST WAS PERFORMED AT:[employer] [place] [phone] LEONARD MD Blood 05/05/2024 10:4 0 AM EDT 05/05/2024 11:43 AM EDT Karo Lockett [facility] LAB BLOOD ORDERABLES Final Res ult [facility] [address] [place] [address] [phone] * (ABNORMAL) Albumin, Random Urine W/Creatinine (05/05/2024 10:40 AM EDT) Pathologist [facility] Creatinine, Urine 48.35 mg/dL [facility] Microalbumin Urine 16.0 mg/L H [facility] Microalbum Creatinine Ratio Ur 33.0(H) <30 ug/mg cr [facility] Comment:Albumin/Creatinine R atio Reference Ranges: Normal: < 30 ug/mg creatinine Microalbuminuria: 30 - 300 ug/mg creatinineClinical Albuminuria: > 300 ug/mg creatinine Urine 05/05/2024 10:4 0 AM EDT 05/05/2024 1:10 PM EDT Karo Lockett [facility] URINE ORDERABLES Final Res ult Performing Organization Address [facility] Co de Phone Number [facility] [address] [place] [address] [phone] * HIV-1/2 Antigen and Antibodies, Fourth Generation, with Reflexes (05/05/2024 10:40 AM EDT) HIV AB/AG Nonreactive Nonreactive [facility] Comment:HIV-1 p24 Ag and/or HIV-1/HIV-2 Ab not detected.A test result that is nonreactive does not exclude thepossibility of exposure to or infection with HIV-1 and/orHIV-2. Nonreactive results in this assay for individualswith prior exposure to HIV-1 and/or HIV-2 may be due toantigen and antibody levels that are below the limit ofdetection of this assay.The [employer] HIV Ag/Ab Combo assay result andsupplemental assay results should be interpreted inconjunction with the patient's clinical presentation,history and other laboratory results. If the results areinconsistent with clinical evidence, additional testing issuggested to confirm the result. Blood Venous blood specimen / Unknown 05/05/2024 10:40 AM EDT 05/05/2024 11:43 AM EDT Karo Lockett [facility] BLOOD ORDERABLES Final Res ult Performing Organization Address [facility]/ZIP Co de Phone Number [facility] [address] [place] [address] [phone] * (ABNORMAL) Lipid Panel, Standard (05/05/2024 10:40 AM EDT) Triglycerides 128 <150 mg/dL [facility] Comment:Desirable Triglyceri de: less than 150 mg/dLBorderline High Triglyceride 150-199 mg/dLHigh Triglyceride: 200-499 mg/dLVery High Triglyceride: greater than or equal to 5OO mg/dL Cholesterol 182 <200 mg/dL [facility] Comment:Desirable Cholestero l: less than 200 mg/dLBorderline High Cholesterol: 200-239 mg/dLHigh Cholesterol: greater than 239 mg/dL LDL Cholesterol Calculated 125(H) <100 mg/dL [facility] Comment:Desirable LDL: less than 100 mg/dLNear Optimal/Above Optimal LDL: 110- 129 mg/dLBorderline High LDL: 130-159 mg/dLHigh LDL: 160-189 mg/dLVery High LDL: greater than or equal to 190 mg/dL HDL Cholesterol 32(L) >40 mg/dL [facility] Comment:Desirable HDL: great er than 40 mg/dL Note: This HDL assay may give artificially low results in patients with liver disease. Blood Venous blood specimen / Unknown 05/05/2024 10:40 AM EDT 05/05/2024 11:43 AM EDT Karo Lockett DAY CAMP UNIT LEADER LAB BLOOD ORDERABLES Final Res ult [facility] [address] [place] [address] [phone] * Hm Colonoscopy (02/13/2024 10:16 PM EDT) Historical Provider HEALTH MAINTENANCE Final Result from Last 3 Months or Most Recently Relevant to Health Maintenance [facility] [place] AD[place] Care Teams Division Human Resources Manager Relationship Specialty Start Date End Date Karo Lockett FNP [address] [place] [address] PCP - General Family Medicine 03/17/22
--- OUTSIDE RECORDS SUMMARY | 2025-04-16 08:32 | XMS_ITS | Encounter Summary ---
Author Organization [employer] Address [address] [facility] 7t [place] [address] Care Team Providers Care Paint Striping Machine Operator Name Role Phone Karo Lockett CHAIN PULLER Primary Care Provider [phone] Encounter Details Date Type Department Care Team ([facility] st Contact Info) Description 04/19/2024 Orders Only [facility] CHC MED & PEDS [address] [place], [place] [phone] Provider, MD Keysha Social History Tobacco Use [...] 11:15 AM EDT Office Visit [facility] OPTOMETRY [address] [place], [place] [phone] Tarka, Milana, OD [address] [place] [address] 04/29/2025 10:00 AM EDT Office Visit [facility] CHC MED & PEDS [address] [place], [place] [phone] Karo Lockett FNP [address] [place], [place] [phone] documented as of this encounter Procedures Procedure [...] documented as of this encounter Care Teams Paint Striping Machine Operator Relationship Specialty Start Date End Date Karo Lockett FNP [address] [place] [address] PCP - General Family Medicine 03/17/22 documented as of this encounter
--- OUTSIDE RECORDS SUMMARY | 2025-04-16 08:33 | XMS_ITS | Patient Health Record ---
Author Organization [facility] Address [address] [place] [address] Care Team Providers Care Supervisor Functional Testing Name Role Phone DAGOBERTO WOODSON MD Primary Care Provider Stewart Aguila [phone] Reason For Referral No Information Plan Of Treatment No Information Insurance Providers Payer Name Payer Address Payer Phone Subscriber Number Group Number Insured Name Patient Relationship to Insured Coverage Start Date Coverage End Date MEDICAID OF [facility] [address] [place] [id number] [id number] SOLEDAD BLACKWELL Self - patient is the insured
--- OUTSIDE RECORDS SUMMARY | 2025-04-16 08:33 | XMS_ITS | Encounter Summary ---
Author Organization [employer] Address [address] [facility] 7t [place] [address] Care Team Providers Care Business Lawyer Name Role Phone Karo Lockett Primary Care Provider [phone] Reason for Visit * Reason Onset Date Comments Referral 03/07/2023 Encounter Details Date Type Department Care Team ([facility] st Contact Info) Description 03/07/2023 Telephone [facility] MEDICINE [address] [place] [address] Karo Lockett FNP [address] [place] [address] Referral Social History Tobacco Use Types Packs/Day [...] GI was referral was sent to [facility] October 2022. Referrals team - please [...] Description 04/21/2025 11:15 AM EDT Office Visit [facility] OPTOMETRY [address] [place] [address] TarkaMilana, OD [address] [place] [address] 04/29/2025 10:00 AM EDT Office Visit [facility] CHC MED & PEDS [address] [place] [address] Karo Lockett FNP [address] [place] [address] documented as of this encounter Visit Diagnoses Diagnosis Bilateral carpal tunnel syndrome- Primary Carpal tunnel syndrome documented in this encounter Additional Health Concerns Assessment Noted Time PHQ-9 Depression Total Score: 0 02/20/20 23 3:36 PM EDT documented as of this encounter Care Teams Business Lawyer Relationship Specialty Start Date End Date Karo Lockett FNP [address] [place] [address] PCP - General Family Medicine 03/17/22 documented as of this encounter
--- OUTSIDE RECORDS SUMMARY | 2025-04-16 08:33 | XMS_ITS | Encounter Summary ---
Author Organization [employer] Address [address] [place] [address] 7t [place] [address] Care Team Providers Care Snow Removal/Plowing Name Role Phone Karo Lockett Primary Care Provider [phone] Encounter Details Date Type Department Care Team (Late st Contact Info) Description 09/30/2022 Orders Only [facility] MED & PEDS [address] [place] [address] Kiki Bryant LPN Social History Tobacco Use [...] Description 04/21/2025 11:15 AM EDT Office Visit [facility] OPTOMETRY [address] [place] [address] TarMilana garner, OD [address] [place] [address] 04/29/2025 10:00 AM EDT Office Visit [facility] CHC MED & PEDS [address] [place] [address] Karo Lockett FNP [address] [place] [address] documented as of this encounter Visit Diagnoses Not on filedocumented in this encounter Care Teams Snow Removal/Plowing Relationship Specialty Start Date End Date Karo Lockett FNP [address] [place] [address] PCP - General Family Medicine 03/17/22 documented as of this encounter
--- OUTSIDE RECORDS SUMMARY | 2025-04-16 08:33 | XMS_ITS | Encounter Summary ---
Author Organization [employer] Address 75 [facility] 7t [place] [address] Care Team Providers Care Etl Informatica Developer Name Role Phone Karo Lockett HOIST OPERATOR Primary Care Provider [phone] Reason for Visit * Reason Comments Med Refill Encounter Details Date Type Department Care Team (Late st Contact Info) Description 01/14/2025 Refill [facility] ADULT DENTAL [address] [place], [place] [phone] João Riddle, RITA [address] [place], [place] [phone] Social History Tobacco Use Types Packs/Day Years [...] Description 04/21/2025 11:15 AM EDT Office Visit [facility] OPTOMETRY [address] [place] [address] TarkaMilana, OD [address] [place] [address] 04/29/2025 10:00 AM EDT Office Visit [facility] CHC MED & PEDS [address] [place] [address] Karo Lockett FNP [address] [place] [address] documented as of this encounter Visit Diagnoses Not on filedocumented in this encounter Additional Health Concerns Assessment Noted Time PHQ-9 Depression Total Score: 14 025 11:13 AM EDT documented as of this encounter Care Teams Etl Informatica Developer Relationship Specialty Start Date End Date Karo Lockett FNP [address] [place] [address] PCP - General Family Medicine 03/17/22 documented as of this encounter
--- OUTSIDE RECORDS SUMMARY | 2025-04-16 08:33 | XMS_ITS | Encounter Summary ---
Author Organization [employer] Address 75 [facility] 7t [place] [address] Care Team Providers Care Computer Compositor Name Role Phone Karo Lockett Primary Care Provider Encounter Details Date Type Department Care Team (Late st Contact Info) Description 10/14/2022 Orders Only [facility] MEDICINE [address] [place] [address] Fabienne Doss LPN Social History Tobacco Use [...] Office Visit [facility] OPTOMETRY [address] [place] [address] Milana King, OD [address] [place] [address] 04/29/2025 10:00 AM EDT Office Visit [facility] CHC MED & PEDS [address] [place] [address] Karo Lockett FNP [address] [place] [address] documented as of this encounter Visit Diagnoses Not on filedocumented in this encounter Care Teams Computer Compositor Relationship Specialty Start Date End Date Karo Lockett FNP [address] [place] [address] PCP - General Family Medicine 03/17/22 documented as of this encounter
--- OUTSIDE RECORDS SUMMARY | 2025-04-16 08:33 | XMS_ITS | Encounter Summary ---
Author Organization [employer] Address [address] [facility] 7t [place] [address] Care Team Providers Care Deportation Examiner Name Role Phone Karo Lockett Primary Care Provider Reason for Visit * Reason Onset Date Comments Returning Call 08/18/2023 Encounter Details Date Type Department Care Team ([facility] st Contact Info) Description 08/18/2023 Telephone [facility] MEDICINE [address] [place] [address] Karo Lockett FNP [address] [place] [address] Returning Call Social History Tobacco Use Types [...] Wednesdays, and Walk-In Urgent Care Located in [facility]. Patient provided with after-hours line for [facility], , which offer night time triage service and option to transfer to personnel administrator provider if needed. Please contact pt at [phone]. documented in this encounter Plan of Treatment Upcoming Encounters Date Type Department Care Team (Late st Contact Info) Description 04/21/2025 11:15 AM EDT Office Visit [facility] OPTOMETRY [address] [place] [address] Milana King, OD [address] [place] [address] 04/29/2025 10:00 AM EDT Office Visit [facility] CHC MED & PEDS [address] [place], [place] [phone] Karo Lockett FNP [address] [place], [place] [phone] documented as of this encounter Visit Diagnoses Not on filedocumented in this encounter Additional Health Concerns Assessment Noted Time PHQ-9 Depression Total Score: 0 02/20/20 23 3:36 PM EDT documented as of this encounter Care Teams Deportation Examiner Relationship Specialty Start Date End Date Karo Lockett FNP [address] [place] [address] PCP - General Family Medicine 03/17/22 documented as of this encounter
== END 2025-04-15 08:28 | disposition home or self-care (01) ==
LOC: HO.HOSX 08:27
PROVIDERS: Visit Provider Physician Assistant
DX: M75.101 Unspecified rotator cuff tear or rupture of right shoulder, not specified as traumatic (principal); M75.102 Unspecified rotator cuff tear or rupture of left shoulder, not specified as traumatic; M19.011 Primary osteoarthritis, right shoulder; M19.012 Primary osteoarthritis, left shoulder
CPT/HCPCS: 20610; 73030; 99212; J0665; J1100; J2003

== ENCOUNTER 2025-04-15 08:56 | Outpatient (AMB) | payer MEDICAID, SELFPAY ==
--- NOTE | 2025-04-15 08:57 | MHC.OFFVIS ---
Vital Signs 04/15/25 09:29 Height 5 ft 4 in Weight 194 lb BMI 33.3 Intake Visit Reasons: OV-Bilateral Shoulder Pain Intake Note: Gilbert is a 54 year old right hand dominant male who presents today for a follow up of his bilateral shoulder pain, last injection 01/28/25. Patient reports injections had helped, stating he is sleeping better. He would discuss repeating injections today. Employee Wellness/Fitness Coordinator Required: Yes Employee Wellness/Fitness Coordinator Services: Employee Wellness/Fitness Coordinator Present Employee Wellness/Fitness Coordinator Name: Jose ID#[id number] Allergies bupropion Allergy (Mild, Verified 04/15/25 09:29) Angioedema pravastatin Allergy (Mild, Verified 04/15/25 09:29) Unknown tramadol Allergy (Mild, Verified 04/15/25 09:29) Unknown aspirin Allergy (Unknown, Uncoded 04/15/25 09:29) Angioedema HPI HPI OV-Bilateral Shoulder Pain: Details: Mr. Neftali Seth is a 54-year-old male who presents to the office today for chronic bilateral shoulder pain. Last cortisone injections for bilateral shoulders was on 01/28/2025. Patient is looking to repeat injections while in the office today. [facility] Medical History Family history of colon cancer Diverticulosis Erectile dysfunction CTS (carpal tunnel syndrome) Depressive disorder HTN (hypertension) GERD (gastroesophageal reflux disease) Acute insomnia Obesity Surgical History History of esophagogastroduodenoscopy (EGD) Hx of colonoscopy History of surgery H/O hand surgery H/O eye surgery Family History Brother Prostate cancer Father Prostate cancer Brother Cancer Social History Household Members Other:: Alcohol intake: former Patient Tobacco Use Status: Never used Tobacco Current occupational status: unemployed Current occupation: right hand dominant Review of Systems Const All systems reviewed & are unremarkable except as noted in HPI and below Physical Exam Vital Signs: BMI result Body Mass Index 33.3 Const General: cooperative, healthy appearing and no acute distress Resp Effort & Inspection: normal respiratory effort and able to speak in complete sentences Extrem Other: Left and right shoulder full range of motion in all planes. Pain with cross-body reach bilaterally. 4-5 strength with empty can bilaterally. Negative drop-arm bilaterally. NVI bilaterally. Office Procedures AMB Joint Injection/Aspiration Joint Injection/Aspiration Primary Site: right shoulder Secondary Site: left shoulder Prep: site was prepped using aseptic technique, ethochloride spray was applied and injection warnings given Injected: with 3 mL of, 1% plain lidocaine, 0.25% bupivacaine, in the subcromial space and decadron Approach Used: anterolateral Procedure: The patient tolerated the procedure well, but had some pain with the injection and there was some relief with the local anesthesia Coding - Bilateral Large Joint Procedure code (CPT) selection complete Assessment & Plan Assessment & Plan (1) Painful arc syndrome of right shoulder: Code(s): M75.101 - Unspecified rotator cuff tear or rupture of right shoulder, not specified as traumatic Category: Medical (2) Painful arc syndrome of left shoulder: Code(s): M75.102 - Unspecified rotator cuff tear or rupture of left shoulder, not specified as traumatic Category: Medical (3) Arthritis of right glenohumeral joint: Code(s): M19.011 - Primary osteoarthritis, right shoulder Category: Medical (4) Arthritis of right acromioclavicular joint: Code(s): M19.011 - Primary osteoarthritis, right shoulder Category: Medical Plan The patient was cortisone injections in bilateral shoulders. The patient was explained the risks, benefits, and alternatives to receiving this injection. After receiving consent for the injection, the patient had the procedure done while in the office today. The patient tolerated the procedure well with no complications. Follow-up will be PRN, or sooner if needed Orders: Orders XR shoulder RT min 2V Today M25.519 - Pain in unspecified shoulder Coding Level of Care Code Est Pt Level 3 (66723) Diagnoses Painful arc syndrome of right shoulder M75.101 Painful arc syndrome of left shoulder M75.102 Arthritis of right glenohumeral joint M19.011 Arthritis of right acromioclavicular joint M19.011 CPT Codes Coding - - Bilateral Large Joint: 48846 - Bilateral Large Joint ([id number])
[2025-04-15 09:29] VITALS: BMI 33.3
--- OUTSIDE RECORDS SUMMARY | 2025-04-15 09:34 | XMS_ITS | Clinical Summary ---
Author Organization [id number] Address [address] [facility] 7t [place] [address] Care Team Providers Care Home Demonstration Agent Name Role Phone Karo Lockett ENVELOPE MAKER Primary Care Provider [phone] Allergies Active Allergy Reactions Criticality Noted Date [...] Type 2 diabetes mellitus treated with insulin ([facility]) USE TO TEST BLOOD SUGAR THREE TIMES DAILY 100 each 11 024 Active empagliflozin (Jardiance) 25 MGIndications:Ty pe 2 diabetes mellitus without complication, with long-term current use of insulin ([facility]) Take 1 tablet (25 mg) by mouth Once per day. 90 tablet 3 024 2024 Active insulin glargine (Lantus) 100 UNIT/ML injectionIndicat ions:Type 2 diabetes mellitus without complication, without long-term current use of insulin ([facility]) Inject 25 Units under the skin [...] complication, without long-term current use of insulin ([facility]) TAKE 1 TABLET BY MOUTH IN THE MORNING AND EVENING BEFORE BREAKFAST AND BEFORE SUPPER 180 tablet Active Trulicity 1.5 MG/0.5ML solution auto-injectorInd ications:Type 2 diabetes mellitus without complication, with long-term current use of insulin ([facility]) INJECT ONE PEN (=1.5MG) SUBCUTANEOUSLY ONCE A [...] EDT): Received cortisone injection on 10/29/2024 at [facility] Ortho Hearing impaired person, bilateral 05/06/2024 Assessment & Plan (12/24/2024 11:20 AM EDT): -Reports hx of trauma/injury to right ear in childhood -[facility] Audiology eval in May 2024. Rx bilat hearing aids. Plan for re-eval in 1 year. -Content with current hearing amplification Assessment & Plan (05/06/2024 6:23 PM EDT): -Reports hx of trauma/injury to right ear in childhood -Referral to Audiology placed 04/30/24 Lateral epicondylitis of both elbows 05/28/2023 Assessment & Plan (11/20/2023 8:30 AM EDT): -Following with [facility] Ortho, completed OT without much noted improvement -Encouraged cont symptomatic management Assessment & Plan (05/28/2023 11:36 AM EST): See above Primary osteoarthritis of right shoulder 023 Overview (12/24/2024): Followed by [facility] Ortho Cortisone injection January 2024, 07/13/2024 and 10/14/2024 Assessment & Plan (11/20/2023 8:25 AM EDT): -Followed by [facility] Ortho (last consult October 2023) -Reporting limited improved from cortisone injection, reviewed plan to call office mid November 2023 to discuss next tx steps Assessment & Plan (05/28/2023 11:37 AM EST): See above Spondylosis without myelopat hy or radiculopathy, lumbar region 05/18/2023 Overview (05/18/2023): Previously followed by [facility], received injections Chronic left sided low back pain suspected 2/2 lumbar DDD and facet arthropathy Referral to re-establish with PS&[facility] Apr 2023 Other male erectile dysfunction 11/05/2022 Overview (12/24/2024): -Following with [facility] Urology - Dr. Kimball -Discussed importance of [...] 10/30/2022 Overview (12/24/2024): Colonoscopy: January 2024 - [facility] GI. Repeat due 5 years PSA: normal October 2022, following with [facility] Urology Eye exam: [facility] Eye Care Dental: [facility] Dental Last PE: 12/24/24 Assessment & Plan [...] reaction Microalbumin: Apr Eye exam: Referral to [facility] Eye Care placed 12/24/24 Foot exam: WNL 12/24/24 Dental: established PNA: declined Tdap/Td: UTD ACEi/ARB: no - pt with allergic rxn to ACEi Statin: no - pt with allergic rxn, waiting to be cleared by engineering professionals ASA: no Lipids: Lab Results Component Value [...] Plan (12/24/2024 11:20 AM EDT): Following with [facility] GI Continues with pantoprazole Obesity 02/10/2012 Carpal tunnel syndrome of right wrist 02/10/2012 Assessment & Plan (12/24/2024 11:48 AM EDT): EMG completed Jun 2023 at [facility]: IMPRESSION: Mild to moderate right median neuropathy across carpal tunnel. Referral to [facility] Ortho placed 12/24/24 Assessment & Plan (05/28/2023 [...] rechallenge with statin until pt cleared by engineering professionals. -Cont Gemfibrozil 600 mg BID. Assessment & Plan (11/05/2022 9:11 AM EDT): -Reports allergic reaction to Pravastatin with throat swelling. Will not rechallenge with statin until pt cleared by engineering professionals. -Cont Gemfibrozil 600 mg BID. -Fasting lipid [...] given the presence of arthralgias Refer to [facility] clinic for injection No improvement with OT Backache 01/09/2012 05/18/2023 Encounters Date Type Department Care Team Description 04/05/2025 Refill [facility] MED & PEDS [address] [place] [address] Karo Lockett FNP Type 2 diabetes mellitus treated with insulin ([facility]) 03/03/2025 Refill [facility] MED & PEDS [address] [place] [address] Orion Dong MD Type 2 diabetes mellitus without complication, with long-term current use of insulin ([facility]); Essential hypertension; Vitamin D insufficiency 02/14/2025 Telephone [facility] MED & PEDS [address] [place] [address] Karo Lockett FNP Prior Authorization 02/04/2025 Refill [facility] MED & PEDS [address] [place] [address] Karo Lockett FNP Type 2 diabetes mellitus without complication, without long-term current use of insulin ([facility]) 01/20/2025 8:00 AM EDT Office Visit [facility] ADULT DENTAL [address] [place] [address] Abhi Bills DMD Denture irritation (Primary Dx) 01/18/2025 Travel 01/17/2025 Results Follow-Up [facility] MED & PEDS [address] [place] [address] Karo Lockett FNP XR Wrist 3+ Views Bilateral 01/14/2025 Refill [facility] ADULT DENTAL [address] [place] [address] João Riddle DMD from Last 3 Months Immunizations Immunization Administration [...] Description 04/21/2025 11:15 AM EDT Office Visit [facility] OPTOMETRY [address] [place] [address] TarkaMilana, OD [address] [place] [address] 04/29/2025 10:00 AM EDT Office Visit [facility] MED & PEDS [address] [place] [address] Karo Lockett, GLORY [address] [place] [address] Health Maintenance Due Date Last Done Comments [...] Routine 01/20/2025 8:00 AM EDT Denture irritation POCT GLYCATED HEMOGLOBIN, TOTAL Routine 12/24/2024 11:48 AM EDT Type 2 diabetes mellitus without complication, with long-term current use of insulin ([facility]) PROPHYLAXIS - ADULT Routine 12/17/2024 1 0:00 [...] Relevant to Health Maintenance Results * (ABNORMAL) POCT HGB A1C (12/24/2024 11:48 AM EDT) Hemoglobin A1C 7.0(A) 4.0 - 6.0 % QC Media Lot # [id number] Lot# Expiration Date Blood 12/24/2024 11:4 8 AM EDT us Karo Lockett [facility] POINT OF CARE TEST ENTER/EDIT ORDERABLES Final Result * Hepatitis C Viral RNA, Quantitative, Real-Time PCR (05/05/2024 10:40 AM EDT) Pathologist [facility] Hepatitis C Viral Load <15 NOT DETECTED NOT DETECTED IU/mL [facility] HCV Log PCR <1.18 NOT DETECTED NOT DETECTED Log IU/mL [facility] Comment:For additional infor foreign, please refer tohttp://education.[place]icino/faq/JTW08f7(This link is being provided for informational/educational purposes only.)THIS TEST WAS PERFORMED AT:[facility] [place] [id number] LEONARD MD Blood 05/05/2024 10:4 0 AM EDT 05/05/2024 11:43 AM EDT Karo Lockett [facility] LAB BLOOD ORDERABLES Final Res ult [facility] [address] [place] [address] [phone] * (ABNORMAL) Albumin, Random Urine W/Creatinine (05/05/2024 10:40 AM EDT) Pathologist [facility] Creatinine, Urine 48.35 mg/dL [facility] Microalbumin Urine 16.0 mg/L H [facility] Microalbum Creatinine Ratio Ur 33.0(H) <30 ug/mg cr [facility] Comment:Albumin/Creatinine R atio Reference Ranges: Normal: < 30 ug/mg creatinine Microalbuminuria: 30 - 300 ug/mg creatinineClinical Albuminuria: > 300 ug/mg creatinine Urine 05/05/2024 10:4 0 AM EDT 05/05/2024 1:10 PM EDT Karo Lockett [facility] URINE ORDERABLES Final Res ult Performing Organization Address [facility] Co de Phone Number [facility] [address] [place] [address] [phone] * HIV-1/2 Antigen and Antibodies, Fourth Generation, with Reflexes (05/05/2024 10:40 AM EDT) HIV AB/AG Nonreactive Nonreactive [facility] Comment:HIV-1 p24 Ag and/or HIV-1/HIV-2 Ab not detected.A test result that is nonreactive does not exclude thepossibility of exposure to or infection with HIV-1 and/orHIV-2. Nonreactive results in this assay for individualswith prior exposure to HIV-1 and/or HIV-2 may be due toantigen and antibody levels that are below the limit ofdetection of this assay.The [employer] HIV Ag/Ab Combo assay result andsupplemental assay results should be interpreted inconjunction with the patient's clinical presentation,history and other laboratory results. If the results areinconsistent with clinical evidence, additional testing issuggested to confirm the result. Blood Venous blood specimen / Unknown 05/05/2024 10:40 AM EDT 05/05/2024 11:43 AM EDT Karo Lockett [facility] BLOOD ORDERABLES Final Res ult Performing Organization Address [facility]/ZIP Co de Phone Number [facility] [address] [place] [address] [phone] * (ABNORMAL) Lipid Panel, Standard (05/05/2024 10:40 AM EDT) Triglycerides 128 <150 mg/dL [facility] Comment:Desirable Triglyceri de: less than 150 mg/dLBorderline High Triglyceride 150-199 mg/dLHigh Triglyceride: 200-499 mg/dLVery High Triglyceride: greater than or equal to 5OO mg/dL Cholesterol 182 <200 mg/dL [facility] Comment:Desirable Cholestero l: less than 200 mg/dLBorderline High Cholesterol: 200-239 mg/dLHigh Cholesterol: greater than 239 mg/dL LDL Cholesterol Calculated 125(H) <100 mg/dL [facility] Comment:Desirable LDL: less than 100 mg/dLNear Optimal/Above Optimal LDL: 110- 129 mg/dLBorderline High LDL: 130-159 mg/dLHigh LDL: 160-189 mg/dLVery High LDL: greater than or equal to 190 mg/dL HDL Cholesterol 32(L) >40 mg/dL [facility] Comment:Desirable HDL: great er than 40 mg/dL Note: This HDL assay may give artificially low results in patients with liver disease. Blood Venous blood specimen / Unknown 05/05/2024 10:40 AM EDT 05/05/2024 11:43 AM EDT Karo Lockett [employer] LAB BLOOD ORDERABLES Final Res ult [facility] [address] [place] [address] [phone] * Hm Colonoscopy (02/13/2024 10:16 PM EDT) Historical Provider HEALTH MAINTENANCE Final Result from Last 3 Months or Most Recently Relevant to Health Maintenance [facility] AD[place] Care Teams Home Demonstration Agent Relationship Specialty Start Date End Date Karo Lockett FNP [address] [place] [id number] PCP - General Family Medicine 03/17/22
--- OUTSIDE RECORDS SUMMARY | 2025-04-15 09:35 | XMS_ITS | Encounter Summary ---
Author Organization [employer] Address [address] [facility] [address]t [place] [address] Care Team Providers Care Virtual Recruiter Name Role Phone Karo Lockett BORE MILL OPERATOR Primary Care Provider [phone] Encounter Details Date Type Department Care Team ([facility] st Contact Info) Description 04/19/2024 Orders Only [facility] CH[facility] MED & PEDS [address] [place], [place] [phone] Provider, MD Keysha Social History Tobacco Use [...] Description 04/21/2025 11:15 AM EDT Office Visit [facility] OPTOMETRY [address], [place] [phone] Tarka, Milana, OD [address] [place] [address] 04/29/2025 10:00 AM EDT Office Visit [facility] CHC MED & PEDS [address] [place], [place] [phone] Karo Lockett FNP [address] [place], [place] [phone] documented as of this encounter Procedures Procedure [...] documented as of this encounter Care Teams Virtual Recruiter Relationship Specialty Start Date End Date Karo Lockett FNP [address] [place] [address] PCP - General Family Medicine 03/17/22 documented as of this encounter
--- OUTSIDE RECORDS SUMMARY | 2025-04-15 09:35 | XMS_ITS | Encounter Summary ---
Author Organization [employer] Address [address] [facility] 7t [place] [address] Care Team Providers Care Hvac Journeyman Name Role Phone Karo Lockett MAINS AND SERVICE SUPERVISOR Primary Care Provider [phone] Reason for Visit * Reason Comments Med Refill Encounter Details Date Type Department Care Team (Late st Contact Info) Description 01/14/2025 Refill [facility] ADULT DENTAL [address] [place], [place] [phone] João Riddle, RITA [address] [place], [place] [phone] Social History Tobacco Use Types Packs/Day Years [...] Description 04/21/2025 11:15 AM EDT Office Visit [facility] OPTOMETRY [address] [place] [address] TarkaMilana, OD [address] [place] [address] 04/29/2025 10:00 AM EDT Office Visit [facility] CHC MED & PEDS [address] [place] [address] Karo Lockett FNP [address] [place] [address] documented as of this encounter Visit Diagnoses Not on filedocumented in this encounter Additional Health Concerns Assessment Noted Time PHQ-9 Depression Total Score: 14 025 11:13 AM EDT documented as of this encounter Care Teams Hvac Journeyman Relationship Specialty Start Date End Date Karo Lockett FNP [address] [place] [address] PCP - General Family Medicine 03/17/22 documented as of this encounter
--- OUTSIDE RECORDS SUMMARY | 2025-04-15 09:35 | XMS_ITS | Encounter Summary ---
Author Organization [employer] Address [address] [facility] 7t [place] [address] Care Team Providers Care See Supervisor Name Role Phone Karo Lockett Primary Care Provider [phone] Reason for Visit * Reason Onset Date Comments Returning Call 08/18/2023 Encounter Details Date Type Department Care Team ([facility] st Contact Info) Description 08/18/2023 Telephone [facility] MEDICINE [address] [place] [address] Karo Lockett FNP [address] [place] [address] Returning Call Social History Tobacco Use Types [...] Wednesdays, and Walk-In Urgent Care Located in [facility] of [facility]. Patient provided with after-hours line for [facility], , which offer night time triage service and option to transfer to director of home economics provider if needed. Please contact pt at [phone]. documented in this encounter Plan of Treatment Upcoming Encounters Date Type Department Care Team (Late st Contact Info) Description 04/21/2025 11:15 AM EDT Office Visit [facility] OPTOMETRY [address] [place] [address] Milana King, OD [address] [place] [address] 04/29/2025 10:00 AM EDT Office Visit [facility] CHC MED & PEDS [address] [place], [place] [phone] Karo Lockett FNP [address] [place], [place] [phone] documented as of this encounter Visit Diagnoses Not on filedocumented in this encounter Additional Health Concerns Assessment Noted Time PHQ-9 Depression Total Score: 0 02/20/20 23 3:36 PM EDT documented as of this encounter Care Teams See Supervisor Relationship Specialty Start Date End Date Karo Lockett FNP [address] [place] [address] PCP - General Family Medicine 03/17/22 documented as of this encounter
--- OUTSIDE RECORDS SUMMARY | 2025-04-15 09:35 | XMS_ITS | Patient Health Record ---
Author Organization [facility] Address [address] [place] [address] Care Team Providers Care Multilith Operator Name Role Phone DAGOBERTO WOODSON MD Primary Care Provider Stewart Aguila [phone] Reason For Referral No Information Plan Of Treatment No Information Insurance Providers Payer Name Payer Address Payer Phone Subscriber Number Group Number Insured Name Patient Relationship to Insured Coverage Start Date Coverage End Date MEDICAID OF [facility] [address] [place] [phone] [id number] SOLEDAD BLACKWELL Self - patient is the insured
--- OUTSIDE RECORDS SUMMARY | 2025-04-15 09:35 | XMS_ITS | Encounter Summary ---
Author Organization [employer] Address [address] [facility] 7t [place] [address] Care Team Providers Care Top Frame Maker Name Role Phone Karo Lockett Primary Care Provider [phone] Encounter Details Date Type Department Care Team (Late st Contact Info) Description 10/14/2022 Orders Only [facility] MEDICINE [address] [place] [address] Fabienne Doss LPN Social History Tobacco Use [...] Description 04/21/2025 11:15 AM EDT Office Visit [facility] OPTOMETRY [address] [place] [address] Milana King, OD [address] [place] [address] 04/29/2025 10:00 AM EDT Office Visit [facility] CHC MED & PEDS [address] [place] [address] Karo Lockett FNP [address] [place] [address] documented as of this encounter Visit Diagnoses Not on filedocumented in this encounter Care Teams Top Frame Maker Relationship Specialty Start Date End Date Karo Lockett FNP [address] [place] [address] PCP - General Family Medicine 03/17/22 documented as of this encounter
--- OUTSIDE RECORDS SUMMARY | 2025-04-15 09:35 | XMS_ITS | Encounter Summary ---
Author Organization [employer] Address [address] [place] [address] 7t [place] [address] Care Team Providers Care Hot Blast Worker Name Role Phone Karo Lockett Primary Care Provider [phone] Encounter Details Date Type Department Care Team (Late st Contact Info) Description 09/30/2022 Orders Only [facility] MED & PEDS [address] [place] [address] Kiki Bryant LPN Social History Tobacco Use [...] Description 04/21/2025 11:15 AM EDT Office Visit [facility] OPTOMETRY [address] [place] [address] TarMilana garner, OD [address] [place] [address] 04/29/2025 10:00 AM EDT Office Visit [facility] MED & PEDS [address] [place] [address] Karo Lockett FNP 505 [place] [address] documented as of this encounter Visit Diagnoses Not on filedocumented in this encounter Care Teams Hot Blast Worker Relationship Specialty Start Date End Date Karo Lockett FNP [address] [place] [address] PCP - General Family Medicine 03/17/22 documented as of this encounter
--- OUTSIDE RECORDS SUMMARY | 2025-04-15 09:35 | XMS_ITS | Encounter Summary ---
Author Organization [employer] Address [address] [facility] 7t [place] [address] Care Team Providers Care Sound Effects Person Name Role Phone Karo Lockett Primary Care Provider [phone] Reason for Visit * Reason Onset Date Comments Referral 03/07/2023 Encounter Details Date Type Department Care Team ([facility] st Contact Info) Description 03/07/2023 Telephone [facility] MEDICINE [address] [place] [address] Karo Lockett FNP 505 [place] [address] Referral Social History Tobacco Use Types Packs/Day [...] Appears GI was referral was sent to [facility] in October 2022. Referrals team - please [...] 11:15 AM EDT Office Visit [facility] OPTOMETRY [address] [place] [address] TarkaMilana, OD [address] [place] [address] 04/29/2025 10:00 AM EDT Office Visit [facility] CHC MED & PEDS [address] [place] [address] Karo Lockett FNP [address] [place] [address] documented as of this encounter Visit Diagnoses Diagnosis Bilateral carpal tunnel syndrome- Primary Carpal tunnel syndrome documented in this encounter Additional Health Concerns Assessment Noted Time PHQ-9 Depression Total Score: 0 02/20/20 23 3:36 PM EDT documented as of this encounter Care Teams Sound Effects Person Relationship Specialty Start Date End Date Karo Lockett FNP [address] [place] [address] PCP - General Family Medicine 03/17/22 documented as of this encounter
== END 2025-04-15 10:36 | disposition home or self-care (01) ==
LOC: HO.HOS 08:57
PROVIDERS: PCP Registered Nurse; Visit Provider Physician Assistant
DX: M75.101 Unspecified rotator cuff tear or rupture of right shoulder, not specified as traumatic (principal); M75.102 Unspecified rotator cuff tear or rupture of left shoulder, not specified as traumatic; M19.011 Primary osteoarthritis, right shoulder
CPT/HCPCS: 20610; 99213

== ENCOUNTER → 2025-04-15 09:02 | Outpatient (BNV) | payer MEDICAID, SELFPAY | PROVIDERS: Visit Provider Radiology Diagnostic Radiology | DX: M19.011 Primary osteoarthritis, right shoulder (principal) | CPT/HCPCS: 73030 ==

== ENCOUNTER 2025-05-09 09:25 | Day surgery (SDC) | payer MEDICAID, SELFPAY ==
[2025-05-09 05:40] VITALS: BMI 33.3
[2025-05-09 10:21] VITALS: BP 120/83; PULSE 82; RESP 16; TEMP 36.2; O2SAT 94
--- NOTE | 2025-05-09 11:29 | MHC.SHP ---
Pre-Procedural Eval Section A - 24 Hr Update-Section A only Date of Service: 05/09/25 The patient is an INPATIENT: No Changes since office visit: No Cold of Flu in the past 2 weeks, No New Medical Problems, No Changes in Medication and No Patient answered all questions The patient has been examined within 24 hours of the surgical procedure. The History & Physical has been completed within 30 days and I have reviewed it.: Yes Section B - Complete if H&P > 30 days Chief Complaint: Carpal tunnel syndrome, right upper limb Allergies: Allergies Allergy/AdvReac Type Severity Reaction Status Date / Time bupropion Allergy Mild Angioedema Verified 04/15/25 09:29 pravastatin Allergy Mild Unknown Verified 04/15/25 09:29 tramadol Allergy Mild Unknown Verified 04/15/25 09:29 aspirin Allergy Unknown Angioedema Uncoded 04/15/25 09:29 Plan Diagnosis/Plan: Unchanged I have reviewed the history and physical and performed a pertinent physical examination on my patient. No changes have occurred unless specified. Time Spent With Patient Time: Total time managing care of this patient today ____ minutes.
--- NOTE | 2025-05-09 11:29 | W.PM.OPN ---
Operative Note Operative Note Date of Service: 05/09/25 Narrative: Preop diagnosis: 1. Right Carpal tunnel syndrome Postop diagnosis: same Procedure: 1. Right Carpal tunnel release Surgeon: Mallika Laboy MD Family Support Coordinator: Bang RIBEIRO Anesthesia: local block using 1% lidocaine with epinephrine Findings: Thickened transverse carpal ligament. EBL: Less than 5 mL Specimens: None Complications: None Disposition: Brought to recovery room in stable condition Plan: Follow-up for 10-14 days for wound check and suture removal Indications: The patient is 54 years old, with right carpal tunnel syndrome that has been unresponsive to nonoperative management. The risks and benefits of operative treatment including but not limited to risk of damage to blood vessels, nerves, tendons, infection, persistent pain, persistent symptoms, or possible need for additional surgery were discussed with the patient and the patient wishes to proceed with surgery. Procedure: Once consent was obtained a local block was performed using a combination of 1% lidocaine with epinephrine. The patient was then brought back to the operating suite and placed on the operative table in supine position. The right upper extremity was prepped and draped in a standard surgical fashion. Once assured that we had a good block, a 2.0 cm longitudinal incision was made centered over the carpal tunnel. The incision was made through the skin to the subcutaneous tissues using a #15 blade. Dissection was made down to the level of the transverse carpal ligament with care being taken to protect the palmar cutaneous nerve. Once the transverse carpal ligament was clearly visualized, a longitudinal incision was made in the transverse carpal ligament 1st using a #15 blade, then using tenotomy scissors under direct visualization. Care was taken to look for and protect the motor branch of the median nerve when seen in this area. Once satisfied with our carpal tunnel release the wound was copiously irrigated with normal saline and hemostasis was obtained with a brief period of local pressure. The skin edges were reapproximated with some 5.0 nylon suture material and a sterile dressing was applied. The patient appears to have tolerated the procedure well and with no complications. All digits were well vascularized at the conclusion of the case.
[2025-05-09 12:01] VITALS: BP 116/79; PULSE 77; RESP 16; TEMP 36.1; O2SAT 95
== END 2025-05-09 12:13 | disposition home or self-care (01) ==
PROVIDERS: PCP Registered Nurse; Visit Provider Orthopaedic Surgery
PROC: (CPT 64721; principal; 2025-05-09 11:10)
DX: G56.01 Carpal tunnel syndrome, right upper limb (principal); M79.641 Pain in right hand; E11.9 Type 2 diabetes mellitus without complications; I10 Essential (primary) hypertension; E66.9 Obesity, unspecified; Z68.33 Body mass index [BMI] 33.0-33.9, adult; K21.9 Gastro-esophageal reflux disease without esophagitis; Z88.6 Allergy status to analgesic agent; Z88.8 Allergy status to other drugs, medicaments and biological substances; Z98.890 Other specified postprocedural states
CPT/HCPCS: 64721; J0165; J2003

== ENCOUNTER → 2025-05-09 09:25 | Outpatient (BNV) | payer MEDICAID, SELFPAY | PROVIDERS: PCP Registered Nurse; Visit Provider Orthopaedic Surgery | DX: G56.01 Carpal tunnel syndrome, right upper limb (principal) | CPT/HCPCS: 64721 ==

== ENCOUNTER 2025-05-20 12:47 | Outpatient (AMB) | payer MEDICAID, SELFPAY ==
[2025-05-20 12:48] VITALS: BMI 33.3
--- NOTE | 2025-05-20 12:48 | A.OFFVIS_ITS ---
Vital Signs 05/20/25 12:48 Height 5 ft 4 in Weight 194 lb BMI 33.3 Intake Visit Reasons: PO-Rt CTR 05/09/25 Intake Note: Gilbert is a 54 year old right hand dominant male who presents today for a Post- Operative Visit status post Right Carpal Tunnel Release performed by Dr. Laboy on 05/09/25. Patient reports concern for a water blister under his dressing, on the ulnar aspect of the wrist. Patient did not remove his dressing 5 days post-op. He denies any numbness, tingling, finger locking. Pain medications have been discontinued. Sutures removed and steri strips applied. Senior Salesforce Developer Required: Yes Senior Salesforce Developer Language: Asic Verification Engineer Services: Senior Salesforce Developer Present Senior Salesforce Developer Name: MORAIMA Smallwood/MEL Allergies bupropion Allergy (Mild, Verified 05/20/25 12:57) Angioedema pravastatin Allergy (Mild, Verified 05/20/25 12:57) Unknown tramadol Allergy (Mild, Verified 05/20/25 12:57) Unknown aspirin Allergy (Unknown, Uncoded 05/20/25 12:57) Angioedema HPI HPI PO-Rt CTR 05/09/25: Details: Gilbert is a 54 year old right hand dominant male who presents today for a Post- Operative Visit status post Right Carpal Tunnel Release performed by Dr. Laboy on 05/09/25. Patient reports concern for a water blister under his dressing, on the ulnar aspect of the wrist. Patient did not remove his dressing 5 days post-op. He denies any numbness, tingling, finger locking. Pain medications have been discontinued. Sutures removed and steri strips applied. [facility] Medical History Family history of colon cancer Diverticulosis Erectile dysfunction CTS (carpal tunnel syndrome) Depressive disorder HTN (hypertension) GERD (gastroesophageal reflux disease) Acute insomnia Obesity Surgical History History of esophagogastroduodenoscopy (EGD) Hx of colonoscopy History of surgery H/O hand surgery H/O eye surgery Family History Brother Prostate cancer Father Prostate cancer Brother Cancer Social History Household Members Other:: Alcohol intake: former Patient Tobacco Use Status: Never used Tobacco Current occupational status: unemployed Current occupation: right hand dominant Review of Systems Const All systems reviewed & are unremarkable except as noted in HPI and below Physical Exam Vital Signs: BMI result Body Mass Index 33.3 Extrem Other: Patient is alert, oriented, and in no acute distress. Neuro: Normal sensation of the tips of all digits of the right hand at this time Vascular: Cap refill brisk Pain: No tenderness to palpation around incision site on volar right wrist No pain with range of motion of the right hand ROM: Patient is able to make a closed fist and extend all digits of the right hand fully and without difficulty Skin: Well approximated and well healing incision site noted on the volar right wrist No lacerations or abrasions. General: No ecchymosis, erythema, or evidence of infection. Psych: Appears grossly normal Affect normal Attitude cooperative Assessment & Plan Assessment & Plan (1) Carpal tunnel syndrome of right wrist: Code(s): G56.01 - Carpal tunnel syndrome, right upper limb Category: Medical Plan 1. Status post right carpal tunnel release DOS 05/09/25 With good symptom resolution postoperatively Patient appears to be recovering well from his procedure Patient is educated about the typical recovery course No under water x1 week, 2 lb weight limit x2 weeks No acute follow-up indicated, as patient appears to be recovering quite well from surgery Patient understands this and is amenable to this plan Coding Level of Care Code Global (20184) Diagnoses Carpal tunnel syndrome of right wrist G56.01
--- OUTSIDE RECORDS SUMMARY | 2025-05-20 13:54 | XMS_ITS | Patient Health Record ---
Author Organization [facility] Address [address] [place] [address] Care Team Providers Care Stock Drier Tender Name Role Phone DAGOBERTO WOODSON MD Primary Care Provider Stewart Aguila [phone] Reason For Referral No Information Plan Of Treatment No Information Insurance Providers Payer Name Payer Address Payer Phone Subscriber Number Group Number Insured Name Patient Relationship to Insured Coverage Start Date Coverage End Date MEDICAID OF [facility] [address] [place] [phone] [id number] SOLEDAD BLACKWELL Self - patient is the insured
== END 2025-05-20 13:17 | disposition home or self-care (01) ==
LOC: HO.HOS 12:47
PROVIDERS: PCP Registered Nurse
DX: G56.01 Carpal tunnel syndrome, right upper limb (principal)
CPT/HCPCS: 99024

== ENCOUNTER → 2025-05-20 12:47 | Outpatient (BNVA) | payer MEDICAID, SELFPAY | PROVIDERS: PCP Registered Nurse | DX: Z48.811 Encounter for surgical aftercare following surgery on the nervous system (principal); Z98.890 Other specified postprocedural states | CPT/HCPCS: 99212 ==

== ENCOUNTER 2025-06-14 08:58 | Outpatient (AMB) | payer MEDICAID, SELFPAY ==
--- NOTE | 2025-06-14 09:04 | A.OFFVIS_ITS ---
Vital Signs 06/14/25 09:13 Height 5 ft 4 in Weight 194 lb BMI 33.3 BP 124/88 Blood Pressure Location Rt brachial Position Sitting Pulse 88 Pulse Source Pulse Oximeter Pulse Oximetry (%) 96 Oxygen Delivery Method Room Air Intake Visit Reasons: 6 month follow up Intake Note: Est pt for mgmt of GERD + CIC. CC; Pt denies any new GI concerns or sx at this time. Confirms that he has been doing much better and denies any abd pain, diarrhea, or GERD sx. Sight Effects Specialist Required: Yes Sight Effects Specialist Services: Sight Effects Specialist Present Sight Effects Specialist Name: [id number] Count includes the [facility] Information Interpreted: clinical only Accompanied by: Self / Same As Patient Allergies bupropion Allergy (Mild, Verified 06/14/25 09:10) Angioedema pravastatin Allergy (Mild, Verified 06/14/25 09:10) Unknown tramadol Allergy (Mild, Verified 06/14/25 09:10) Unknown aspirin Allergy (Unknown, Uncoded 06/14/25 09:10) Angioedema HPI HPI 6 month follow up: Details: LAST VISIT: GERD (gastroesophageal reflux disease) Diverticulosis Family history of colon cancer Internal hemorrhoids without complication Plan Continue pantoprazole daily. Patient will continue avoiding dietary triggers and late night snacking. Staying upright for minimum 3 hours after meals discussed with patient. Patient was encouraged to take fiber in his diet. Increase fluid intake and activity to promote better bowel motility. Simethicone as needed with meals. Smaller meals and more often. Patient will follow-up in 6 months, sooner on as needed basis. He is agreeable to this plan and verbalizes understanding of instructions. He was given the opportunity to ask questions and all questions answered Refilled simethicone (Gas Relief (simethicone)) 125 mg PO TID-QID 30 days PRN 240 tabs 2RF abdominal distention pantoprazole 40 mg PO QAM 90 tabs 3RF TODAY'S VISIT Patient is here today for follow-up. Patient reports that he has been feeling well for the most part. Reports that he has been taking pantoprazole in the morning and symptoms of acid reflux are suppressed. Patient reports taking simethicone occasionally when bloated. Patient denies dyspepsia, dysphagia or odynophagia. Patient denies melena, hematochezia, unintentional weight loss or ribbon like stools. Patient denies any GI concerning symptoms PFSH Medical History Family history of colon cancer Diverticulosis Erectile dysfunction CTS (carpal tunnel syndrome) Depressive disorder HTN (hypertension) GERD (gastroesophageal reflux disease) Acute insomnia Obesity Surgical History (Updated 06/14/25 @ 09:10 by RONEY Ugalde) History of carpal tunnel release History of esophagogastroduodenoscopy (EGD) Hx of colonoscopy History of surgery H/O hand surgery H/O eye surgery Family History Brother Prostate cancer Father Prostate cancer Brother Cancer Social History Household Members Other:: Alcohol intake: former Patient Tobacco Use Status: Never used Tobacco Current occupational status: unemployed Current occupation: right hand dominant Review of Systems Const Denies weight gain and Denies weight loss ENT Reports no additional complaints, Denies dysphagia and Denies odynophagia Card Reports no additional complaints Resp Reports no additional complaints GI Denies abdominal pain, Denies belching, Denies melena, Reports bloating, Denies change in bowel habits, Denies dysphagia, Denies excessive flatus, Denies dyspepsia, Denies heartburn, Denies diarrhea, Denies loose stools, Denies nausea, Denies odynophagia and Denies vomiting Reports no additional complaints Musc Reports no additional complaints Neuro Reports no additional complaints Psych Reports no additional complaints Endo Reports no additional complaints Physical Exam Vital Signs: Last Vital Signs Pulse 88 06/14/25 09:13 BP 124/88 06/14/25 09:13 Pulse Ox 96 06/14/25 09:13 Oxygen Delivery Method Room Air 06/14/25 09:13 BMI result Body Mass Index 33.3 Const General: healthy appearing and no acute distress Nutritional Appearance: obese Orientation/consciousness: patient oriented x3 Resp Effort & Inspection: normal respiratory effort, able to speak in complete sentences, no tracheal deviation and symmetric chest movement Auscultation: clear to auscultation bilaterally Cardio Rate: regular rate GI Inspection: Yes normal to inspection, No distended and Yes obesity Palpation (GI): Soft to palpation, not firm, nontender and No hepatosplenomegaly present Auscultation: normal bowel sounds General: Yes no CVA tenderness Back/Spine/Pelvis Back: no CVA tenderness Skin General skin exam: elasticity normal, turgor normal and dry skin Neuro General: patient oriented x3 Psych Appearance: grossly normal Mental Status: mental status grossly normal Assessment & Plan Assessment & Plan (1) GERD (gastroesophageal reflux disease): Code(s): K21.9 - Gastro-esophageal reflux disease without esophagitis Category: Medical Qualifiers: Esophagitis presence: without esophagitis Qualified Code(s): K21.9 - Gastro-esophageal reflux disease without esophagitis (2) Bloating: Code(s): R14.0 - Abdominal distension (gaseous) Category: Medical (3) Diverticulosis: Code(s): K57.90 - Diverticulosis of intestine, part unspecified, without perforation or abscess without bleeding Category: Medical Plan Patient will continue taking pantoprazole daily. Avoid dietary triggers and late night snacking. Staying upright for minimum 3 hours after meals discussed with patient. Continue simethicone as needed. Follow-up in 6 months. Patient will call us if he will have any GI concerning symptoms. Patient is agreeable to this plan and verbalizes understanding of instructions. He was given the opportunity to ask questions and all questions answered. Thank you for allowing me to participate in his care Medications: Refilled simethicone (Gas Relief (simethicone)) 125 mg PO TID-QID PRN 240 tabs 2RF abdominal distention 30 days pantoprazole 40 mg PO QAM 90 tabs 3RF Coding Level of Care Code Est Pt Level 3 (24455) Diagnoses Gastroesophageal reflux disease without esophagitis K21.9 Esophagitis presence: without esophagitis Bloating R14.0 Diverticulosis K57.90 Time Spent (min) 25 Comment 15 minutes spent with patient and additional 10 minutes spent reviewing her records
[2025-06-14 09:13] VITALS: BP 124/88; PULSE 88; O2SAT 96; BMI 33.3
--- OUTSIDE RECORDS SUMMARY | 2025-06-14 09:37 | XMS_ITS | Encounter Summary ---
Author Organization [employer] Address [address] [facility] [address] [place] [address] Care Team Providers Care Technical Proposal Writer Name Role Phone Karo Lockett Primary Care Provider [phone] Reason for Visit * Reason Onset Date Comments Returning Call 08/18/2023 Encounter Details Date Type Department Care Team ([facility] st Contact Info) Description 08/18/2023 Telephone [facility] MEDICINE [address] [place] [address] Karo Lockett FNP [address] [place] [address] Returning Call Social History Tobacco Use Types [...] Wednesdays, and Walk-In Urgent Care Located in [facility] of [facility]. Patient provided with after-hours line for [facility], , which offer night time triage service and option to transfer to pension fund manager provider if needed. Please contact pt at [phone]. documented in this encounter Plan of Treatment Upcoming Encounters Date Type Department Care Team (Late st Contact Info) Description 06/20/2025 11:30 AM EST Office Visit [facility] MED & PEDS [address] [place] [address] Karo Lockett FNP [address] [place] [address] documented as of this encounter Visit Diagnoses Not on filedocumented in this encounter Additional Health Concerns Assessment Noted Time PHQ-9 Depression Total Score: 0 02/20/20 23 3:36 PM EDT documented as of this encounter Care Teams Technical Proposal Writer Relationship Specialty Start Date End Date Karo Lockett FNP [address] [place] [address] PCP - General Family Medicine 03/17/22 documented as of this encounter
--- OUTSIDE RECORDS SUMMARY | 2025-06-14 09:37 | XMS_ITS | Encounter Summary ---
Author Organization [employer] Address [address] [facility] 7t [place] [address] Care Team Providers Care Commercial Leasing Agent Name Role Phone Karo Lockett FIBERGLASS INSULATION INSTALLER Primary Care Provider [phone] Reason for Visit * Reason Comments Med Refill Encounter Details Date Type Department Care Team (Late st Contact Info) Description 01/14/2025 Refill [facility] [address] [place], [place] [phone] João Riddle, RITA [address] [place], [place] [phone] Social History Tobacco Use Types Packs/Day Years [...] Description 06/20/2025 11:30 AM EST Office Visit [facility] MED & PED[facility] [address] [place] [address] Karo Lockett FNP [address] [place] [address] documented as of this encounter Visit Diagnoses Not on filedocumented in this encounter Additional Health Concerns Assessment Noted Time PHQ-9 Depression Total Score: 14 025 11:13 AM EDT documented as of this encounter Care Teams Commercial Leasing Agent Relationship Specialty Start Date End Date Karo Lockett FNP [address] [place] [address] PCP - General Family Medicine 03/17/22 documented as of this encounter
--- OUTSIDE RECORDS SUMMARY | 2025-06-14 09:37 | XMS_ITS | Encounter Summary ---
Author Organization [employer] Address [address] [facility] [address] [place] [address] Care Team Providers Care Combination Welder Apprentice Name Role Phone Karo Lockett DREDGE OPERATOR SUPERVISOR Primary Care Provider [phone] Reason for Visit * Reason Comments Med Refill Encounter Details Date Type Department Care Team (Late st Contact Info) Description 05/27/2025 Refill C [facility] [address] [place], [place] [phone] Abhi Bills, RITA [address] [place], [place] [phone] Social History Tobacco Use Types Packs/Day Years [...] Telephone Encounter - Abhi Bills DMD - 05/30/2025 7:55 AM EST Approving, but needs appt for additional refills. documented in this encounter Plan of Treatment Upcoming Encounters Date Type Department Care Team (Late st Contact Info) Description 06/20/2025 11:30 AM EST Office Visit [facility] MED & PEDS [address] [place] [address] Karo Lockett FNP [address] [place] [address] documented as of this encounter Visit Diagnoses Not on filedocumented in this encounter Additional Health Concerns Assessment Noted Time PHQ-9 Depression Total Score: 14 025 11:13 AM EDT documented as of this encounter Care Teams Combination Welder Apprentice Relationship Specialty Start Date End Date Karo Lockett FNP [address] [place] [address] PCP - General Family Medicine 03/17/22 documented as of this encounter
--- OUTSIDE RECORDS SUMMARY | 2025-06-14 09:37 | XMS_ITS | Encounter Summary ---
Author Organization [employer] Address [address] [place] [address] 7[address] [place] [address] Care Team Providers Care Administrative Services Assistant Name Role Phone Karo Lockett Primary Care Provider [phone] Encounter Details Date Type Department Care Team (Late st Contact Info) Description 10/14/2022 Orders Only [facility] MEDICINE [address] [place] [address] Fabienne Doss LPN Social History Tobacco Use [...] Description 06/20/2025 11:30 AM EST Office Visit [facility] MED & PEDS [address] [place] [address] Karo Lockett FNP [address] [place] [address] documented as of this encounter Visit Diagnoses Not on filedocumented in this encounter Care Teams Administrative Services Assistant Relationship Specialty Start Date End Date Karo Lockett FNP [address] [place] [address] PCP - General Family Medicine 03/17/22 documented as of this encounter
--- OUTSIDE RECORDS SUMMARY | 2025-06-14 09:37 | XMS_ITS | Encounter Summary ---
Author Organization [employer] Address [address] [facility] 7t [place] [address] Care Team Providers Care Advertising Clerk Name Role Phone Karo Lockett Primary Care Provider [phone] Reason for Visit * Reason Onset Date Comments Referral 03/07/2023 Encounter Details Date Type Department Care Team ([facility] st Contact Info) Description 03/07/2023 Telephone [facility] MEDICINE [address] [place] [address] Karo Lockett FNP [address] [place] [address] Referral Social History Tobacco Use Types Packs/Day [...] Appears GI was referral was sent to [facility] in October 2022. Referrals [...] Description 06/20/2025 11:30 AM EST Office Visit [facility] MED & PEDS [address] [place] [address] Karo Lockett FNP [address] [place] [address] documented as of this encounter Visit Diagnoses Diagnosis Bilateral carpal tunnel syndrome- Primary Carpal tunnel syndrome documented in this encounter Additional Health Concerns Assessment Noted Time PHQ-9 Depression Total Score: 0 02/20/20 23 3:36 PM EDT documented as of this encounter Care Teams Advertising Clerk Relationship Specialty Start Date End Date Karo Lockett FNP [address] [place] [address] PCP - General Family Medicine 03/17/22 documented as of this encounter
--- OUTSIDE RECORDS SUMMARY | 2025-06-14 09:37 | XMS_ITS | Encounter Summary ---
Author Organization [employer] [facility] Address [address] [place] [address] [address] [place] [address] Care Team Providers Care Computer Installation Engineer Name Role Phone Karo Lockett Primary Care Provider [phone] Encounter Details Date Type Department Care Team (Late st Contact Info) Description 09/30/2022 Orders Only [facility] MED & PEDS [address] [place] [address] Kiki Bryant LPN Social History Tobacco Use [...] 06/20/2025 11:30 AM EST Office Visit [facility]ED[facility] [address] [place] [address] Karo Lockett FNP [address] [place] [address] documented as of this encounter Visit Diagnoses Not on filedocumented in this encounter Care Teams Computer Installation Engineer Relationship Specialty Start Date End Date Karo Lockett FNP [address] [place] [address] PCP - General Family Medicine 03/17/22 documented as of this encounter
--- OUTSIDE RECORDS SUMMARY | 2025-06-14 09:37 | XMS_ITS | Encounter Summary ---
Author Organization [employer] Address [address] [facility] [address] [place] [address] Care Team Providers Care Spindle Setter Name Role Phone Karo Lockett FINISHER SPECIAL STOCKS Primary Care Provider [phone] Encounter Details Date Type Department Care Team ([facility] st Contact Info) Description 04/19/2024 Orders Only [facility] MED & PEDS [address] [place], [place] [phone] Provider, MD Keysha Social History Tobacco Use [...] Description 06/20/2025 11:30 AM EST Office Visit [facility] MED & PEDS [address] [place] [address] Karo Lockett FNP [address] [place] [address] documented as of this encounter Procedures Procedure Name Priority Date/Time Associated Diagnosis Comments HM COLONOSCOPY Routine 02/13/2024 10:16 PM EDT SURGICAL PATHOLOGY Routine 02/13/2024 9:29 AM EDT documented in this encounter Results * Hm Colonoscopy (02/13/2024 10:16 PM EDT) us Historical Provider HEALTH MAINTENANCE Final Result * Surgical Pathology (02/13/2024 9:29 AM EDT) us Historical Provider LAB PATHOLOGY ORDERABLES Final Result documented in this encounter Visit Diagnoses Not on filedocumented in this encounter Additional Health Concerns Assessment Noted Time PHQ-9 Depression Total Score: 0 02/20/20 23 3:36 PM EDT documented as of this encounter Care Teams Spindle Setter Relationship Specialty Start Date End Date Karo Lockett FNP [address] [place] [address] PCP - General Family Medicine 03/17/22 documented as of this encounter
--- OUTSIDE RECORDS SUMMARY | 2025-06-14 09:37 | XMS_ITS | Clinical Summary ---
Author Organization [employer] Address [address] [place] [address] Care Team Providers Care Log Haul Operator Name Role Phone Karo Lockett MILK DELIVERY DRIVER Primary Care Provider [phone] Allergies Active Allergy Reactions Criticality Noted Date [...] MOUTH DAILY IN THE MORNING 023 Active lidocaine-priloca ine (Emla) 2.5-2.5 % creamIndications: Primary osteoarthritis of right shoulder Apply thin layer by topical route 3-4 times daily as needed to affected area. 60 g 2 024 Active amLODIPine (Norvasc) 5 MG tabletIndications :Essential hypertension Take 1 tablet (5 mg) by mouth in the morning. 90 tablet 3 025 Active ammonium lactate (Amlactin) 12 % cream Apply topically if needed for dry skin. 140 g 3 025 2025 Active pen needle 32G x 5 mm misc USE ONE DAILY 100 each 025 Active hydroCHLOROthiazi de (HYDRODiuril) 25 MG tabletIndications :Essential hypertension TAKE 1 TABLET BY MOUTH EVERY MORNING 90 tablet 1 06/09/20 25 11:32 AM EST 025 Active gemfibrozil (Lopid) 600 MG tablet TAKE 1 TABLET BY MOUTH TWICE DAILY IN THE MORNING AND IN THE EVENING 180 tablet 1 06/09/20 25 11:32 AM EST 025 Active cholecalciferol (Vitamin D-3) 25 MCG (1000 UT) tabletIndications :Vitamin D insufficiency TAKE 1 TABLET BY MOUTH EVERY DAY 90 tablet 3 06/09/20 25 11:32 AM EST 025 Active Alcohol Swabs (Alcohol Prep) 70 % padsIndications:T ype 2 diabetes mellitus treated with insulin ([facility]) USE TO TEST BLOOD SUGAR THREE TIMES DAILY 100 each 11 06/09/20 25 11:32 AM EST 025 Active glucose blood (FREESTYLE LITE) test stripIndications: Type 2 diabetes mellitus treated with insulin ([facility]) USE TO TEST BLOOD SUGAR THREE TIMES DAILY 100 each 06/09/20 25 11:32 AM EST 025 Active Dulaglutide (Trulicity) 3 MG/0.5ML solution auto-injectorIndi cations:Type 2 diabetes mellitus without complication, with long-term current use of insulin ([facility]) Inject 3 mg under the skin 1 (one) time per week. 2 mL 3 06/09/20 25 11:32 AM EST 025 Active insulin glargine (Lantus SoloStar) 100 UNIT/ML penIndications:Ty pe 2 diabetes mellitus without complication, with long-term current use of insulin ([facility]) INJECT 20 UNITS SUBCUTANEOUSLY AT BEDTIME 15 mL 2 025 Active empagliflozin (Jardiance) 25 MGIndications:Typ e 2 diabetes mellitus without complication, with long-term current use of insulin ([facility]) Take 1 tablet (25 mg) by mouth Once per day. 90 tablet 3 06/09/20 25 11:32 AM EST 025 2025 Active escitalopram (Lexapro) 10 MG tablet TAKE ONE TABLET EVERY MORNING 90 tablet 1 Active glipiZIDE (Glucotrol) 10 MG tabletIndications :Type 2 diabetes mellitus without complication, without long-term current use of insulin ([facility]CC) TAKE ONE TABLET IN THE MORNING AND EVENING BEFORE BREAKFAST AND SUPPER 180 tablet Active TRUEplus Lancets 33G miscIndications:T ype 2 diabetes mellitus treated with insulin ([facility]) USE TO TEST BLOOD SUGAR THREE TIMES DAILY 100 each 11 06/09/20 25 11:32 AM EST Active Acetaminophen Extra Strength 500 MG tablet TAKE ONE TABLET EVERY 6 HOURS NEEDED FOR PAIN 30 tablet Active Acetaminophen Extra Strength 500 MG tablet TAKE ONE TABLET EVERY 6 HOURS NEEDED FOR PAIN FOR UP TO 10 DAYS 30 tablet 025 2024 Discontinued Active Problems Problem Noted Date Diagnosed Date Peyronie's disease 05/01/2025 Assessment & Plan (05/01/2025 6:08 PM EDT): Following with [facility] - Dr. Kimball Painful arc syndrome of left shoulder 12/24/2024 Assessment & Plan (12/24/2024 11:44 AM EDT): Received cortisone injection on 10/29/2024 at [facility] Hearing impaired person, bilateral 05/06/2024 Assessment & Plan (12/24/2024 11:20 AM EDT): -Reports hx of trauma/injury to right ear in childhood -[facility] Audiology eval in May 2024. Rx bilat hearing aids. Plan for re-eval in 1 year. -Content with current hearing amplification Assessment & Plan (05/06/2024 6:23 PM EDT): -Reports hx of trauma/injury to right ear in childhood -Referral to Audiology placed 04/30/24 Lateral epicondylitis of both elbows 05/28/2023 Assessment & Plan (11/20/2023 8:30 AM EDT): -Following with [facility], completed OT without much noted improvement -Encouraged cont symptomatic management Assessment & Plan (05/28/2023 11:36 AM EST): See above Primary osteoarthritis of right shoulder 023 Overview (05/01/2025): Followed by [facility] Cortisone injection January 2024, 07/13/2024, 10/14/24, 01/28/25, 04/15/25 Assessment & Plan (11/20/2023 8:25 AM EDT): -Followed by [facility] (last consult October 2023) -Reporting limited improved from cortisone injection, reviewed plan to call office mid November 2023 to discuss next tx steps Assessment & Plan (05/28/2023 11:37 AM EST): See above Spondylosis without myelopat hy or radiculopathy, lumbar region 05/18/2023 Overview (05/18/2023): Previously followed by [facility], received injections Chronic left sided low back pain suspected 2/2 lumbar DDD and facet arthropathy Referral to re-establish with [facility] Apr 2023 Other male erectile dysfunction 11/05/2022 Overview (12/24/2024): -Following with [facility] U[facility] - Dr. Kimball -Discussed importance of BP and BG control, and negative impact they may have on ED when above goal. -Previous med trials: Viagra, tadalafil Assessment & Plan (05/01/2025 6:08 PM EDT): - 12/2024: consult w/ Dr. Kimball - trial of vacuum pump demonstrated Peyronie's disease. - Plan to proceed with penile prosthetic Assessment & Plan (12/24/2024 12:00 PM EDT): [...] 10/30/2022 Overview (12/24/2024): Colonoscopy: January 2024 - [facility] GI. Repeat due 5 years PSA: normal October 2022, following with [facility] Eye exam: [facility] Eye Care Dental: [facility] Dental Last PE: 12/24/24 Assessment & Plan (12/24/2024 12:00 PM EDT): Declines PCV20, may encourage at follow up Assessment & Plan (05/06/2024 6:24 PM EDT): Flu & COVID IZ administered today Assessment & Plan (11/05/2022 9:13 AM EDT): Declines IZ today, consider at follow up Type 2 diabetes mellitus 01/14/2022 Overview (05/01/2025): Lab Results Component Value Date HGBA1C 6.8 (A) 04/29/2025 HGBA1C 7.0 (A) 12/24/2024 HGBA1C 7.1 (H) 06/18/2024 HGBA1C 9.7 (H) 05/05/2024 HGBA1C 10.0 (A) 04/30/2024 HGBA1C 8.3 (H) 01/14/2022 HGBA1C 9.7 (H) 10/13/2020 Medications: Trulicity 3mg subcutaneous weekly Glipizide 10mg BID Jardiance 25mg daily Lantus 20 units at bedtime AVOID metformin as pt reports hx of allergic reaction Microalbumin: Apr Eye exam: Referral to [facility] Eye Care placed 12/24/24 Foot exam: WNL 12/24/24 Dental: established PNA: declined Tdap/Td: UTD ACEi/ARB: no - pt with allergic rxn to ACEi Statin: no - pt with allergic rxn, waiting to be cleared by real estate associate attorney ASA: no Lipids: Lab Results Component Value [...] post prandial goal: <180 Assessment & Plan (05/01/2025 6:19 PM EDT): A1c at goal. New goal: decrease insulin dose. - Increase Trulicity to 3mg subcutaneous weekly - Decrease lantus to 20 units nightly Assessment & Plan (12/24/2024 11:59 AM EDT): [...] Plan (02/20/2023 9:29 AM EDT): POC BG HH, 10 units lispro administered, BG remained HHH. [...] Plan (12/24/2024 11:20 AM EDT): Following with [facility] GI Continues with pantoprazole Obesity 02/10/2012 Bilateral carpal tunnel syndrome 02/10/2012 Overview (05/01/2025): NCS/EMG completed 03/16/25 that demonstrated moderate-severe median neuropathy bilat wrist. Also evidence for bilat ulnar neuropathy at the elbow. Following with [facility] Orth[facility] Assessment & Plan (05/01/2025 6:12 PM EDT): Plan for upcoming right carpal tunnel surgery release at [facility] Assessment & Plan (12/24/2024 11:48 AM EDT): EMG completed Jun 2023 at [facility]: IMPRESSION: Mild to moderate right median neuropathy across carpal tunnel. Referral to [facility] Ortho placed 12/24/24 Assessment & Plan (05/28/2023 [...] rechallenge with statin until pt cleared by real estate associate attorney. -Cont Gemfibrozil 600 mg BID. Assessment & Plan (11/05/2022 9:11 AM EDT): -Reports allergic reaction to Pravastatin with throat swelling. Will not rechallenge with statin until pt cleared by real estate associate attorney. -Cont Gemfibrozil 600 mg BID. -Fasting lipid [...] Refer to [facility] clinic for injection No improvement with OT Backache 01/09/2012 05/18/2023 Encounters Date Type Department Care Team Description 06/07/2025 Patient Outreach [facility] MEDICINE [address] [place], [place] [phone] Karo Lockett FNP Pre-visit Planning ([facility] screening completed on 12/16/24) 05/30/2025 Telephone [facility] PED[facility] [address], [place] [phone] Karo Lockett FNP Recall 05/27/2025 Refill [facility] ADULT DENTAL [address], [place] [phone] Abhi Bills DMD 05/05/2025 Refill [facility] [address], [place] [phone] Kya Altman MD Type 2 diabetes mellitus without complication, without long-term current use of insulin (HCC); Type 2 diabetes mellitus treated with insulin ([facility]) 05/04/2025 Refill [facility] & PEDS [address] [place] [address] Karo Lockett FNP 04/29/2025 10:00 AM EDT Office Visit [facility] [address] [place] [address] Karo Lockett FNP Type 2 diabetes mellitus without complication, with long-term current use of insulin ([facility]) (Primary Dx); Encounter for immunization; Skin tag; Other male erectile dysfunction; Peyronie's disease; Primary osteoarthritis of right shoulder; Bilateral carpal tunnel syndrome 04/29/2025 Travel 04/28/2025 Telephone [facility] [address] [place] [address] Karo Lockett FNP chart prep 04/22/2025 Refill [facility] [address] [place] [address] Orion Dong MD Type 2 diabetes mellitus without complication, without long-term current use of insulin ([facility]) 04/21/2025 11:15 AM EDT Office Visit [facility] OPTOMETRY [address] [place], [place] [phone] Milana King, OD Type 2 diabetes mellitus without ophthalmic manifestations ([facility]) (Primary Dx); Presbyopia; Combined forms of age-related cataract of both eyes 04/21/2025 Patient Outreach [facility] MEDICINE [address] [place], [place] [phone] Karo Lockett FNP Pre-visit Planning ([facility] screening completed on 12/16/24 ) 04/21/2025 Travel 04/05/2025 Refill [facility] [address] [place] [address] Karo Lockett FNP Type 2 diabetes mellitus treated with insulin ([facility]) from Last 3 Months Immunizations Immunization Administration Dates Next Due Hep B, adult 04/29/2025,02/29/2016 Influenza injectable quadriv alent IIV4 with preservative 06/17/2018 Influenza injectable quadriv alent preservative free 05/12/2023,05/06/2019,10/30/2015 Influenza, IIV3, injectable 06/23/2014 Influenza, Split (incl. lawson fied surface antigen) 03/30/2013,04/16/2012 Influenza, seasonal, injecta ble, preservative free 04/29/2025,04/30/2024 Pfizer Covid-19 Vaccine 12+ 04/30/2024 Pneumococcal Polysaccharide [...] Sign Reading Time Taken Comments Blood Pressure 123/88 04/29/2025 10:01 AM EDT Pulse 77 04/29/2025 10:01 AM EDT Temperature 36.8 C (98.2 F) 04/29/2025 10:01 AM EDT Respiratory Rate 20 04/29/2025 10:01 AM EDT Oxygen Saturation 98% 04/29/2025 10:01 AM EDT Inhaled Oxygen Concentration - - Weight 88.5 kg (195 lb) 04/29/2025 10:01 AM EDT Height 161.3 cm (5' 3.5 ) 04/29/2025 10:01 AM ED T Body Mass Index 34 04/29/2025 10:01 AM EDT Plan of Treatment Upcoming Encounters Date Type Department Care Team (Late st Contact Info) Description 06/20/2025 11:30 AM EST Office Visit [facility] [address] [place] [address] Karo Lockett, GLORY [address] [place] [address] Health Maintenance Due Date Last Done Comments CT Colonography 1969 FIT DNA/Cologuard 1969 FIT 1969 FOBT 1969 Sigmoidoscopy 1969 RSV Patients and Patients Aged 60 years or older (1 - Risk 50-74 years 1-dose series) 10/17/2019 Pneumococcal Vaccine: 50+ Years (2 of 2 - PCV) 05/06/2020 05/06/2019 Zoster Vaccines (2 of 2) 01/13/2023 11/18/2022 COVID-19 Vaccine (3 - season) 2025 04/30/2024, 02/07/2021 Dental X-Ray: Bitewings 04/07/2025 04/06/2024 Diabetes: Urine Protein Screening 05/05/2025 05/05/2024, 05/05/2024, 10/31/2022, Additional history exists Lipid Panel 05/05/2025 05/05/2024, 10/19, 01/14/2022, Additional history exists Dental Oral Exam 06/20/2025 12/17/2024, 04/06/2024 Dental Prophylaxis 06/20/2025 12/17/2024, 04/06/2024 Hepatitis B Vaccines (3 of 3 - 19+ 3-dose series) 06/24/2025 04/29/2025, 02/29/2016 Depression Monitoring 06/25/2025 12/24/2024, 025 Diabetes: Hemoglobin A1C 10/28/2025 025, 12/24/2024, 06/18/2024, Additional history exists SDOH Screening 12/16/2025 12/16/2024 Diabetes: Foot Exam 12/24/2025 12/24/2024, 12/24/2024, 12/24/2024, Additional history exists Disability Screening 12/24/2025 12/24/2024 Tobacco Screening 04/21/2026 04/21/2025 Alcohol/Substance Use Screening 04/29/2026 04/29/2025 Dental X-Ray: Full Mouth 04/07/2027 04/06/2024 Eye Exam 04/21/2027 04/21/2025, 08/2024, 04/21/2025, Additional history exists Colonoscopy 02/12/2029 02/13/2024 Colorectal Cancer Screening 02/12/2029 DTaP/Tdap/Td Vaccines (3 - Td or Tdap) 09/24/2030 09/24/2020, 04/16/2012 HIV Screening Completed 05/05/2024, 10/19, 10/13/2020 Hepatitis C Screening Completed 05/05/2024 , 10/31/2022, 10/13/2020 Influenza Vaccine Completed 04/29/2025, , 05/12/2023, Additional history exists HIB Vaccines Aged Out No longer eligi [...] on patient's age to complete this topic Goals Goal Patient Goal Type Associated Problems Recent Progress Patient-Stated? Author Help patients manage their type 2 diabetes Care Plan Help patients manage their type 2 diabetes No Stephon Goldman Weekly blood pressure task Care Plan Weekly blood pressure task No Stephon Goldman Help patients manage their type 2 diabetes Care Plan Help patients manage their type 2 diabetes No Stephon Goldman Patient has chronic kidney disease Care Plan Patient has chronic kidney disease No Stephon Goldman Weekly blood pressure task Care Plan Weekly blood pressure task No Stephon Goldman Patient has chronic kidney disease Care Plan Patient has chronic kidney disease No Stephon Goldman Procedures Procedure Name Priority Date/Time Associated Diagnosis Comments POCT GLUCOSE Routine 04/29/2025 11:09 AM EDT Type 2 diabetes mellitus without complication, with long-term current use of insulin (HCC) POCT GLYCATED HEMOGLOBIN, TOTAL Routine 04/29/2025 11:08 AM EDT Type 2 diabetes mellitus without complication, with long-term current use of insulin (HCC) PROPHYLAXIS - ADULT Routine 12/17/2024 1 0:00 [...] to Health Maintenance Results * (ABNORMAL) POCT Glucose (04/29/2025 11:09 AM EDT) Pathologist [facility] Glucose Blood, POC 206(A) 60 - 200 mg/dL QC Media Lot # [id number] Lot# Expiration Date Comment:random Blood Capillary blood specimen / Unknown 04/29/2025 11:09 AM EDT [facility] [employer] MILK DELIVERY DRIVER POINT OF CARE TEST ENTER/EDIT ORDERABLES Final Result * (ABNORMAL) POCT Hgb A1c (04/29/2025 11:08 AM EDT) Pathologist [facility] Hemoglobin A1C 6.8(A) 4.0 - 5.7 % QC Media Lot # [id number] Lot# Expiration Date Blood 04/29/2025 11:0 8 AM EDT us [place] [employer] [employer] MILK DELIVERY DRIVER POINT OF CARE TEST ENTER/EDIT ORDERABLES Final Result * Hepatitis C Viral RNA, Quantitative, Real-Time PCR (05/05/2024 10:40 AM EDT) Pathologist [facility] Hepatitis C Viral Load <15 NOT DETECTED NOT DETECTED IU/mL [facility] HCV Log PCR <1.18 NOT DETECTED NOT DETECTED Log IU/mL [facility] Comment:For additional infor mation, please refer tohttp://education.Etece/faq/RTZ97y7(This link is being provided for informational/educational purposes only.)THIS TEST WAS PERFORMED AT:[address] [place] [phone] LEONARD MD Blood 05/05/2024 10:4 0 AM EDT 05/05/2024 11:43 AM EDT Karo Lockett [facility] BLOOD ORDERABLES Final Res ult Performing Organization Address [facility] Co de Phone Number [facility] [address] [place] [phone] * (ABNORMAL) Albumin, Random Urine W/Creatinine (05/05/2024 10:40 AM EDT) Creatinine, Urine 48.35 mg/dL [facility] Microalbumin Urine 16.0 mg/L [facility] Microalbum Creatinine Ratio Ur 33.0(H) <30 ug/mg cr [facility] Comment:Albumin/Creatinine R atio Reference Ranges: Normal: < 30 ug/mg creatinine Microalbuminuria: 30 - 300 ug/mg creatinineClinical Albuminuria: > 300 ug/mg creatinine Urine 05/05/2024 10:4 0 AM EDT 05/05/2024 1:10 PM EDT Karo Lockett [facility] URINE ORDERABLES Final Res ult Performing Organization Address [facility] Co de Phone Number [facility] [address] [place] [phone] * HIV-1/2 Antigen and Antibodies, Fourth Generation, with Reflexes (05/05/2024 10:40 AM EDT) HIV AB/AG Nonreactive Nonreactive [facility] Comment:HIV-1 p24 Ag and/or HIV-1/HIV-2 Ab not detected.A test result that is nonreactive does not exclude thepossibility of exposure to or infection with HIV-1 and/orHIV-2. Nonreactive results in this assay for individualswith prior exposure to HIV-1 and/or HIV-2 may be due toantigen and antibody levels that are below the limit ofdetection of this assay.The [employer] Cock[employer] HIV Ag/Ab Combo assay result andsupplemental assay results should be interpreted inconjunction with the patient's clinical presentation,history and other laboratory results. If the results areinconsistent with clinical evidence, additional testing issuggested to confirm the result. Blood Venous blood specimen / Unknown 05/05/2024 10:40 AM EDT 05/05/2024 11:43 AM EDT Karo Lockett [facility] BLOOD ORDERABLES Final Res ult [facility] [address] [place] [phone] * (ABNORMAL) Lipid Panel, Standard (05/05/2024 10:40 AM EDT) Triglycerides 128 <150 mg/dL [facility] Comment:Desirable Triglyceri de: less than 150 mg/dLBorderline High Triglyceride 150-199 mg/dLHigh Triglyceride: 200-499 mg/dLVery High Triglyceride: greater than or equal to 5OO mg/dL Cholesterol 182 <200 mg/dL [facility] Comment:Desirable Cholestero l: less than 200 mg/dLBorderline High Cholesterol: 200-239 mg/dLHigh Cholesterol: greater than 239 mg/dL LDL Cholesterol Calculated 125(H) <100 mg/dL [facility] Comment:Desirable LDL: less than 100 mg/dLNear Optimal/Above Optimal LDL: 110- 129 mg/dLBorderline High LDL: 130-159 mg/dLHigh LDL: 160-189 mg/dLVery High LDL: greater than or equal to 190 mg/dL HDL Cholesterol 32(L) >40 mg/dL [facility] Comment:Desirable HDL: great er than 40 mg/dL Note: This HDL assay may give artificially low results in patients with liver disease. Blood Venous blood specimen / Unknown 05/05/2024 10:40 AM EDT 05/05/2024 11:43 AM EDT Karo Lockett MILK DELIVERY DRIVER LAB BLOOD ORDERABLES Final Res ult [facility] [address] [place] [phone] * Hm Colonoscopy (02/13/2024 10:16 PM EDT) us Historical Provider MD HEALTH MAINTENANCE Final Result from Last 3 Months or Most Recently Relevant to Health Maintenance Additional Health Concerns Active Problems Noted Date Diagnosed Date Help patients manage their type 2 diabetes 06/07 Weekly blood pressure task 06/07/2025 Help patients manage their type 2 diabetes 06/07 Patient has chronic kidney disease 06/07/2025 Weekly blood pressure task 06/07/2025 Patient has chronic kidney disease 06/07/2025 Insurance [facility] AD[facility] Care Teams Log Haul Operator Relationship Specialty Start Date End Date Karo Lockett FNP [address] [place] [phone] PCP - General Family Medicine 03/17/22
== END 2025-06-14 09:33 | disposition home or self-care (01) ==
LOC: HO.HGI 08:59
PROVIDERS: PCP Registered Nurse; Visit Provider Nurse Practitioner Family
DX: K21.9 Gastro-esophageal reflux disease without esophagitis (principal); R14.0 Abdominal distension (gaseous); K57.90 Diverticulosis of intestine, part unspecified, without perforation or abscess without bleeding
CPT/HCPCS: 99213

== ENCOUNTER → 2025-06-14 08:58 | Outpatient (BNVA) | payer MEDICAID, SELFPAY | PROVIDERS: PCP Registered Nurse; Visit Provider Nurse Practitioner Family | DX: K21.9 Gastro-esophageal reflux disease without esophagitis (principal); R14.0 Abdominal distension (gaseous); K57.90 Diverticulosis of intestine, part unspecified, without perforation or abscess without bleeding | CPT/HCPCS: 99212 ==